=== PATIENT | male | born 1935 | race Caucasian/White ===

== ENCOUNTER 2021-07-26 12:04 | Inpatient (IN) | payer MEDICARE ==
[2021-07-26] MEDS ORDERED: DEXAMETHASONE 10 MG/ML VIAL IVP STA (12:35)
--- NOTE | 2021-07-26 12:40 | ED Physician Documentation ---
PD HPI DYSPNEA - Stated complaint Stated Complaint: C+/WEAK - History obtained from History obtained from: Patient - Additional information Additional information: 86-year-old gentleman with history of A. fib, pacemaker in place was fully im munized against Covid with Pfizer vaccine many moons ago. He became symptomatic approximately 10 days ago with a whole family testing positive as well and he states he had a home test that was positive for Covid. He presents with weakness and shortness of breath and is noted to be profoundly hypoxemic. He is not running fevers he says. Review of Systems Ten Systems: 10 systems reviewed and negative Constitutional: reports: Myalgias, Fatigue. denies: Fever, Chills Cardiac: denies: Chest pain / pressure, Palpitations Respiratory: reports: Dyspnea, Cough PD PAST MEDICAL HISTORY - Past Medical History Cardiovascular: Hypertension, High cholesterol, Atrial fibrillation Musculoskeletal: Osteoarthritis, Rheumatoid arthritis - Past Surgical History General: Colonoscopy Cardiovascular: Pacemaker - Present Medications Home Medications: Ambulatory Orders Medication Instructions Recorded Confirmed Cholecalciferol (Vitamin D3) 4,000 unit PO DAILY 07/06/13 12/28/16 [Vitamin D3] Dabigatran [Pradaxa] 75 mg PO BID 07/06/13 12/28/16 Hydrochlorothiazide 25 mg PO QAM 07/06/13 12/28/16 Lovastatin [Mevacor] 80 mg PO DAILY 07/06/13 12/28/16 Metformin HCl 1,000 mg PO BID 07/06/13 12/28/16 Nifedipine [Nifedical Xl] 90 mg PO DAILY 07/06/13 12/28/16 Vit C/Vit E AC/Lut/Copper/Zinc 1 each PO BID 07/06/13 12/28/16 [Preservision Lutein Softgel] glipiZIDE [Glipizide] 2.5 mg PO DAILY 07/06/13 12/28/16 lisinopriL [Zestril] 10 mg PO DAILY 07/06/13 12/28/16 sulfaSALAzine [Azulfidine] 1,000 mg PO BID 07/06/13 12/28/16 Amoxicillin 500 mg PO TID 12/28/16 12/28/16 Doxycycline Hyclate 100 mg PO BID 12/28/16 12/28/16 - Allergies Allergies/Adverse Reactions: Allergies Allergy/AdvReac Type Severity Reaction Status Date / Time bee sting Allergy Intermediate Edema Uncoded 07/06/13 12:11 - Social History Does the pt smoke?: No Smoking Status: Former smoker - Family History Family history: reports: Non contributory PD ED PE NORMAL - Vitals Vital signs reviewed: Yes - General General: Alert and oriented X 3, Other (Despite his level of hypoxemia he appears remarkably comfortable.) - HEENT HEENT: PERRL, EOMI - Neck Neck: Supple, no meningeal sign, No bony TTP - Cardiac Cardiac: RRR, No murmur, Other (Paced on the monitor) - Respiratory Respiratory: No respiratory distress, Other (Crackles at both bases) - Abdomen Abdomen: Normal bowel sounds, Soft, Non tender - Back Back: No CVA TTP, No spinal TTP - Derm Derm: Normal color, Warm and dry - Extremities Extremities: No edema, No calf tenderness / cord - Neuro Neuro: Alert and oriented X 3, Normal speech Results - Vitals Vitals: Vital Signs - 24 hr 07/26/21 07/26/21 07/26/21 12:14 12:20 12:55 Temperature 36.6 C Heart Rate 89 72 60 Respiratory 30 H 26 H 26 H Rate Blood Pressure 223/98 H 196/95 H O2 Saturation 67 L 92 97 07/26/21 13:25 Temperature Heart Rate 60 Respiratory 26 H Rate Blood Pressure 200/92 H O2 Saturation 96 Oxygen O2 Source Non-rebreather mask Oxygen Flow Rate 15 - EKG (time done) 1257 Rate: Rate (enter#) (60) Rhythm: Atrial flutter, Atrial fibrillation, Paced - Labs Labs: Laboratory Tests 07/26/21 07/26/21 07/26/21 12:43 12:43 12:43 WBC 9.9 RBC 4.59 L Hgb 13.6 L Hct 43.1 MCV 93.9 MCH 29.6 MCHC 31.6 L RDW 14.6 Plt Count 252 MPV 10.4 Neut # (Auto) 8.6 H Lymph # (Auto) 0.9 L [place] # (Auto) 0.4 Eos # (Auto) 0.0 Baso # (Auto) 0.0 Absolute Nucleated RBC 0.00 Nucleated RBC % 0.0 Manual Slide Review Indicated RBC Morph Micro Appear 2+ ANISOCYTOSIS D-Dimer > 1050.0 H VBG pH VBG pCO2 VBG pO2 VBG HCO3 VBG Total CO2 VBG O2 Saturation VBG Base Excess Sodium 146 H Potassium 4.2 Chloride 108 Carbon Dioxide 24 Anion Gap 14.0 H BUN 40 H Creatinine 1.4 H Estimated GFR (MDRD) 48 L Glucose 186 H Lactic Acid Calcium 10.2 Phosphorus 3.1 Magnesium 2.3 Total Bilirubin 1.0 AST 42 ALT 24 Alkaline Phosphatase 79 B-Natriuretic Peptide Total Protein 8.3 H Albumin 3.4 Globulin 4.9 H Albumin/Globulin Ratio 0.7 L 07/26/21 07/26/21 07/26/21 12:43 12:43 12:43 WBC RBC Hgb Hct MCV MCH MCHC RDW Plt Count MPV Neut # (Auto) Lymph # (Auto) [place] # (Auto) Eos # (Auto) Baso # (Auto) Absolute Nucleated RBC Nucleated RBC % Manual Slide Review RBC Morph Micro Appear D-Dimer VBG pH 7.380 VBG pCO2 38.8 L VBG pO2 25.0 VBG HCO3 22.4 L VBG Total CO2 23.6 L VBG O2 Saturation 43.6 L VBG Base Excess -2.4 L Sodium Potassium Chloride Carbon Dioxide Anion Gap BUN Creatinine Estimated GFR (MDRD) Glucose Lactic Acid 2.0 Calcium Phosphorus Magnesium Total Bilirubin AST ALT Alkaline Phosphatase B-Natriuretic Peptide 569 H Total Protein Albumin Globulin Albumin/Globulin Ratio - Rads (name of study) 1v chest XR Radiology: EMP read contemporaneously (Diffuse interstitial and alveolar opacities which may be seen in the setting of COVID pneumonia Diffuse interstitial and alveolar opacities which may be seen in the setting of COVID pneumonia Diffuse interstitial and alveolar opacities which may be seen in the setting of COVID pneumonia given histo ) PD MEDICAL DECISION MAKING - ED course ED course: 86-year-old gentleman presents with Covid positivity, a breakthrough infection with profound hypoxemia requiring approximately 15 L of oxygen supplementally. We talked about intubation if he worsens, he vacillates saying "just do what is best." I discussed with him that eventually he may need to make a decision if he worsens but he does not seem prepared to do so at this point. That said when we discussed the chances of ROSC if he were to lose pulses, he agrees to be a DNR. That said intubation is still a question. 86-year-old gentleman with positive home test for Covid presents profoundly hypoxemic. He is afebrile and saturations are good on 15 L supplemental oxygen. D-dimer was high but not anticoagulated given that he is on therapeutic Pradaxa. Spoke with Dr. Hogan for admission at 1:20 PM. Departure - Departure Disposition: 66 [facility] DC/Xfer Clinical Impression: Pneumonia due to COVID-19 virus, Hypoxemia Condition: Serious
[2021-07-26 12:56] LABS: VBG BASE EXCESS -2.4 mmol/L (-2 - +2); VBG HCO3 22.4 mmol/L (23-28); VBG OXYGEN SATURATION 43.6 % (60-80); VBG PCO2 38.8 mmHg (41-51); VBG PH 7.38 (7.31-7.41); VBG TOTAL CO2 23.6 mmol/L (24-29)
[2021-07-26 13:00] LABS: BASOPHILS % (AUTO) 0.1 %; HCT - HEMATOCRIT 43.1 % (42.0-52.0); HGB - HEMOGLOBIN 13.6 g/dL (14.0-18.0); LYMPHOCYTES # (AUTO) 0.9 10^3/uL (1.5-3.5); LYMPHOCYTES % (AUTO) 9.2 %; MEAN CORPUSCULAR HEMOGLOBIN 29.6 pg (27.0-31.0); MEAN CORPUSCULAR HGB CONC 31.6 g/dL (32.0-36.0); MEAN CORPUSCULAR VOLUME 93.9 fL (80.0-94.0); MEAN PLATELET VOLUME 10.4 fL (7.4-11.4); MONOCYTES # (AUTO) 0.4 10^3/uL (0.0-1.0); MONOCYTES % (AUTO) 3.6 %; NEUTROPHILS # (AUTO) 8.6 10^3/uL (1.5-6.6); NEUTROPHILS % (AUTO) 86.3 %; PLT - PLATELET COUNT 252 10^3/uL (130-450); RED BLOOD COUNT 4.59 10^6/uL (4.70-6.10); RED CELL DISTRIBUTION WIDTH 14.6 % (12.0-15.0); WHITE BLOOD COUNT 9.9 x10^3/uL (4.8-10.8)
[2021-07-26 13:03] LABS: SLIDE REVIEW? Indicated
[2021-07-26 13:09] LABS: ALBUMIN 3.4 g/dL (3.2-5.5); ALBUMIN/GLOBULIN RATIO 0.7 (1.0-2.2); CALCIUM 10.2 mg/dL (8.5-10.3); CREATININE 1.4 mg/dL (0.6-1.2); MAGNESIUM 2.3 mg/dL (1.7-2.8); PHOSPHORUS 3.1 mg/dL (2.5-4.6); POTASSIUM 4.2 mmol/L (3.5-5.0); TOTAL PROTEIN 8.3 g/dL (6.7-8.2)
--- NOTE | 2021-07-26 13:12 | XRAY Report ---
PROCEDURE: Chest 1 View X-Ray INDICATIONS: dyspnea, covid TECHNIQUE: One view of the chest was acquired. COMPARISON: 12/28/2016 FINDINGS: Surgical changes and devices: Stable appearance of left chest wall cardiac device with the left ventr icular lead not completely identified. Lungs and pleura: No pleural effusions or pneumothorax. There is diffuse interstitial and alveolar o pacities. Mediastinum: Mediastinal contours appear normal. Heart size is normal. Vascular calcifications not ed throughout the aorta. Bones and chest wall: No suspicious bony lesions. Degenerative changes of the shoulders and spine. Overlying soft tissues appear unremarkable. IMPRESSION: Diffuse interstitial and alveolar opacities which may be seen in the setting of COVID pneumonia given history. Fluid overload could appear similarly. Reviewed by: Pepe Castillo DO on 07/26/2021 12:10 PM RAYMUNDO Approved by: Pepe Castillo DO on 07/26/2021 12:10 PM RAYMUNDO Station ID: [id number]
[2021-07-26 13:22] LABS: RBC MORPHOLOGY (MULTIPLE) 2+ ANISOCYTOSIS (NORMAL)
[2021-07-26] MEDS ORDERED: ONDANSETRON ODT 4 MG TABLET TL PRN (13:34)
[2021-07-26] MEDS ORDERED: ONDANSETRON 4 MG/2 ML VIAL IVP PRN (13:34)
[2021-07-26] MEDS ORDERED: NON FORMULARY MED (Remdesivir 200 MG) IVP ONE (13:37)
[2021-07-26] MEDS ORDERED: LACTATED RINGERS 1,000 ML IV SCH (14:00)
[2021-07-26 14:02] LABS: B. PARAPERTUSSIS- RESP PCR PAN NOT DETECTED; B. PERTUSSIS- RESP PCR PANEL NOT DETECTED; C. PNEUMONIAE- RESP PCR PANEL NOT DETECTED; CORONAVIRUS 229E-RESP PCR NOT DETECTED; CORONAVIRUS HKU1-RESP PCR NOT DETECTED; CORONAVIRUS NL63-RESP PCR NOT DETECTED; CORONAVIRUS OC43-RESP PCR NOT DETECTED; HUMAN METAPNEUMOVIRUS NOT DETECTED; INFLUENZA A- RESP PCR PANEL NOT DETECTED; INFLUENZA B - RESP PCR PANEL NOT DETECTED; M. PNEUMONIAE- RESP PCR PANEL NOT DETECTED; PARAINFLUENZA VIRUS 1 NOT DETECTED; PARAINFLUENZA VIRUS 2 NOT DETECTED; PARAINFLUENZA VIRUS 3 NOT DETECTED; PARAINFLUENZA VIRUS 4 NOT DETECTED; RHINOVIRUS/ENTEROVIRUS NOT DETECTED; RSV- RESP PCR PANEL NOT DETECTED; SARS-CoV-2 -RESP PCR PANEL DETECTED
--- NOTE | 2021-07-26 15:08 | HISTORY & PHYSICAL EXAMINATION ---
Chief Complaint - Chief Complaint Chief Complaint: fatigue and sob w Covid History of Present Illness - Admitted From Admitted From:: home - History Obtained From Records Reviewed: [facility] History obtained from: Dr. Rae, the patient, and the patient's daughter/POA Exam Limitations: none - History of Present Illness HPI Comment/Other: This is a shi 86-year-old man who lives in his own home. 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 Rapid dementia and decline. His granddaughter lives with him, and his daughter lives next door. He and his family all state that he is an independent person. Takes care of himself just fine. He just does not drive anymore. 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 He is followed by the [facility]. He has a new primary care provider that he has not seen yet. Dr. Denis Mir at [phone]. His previous primary care provider recently retired. He also has a food expeditor, Dr. Geneva Cristina for Rheumatology. He became ill a few weeks ago, close to 3 weeks ago. Cough, fever, chest congestion. A lot of that resolved and he was maintaining a good appetite eating meals twice a day. But in the last week he has had progressive dyspnea, fatigue. He did test himself for Covid and it was positive. He is vaccinated. He has been eating a lot of chicken soup. Trying to maintain his health. He really stopped eating about 2 days ago because nothing tasted good. He has been having good fluid intake just not food. His shortness of breath was severe enough that the family was alarmed to get a pulse oximeter. Once they saw how low his oxygen was they felt he really needed to come to the emergency room. He denies diarrhea, chest pain, hemoptysis. No abdominal pain. No urgency, frequency, dysuria. In the emergency room temperature was 36.6. Heart rate 89. Blood pressure 223/98. Respirations 30 and he 67% on room air. He needs a 15 L nonrebreather to maintain his O2 sats between 92 and 97%. Throughout his visit in the emergency room his blood pressure was high. He gets easily tachypneic. He had crackles at both lung bases. A paced rhythm on the cardiac lunchroom monitor. He was alert, oriented. White cell count was 9.9. Hemoglobin 13.6. Sodium 146. BUN 40, creatinine 1.4, random glucose 186. Venous blood gas and a pH of 7.38. PCO2 38. PO2 25. D-dimer was 1050. Lactic acid 2.0. BNP 569. Chest x-ray confirms diffuse interstitial and alveolar opacities seen in the setting of Covid pneumonia given the history. Fluid overload could also be seen this way. The patient does not have a history of congestive heart failure. He did have problems with fatigue and shortness of breath and near syncope when he had his pacemaker placed in 2001. Currently he denies orthopnea, pedal edema. History - Past Medical History Cardiovascular: reports: Hypertension, High cholesterol, Atrial fibrillation Respiratory: reports: None Neuro: reports: None Endocrine/Autoimmune: reports: Type 2 diabetes GI: reports: None : reports: None HEENT: reports: Chronic vision loss Psych: reports: None Musculoskeletal: reports: Osteoarthritis, Rheumatoid arthritis - Past Surgical History General: reports: Colonoscopy Cardiovascular: reports: Pacemaker - Family & Social History Family History Comment/Other: He was estranged from his mother and father. And as such his siblings. He does not know enough about the family history to comment on it. He did have 5 children with his . All of his children are healthy. Daughter concurs. No one has high blood pressure, diabetes, cancer, heart attack or stroke. 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 Unfortunately his of many decades a year and a half ago of a rapidly progressive dementia. She at home. He did have a history of alcohol abuse decades ago and went through alcohol abuse counseling, alcoholics anonymous and has not drank in decades. He has no history of smoking. No history of recreational substance abuse. Has lived in [place] for very long time. Meds/Allgy - Home Medications Home Medications: Ambulatory Orders Medication Instructions Recorded Confirmed Dabigatran [Pradaxa] 75 mg PO BID 07/06/13 07/26/21 Atorvastatin Calcium 40 mg PO QPM 07/26/21 07/26/21 Glimepiride 1 mg PO DAILY 07/26/21 07/26/21 Lisinopril [Zestril] 20 mg PO BID 07/26/21 07/26/21 Metoprolol Succinate [Toprol Xl] 25 mg PO DAILY 07/26/21 07/26/21 NIFEdipine [Procardia Xl] 90 mg PO DAILY 07/26/21 07/26/21 metFORMIN [Glucophage] 500 mg PO BIDWM 07/26/21 07/26/21 sulfaSALAzine [Azulfidine] 500 mg PO TID 07/27/21 07/27/21 - Allergies Allergies/Adverse Reactions: Allergies Allergy/AdvReac Type Severity Reaction Status Date / Time bee sting Allergy Intermediate Edema Uncoded 07/06/13 12:11 Exam - Vital Signs Reviewed Vital Signs: Yes Vital Signs: Vital Signs x48h Temp Pulse Resp BP Pulse Ox 07/26/21 14:30 60 26 H 204/91 H 97 07/26/21 14:00 64 30 H 197/86 H 96 07/26/21 13:30 64 24 190/90 H 96 07/26/21 13:25 60 26 H 200/92 H 96 07/26/21 12:55 60 26 H 196/95 H 97 07/26/21 12:20 72 26 H 92 07/26/21 12:14 36.6 C 89 30 H 223/98 H 67 L - Physical Exam General Appearance: positive: Alert, Moderate distress, Other (Tall elderly white male who is easily tachypneic speaking to me. Moderately deaf.) Eyes Bilateral: positive: PERRL, EOMI ENT: positive: No signs of dehydration Neck: positive: No JVD Respiratory: positive: Rales. negative: Wheezes, Rhonchi Cardiovascular: positive: Regular rate & rhythm, Tachycardia. negative: Gallop/S4, Friction rub Abdomen: positive: Non-tender, No organomegaly, Nml bowel sounds, No distention Skin: positive: Warm, Dry Extremities: positive: Full ROM, No pedal edema Neurologic/Psychiatric: positive: Oriented x3, CN's nml (2-12), Motor nml Conclusion/Plan - Problem List (1) Pneumonia due to COVID-19 virus Conclusion/Plan: Started on remdesivir and Decadron. In spite of his hypoxemia he looks re markably well and he is alert, oriented. Lucid. He is power of immigration attorney and daughter was spoken to. She was helpful in providing some of his history. She has been updated. (2) Hypoxemia Conclusion/Plan: Requiring 15 L. Because he is requiring such high levels of oxygen, I am placing him in the ICU for closer attention (3) Hypertension Conclusion/Plan: Uncontrolled. He usually takes Procardia XL, metoprolol and Zestril at home. I will resume all 3 as well as as needed hydralazine Qualifiers: Hypertension type: primary hypertension Qualified Code(s): I10 - Essential (primary) hypertension (4) Controlled type 2 diabetes mellitus without complication, without long-term current use of insulin Conclusion/Plan: But I anticipate that the Decadron will bring some measure of hyperglycemia. I have stopped his oral medications especially the Metformin. He will be started on Lantus and sliding scale insulin. I will adjust his insulin depending on how high his sugars go. - Lab Results Lab results reviewed: Yes Prosper Bones: 07/27/21 04:55 07/27/21 04:55 - Diagnostic Imaging Results Diagnostic Imaging Results: positive: Final report reviewed Core Measures - Anticipated LOS I expect patient to be DC'd or transferred within 96 hours.: Yes - DVT/VTE - Prophylaxis VTE/DVT Device ordered at admit?: Yes
[2021-07-26] MEDS ORDERED: REMDESIVIR 100MG VIAL 200 MG in SODIUM CHLORIDE 0.9% 250 ML IV ONE (16:00)
[2021-07-26] MEDS: INSULIN ASPART 300 UNIT/3 ML PEN SUBQ SCH ×2 (17:24→21:27)
[2021-07-26] MEDS: SODIUM CHLORIDE FLUSH 0.9% 10 ML SYRINGE IVP SCH (17:25)
[2021-07-26] MEDS: hydrALAZINE INJ 20 MG/ML VIAL IVP PRN (17:26)
[2021-07-26] MEDS ORDERED: INSULIN GLARGINE 300 UNIT/3 ML PEN SUBQ SCH (21:00)
[2021-07-26] MEDS: DABIGATRAN 75 MG CAPSULE PO SCH (21:26)
[2021-07-27 05:06] LABS: BASOPHILS % (AUTO) 0.1 %; HCT - HEMATOCRIT 39.2 % (42.0-52.0); HGB - HEMOGLOBIN 12.5 g/dL (14.0-18.0); LYMPHOCYTES % (AUTO) 11.2 %; MEAN CORPUSCULAR HEMOGLOBIN 30.2 pg (27.0-31.0); MEAN CORPUSCULAR HGB CONC 31.9 g/dL (32.0-36.0); MEAN CORPUSCULAR VOLUME 94.7 fL (80.0-94.0); MEAN PLATELET VOLUME 10.7 fL (7.4-11.4); MONOCYTES % (AUTO) 4.7 %; NEUTROPHILS % (AUTO) 83.3 %; PLT - PLATELET COUNT 203 10^3/uL (130-450); RED BLOOD COUNT 4.14 10^6/uL (4.70-6.10); RED CELL DISTRIBUTION WIDTH 14.4 % (12.0-15.0); WHITE BLOOD COUNT 8.7 x10^3/uL (4.8-10.8)
[2021-07-27 05:11] LABS: ABNORMAL LYMPHS % (MANUAL) 0 %; BAND NEUTROPHILS % (MANUAL) 0 %
[2021-07-27 05:26] LABS: CALCIUM 9.4 mg/dL (8.5-10.3); CREATININE 1.1 mg/dL (0.6-1.2); CRP - C-REACTIVE PROTEIN 8.8 mg/dL (0-1.0); POTASSIUM 3.9 mmol/L (3.5-5.0)
[2021-07-27 05:38] LABS: LYMPHOCYTES % (MANUAL) 11 %; MONOCYTES # (MANUAL) 0.3 10^3/uL (0.0-1.0); NEUTROPHILS # (MANUAL) 7.4 10^3/uL (1.5-6.6)
[2021-07-27 05:39] LABS: DIFFERENTIAL COMMENT MANUAL DIFFERENTIAL; PLATELET ESTIMATE, MANUAL NORMAL (130-450,000) (NORMAL); PLATELET MORPHOLOGY NORMAL APPEARANCE (NORMAL); WBC MORPHOLOGY (MULTIPLE) NORMAL APPEARANCE (NORMAL)
[2021-07-27] MEDS: SODIUM CHLORIDE FLUSH 0.9% 10 ML SYRINGE IVP SCH ×3 (06:33→18:07)
[2021-07-27] MEDS ORDERED: INSULIN GLARGINE 300 UNIT/3 ML PEN SUBQ SCH ×2 (08:00→21:00)
[2021-07-27] MEDS: INSULIN ASPART 300 UNIT/3 ML PEN SUBQ SCH ×4 (08:18→21:14)
[2021-07-27] MEDS: NIFEdipine ER 30 MG TABLET PO SCH (08:22)
[2021-07-27] MEDS: METOPROLOL SUCCINATE 25 MG TABLET PO SCH (08:23)
[2021-07-27] MEDS: TAMSULOSIN 0.4 MG CAPSULE PO SCH (08:23)
[2021-07-27] MEDS: lisinopriL 5 MG TABLET PO SCH (08:23)
[2021-07-27] MEDS: DABIGATRAN 75 MG CAPSULE PO SCH ×2 (08:24→21:17)
[2021-07-27] MEDS: hydrALAZINE INJ 20 MG/ML VIAL IVP PRN (08:32)
[2021-07-27] MEDS ORDERED: NIFEdipine ER 90 MG TABLET PO SCH (09:00)
[2021-07-27] MEDS ORDERED: DEXAMETHASONE 4 MG/ML VIAL IVP SCH (09:00)
[2021-07-27] MEDS: REMDESIVIR 100MG VIAL 100 MG in SODIUM CHLORIDE 0.9% 100ML 100 ML IV SCH (09:54)
[2021-07-27] MEDS ORDERED: VANCOMYCIN INJ 2 GM in SODIUM CHLORIDE 0.9% 500 ML IV ONE (14:00)
--- NOTE | 2021-07-27 20:49 | PROVIDER PROGRESS NOTE ---
Progress Note July 27, 2021 10 AM He is in disbelief that he is still here. He keeps on thinking that he would just go to be here overnight and that we would disconnect "check him out" and sent him home. When I tell him that Covid patients tend to stay anywhere between 7 to 10 days on average he is shocked. And then I warned him that sometimes this day her 21 days he is a POLST. He really hopes he does not have to stay this long. Still very short of breath. Poor appetite. But getting up to go to the bathroom. Interactive with the nurse. Sitting up in a chair. Temperature is 36.8. Pulse is 60. Blood pressure 165/72. Respirations 24. He is on 11 L Oxymizer mask and he is 91% saturated. Lean lanky elderly gentleman a little bit more perez in face today than yesterday and with less Bon home me. Neck is shot supple Lungs have mild diffuse crackles. As long as he is not talking he does not get tachypneic Abdomen is soft, hypoactive bowel sounds, nontender Extremities without edema BMP is normal. Random glucose 164. C-reactive protein 8.8. White cell count 8.7 hemoglobin 12.5. Assessment/plan #1 pneumonia due to Covid virus. Day #2 remdesivir. Day #2 Decadron. 2. Hypoxemia continues. We will continue to supplement. He is a patient that wants to be intubated if he needs to be. But DNR with regards to cardiac events. 3. Hypertension. Uncontrolled. I resumed all of his medications and his blood pressure is better this morning. 4. Diabetes mellitus is controlled with his Lantus and sliding scale insulin. No adjustments today.
[2021-07-27] MEDS: QUEtiapine 25 MG TABLET PO SCH (21:17)
[2021-07-28] MEDS: SODIUM CHLORIDE FLUSH 0.9% 10 ML SYRINGE IVP SCH ×3 (01:32→17:20)
[2021-07-28 05:24] LABS: BASOPHILS % (AUTO) 0.1 %; EOSINOPHILS % (AUTO) 0.1 %; HCT - HEMATOCRIT 39.8 % (42.0-52.0); HGB - HEMOGLOBIN 12.9 g/dL (14.0-18.0); LYMPHOCYTES % (AUTO) 9.1 %; MEAN CORPUSCULAR HGB CONC 32.4 g/dL (32.0-36.0); MEAN CORPUSCULAR VOLUME 92.6 fL (80.0-94.0); MEAN PLATELET VOLUME 10.9 fL (7.4-11.4); NEUTROPHILS % (AUTO) 84.7 %; PLT - PLATELET COUNT 195 10^3/uL (130-450); RED CELL DISTRIBUTION WIDTH 14.6 % (12.0-15.0)
[2021-07-28 05:26] LABS: ABNORMAL LYMPHS % (MANUAL) 0 %; BAND NEUTROPHILS % (MANUAL) 0 %
[2021-07-28 05:56] LABS: DIFFERENTIAL COMMENT MANUAL DIFFERENTIAL; LYMPHOCYTES % (MANUAL) 9 %; MONOCYTES # (MANUAL) 0.2 10^3/uL (0.0-1.0); MYELOCYTES % (MANUAL) 1 %; NEUTROPHILS # (MANUAL) 9.7 10^3/uL (1.5-6.6); PLATELET ESTIMATE, MANUAL NORMAL (130-450,000) (NORMAL); PLATELET MORPHOLOGY NORMAL APPEARANCE (NORMAL); RBC MORPHOLOGY (MULTIPLE) NORMAL APPEARANCE (NORMAL); WBC MORPHOLOGY (MULTIPLE) NORMAL APPEARANCE (NORMAL)
[2021-07-28 06:04] LABS: CALCIUM 9.9 mg/dL (8.5-10.3); CREATININE 1.7 mg/dL (0.6-1.2); CRP - C-REACTIVE PROTEIN 5.2 mg/dL (0-1.0); POTASSIUM 3.6 mmol/L (3.5-5.0)
[2021-07-28 07:39] LABS: ABG HCO3 20.5 mmol/L (22.0-26.0); ABG PCO2 31 mmHg (34-45); ABG PH 7.44 (7.35-7.45); ABG PO2 83 mmHg (80-100); ABG TCO2 21.5 MMOL/L (21.0-29.0)
[2021-07-28 07:40] LABS: ABG BASE EXCESS -2.6 mmol/L (-2.0-3.0); ABG MODE OF VENTILATION SYNCHRONOUS/TIMES; ABG OXYGEN SATURATION 96 % (94-98); ABG RESPIRATORY RATE 18 b/min; ALLEN TEST POSITIVE
--- NOTE | 2021-07-28 08:57 | XRAY Report ---
PROCEDURE: Chest 1 View X-Ray INDICATIONS: Covid. Worsening hypoxia. TECHNIQUE: One view of the chest was acquired. COMPARISON: July 26, 2021 FINDINGS: SUPPORT DEVICES: Redemonstrated left cardiac device. LUNG/PLEURA: Slightly worsened increased interstitial markings/alveolar opacities. No pleural effusio n or space-occupying pneumothorax. MEDIASTINUM: The cardiomediastinal silhouette is within normal limits. Calcified atheromatous change of the aorta. BONES/SOFT TISSUES: No acute abnormality. IMPRESSION: 1.Slightly worsened airspace disease. Reviewed by: Michael Ro MD on 07/28/2021 8:56 AM PDT Approved by: Michael Ro MD on 07/28/2021 8:56 AM PDT Station ID: [id number]
[2021-07-28] MEDS: INSULIN ASPART 300 UNIT/3 ML PEN SUBQ SCH ×4 (09:35→21:08)
[2021-07-28] MEDS: DABIGATRAN 75 MG CAPSULE PO SCH ×2 (09:39→21:09)
[2021-07-28] MEDS: METOPROLOL SUCCINATE 25 MG TABLET PO SCH (09:40)
[2021-07-28] MEDS: dexAMETHasone 4 MG TABLET PO SCH (09:40)
[2021-07-28] MEDS: REMDESIVIR 100MG VIAL 100 MG in SODIUM CHLORIDE 0.9% 100ML 100 ML IV SCH (10:36)
[2021-07-28 12:34] LABS: CALCIUM 9.8 mg/dL (8.5-10.3); CREATININE 1.9 mg/dL (0.6-1.2); POTASSIUM 3.8 mmol/L (3.5-5.0)
[2021-07-28] MEDS ORDERED: VANCOMYCIN INJ 1 GM, VANCOMYCIN INJ 500 MG in SODIUM CHLORIDE 0.9% 500 ML IV SCH (14:00)
[2021-07-28] MEDS: LACTATED RINGERS 1,000 ML IV SCH (14:57)
[2021-07-28] MEDS: lisinopriL 5 MG TABLET PO SCH (14:59)
[2021-07-28] MEDS: TAMSULOSIN 0.4 MG CAPSULE PO SCH (15:00)
[2021-07-28] MEDS: NIFEdipine ER 30 MG TABLET PO SCH (15:00)
--- NOTE | 2021-07-28 17:52 | HISTORY & PHYSICAL EXAMINATION ---
History and Physical - History and Physical July 28, 2021 5:47 PM Patient has had a long 12 to 18 hours. Yesterday he started ing, getting delirious, agitated. Required a one-to-one sitter. Because he kept on taking off his face mask and would desaturate into the high 60s or low 70s. I gave him Seroquel. He has been transitioned from oxime mask to BiPAP. As the day has progressed today he is cleared mentally. Does not remember anything of yesterday. Or last night. He is back down to an oxygen mask. He is at 12 L with an FiO2 of 50% and saturating at 95%. I spoke to his daughter at length today. Updated her on dad's condition. He still has great vital signs with regards to heart, gut. Blood pressures are maintained. It is really the Covid pneumonia is making him hypoxic and my main worry. We talked about his advance care planning wishes when I first met him. He stated that he did not want CPR, did not want cardioversion. But if he needed to be intubated due to hypoxemia, it was okay for us to do that. Active Medications Acetaminophen (Acetaminophen 325 Mg Tablet) 650 mg PO Q4HR PRN PRN Reason: Pain 1 to 4 Dabigatran (Dabigatran 75 Mg Capsule) 75 mg PO BID [facility] Last Admin: 07/28/21 09:39 Dose: 75 mg Documented by: Dexamethasone (Dexamethasone 4 Mg Tablet) 6 mg PO DAILY [facility] Last Admin: 07/28/21 09:40 Dose: 6 mg Documented by: Hydralazine HCl (Hydralazine Inj 20 Mg/Ml Vial) 10 mg IVP TID PRN PRN Reason: Hypertensive Emergency Last Admin: 07/27/21 08:32 Dose: 10 mg Documented by: Remdesivir 100 mg/ Sodium (Chloride) 100 mls @ 200 mls/hr IV DAILY [facility] Stop: 07/30/21 09:29 Last Admin: 07/28/21 10:36 Dose: 200 mls/hr Documented by: Lactated Ringer's (Lr) 1,000 mls @ 83.333 mls/hr IV .Q12H [facility] Last Admin: 07/28/21 14:57 Dose: 83.333 mls/hr Documented by: Linezolid (Zyvox 600 Mg/300 Ml) 600 mg in 300 mls @ 300 mls/hr IV Q12H [facility] Insulin Aspart (Insulin Aspart 300 Unit/3 Ml Pen) 2 - 10 unit SUBQ 0800,1200,1700,2100 [facility]; Protocol Last Admin: 07/28/21 17:18 Dose: 4 unit Documented by: Insulin Glargine (Insulin Glargine 300 Unit/3 Ml Pen) 15 unit SUBQ QDBREAKFAST [facility] Insulin Glargine (Insulin Glargine 300 Unit/3 Ml Pen) 10 unit SUBQ QPM [facility] Lisinopril (Lisinopril 5 Mg Tablet) 10 mg PO DAILY [facility] Last Admin: 07/28/21 14:59 Dose: Not Given Documented by: Metoprolol Succinate (Metoprolol Succinate 25 Mg Tablet) 25 mg PO DAILY [facility] Last Admin: 07/28/21 09:40 Dose: 25 mg Documented by: Nifedipine (Nifedipine Er 30 Mg Tablet) 90 mg PO DAILY [facility] Last Admin: 07/28/21 15:00 Dose: Not Given Documented by: Ondansetron HCl (Ondansetron Odt 4 Mg Tablet) 4 mg TL Q6HR PRN PRN Reason: Nausea / Vomiting Ondansetron HCl (Ondansetron 4 Mg/2 Ml Vial) 4 mg IVP Q6HR PRN PRN Reason: Nausea / Vomiting Oxycodone HCl (Oxycodone 5 Mg Tablet) 5 mg PO Q4HR PRN PRN Reason: Pain 5 to 7 Quetiapine Fumarate (Quetiapine 25 Mg Tablet) 25 mg PO QPM [facility] Last Admin: 07/27/21 21:17 Dose: 25 mg Documented by: Sodium Chloride (Sodium Chloride Flush 0.9% 10 Ml Syringe) 10 ml IVP PRN PRN PRN Reason: NEEDED PER PROVIDER ORDERS Sodium Chloride (Sodium Chloride Flush 0.9% 10 Ml Syringe) 10 ml IVP 0100,0900,1700 [facility] Last Admin: 07/28/21 17:20 Dose: 10 ml Documented by: Tamsulosin HCl (Tamsulosin 0.4 Mg Capsule) 0.4 mg PO DAILY [facility] Last Admin: 07/28/21 15:00 Dose: Not Given Documented by: Dabigatran [Pradaxa] 75 mg PO BID 07/06/13 Atorvastatin Calcium 40 mg PO QPM 07/26/21 Glimepiride 1 mg PO DAILY 07/26/21 Lisinopril [Zestril] 20 mg PO BID 07/26/21 Metoprolol Succinate [Toprol Xl] 25 mg PO DAILY 07/26/21 NIFEdipine [Procardia Xl] 90 mg PO DAILY 07/26/21 metFORMIN [Glucophage] 500 mg PO BIDWM 07/26/21 sulfaSALAzine [Azulfidine] 500 mg PO TID 07/27/21 Temperature is 36.4. Heart rate 60. Blood pressure 122/60. Respirations 20. 95% saturated. 12 L/min with an FiO2 of 50%. Lean lanky elderly gentleman. Slightly nasal tone of voice. Neck is shotty adenopathy Coarse rhonchi, easy tachypnea. Sometimes he has fine crackles. No use of accessory muscles Regular rate and rhythm. Abdomen is benign. He has a Blevins. No edema present. Right now at this moment he is alert, oriented, able to feed himself. But he keeps on forgetting where he is and he is startled when we remind him. BUN 61, creatinine 1.9. His renal function has worsened while here. And after vancomycin started. Random glucose 119, 124, 197. CBC with white cell count 11. Hemoglobin 12.9. Hematocrit 39.8. Blood cultures with gram-positive cocci in clusters in 1 bottle. Negative in the second bottle. PCR is staph aureus. It grew under 24 hours. Assessment/plan 1. Pneumonia due to Covid virus. Day #3 remdesivir. Day #3 Decadron. 2. Staph aureus bacteremia. Unfortunately he did grow under 24 hours in 1 bottle. Concern is for pneumonia. Vancomycin is causing increased rise in BUN and creatinine so was switched to linezolid today. 3. Hypertension. Initially uncontrolled. All of his medications have been resumed and today has much better control. 4. Type 2 diabetes mellitus. Yesterday's glucose was 170, 197, 269. Today he is 95, 124, 197. I have switched him so that he is on Lantus 10 units at night, and Lantus 15 units in the morning plus sliding scale. 5. Acute kidney injury due to poor p.o. intake as well as use of vancomycin. I have stopped the vancomycin and switched him to the Nasalide, and also started lactated Ringer's at 83.3 cc an hour.
[2021-07-28] MEDS: INSULIN GLARGINE 300 UNIT/3 ML PEN SUBQ SCH (21:09)
[2021-07-28] MEDS: QUEtiapine 25 MG TABLET PO SCH (21:09)
[2021-07-28] MEDS: LINEZOLID 600 MG/300 ML 600 MG/300 ML BAG IV SCH (21:57)
[2021-07-29] MEDS: SODIUM CHLORIDE FLUSH 0.9% 10 ML SYRINGE IVP SCH ×3 (02:23→16:36)
[2021-07-29] MEDS: LACTATED RINGERS 1,000 ML IV SCH ×2 (04:05→16:35)
[2021-07-29 05:11] LABS: BASOPHILS % (AUTO) 0.1 %; EOSINOPHILS % (AUTO) 0.1 %; HCT - HEMATOCRIT 41.1 % (42.0-52.0); HGB - HEMOGLOBIN 13.1 g/dL (14.0-18.0); LYMPHOCYTES # (AUTO) 0.8 10^3/uL (1.5-3.5); LYMPHOCYTES % (AUTO) 7.1 %; MEAN CORPUSCULAR HEMOGLOBIN 29.6 pg (27.0-31.0); MEAN CORPUSCULAR HGB CONC 31.9 g/dL (32.0-36.0); MEAN PLATELET VOLUME 10.5 fL (7.4-11.4); MONOCYTES # (AUTO) 0.4 10^3/uL (0.0-1.0); NEUTROPHILS # (AUTO) 9.4 10^3/uL (1.5-6.6); NEUTROPHILS % (AUTO) 87.6 %; PLT - PLATELET COUNT 192 10^3/uL (130-450); RED BLOOD COUNT 4.42 10^6/uL (4.70-6.10); RED CELL DISTRIBUTION WIDTH 14.7 % (12.0-15.0); WHITE BLOOD COUNT 10.7 x10^3/uL (4.8-10.8)
[2021-07-29 05:36] LABS: CALCIUM 9.7 mg/dL (8.5-10.3); CRP - C-REACTIVE PROTEIN 8.9 mg/dL (0-1.0); POTASSIUM 3.9 mmol/L (3.5-5.0)
--- NOTE | 2021-07-29 07:51 | PROVIDER PROGRESS NOTE ---
Assessment/Plan - Problem List (1) Acute respiratory failure with hypoxia Assessment/Plan: Secondary to COVID-19 pneumonia. Patient is on remdesivir day 4/5 and Decadron day 11/20 Currently on 15 L of oxygen via oxygen mask with oxygen saturation around 94%. He switches to the BiPAP intermittently as needed. (2) Pneumonia due to COVID-19 virus Assessment/Plan: Patient is on remdesivir day 4/5 and Decadron day 11/20 Currently on 15 L of oxygen via oxygen mask with oxygen saturation around 94%. He switches to the BiPAP intermittently as needed. (3) Staphylococcus aureus bacteremia Assessment/Plan: This is suspected to be secondary to a contaminant. Patient was initially treated with vancomycin which was subsequently switched to Zyvox duue to worsening renal function. White blood cell count is 10.7 and the patient is afebrile We will discontinue antibiotics. 2D echo done on July 28, 2021 showed ejection fraction of 65 to 70%. No mass/vegetation or thrombus was seen. (4) Controlled type 2 diabetes mellitus without complication, without long-term current use of insulin Assessment/Plan: On sliding scale insulin. Lantus 15 units every morning and 10 units every afternoon. Accu-Cheks before every meal and at bedtime. (5) Hypertension Qualifiers: Hypertension type: primary hypertension Qualified Code(s): I10 - Essential (primary) hypertension Assessment/Plan: On lisinopril 10 mg p.o. daily, metoprolol succinate 25 mg p.o. daily and nifedipine 90 mg p.o. daily. (6) Acute kidney failure Assessment/Plan: Etiology undetermined. Vancomycin discontinued. Patient receiving IV hydration with normal saline. Creatinine today was 2.0. Anticipating improvement. Will recheck with morning labs. - Current Meds Current Meds: Current Medications Generic Name Dose Route Start Last Admin Trade Name Freq PRN Reason Stop Dose Admin Dabigatran 75 mg 07/26/21 21:00 07/28/21 21:09 Dabigatran 75 Mg Capsule PO 75 mg BID MARYLOU Administration Dexamethasone 6 mg 07/28/21 09:00 07/28/21 09:40 Dexamethasone 4 Mg Tablet PO 6 mg DAILY MARYLOU Administration Hydralazine HCl 10 mg 07/26/21 13:40 07/27/21 08:32 Hydralazine Inj 20 Mg/Ml Vial IVP 10 mg TID PRN Administration Hypertensive Emergency Remdesivir 100 mg/ Sodium 100 mls @ 200 mls/hr 07/27/21 09:00 07/28/21 20:26 Chloride IV 07/30/21 09:29 Infused DAILY MARYLOU Infusion Lactated Ringer's 1,000 mls @ 83.333 mls/hr 07/28/21 13:00 07/29/21 04:05 Lr IV 83.333 mls/hr .Q12H MARYLOU Administration Linezolid 600 mg in 300 mls @ 300 mls/hr 07/28/21 22:00 07/29/21 00:04 Zyvox 600 Mg/300 Ml IV Infused Q12H MARYLOU Infusion Insulin Aspart 2 - 10 unit 07/26/21 17:00 07/28/21 21:08 Insulin Aspart 300 Unit/3 Ml Pen SUBQ 2 unit 0800,1200,1700,2100 MARYLOU Administration Protocol Insulin Glargine 10 unit 07/28/21 21:00 07/28/21 21:09 Insulin Glargine 300 Unit/3 Ml Pen SUBQ 10 unit QPM MARYLOU Administration Lisinopril 10 mg 07/27/21 09:00 07/28/21 14:59 Lisinopril 5 Mg Tablet PO Not Given DAILY MARYLOU Metoprolol Succinate 25 mg 07/27/21 09:00 07/28/21 09:40 Metoprolol Succinate 25 Mg Tablet PO 25 mg DAILY MARYLOU Administration Nifedipine 90 mg 07/27/21 09:00 07/28/21 15:00 Nifedipine Er 30 Mg Tablet PO Not Given DAILY MARYLOU Quetiapine Fumarate 25 mg 07/27/21 21:00 07/28/21 21:09 Quetiapine 25 Mg Tablet PO 25 mg QPM MARYLOU Administration Sodium Chloride 10 ml 07/26/21 17:00 07/29/21 02:23 Sodium Chloride Flush 0.9% 10 Ml Syringe IVP 10 ml 0100,0900,1700 MARYLOU Administration Tamsulosin HCl 0.4 mg 07/27/21 09:00 07/28/21 15:00 Tamsulosin 0.4 Mg Capsule PO Not Given DAILY MARYLOU - Lab Result Fish Bone Diagrams: 07/29/21 05:00 07/29/21 05:00 Subjective - Subjective Patient Reports: Other (Patient was resting comfortably in bed. Oxygen saturation is about 93% on 15 L via oxygen mask. He denies chest pain. He has crackles on auscultation of lungs bilaterally.) Objective Vital Signs: Vital Signs - 24 hr 07/28/21 07/28/21 07/28/21 08:00 09:00 10:00 Temperature Heart Rate 60 Heart Rate [ 60 60 60 Radial] Respiratory 23 26 H 27 H Rate Blood Pressure 112/70 119/57 L [Left Brachial artery] O2 Saturation 94 96 96 07/28/21 07/28/21 07/28/21 11:00 11:57 12:00 Temperature 36.6 C Heart Rate 62 Heart Rate [ 60 60 Radial] Respiratory 22 25 H Rate Blood Pressure 119/66 118/65 [Left Brachial artery] O2 Saturation 96 96 07/28/21 07/28/21 07/28/21 13:00 14:00 15:00 Temperature Heart Rate Heart Rate [ 62 60 60 Radial] Respiratory 26 H 29 H 21 Rate Blood Pressure 132/61 H 120/58 L 134/60 H [Left Brachial artery] O2 Saturation 92 95 91 L 07/28/21 07/28/21 07/28/21 16:00 17:00 18:00 Temperature 26.4 C L Heart Rate Heart Rate [ 60 60 62 Radial] Respiratory 20 29 H 18 Rate Blood Pressure 122/60 136/64 H 142/70 H [Left Brachial artery] O2 Saturation 95 95 92 07/28/21 07/28/21 07/28/21 19:00 20:00 21:00 Temperature 36.9 C Heart Rate Heart Rate [ 60 60 60 Radial] Respiratory 26 H 28 H 29 H Rate Blood Pressure 129/74 142/70 H 143/72 H [Left Brachial artery] O2 Saturation 93 93 94 07/28/21 07/28/21 07/28/21 21:45 22:00 23:00 Temperature Heart Rate 60 Heart Rate [ 60 62 Radial] Respiratory 23 23 Rate Blood Pressure 128/67 139/75 H [Left Brachial artery] O2 Saturation 94 94 07/29/21 07/29/21 07/29/21 00:00 00:05 01:00 Temperature Heart Rate 61 Heart Rate [ 60 60 Radial] Respiratory 26 H 22 Rate Blood Pressure 147/78 H 126/72 [Left Brachial artery] O2 Saturation 93 95 07/29/21 07/29/21 07/29/21 02:00 02:25 03:00 Temperature Heart Rate 60 Heart Rate [ 60 60 Radial] Respiratory 24 22 Rate Blood Pressure 177/87 H 159/75 H [Left Brachial artery] O2 Saturation 94 93 07/29/21 07/29/21 07/29/21 03:20 04:00 05:00 Temperature Heart Rate 62 Heart Rate [ 62 60 Radial] Respiratory 22 21 Rate Blood Pressure 142/72 H 172/75 H [Left Brachial artery] O2 Saturation 91 L 94 07/29/21 07/29/21 07/29/21 05:45 06:00 07:00 Temperature Heart Rate 60 Heart Rate [ 60 60 Radial] Respiratory 21 21 Rate Blood Pressure 166/73 H 157/81 H [Left Brachial artery] O2 Saturation 93 93 Oxygen O2 Source BIPAP Oxygen Flow Rate 15 I&O (Last 24 Hrs): Intake and Output Totals x24h 07/27/21 07/28/21 07/29/21 23:59 23:59 23:59 Intake Total 2150 1150 1300 Output Total 1200 765 285 Balance [phone] General: Alert, Oriented x3, Mild distress HEENT: Atraumatic, PERRLA, EOMI Neck: Supple, No JVD Neuro: Alert, Oriented Times 3 Cardiovascular: Regular rate, Normal S1, Normal S2 Respiratory: Chest non-tender, Rhonchi, Other (tachypnea) Abdomen: Normal bowel sounds, Soft, No tenderness Extremities: No clubbing, No edema Skin: No rashes, No breakdown, No significant lesion - Results Results: Laboratory Results WBC 10.7 x10^3/uL (4.8-10.8) 07/29/21 05:00 RBC 4.42 10^6/uL (4.70-6.10) L 07/29/21 05:00 Hgb 13.1 g/dL (14.0-18.0) L 07/29/21 05:00 Hct 41.1 % (42.0-52.0) L 07/29/21 05:00 MCV 93.0 fL (80.0-94.0) 07/29/21 05:00 MCH 29.6 pg (27.0-31.0) 07/29/21 05:00 MCHC 31.9 g/dL (32.0-36.0) L 07/29/21 05:00 RDW 14.7 % (12.0-15.0) 07/29/21 05:00 Plt Count 192 10^3/uL (130-450) 07/29/21 05:00 MPV 10.5 fL (7.4-11.4) 07/29/21 05:00 Neut # (Auto) 9.4 10^3/uL (1.5-6.6) H 07/29/21 05:00 Lymph # (Auto) 0.8 10^3/uL (1.5-3.5) L 07/29/21 05:00 [place] # (Auto) 0.4 10^3/uL (0.0-1.0) 07/29/21 05:00 Eos # (Auto) 0.0 10^3/uL (0.0-0.7) 07/29/21 05:00 Baso # (Auto) 0.0 10^3/uL (0.0-0.1) 07/29/21 05:00 Absolute Nucleated RBC 0.00 x10^3/uL 07/29/21 05:00 Total Counted 100 07/28/21 05:11 Band Neuts % (Manual) 0 % (0-10) 07/28/21 05:11 Abnorm Lymph % (Manual) 0 % 07/28/21 05:11 Myelocytes % 1 % (-0) H 07/28/21 05:11 Nucleated RBC % 0.0 /100WBC 07/29/21 05:00 Neutrophils # (Manual) 9.7 10^3/uL (1.5-6.6) H 07/28/21 05:11 Lymphocytes # (Manual) 1.0 10^3/uL (1.5-3.5) L 07/28/21 05:11 Monocytes # (Manual) 0.2 10^3/uL (0.0-1.0) 07/28/21 05:11 Eosinophils # (Manual) 0.0 10^3/uL (0-0.7) 07/28/21 05:11 Basophils # (Manual) 0.0 10^3/uL (0-0.1) 07/28/21 05:11 Differential Comment MANUAL DIFFERENTIAL 07/28/21 05:11 Manual Slide Review Indicated 07/26/21 12:43 WBC Morphology NORMAL APPEARANCE (NORMAL) 07/28/21 05:11 Platelet Estimate NORMAL (130-450,000) (NORMAL) 07/28/21 05:11 Platelet Morphology NORMAL APPEARANCE (NORMAL) 07/28/21 05:11 RBC Morph Micro Appear NORMAL APPEARANCE (NORMAL) 07/28/21 05:11 D-Dimer > 1050.0 ng/mL (200.0-255.0) H 07/29/21 05:00 Bld Gas Analysis Time 0730 07/28/21 07:27 Sample Site RIGHT RADIAL 07/28/21 07:27 ABG pH 7.44 (7.35-7.45) 07/28/21 07:27 ABG pCO2 31 mmHg (34-45) L 07/28/21 07:27 ABG pO2 83 mmHg (80-100) 07/28/21 07:27 ABG HCO3 20.5 mmol/L (22.0-26.0) L 07/28/21 07:27 ABG Total CO2 21.5 MMOL/L (21.0-29.0) 07/28/21 07:27 ABG O2 Saturation 96 % (94-98) 07/28/21 07:27 ABG Base Excess -2.6 mmol/L (-2.0-3.0) L 07/28/21 07:27 [place] Test POSITIVE 07/28/21 07:27 VBG pH 7.380 (7.31-7.41) 07/26/21 12:43 VBG pCO2 38.8 mmHg (41-51) L 07/26/21 12:43 VBG pO2 25.0 mmHg (25-47) 07/26/21 12:43 VBG HCO3 22.4 mmol/L (23-28) L 07/26/21 12:43 VBG Total CO2 23.6 mmol/L (24-29) L 07/26/21 12:43 VBG O2 Saturation 43.6 % (60-80) L 07/26/21 12:43 VBG Base Excess -2.4 mmol/L (-2 - +2) L 07/26/21 12:43 Respiration Rate 18 b/min 07/28/21 07:27 O2 Delivery Device BiPAP 07/28/21 07:27 Vent Mode SYNCHRONOUS/TIMES 07/28/21 07:27 FiO2 60.00 07/28/21 07:27 EPAP 6 cmH2O 07/28/21 07:27 IPAP 12 cmH2O 07/28/21 07:27 Sodium 142 mmol/L (135-145) 07/29/21 05:00 Potassium 3.9 mmol/L (3.5-5.0) 07/29/21 05:00 Chloride 109 mmol/L (101-111) 07/29/21 05:00 Carbon Dioxide 20 mmol/L (21-32) L 07/29/21 05:00 Anion Gap 13.0 (6-13) 07/29/21 05:00 BUN 65 mg/dL (6-20) H 07/29/21 05:00 Creatinine 2.0 mg/dL (0.6-1.2) H 07/29/21 05:00 Estimated GFR (MDRD) 32 (>89) L 07/29/21 05:00 Glucose 169 mg/dL (70-100) H 07/29/21 05:00 POC Whole Bld Glucose 169 mg/dL (70 - 100) H 07/28/21 21:03 Lactic Acid 2.0 mmol/L (0.5-2.2) 07/26/21 12:43 Calcium 9.7 mg/dL (8.5-10.3) 07/29/21 05:00 Phosphorus 3.1 mg/dL (2.5-4.6) 07/26/21 12:43 Magnesium 2.3 mg/dL (1.7-2.8) 07/26/21 12:43 Total Bilirubin 1.0 mg/dL (0.2-1.0) 07/26/21 12:43 AST 42 IU/L (10-42) 07/26/21 12:43 ALT 24 IU/L (10-60) 07/26/21 12:43 Alkaline Phosphatase 79 IU/L (42-121) 07/26/21 12:43 C-Reactive Protein 8.9 mg/dL (0-1.0) H 07/29/21 05:00 B-Natriuretic Peptide 569 pg/mL (5-100) H 07/26/21 12:43 Total Protein 8.3 g/dL (6.7-8.2) H 07/26/21 12:43 Albumin 3.4 g/dL (3.2-5.5) 07/26/21 12:43 Globulin 4.9 g/dL (2.1-4.2) H 07/26/21 12:43 Albumin/Globulin Ratio 0.7 (1.0-2.2) L 07/26/21 12:43 Nasal Adenovirus (PCR) NOT DETECTED 07/26/21 12:26 Nasal B. parapertussis DNA (PCR) NOT DETECTED 07/26/21 12:26 Nasal Coronavir 229E PCR NOT DETECTED 07/26/21 12:26 Nasal Coronavir HKU1 PCR NOT DETECTED 07/26/21 12:26 Nasal Coronavir NL63 PCR NOT DETECTED 07/26/21 12:26 Nasal Coronavir OC43 PCR NOT DETECTED 07/26/21 12:26 Nasal Enterovir/Rhinovir PCR NOT DETECTED 07/26/21 12:26 Nasal Influenza B PCR NOT DETECTED 07/26/21 12:26 Nasal Influenza A PCR NOT DETECTED 07/26/21 12:26 Nasal Parainfluen 1 PCR NOT DETECTED 07/26/21 12:26 Nasal Parainfluen 2 PCR NOT DETECTED 07/26/21 12:26 Nasal Parainfluen 3 PCR NOT DETECTED 07/26/21 12:26 Nasal Parainfluen 4 PCR NOT DETECTED 07/26/21 12:26 Nasal RSV (PCR) NOT DETECTED 07/26/21 12:26 Nasal Screen MRSA (PCR) NEGATIVE (NEGATIVE) 07/28/21 21:39 Nasal B.pertussis DNA PCR NOT DETECTED 07/26/21 12:26 Nasal C.pneumoniae (PCR) NOT DETECTED 07/26/21 12:26 Trevor Human Metapneumo PCR NOT DETECTED 07/26/21 12:26 Nasal M.pneumoniae (PCR) NOT DETECTED 07/26/21 12:26 Nasal SARS-CoV-2 (PCR) DETECTED A 07/26/21 12:26 ABX Reporting Has patient been on IV antibiotics over the past 48 hours?: Yes
[2021-07-29] MEDS: INSULIN ASPART 300 UNIT/3 ML PEN SUBQ SCH ×4 (09:14→21:08)
[2021-07-29] MEDS: INSULIN GLARGINE 300 UNIT/3 ML PEN SUBQ SCH ×2 (09:15→21:07)
[2021-07-29] MEDS: DABIGATRAN 75 MG CAPSULE PO SCH ×2 (09:19→21:07)
[2021-07-29] MEDS: NIFEdipine ER 30 MG TABLET PO SCH (09:19)
[2021-07-29] MEDS: dexAMETHasone 4 MG TABLET PO SCH (09:19)
[2021-07-29] MEDS: lisinopriL 5 MG TABLET PO SCH (09:20)
[2021-07-29] MEDS: METOPROLOL SUCCINATE 25 MG TABLET PO SCH (09:20)
[2021-07-29] MEDS: TAMSULOSIN 0.4 MG CAPSULE PO SCH (09:27)
[2021-07-29] MEDS: REMDESIVIR 100MG VIAL 100 MG in SODIUM CHLORIDE 0.9% 100ML 100 ML IV SCH (10:55)
[2021-07-29] MEDS: LINEZOLID 600 MG/300 ML 600 MG/300 ML BAG IV SCH (12:02)
[2021-07-29] MEDS: QUEtiapine 25 MG TABLET PO SCH (21:07)
[2021-07-30] MEDS: SODIUM CHLORIDE FLUSH 0.9% 10 ML SYRINGE IVP SCH ×3 (00:09→16:46)
[2021-07-30] MEDS: LACTATED RINGERS 1,000 ML IV SCH ×2 (04:04→16:39)
--- NOTE | 2021-07-30 07:50 | PROVIDER PROGRESS NOTE ---
Assessment/Plan - Problem List (1) Acute respiratory failure with hypoxia Assessment/Plan: Secondary to COVID-19 pneumonia. Patient is on remdesivir day 4/5 and Decadron day 12/18 Currently on 15 L of oxygen via oxygen mask with oxygen saturation around 92%. He switches to the BiPAP intermittently as needed. Overall no significant change in patient's clinical status. There is no worsening or improvement in his oxygen requirement. Over the next subsequent days would like to see steady decrease in his oxygen requirement towards nasal cannula. (2) Pneumonia due to COVID-19 virus Assessment/Plan: Patient is on remdesivir day 4/5 and Decadron day 12/18 Currently on 15 L of oxygen via oxygen mask with oxygen saturation around 92%. He switches to the BiPAP intermittently as needed. (3) Staphylococcus aureus bacteremia Assessment/Plan: This is suspected to be secondary to a contaminant. Patient was initially treated with vancomycin which was subsequently switched to Zyvox duue to worsening renal function. Zyvox was discontinued 07/29/21 White blood cell count increased from 10.7 to 12.1. The patient remains afebri le If WBC continues to rise or patient becomes febrile, will resume Zyvox 2D echo done on July 28, 2021 showed ejection fraction of 65 to 70%. No mass/vegetation or thrombus was seen. (4) Controlled type 2 diabetes mellitus without complication, without long-term current use of insulin Assessment/Plan: On sliding scale insulin. Lantus 15 units every morning and 10 units every afternoon. Accu-Cheks before every meal and at bedtime. (5) Hypertension Qualifiers: Hypertension type: primary hypertension Qualified Code(s): I10 - Essential (primary) hypertension Assessment/Plan: On lisinopril 10 mg p.o. daily, metoprolol succinate 25 mg p.o. daily and n ifedipine 90 mg p.o. daily. (6) Acute kidney failure Assessment/Plan: Etiology undetermined. Vancomycin discontinued. Patient receiving IV hydration with normal saline. No change from yesterday. Creatinine today was 2.0. Anticipating improvement. Will recheck with morning labs. - Current Meds Current Meds: Current Medications Generic Name Dose Route Start Last Admin Trade Name Freq PRN Reason Stop Dose Admin Dabigatran 75 mg 07/26/21 21:00 07/29/21 21:07 Dabigatran 75 Mg Capsule PO 75 mg BID MARYLOU Administration Dexamethasone 6 mg 07/28/21 09:00 07/29/21 09:19 Dexamethasone 4 Mg Tablet PO 6 mg DAILY MARYLOU Administration Hydralazine HCl 10 mg 07/26/21 13:40 07/27/21 08:32 Hydralazine Inj 20 Mg/Ml Vial IVP 10 mg TID PRN Administration Hypertensive Emergency Remdesivir 100 mg/ Sodium 100 mls @ 200 mls/hr 07/27/21 09:00 07/29/21 20:40 Chloride IV 07/30/21 09:29 Infused DAILY MARYLOU Infusion Lactated Ringer's 1,000 mls @ 83.333 mls/hr 07/28/21 13:00 07/30/21 04:04 Lr IV 83.33 mls/hr .Q12H MARYLOU Administration Insulin Aspart 2 - 10 unit 07/26/21 17:00 07/29/21 21:08 Insulin Aspart 300 Unit/3 Ml Pen SUBQ 4 unit 0800,1200,1700,2100 MARYLOU Administration Protocol Insulin Glargine 15 unit 07/29/21 08:00 07/29/21 09:15 Insulin Glargine 300 Unit/3 Ml Pen SUBQ 15 unit [id number] MARYLOU Administration Insulin Glargine 10 unit 07/28/21 21:00 07/29/21 21:07 Insulin Glargine 300 Unit/3 Ml Pen SUBQ 10 unit QPM MARYLOU Administration Lisinopril 10 mg 07/27/21 09:00 07/29/21 09:20 Lisinopril 5 Mg Tablet PO 10 mg DAILY MARYLOU Administration Metoprolol Succinate 25 mg 07/27/21 09:00 07/29/21 09:20 Metoprolol Succinate 25 Mg Tablet PO 25 mg DAILY MARYLOU Administration Nifedipine 90 mg 07/27/21 09:00 07/29/21 09:19 Nifedipine Er 30 Mg Tablet PO 90 mg DAILY MARYLOU Administration Quetiapine Fumarate 25 mg 07/27/21 21:00 07/29/21 21:07 Quetiapine 25 Mg Tablet PO 25 mg QPM MARYLOU Administration Sodium Chloride 10 ml 07/26/21 17:00 07/30/21 00:09 Sodium Chloride Flush 0.9% 10 Ml Syringe IVP 10 ml 0100,0900,1700 MARYLOU Administration Tamsulosin HCl 0.4 mg 07/27/21 09:00 07/29/21 09:27 Tamsulosin 0.4 Mg Capsule PO 0.4 mg DAILY MARYLOU Administration - Lab Result Fish Bone Diagrams: 07/30/21 07:59 07/30/21 07:59 Subjective - Subjective Patient Reports: Other (Patient was resting in bed at time of exam. He appears significantly weak/tired he is currently on an oxygen mask at 15 L with oxygen saturation at 92%. He denies any significant change in his respiratory status on the previous day. He has crackles bilaterally on auscultation of lungs.) Objective Vital Signs: Vital Signs - 24 hr 07/29/21 07/29/21 07/29/21 08:00 09:00 10:00 Temperature 36 C L Heart Rate Heart Rate [ 60 60 61 Radial] Respiratory 19 22 25 H Rate Blood Pressure 166/89 H 174/73 H 172/73 H [Left Brachial artery] O2 Saturation 94 90 L 91 L 07/29/21 07/29/21 07/29/21 11:00 12:00 13:00 Temperature 36 C L Heart Rate Heart Rate [ 62 60 60 Radial] Respiratory 24 27 H 25 H Rate Blood Pressure 164/72 H 162/77 H 132/66 H [Left Brachial artery] O2 Saturation 95 93 94 07/29/21 07/29/21 07/29/21 14:00 15:00 16:00 Temperature Heart Rate Heart Rate [ 60 60 60 Radial] Respiratory 25 H 28 H 27 H Rate Blood Pressure 135/64 H 118/72 131/64 H [Left Brachial artery] O2 Saturation 95 93 95 07/29/21 07/29/21 07/29/21 17:00 18:00 18:30 Temperature Heart Rate 62 Heart Rate [ 60 62 Radial] Respiratory 28 H 22 Rate Blood Pressure 154/76 H 134/100 H [Left Brachial artery] O2 Saturation 98 90 L 07/29/21 07/29/21 07/29/21 19:00 20:00 20:05 Temperature 36.6 C 36.4 C L Heart Rate 62 Heart Rate [ 60 64 Radial] Respiratory 24 24 Rate Blood Pressure 126/63 171/72 H [Left Brachial artery] O2 Saturation 94 93 07/29/21 07/29/21 07/29/21 21:00 22:00 22:05 Temperature Heart Rate 64 Heart Rate [ 60 60 Radial] Respiratory 21 22 Rate Blood Pressure 118/67 113/62 [Left Brachial artery] O2 Saturation 94 93 07/29/21 07/30/21 07/30/21 23:00 00:00 01:00 Temperature 36.2 C L Heart Rate Heart Rate [ 60 60 60 Radial] Respiratory 19 25 H 20 Rate Blood Pressure 135/70 H 108/67 106/69 [Left Brachial artery] O2 Saturation 93 90 L 97 07/30/21 07/30/21 07/30/21 01:50 02:00 03:00 Temperature Heart Rate 60 Heart Rate [ 60 60 Radial] Respiratory 15 20 Rate Blood Pressure 141/74 H 109/69 [Left Brachial artery] O2 Saturation 94 96 07/30/21 07/30/21 07/30/21 03:25 04:00 05:00 Temperature Heart Rate 60 Heart Rate [ 60 64 Radial] Respiratory 19 23 Rate Blood Pressure 135/77 H 134/62 H [Left Brachial artery] O2 Saturation 98 94 07/30/21 07/30/21 07/30/21 06:00 06:10 07:00 Temperature Heart Rate 60 Heart Rate [ 60 60 Radial] Respiratory 21 22 Rate Blood Pressure 133/64 H 140/64 H [Left Brachial artery] O2 Saturation 91 L 92 Oxygen O2 Source BIPAP Oxygen Flow Rate 15 I&O (Last 24 Hrs): Intake and Output Totals x24h 07/28/21 07/29/21 07/30/21 23:59 23:59 23:59 Intake Total 1150 3280.000 956.906 Output Total 765 825 490 Balance 385 2455.000 466.906 General: Alert, Oriented x3, Other (Weak) HEENT: PERRLA, EOMI Neck: Supple, No JVD Neuro: Alert, Oriented Times 3 Cardiovascular: Regular rate Respiratory: Other (Crackles in lung bases bilaterally) Abdomen: Normal bowel sounds, Soft, No tenderness Extremities: No clubbing, No cyanosis, No edema Skin: No rashes, No breakdown, No significant lesion - Results Results: Laboratory Results WBC 10.7 x10^3/uL (4.8-10.8) 07/29/21 05:00 RBC 4.42 10^6/uL (4.70-6.10) L 07/29/21 05:00 Hgb 13.1 g/dL (14.0-18.0) L 07/29/21 05:00 Hct 41.1 % (42.0-52.0) L 07/29/21 05:00 MCV 93.0 fL (80.0-94.0) 07/29/21 05:00 MCH 29.6 pg (27.0-31.0) 07/29/21 05:00 MCHC 31.9 g/dL (32.0-36.0) L 07/29/21 05:00 RDW 14.7 % (12.0-15.0) 07/29/21 05:00 Plt Count 192 10^3/uL (130-450) 07/29/21 05:00 MPV 10.5 fL (7.4-11.4) 07/29/21 05:00 Neut # (Auto) 9.4 10^3/uL (1.5-6.6) H 07/29/21 05:00 Lymph # (Auto) 0.8 10^3/uL (1.5-3.5) L 07/29/21 05:00 [place] # (Auto) 0.4 10^3/uL (0.0-1.0) 07/29/21 05:00 Eos # (Auto) 0.0 10^3/uL (0.0-0.7) 07/29/21 05:00 Baso # (Auto) 0.0 10^3/uL (0.0-0.1) 07/29/21 05:00 Absolute Nucleated RBC 0.00 x10^3/uL 07/29/21 05:00 Total Counted 100 07/28/21 05:11 Band Neuts % (Manual) 0 % (0-10) 07/28/21 05:11 Abnorm Lymph % (Manual) 0 % 07/28/21 05:11 Myelocytes % 1 % (-0) H 07/28/21 05:11 Nucleated RBC % 0.0 /100WBC 07/29/21 05:00 Neutrophils # (Manual) 9.7 10^3/uL (1.5-6.6) H 07/28/21 05:11 Lymphocytes # (Manual) 1.0 10^3/uL (1.5-3.5) L 07/28/21 05:11 Monocytes # (Manual) 0.2 10^3/uL (0.0-1.0) 07/28/21 05:11 Eosinophils # (Manual) 0.0 10^3/uL (0-0.7) 07/28/21 05:11 Basophils # (Manual) 0.0 10^3/uL (0-0.1) 07/28/21 05:11 Differential Comment MANUAL DIFFERENTIAL 07/28/21 05:11 Manual Slide Review Indicated 07/26/21 12:43 WBC Morphology NORMAL APPEARANCE (NORMAL) 07/28/21 05:11 Platelet Estimate NORMAL (130-450,000) (NORMAL) 07/28/21 05:11 Platelet Morphology NORMAL APPEARANCE (NORMAL) 07/28/21 05:11 RBC Morph Micro Appear NORMAL APPEARANCE (NORMAL) 07/28/21 05:11 D-Dimer > 1050.0 ng/mL (200.0-255.0) H 07/29/21 05:00 Bld Gas Analysis Time 0730 07/28/21 07:27 Sample Site RIGHT RADIAL 07/28/21 07:27 ABG pH 7.44 (7.35-7.45) 07/28/21 07:27 ABG pCO2 31 mmHg (34-45) L 07/28/21 07:27 ABG pO2 83 mmHg (80-100) 07/28/21 07:27 ABG HCO3 20.5 mmol/L (22.0-26.0) L 07/28/21 07:27 ABG Total CO2 21.5 MMOL/L (21.0-29.0) 07/28/21 07:27 ABG O2 Saturation 96 % (94-98) 07/28/21 07:27 ABG Base Excess -2.6 mmol/L (-2.0-3.0) L 07/28/21 07:27 [place] Test POSITIVE 07/28/21 07:27 VBG pH 7.380 (7.31-7.41) 07/26/21 12:43 VBG pCO2 38.8 mmHg (41-51) L 07/26/21 12:43 VBG pO2 25.0 mmHg (25-47) 07/26/21 12:43 VBG HCO3 22.4 mmol/L (23-28) L 07/26/21 12:43 VBG Total CO2 23.6 mmol/L (24-29) L 07/26/21 12:43 VBG O2 Saturation 43.6 % (60-80) L 07/26/21 12:43 VBG Base Excess -2.4 mmol/L (-2 - +2) L 07/26/21 12:43 Respiration Rate 18 b/min 07/28/21 07:27 O2 Delivery Device BiPAP 07/28/21 07:27 Vent Mode SYNCHRONOUS/TIMES 07/28/21 07:27 FiO2 60.00 07/28/21 07:27 EPAP 6 cmH2O 07/28/21 07:27 IPAP 12 cmH2O 07/28/21 07:27 Sodium 142 mmol/L (135-145) 07/29/21 05:00 Potassium 3.9 mmol/L (3.5-5.0) 07/29/21 05:00 Chloride 109 mmol/L (101-111) 07/29/21 05:00 Carbon Dioxide 20 mmol/L (21-32) L 07/29/21 05:00 Anion Gap 13.0 (6-13) 07/29/21 05:00 BUN 65 mg/dL (6-20) H 07/29/21 05:00 Creatinine 2.0 mg/dL (0.6-1.2) H 07/29/21 05:00 Estimated GFR (MDRD) 32 (>89) L 07/29/21 05:00 Glucose 169 mg/dL (70-100) H 07/29/21 05:00 POC Whole Bld Glucose 182 mg/dL (70 - 100) H 07/29/21 21:04 Lactic Acid 2.0 mmol/L (0.5-2.2) 07/26/21 12:43 Calcium 9.7 mg/dL (8.5-10.3) 07/29/21 05:00 Phosphorus 3.1 mg/dL (2.5-4.6) 07/26/21 12:43 Magnesium 2.3 mg/dL (1.7-2.8) 07/26/21 12:43 Total Bilirubin 1.0 mg/dL (0.2-1.0) 07/26/21 12:43 AST 42 IU/L (10-42) 07/26/21 12:43 ALT 24 IU/L (10-60) 07/26/21 12:43 Alkaline Phosphatase 79 IU/L (42-121) 07/26/21 12:43 C-Reactive Protein 8.9 mg/dL (0-1.0) H 07/29/21 05:00 B-Natriuretic Peptide 569 pg/mL (5-100) H 07/26/21 12:43 Total Protein 8.3 g/dL (6.7-8.2) H 07/26/21 12:43 Albumin 3.4 g/dL (3.2-5.5) 07/26/21 12:43 Globulin 4.9 g/dL (2.1-4.2) H 07/26/21 12:43 Albumin/Globulin Ratio 0.7 (1.0-2.2) L 07/26/21 12:43 Nasal Adenovirus (PCR) NOT DETECTED 07/26/21 12:26 Nasal B. parapertussis DNA (PCR) NOT DETECTED 07/26/21 12:26 Nasal Coronavir 229E PCR NOT DETECTED 07/26/21 12:26 Nasal Coronavir HKU1 PCR NOT DETECTED 07/26/21 12:26 Nasal Coronavir NL63 PCR NOT DETECTED 07/26/21 12:26 Nasal Coronavir OC43 PCR NOT DETECTED 07/26/21 12:26 Nasal Enterovir/Rhinovir PCR NOT DETECTED 07/26/21 12:26 Nasal Influenza B PCR NOT DETECTED 07/26/21 12:26 Nasal Influenza A PCR NOT DETECTED 07/26/21 12:26 Nasal Parainfluen 1 PCR NOT DETECTED 07/26/21 12:26 Nasal Parainfluen 2 PCR NOT DETECTED 07/26/21 12:26 Nasal Parainfluen 3 PCR NOT DETECTED 07/26/21 12:26 Nasal Parainfluen 4 PCR NOT DETECTED 07/26/21 12:26 Nasal RSV (PCR) NOT DETECTED 07/26/21 12:26 Nasal Screen MRSA (PCR) NEGATIVE (NEGATIVE) 07/28/21 21:39 Nasal B.pertussis DNA PCR NOT DETECTED 07/26/21 12:26 Nasal C.pneumoniae (PCR) NOT DETECTED 07/26/21 12:26 Trevor Human Metapneumo PCR NOT DETECTED 07/26/21 12:26 Nasal M.pneumoniae (PCR) NOT DETECTED 07/26/21 12:26 Nasal SARS-CoV-2 (PCR) DETECTED A 07/26/21 12:26 ABX Reporting Has patient been on IV antibiotics over the past 48 hours?: No
[2021-07-30 08:06] LABS: BASOPHILS % (AUTO) 0.2 %; EOSINOPHILS # (AUTO) 0.2 10^3/uL (0.0-0.7); EOSINOPHILS % (AUTO) 1.3 %; HCT - HEMATOCRIT 43.8 % (42.0-52.0); HGB - HEMOGLOBIN 14.1 g/dL (14.0-18.0); LYMPHOCYTES # (AUTO) 0.9 10^3/uL (1.5-3.5); LYMPHOCYTES % (AUTO) 7.6 %; MEAN CORPUSCULAR HEMOGLOBIN 29.6 pg (27.0-31.0); MEAN CORPUSCULAR HGB CONC 32.2 g/dL (32.0-36.0); MEAN PLATELET VOLUME 10.7 fL (7.4-11.4); MONOCYTES # (AUTO) 0.3 10^3/uL (0.0-1.0); MONOCYTES % (AUTO) 2.8 %; NEUTROPHILS # (AUTO) 10.5 10^3/uL (1.5-6.6); NEUTROPHILS % (AUTO) 86.6 %; PLT - PLATELET COUNT 245 10^3/uL (130-450); RED BLOOD COUNT 4.76 10^6/uL (4.70-6.10); RED CELL DISTRIBUTION WIDTH 14.6 % (12.0-15.0); WHITE BLOOD COUNT 12.1 x10^3/uL (4.8-10.8)
[2021-07-30] MEDS: TAMSULOSIN 0.4 MG CAPSULE PO SCH (08:09)
[2021-07-30] MEDS: METOPROLOL SUCCINATE 25 MG TABLET PO SCH (08:09)
[2021-07-30] MEDS: DABIGATRAN 75 MG CAPSULE PO SCH ×2 (08:09→20:27)
[2021-07-30] MEDS: lisinopriL 5 MG TABLET PO SCH (08:10)
[2021-07-30] MEDS: dexAMETHasone 4 MG TABLET PO SCH (08:11)
[2021-07-30] MEDS: NIFEdipine ER 30 MG TABLET PO SCH (08:12)
[2021-07-30 08:26] LABS: CALCIUM 9.5 mg/dL (8.5-10.3); CRP - C-REACTIVE PROTEIN 9.2 mg/dL (0-1.0); POTASSIUM 3.8 mmol/L (3.5-5.0)
[2021-07-30] MEDS: REMDESIVIR 100MG VIAL 100 MG in SODIUM CHLORIDE 0.9% 100ML 100 ML IV SCH (09:52)
[2021-07-30] MEDS: INSULIN GLARGINE 300 UNIT/3 ML PEN SUBQ SCH ×2 (09:57→20:27)
[2021-07-30] MEDS: INSULIN ASPART 300 UNIT/3 ML PEN SUBQ SCH ×4 (10:14→20:27)
[2021-07-30] MEDS: QUEtiapine 25 MG TABLET PO SCH (20:27)
[2021-07-31] MEDS: SODIUM CHLORIDE FLUSH 0.9% 10 ML SYRINGE IVP SCH ×4 (00:58→19:36)
[2021-07-31] MEDS: LACTATED RINGERS 1,000 ML IV SCH (04:12)
[2021-07-31 05:05] LABS: BASOPHILS % (AUTO) 0.2 %; EOSINOPHILS # (AUTO) 0.2 10^3/uL (0.0-0.7); EOSINOPHILS % (AUTO) 1.7 %; HCT - HEMATOCRIT 41.5 % (42.0-52.0); HGB - HEMOGLOBIN 13.6 g/dL (14.0-18.0); LYMPHOCYTES # (AUTO) 1.9 10^3/uL (1.5-3.5); LYMPHOCYTES % (AUTO) 15.7 %; MEAN CORPUSCULAR HEMOGLOBIN 30.1 pg (27.0-31.0); MEAN CORPUSCULAR HGB CONC 32.8 g/dL (32.0-36.0); MEAN CORPUSCULAR VOLUME 91.8 fL (80.0-94.0); MEAN PLATELET VOLUME 10.8 fL (7.4-11.4); MONOCYTES # (AUTO) 0.4 10^3/uL (0.0-1.0); MONOCYTES % (AUTO) 3.2 %; NEUTROPHILS # (AUTO) 9.5 10^3/uL (1.5-6.6); PLT - PLATELET COUNT 294 10^3/uL (130-450); RED BLOOD COUNT 4.52 10^6/uL (4.70-6.10); RED CELL DISTRIBUTION WIDTH 14.7 % (12.0-15.0); WHITE BLOOD COUNT 12.2 x10^3/uL (4.8-10.8)
[2021-07-31 05:19] LABS: CALCIUM 9.5 mg/dL (8.5-10.3); CREATININE 1.7 mg/dL (0.6-1.2); CRP - C-REACTIVE PROTEIN 12.7 mg/dL (0-1.0); POTASSIUM 3.8 mmol/L (3.5-5.0)
[2021-07-31] MEDS ORDERED: DEXTROSE 50% ABBOJECT 25 GM/50 ML SYRINGE IVP ONE (05:46)
--- NOTE | 2021-07-31 07:30 | PROVIDER PROGRESS NOTE ---
Assessment/Plan - Problem List (1) Acute respiratory failure with hypoxia Assessment/Plan: Secondary to COVID-19 pneumonia. Patient is on remdesivir day 02/12 and Decadron day 01/18 Currently on 13.5 L of oxygen via oxygen mask with oxygen saturation around 92%. He switches to the BiPAP intermittently as needed. (2) Pneumonia due to COVID-19 virus Assessment/Plan: Patient is on remdesivir day / and Decadron day 01/18 Currently on 13.5 L of oxygen via oxygen mask with oxygen saturation around 92%. He switches to the BiPAP intermittently as needed. (3) Staphylococcus aureus bacteremia Assessment/Plan: This is suspected to be secondary to a contaminant. Patient was initially treated with vancomycin which was subsequently switched to Zyvox duue to worsening renal function. Zyvox was discontinued 07/29/21 White blood cell count remains 12.2. The patient remains afebrile If WBC continues to rise or patient becomes febrile, will resume Zyvox 2D echo done on July 28, 2021 showed ejection fraction of 65 to 70%. No mass/vegetation or thrombus was seen. (4) Controlled type 2 diabetes mellitus without complication, without long-term current use of insulin Assessment/Plan: On sliding scale insulin. Lantus 15 units every morning and 10 units every afternoon. Accu-Cheks before every meal and at bedtime. (5) Hypertension Qualifiers: Hypertension type: primary hypertension Qualified Code(s): I10 - Essential (primary) hypertension Assessment/Plan: On lisinopril 10 mg p.o. daily, metoprolol succinate 25 mg p.o. daily and nifedipine 90 mg p.o. daily. (6) Acute kidney failure Assessment/Plan: Slight improvement today with a creatinine of 1.7. IV hydration discontinued due to slight edema in upper extremities. We will recheck with morning labs - Current Meds Current Meds: Current Medications Generic Name Dose Route Start Last Admin Trade Name Freq PRN Reason Stop Dose Admin Dabigatran 75 mg 07/26/21 21:00 07/30/21 20:27 Dabigatran 75 Mg Capsule PO 75 mg BID MARYLOU Administration Dexamethasone 6 mg 07/28/21 09:00 07/30/21 08:11 Dexamethasone 4 Mg Tablet PO 6 mg DAILY MARYLOU Administration Hydralazine HCl 10 mg 07/26/21 13:40 07/27/21 08:32 Hydralazine Inj 20 Mg/Ml Vial IVP 10 mg TID PRN Administration Hypertensive Emergency Lactated Ringer's 1,000 mls @ 83.333 mls/hr 07/28/21 13:00 07/31/21 04:12 Lr IV 83.33 mls/hr .Q12H MARYLOU Administration Insulin Aspart 2 - 10 unit 07/26/21 17:00 07/30/21 20:27 Insulin Aspart 300 Unit/3 Ml Pen SUBQ Not Given 0800,1200,1700,2100 [facility] Protocol Insulin Glargine 15 unit 07/29/21 08:00 07/30/21 09:57 Insulin Glargine 300 Unit/3 Ml Pen SUBQ 15 unit QDBREAKFAST MARYLOU Administration Insulin Glargine 10 unit 07/28/21 21:00 07/30/21 20:27 Insulin Glargine 300 Unit/3 Ml Pen SUBQ 10 unit QPM MARYLOU Administration Lisinopril 10 mg 07/27/21 09:00 07/30/21 08:10 Lisinopril 5 Mg Tablet PO 10 mg DAILY MARYLOU Administration Metoprolol Succinate 25 mg 07/27/21 09:00 07/30/21 08:09 Metoprolol Succinate 25 Mg Tablet PO 25 mg DAILY MARYLOU Administration Nifedipine 90 mg 07/27/21 09:00 07/30/21 08:12 Nifedipine Er 30 Mg Tablet PO 90 mg DAILY MARYLOU Administration Quetiapine Fumarate 25 mg 07/27/21 21:00 07/30/21 20:27 Quetiapine 25 Mg Tablet PO 25 mg QPM MARYLOU Administration Sodium Chloride 10 ml 07/26/21 17:00 07/31/21 00:58 Sodium Chloride Flush 0.9% 10 Ml Syringe IVP 10 ml 0100,0900,1700 MARYLOU Administration Tamsulosin HCl 0.4 mg 07/27/21 09:00 07/30/21 08:09 Tamsulosin 0.4 Mg Capsule PO 0.4 mg DAILY MARYLOU Administration - Lab Result Fish Bone Diagrams: 07/31/21 04:36 07/31/21 04:36 Subjective - Subjective Patient Reports: Other (Patient was resting comfortably in bed. He appears weak. Denies any significant change in his breathing. His oxygen requirement appears stable at 15 L on an oximyzer) Objective Vital Signs: Vital Signs - 24 hr 07/30/21 07/30/21 07/30/21 08:00 09:00 10:00 Temperature 36.5 C 36.3 C L Heart Rate Heart Rate [ Monitoring electrodes] Heart Rate [ 60 60 60 Radial] Respiratory 22 25 H 30 H Rate Blood Pressure 145/71 H 151/79 H 151/76 H [Left Brachial artery] O2 Saturation 84 L 93 95 07/30/21 07/30/21 07/30/21 11:00 12:00 13:00 Temperature 36.4 C L Heart Rate Heart Rate [ Monitoring electrodes] Heart Rate [ 63 60 60 Radial] Respiratory 29 H 18 23 Rate Blood Pressure 151/71 H 146/70 H 130/67 [Left Brachial artery] O2 Saturation 95 93 94 07/30/21 07/30/21 07/30/21 14:00 15:00 16:00 Temperature Heart Rate Heart Rate [ Monitoring electrodes] Heart Rate [ 60 60 60 Radial] Respiratory 21 28 H 25 H Rate Blood Pressure 139/67 H 124/71 129/71 [Left Brachial artery] O2 Saturation 92 91 L 90 L 07/30/21 07/30/21 07/30/21 16:55 18:00 19:00 Temperature 36.5 C Heart Rate Heart Rate [ Monitoring electrodes] Heart Rate [ 60 60 60 Radial] Respiratory 26 H 21 24 Rate Blood Pressure 129/71 137/67 H 135/68 H [Left Brachial artery] O2 Saturation 89 L 94 93 07/30/21 07/30/21 07/30/21 20:00 21:00 22:00 Temperature Heart Rate Heart Rate [ 63 60 61 Monitoring electrodes] Heart Rate [ Radial] Respiratory 21 22 25 H Rate Blood Pressure 145/75 H 130/71 104/61 [Left Brachial artery] O2 Saturation 95 94 96 07/30/21 07/31/21 07/31/21 23:00 00:00 01:00 Temperature 36.6 C Heart Rate Heart Rate [ 60 63 60 Monitoring electrodes] Heart Rate [ Radial] Respiratory 21 20 19 Rate Blood Pressure 121/66 125/66 106/67 [Left Brachial artery] O2 Saturation 91 L 92 97 07/31/21 07/31/21 07/31/21 02:00 03:00 04:00 Temperature 36.7 C Heart Rate 660 H Heart Rate [ 62 63 60 Monitoring electrodes] Heart Rate [ Radial] Respiratory 19 21 22 Rate Blood Pressure 125/70 119/71 129/64 [Left Brachial artery] O2 Saturation 95 96 95 07/31/21 07/31/21 07/31/21 05:00 05:36 05:57 Temperature Heart Rate Heart Rate [ 64 60 Monitoring electrodes] Heart Rate [ Radial] Respiratory 25 H 19 Rate Blood Pressure 129/64 121/55 L [Left Brachial artery] O2 Saturation 90 L 92 98 Oxygen O2 Source Oxymizer Oxygen Flow Rate 15 I&O (Last 24 Hrs): Intake and Output Totals x24h 07/29/21 07/30/21 07/31/21 23:59 23:59 23:59 Intake Total 3280.000 2377.732 766.636 Output Total 825 1310 300 Balance 2455.000 1067.732 466.636 General: Alert, Oriented x3, Mild distress, Other (Weak) HEENT: Atraumatic, PERRLA, EOMI Neck: Supple, No JVD Neuro: Alert, Oriented Times 3 Cardiovascular: Regular rate, Normal S1, Normal S2, No murmurs Respiratory: Chest non-tender, No respiratory distress, Breath sounds nml Abdomen: Normal bowel sounds, Soft, No tenderness, No masses Extremities: No clubbing, No edema Skin: No rashes, No breakdown, No significant lesion - Results Results: Laboratory Results WBC 12.2 x10^3/uL (4.8-10.8) H 07/31/21 04:36 RBC 4.52 10^6/uL (4.70-6.10) L 07/31/21 04:36 Hgb 13.6 g/dL (14.0-18.0) L 07/31/21 04:36 Hct 41.5 % (42.0-52.0) L 07/31/21 04:36 MCV 91.8 fL (80.0-94.0) 07/31/21 04:36 MCH 30.1 pg (27.0-31.0) 07/31/21 04:36 MCHC 32.8 g/dL (32.0-36.0) 07/31/21 04:36 RDW 14.7 % (12.0-15.0) 07/31/21 04:36 Plt Count 294 10^3/uL (130-450) 07/31/21 04:36 MPV 10.8 fL (7.4-11.4) 07/31/21 04:36 Neut # (Auto) 9.5 10^3/uL (1.5-6.6) H 07/31/21 04:36 Lymph # (Auto) 1.9 10^3/uL (1.5-3.5) 07/31/21 04:36 [place] # (Auto) 0.4 10^3/uL (0.0-1.0) 07/31/21 04:36 Eos # (Auto) 0.2 10^3/uL (0.0-0.7) 07/31/21 04:36 Baso # (Auto) 0.0 10^3/uL (0.0-0.1) 07/31/21 04:36 Absolute Nucleated RBC 0.00 x10^3/uL 07/31/21 04:36 Total Counted 100 07/28/21 05:11 Band Neuts % (Manual) 0 % (0-10) 07/28/21 05:11 Abnorm Lymph % (Manual) 0 % 07/28/21 05:11 Myelocytes % 1 % (-0) H 07/28/21 05:11 Nucleated RBC % 0.0 /100WBC 07/31/21 04:36 Neutrophils # (Manual) 9.7 10^3/uL (1.5-6.6) H 07/28/21 05:11 Lymphocytes # (Manual) 1.0 10^3/uL (1.5-3.5) L 07/28/21 05:11 Monocytes # (Manual) 0.2 10^3/uL (0.0-1.0) 07/28/21 05:11 Eosinophils # (Manual) 0.0 10^3/uL (0-0.7) 07/28/21 05:11 Basophils # (Manual) 0.0 10^3/uL (0-0.1) 07/28/21 05:11 Differential Comment MANUAL DIFFERENTIAL 07/28/21 05:11 Manual Slide Review Indicated 07/26/21 12:43 WBC Morphology NORMAL APPEARANCE (NORMAL) 07/28/21 05:11 Platelet Estimate NORMAL (130-450,000) (NORMAL) 07/28/21 05:11 Platelet Morphology NORMAL APPEARANCE (NORMAL) 07/28/21 05:11 RBC Morph Micro Appear NORMAL APPEARANCE (NORMAL) 07/28/21 05:11 D-Dimer > 1050.0 ng/mL (200.0-255.0) H 07/31/21 04:36 Bld Gas Analysis Time 0730 07/28/21 07:27 Sample Site RIGHT RADIAL 07/28/21 07:27 ABG pH 7.44 (7.35-7.45) 07/28/21 07:27 ABG pCO2 31 mmHg (34-45) L 07/28/21 07:27 ABG pO2 83 mmHg (80-100) 07/28/21 07:27 ABG HCO3 20.5 mmol/L (22.0-26.0) L 07/28/21 07:27 ABG Total CO2 21.5 MMOL/L (21.0-29.0) 07/28/21 07:27 ABG O2 Saturation 96 % (94-98) 07/28/21 07:27 ABG Base Excess -2.6 mmol/L (-2.0-3.0) L 07/28/21 07:27 [place] Test POSITIVE 07/28/21 07:27 VBG pH 7.380 (7.31-7.41) 07/26/21 12:43 VBG pCO2 38.8 mmHg (41-51) L 07/26/21 12:43 VBG pO2 25.0 mmHg (25-47) 07/26/21 12:43 VBG HCO3 22.4 mmol/L (23-28) L 07/26/21 12:43 VBG Total CO2 23.6 mmol/L (24-29) L 07/26/21 12:43 VBG O2 Saturation 43.6 % (60-80) L 07/26/21 12:43 VBG Base Excess -2.4 mmol/L (-2 - +2) L 07/26/21 12:43 Respiration Rate 18 b/min 07/28/21 07:27 O2 Delivery Device BiPAP 07/28/21 07:27 Vent Mode SYNCHRONOUS/TIMES 07/28/21 07:27 FiO2 60.00 07/28/21 07:27 EPAP 6 cmH2O 07/28/21 07:27 IPAP 12 cmH2O 07/28/21 07:27 Sodium 143 mmol/L (135-145) 07/31/21 04:36 Potassium 3.8 mmol/L (3.5-5.0) 07/31/21 04:36 Chloride 108 mmol/L (101-111) 07/31/21 04:36 Carbon Dioxide 22 mmol/L (21-32) 07/31/21 04:36 Anion Gap 13.0 (6-13) 07/31/21 04:36 BUN 58 mg/dL (6-20) H 07/31/21 04:36 Creatinine 1.7 mg/dL (0.6-1.2) H 07/31/21 04:36 Estimated GFR (MDRD) 38 (>89) L 07/31/21 04:36 Glucose 52 mg/dL (70-100) L* 07/31/21 04:36 POC Whole Bld Glucose 157 mg/dL (70 - 100) H 07/31/21 06:09 Lactic Acid 2.0 mmol/L (0.5-2.2) 07/26/21 12:43 Calcium 9.5 mg/dL (8.5-10.3) 07/31/21 04:36 Phosphorus 3.1 mg/dL (2.5-4.6) 07/26/21 12:43 Magnesium 2.3 mg/dL (1.7-2.8) 07/26/21 12:43 Total Bilirubin 1.0 mg/dL (0.2-1.0) 07/26/21 12:43 AST 42 IU/L (10-42) 07/26/21 12:43 ALT 24 IU/L (10-60) 07/26/21 12:43 Alkaline Phosphatase 79 IU/L (42-121) 07/26/21 12:43 C-Reactive Protein 12.7 mg/dL (0-1.0) H 07/31/21 04:36 B-Natriuretic Peptide 569 pg/mL (5-100) H 07/26/21 12:43 Total Protein 8.3 g/dL (6.7-8.2) H 07/26/21 12:43 Albumin 3.4 g/dL (3.2-5.5) 07/26/21 12:43 Globulin 4.9 g/dL (2.1-4.2) H 07/26/21 12:43 Albumin/Globulin Ratio 0.7 (1.0-2.2) L 07/26/21 12:43 Nasal Adenovirus (PCR) NOT DETECTED 07/26/21 12:26 Nasal B. parapertussis DNA (PCR) NOT DETECTED 07/26/21 12:26 Nasal Coronavir 229E PCR NOT DETECTED 07/26/21 12:26 Nasal Coronavir HKU1 PCR NOT DETECTED 07/26/21 12:26 Nasal Coronavir NL63 PCR NOT DETECTED 07/26/21 12:26 Nasal Coronavir OC43 PCR NOT DETECTED 07/26/21 12:26 Nasal Enterovir/Rhinovir PCR NOT DETECTED 07/26/21 12:26 Nasal Influenza B PCR NOT DETECTED 07/26/21 12:26 Nasal Influenza A PCR NOT DETECTED 07/26/21 12:26 Nasal Parainfluen 1 PCR NOT DETECTED 07/26/21 12:26 Nasal Parainfluen 2 PCR NOT DETECTED 07/26/21 12:26 Nasal Parainfluen 3 PCR NOT DETECTED 07/26/21 12:26 Nasal Parainfluen 4 PCR NOT DETECTED 07/26/21 12:26 Nasal RSV (PCR) NOT DETECTED 07/26/21 12:26 Nasal Screen MRSA (PCR) NEGATIVE (NEGATIVE) 07/28/21 21:39 Nasal B.pertussis DNA PCR NOT DETECTED 07/26/21 12:26 Nasal C.pneumoniae (PCR) NOT DETECTED 07/26/21 12:26 Trevor Human Metapneumo PCR NOT DETECTED 07/26/21 12:26 Nasal M.pneumoniae (PCR) NOT DETECTED 07/26/21 12:26 Nasal SARS-CoV-2 (PCR) DETECTED A 07/26/21 12:26 ABX Reporting Has patient been on IV antibiotics over the past 48 hours?: No
[2021-07-31] MEDS: INSULIN GLARGINE 300 UNIT/3 ML PEN SUBQ SCH (08:47)
[2021-07-31] MEDS: INSULIN ASPART 300 UNIT/3 ML PEN SUBQ SCH ×4 (08:47→21:08)
[2021-07-31] MEDS: DABIGATRAN 75 MG CAPSULE PO SCH ×2 (08:48→21:08)
[2021-07-31] MEDS: lisinopriL 5 MG TABLET PO SCH (08:50)
[2021-07-31] MEDS: dexAMETHasone 4 MG TABLET PO SCH (08:50)
[2021-07-31] MEDS: METOPROLOL SUCCINATE 25 MG TABLET PO SCH (08:51)
[2021-07-31] MEDS: NIFEdipine ER 30 MG TABLET PO SCH (08:51)
[2021-07-31] MEDS: TAMSULOSIN 0.4 MG CAPSULE PO SCH (08:52)
[2021-07-31] MEDS: MULTIVITAMIN W/MINERALS TABLET PO SCH (12:30)
[2021-07-31] MEDS: CHOLECALCIFEROL 25 MCG TABLET PO SCH (12:30)
[2021-07-31] MEDS: QUEtiapine 25 MG TABLET PO SCH (21:09)
[2021-08-01 04:43] LABS: BASOPHILS % (AUTO) 0.3 %; EOSINOPHILS # (AUTO) 0.3 10^3/uL (0.0-0.7); EOSINOPHILS % (AUTO) 2.6 %; HCT - HEMATOCRIT 42.3 % (42.0-52.0); HGB - HEMOGLOBIN 13.6 g/dL (14.0-18.0); LYMPHOCYTES # (AUTO) 0.6 10^3/uL (1.5-3.5); LYMPHOCYTES % (AUTO) 5.6 %; MEAN CORPUSCULAR HEMOGLOBIN 29.8 pg (27.0-31.0); MEAN CORPUSCULAR HGB CONC 32.2 g/dL (32.0-36.0); MEAN CORPUSCULAR VOLUME 92.8 fL (80.0-94.0); MEAN PLATELET VOLUME 10.7 fL (7.4-11.4); MONOCYTES # (AUTO) 0.3 10^3/uL (0.0-1.0); MONOCYTES % (AUTO) 2.8 %; NEUTROPHILS # (AUTO) 9.2 10^3/uL (1.5-6.6); NEUTROPHILS % (AUTO) 87.6 %; PLT - PLATELET COUNT 247 10^3/uL (130-450); RED BLOOD COUNT 4.56 10^6/uL (4.70-6.10); RED CELL DISTRIBUTION WIDTH 14.7 % (12.0-15.0); WHITE BLOOD COUNT 10.5 x10^3/uL (4.8-10.8)
[2021-08-01 05:01] LABS: CALCIUM 9.4 mg/dL (8.5-10.3); CREATININE 1.8 mg/dL (0.6-1.2); CRP - C-REACTIVE PROTEIN 13.3 mg/dL (0-1.0); POTASSIUM 4.3 mmol/L (3.5-5.0)
[2021-08-01] MEDS: SODIUM CHLORIDE FLUSH 0.9% 10 ML SYRINGE IVP SCH ×3 (05:33→17:13)
[2021-08-01] MEDS: INSULIN ASPART 300 UNIT/3 ML PEN SUBQ SCH ×5 (08:54→22:14)
[2021-08-01] MEDS: MULTIVITAMIN W/MINERALS TABLET PO SCH (08:56)
[2021-08-01] MEDS: SODIUM CHLORIDE 0.9% 1,000 ML IV SCH ×2 (08:56→20:24)
[2021-08-01] MEDS: CHOLECALCIFEROL 25 MCG TABLET PO SCH (08:56)
[2021-08-01] MEDS: dexAMETHasone 4 MG TABLET PO SCH (08:57)
[2021-08-01] MEDS: DABIGATRAN 75 MG CAPSULE PO SCH ×2 (08:57→20:07)
[2021-08-01] MEDS: METOPROLOL SUCCINATE 25 MG TABLET PO SCH (08:58)
[2021-08-01] MEDS: lisinopriL 5 MG TABLET PO SCH (08:58)
[2021-08-01] MEDS: NIFEdipine ER 30 MG TABLET PO SCH (08:58)
[2021-08-01] MEDS: TAMSULOSIN 0.4 MG CAPSULE PO SCH (08:59)
--- NOTE | 2021-08-01 14:25 | PROVIDER PROGRESS NOTE ---
Assessment/Plan - Problem List (1) Acute respiratory failure with hypoxia Assessment/Plan: Patient was transfered to the ICU yesterday 1020 due to acute respiratory failure secondary to COVID-19 pneumonia. He finished day 02/12 of remdesivir yesterday 07/31 and is on Decadron day 02/17. He is currently on 15 L of oxygen via oxymask with oxygen saturation around 94%. He continues to use BiPAP intermittently as needed. Plan: Continue with Decadron for 5 more doses. Continue to rest on BiPap and take breaks as tolerated for meals and oral care. Monitor for signs of respiratory distress and obtain chest x-ray/ ABG as needed. (2) Pneumonia due to COVID-19 virus Assessment/Plan: Patient was vaccinated for COVID and unfortunately became ill with COVID pneumonia. He has completed 5 days of Remdesivir yesterday 07/31 and is on day 02/17 of decadron. He remains on oxymask at 15L/min with bedside oxygen saturation around 94%. He is using Bipap intermittently for rest. According to Dr. Hogan's note from 07/27 patient is a DNR for cardiac resuscitation but would like Intubation if needed. Plan: Continue with oxymask at 15L/min as tolerated. Rest on Bipap as needed. Consider intubation if patient deteriorates and oxygenation/ ventilation not maintained on Bipap. (3) Staphylococcus aureus bacteremia Assessment/Plan: On 07/26 one of two blood cultures grew Staphlococcus aurus, this is suspected to be secondary to a contaminant. He was initially treated with vancomycin and then switched to Zyvox due to worsening renal function. Zyvox was then discontinued 07/29/21. White blood cell count is trending down from 12.2 to 10.5 today. He continues to be afebrile. 07/28 2D echo showed EF of 65-70% without mass, vegetation, or thrombus. Plan: Continue to monitor CBC for WBC trends. If he becomes febrile, consider resuming Zyvox. (4) Controlled type 2 diabetes mellitus without complication, without long-term current use of insulin Assessment/Plan: Patient has history of type II DM and uses metformin 500mg PO with meals and Glimepiride 1mg po daily for control at home. Bedside glucose ranges 150-200s. He is being covered with Aspart on sliding scale for meal coverage. Plan: Continue to monitor bedside glucose. Treat hyperglycemia with Aspart sliding scale. Consider adding long acting coverage with Lantus as needed. (5) Hypertension Qualifiers: Hypertension type: primary hypertension Qualified Code(s): I10 - Essential (primary) hypertension Assessment/Plan: Patient has history of HTN and takes Lisinopril 20mg twice daily, Metoprolol 25mg po daily, and Nifedipine 90mg PO daily for management. Current BPs are 120- 140s/ 50-70s. Prn hydralizine last given 07/27. Plan: Continue Metoprolol 25mg po daily Continue Nifedipine 90mg po daily Continue lisinopril 10mg po daily As needed Hydralizine 10mg IVP three times daily as needed (6) Acute kidney failure Assessment/Plan: Patient presented to hospital with elevated creat 1.4 and low GFR 48. Patient has been improving steadily since 07/29, however today creat increased form 1.7 to 1.8 and GFR decreased from 38 to 36 today. IV hydration was discontinued yesterday due to +900 mls and increased edema of bilateral extremities. Plan: Resume IV fluids with 9% Sodium Chloride at 83ml/hr. Recheck morning labs. Monitor I&Os. - Current Meds Current Meds: Current Medications Generic Name Dose Route Start Last Admin Trade Name Pinoq PRN Reason Stop Dose Admin Cholecalciferol 50 mcg 07/31/21 12:00 08/01/21 08:56 Cholecalciferol 25 Mcg Tablet PO 50 mcg DAILY MARYLOU Administration Dabigatran 75 mg 07/26/21 21:00 08/01/21 08:57 Dabigatran 75 Mg Capsule PO 75 mg BID MARYLOU Administration Dexamethasone 6 mg 07/28/21 09:00 08/01/21 08:57 Dexamethasone 4 Mg Tablet PO 6 mg DAILY MARYLOU Administration Hydralazine HCl 10 mg 07/26/21 13:40 07/27/21 08:32 Hydralazine Inj 20 Mg/Ml Vial IVP 10 mg TID PRN Administration Hypertensive Emergency Sodium Chloride 1,000 mls @ 83.333 mls/hr 08/01/21 08:00 08/01/21 13:55 Normal Saline 0.9% IV 83 mls/hr .Q12H MARYLOU Infusion Insulin Aspart 2 - 10 unit 07/26/21 17:00 08/01/21 12:11 Insulin Aspart 300 Unit/3 Ml Pen SUBQ 4 unit 0800,1200,1700,2100 MARYLOU Administration Protocol Lisinopril 10 mg 07/27/21 09:00 08/01/21 08:58 Lisinopril 5 Mg Tablet PO 10 mg DAILY MARYLOU Administration Metoprolol Succinate 25 mg 07/27/21 09:00 08/01/21 08:58 Metoprolol Succinate 25 Mg Tablet PO 25 mg DAILY MARYLOU Administration Multivitamins/Minerals 1 tab 07/31/21 12:00 08/01/21 08:56 Multivitamin W/Minerals Tablet PO 1 tab DAILYWM MARYLOU Administration Nifedipine 90 mg 07/27/21 09:00 08/01/21 08:58 Nifedipine Er 30 Mg Tablet PO 90 mg DAILY MARYLOU Administration Quetiapine Fumarate 25 mg 07/27/21 21:00 07/31/21 21:09 Quetiapine 25 Mg Tablet PO 25 mg QPM MARYLOU Administration Sodium Chloride 10 ml 07/26/21 17:00 08/01/21 08:59 Sodium Chloride Flush 0.9% 10 Ml Syringe IVP 10 ml 0100,0900,1700 MARYLOU Administration Tamsulosin HCl 0.4 mg 07/27/21 09:00 08/01/21 08:59 Tamsulosin 0.4 Mg Capsule PO 0.4 mg DAILY MARYLOU Administration - Lab Result Fish Bone Diagrams: 08/01/21 04:15 08/01/21 04:15 - EKG Results EKG Interpreted Independently: Yes EKG Comparison: Old EKG unavailable Subjective - Subjective Patient Reports: Feeling Better, Resting Comfortably, Other (Patient resting comfortably in bed on oxymask at 15L/min. Reports feeling slighly better. Denies dyspnea. Reports having "dried out" in his sinus.) Objective Vital Signs: Vital Signs - 24 hr 07/31/21 07/31/21 07/31/21 15:00 16:00 17:00 Temperature 36.6 C Heart Rate Heart Rate [ 60 60 60 Monitoring electrodes] Respiratory 24 27 H 16 Rate Blood Pressure 104/55 L 113/56 L 120/59 L [Left Brachial artery] O2 Saturation 92 92 93 07/31/21 07/31/21 07/31/21 18:00 19:00 19:45 Temperature 36.4 C L Heart Rate Heart Rate [ 60 60 Monitoring electrodes] Respiratory 24 18 Rate Blood Pressure 129/59 L 118/57 L [Left Brachial artery] O2 Saturation 92 92 07/31/21 07/31/21 07/31/21 20:00 21:00 21:10 Temperature 36.7 C Heart Rate Heart Rate [ 60 63 Monitoring electrodes] Respiratory 28 H 28 H 19 Rate Blood Pressure 128/61 135/62 H [Left Brachial artery] O2 Saturation 94 91 L 92 07/31/21 07/31/21 07/31/21 21:30 22:00 23:00 Temperature Heart Rate 60 Heart Rate [ 61 60 Monitoring electrodes] Respiratory 20 25 H Rate Blood Pressure 121/58 L 104/61 [Left Brachial artery] O2 Saturation 92 92 08/01/21 08/01/21 08/01/21 00:00 01:00 02:00 Temperature Heart Rate 60 Heart Rate [ 63 62 63 Monitoring electrodes] Respiratory 22 22 22 Rate Blood Pressure 120/61 125/66 133/67 H [Left Brachial artery] O2 Saturation 93 96 96 08/01/21 08/01/21 08/01/21 03:00 04:00 05:00 Temperature 36.3 C L Heart Rate 60 Heart Rate [ 68 60 63 Monitoring electrodes] Respiratory 21 24 22 Rate Blood Pressure 141/81 H 138/64 H 116/64 [Left Brachial artery] O2 Saturation 92 94 93 08/01/21 08/01/21 08/01/21 06:00 06:21 07:00 Temperature Heart Rate 60 Heart Rate [ 60 65 Monitoring electrodes] Respiratory 22 18 Rate Blood Pressure 132/61 H 129/69 [Left Brachial artery] O2 Saturation 93 98 08/01/21 08/01/21 08/01/21 08:00 09:00 10:00 Temperature 36.8 C Heart Rate Heart Rate [ 60 60 60 Monitoring electrodes] Respiratory 25 H 27 H 18 Rate Blood Pressure 142/58 H 143/65 H 133/54 H [Left Brachial artery] O2 Saturation 92 90 L 94 08/01/21 08/01/21 08/01/21 11:00 12:00 13:00 Temperature 36.6 C Heart Rate Heart Rate [ 60 60 60 Monitoring electrodes] Respiratory 20 22 24 Rate Blood Pressure 114/74 118/61 124/60 [Left Brachial artery] O2 Saturation 95 96 95 Oxygen O2 Source Oxymizer Oxygen Flow Rate 15 I&O (Last 24 Hrs): Intake and Output Totals x24h 07/30/21 07/31/21 08/01/21 23:59 23:59 23:59 Intake Total 2377.732 2008.636 1363.972 Output Total 1310 1055 725 Balance 1067.732 953.636 638.972 General: Alert, Oriented x3, Cooperative, No acute distress HEENT: PERRLA, Other (Dry oral mucosa with dry and cracked lips.) Neuro: Alert, Oriented Times 3 Cardiovascular: Regular rate, Normal S1, Normal S2, No murmurs Respiratory: Chest non-tender, No respiratory distress, Other (Rales to left base.) Abdomen: Normal bowel sounds, Soft, No tenderness, No hepatospenomegaly Extremities: No clubbing, No cyanosis, No edema, Normal pulses, No tenderness/swelling Skin: No rashes, No breakdown, No significant lesion - Results Results: Laboratory Results WBC 10.5 x10^3/uL (4.8-10.8) 08/01/21 04:15 RBC 4.56 10^6/uL (4.70-6.10) L 08/01/21 04:15 Hgb 13.6 g/dL (14.0-18.0) L 08/01/21 04:15 Hct 42.3 % (42.0-52.0) 08/01/21 04:15 MCV 92.8 fL (80.0-94.0) 08/01/21 04:15 MCH 29.8 pg (27.0-31.0) 08/01/21 04:15 MCHC 32.2 g/dL (32.0-36.0) 08/01/21 04:15 RDW 14.7 % (12.0-15.0) 08/01/21 04:15 Plt Count 247 10^3/uL (130-450) 08/01/21 04:15 MPV 10.7 fL (7.4-11.4) 08/01/21 04:15 Neut # (Auto) 9.2 10^3/uL (1.5-6.6) H 08/01/21 04:15 Lymph # (Auto) 0.6 10^3/uL (1.5-3.5) L 08/01/21 04:15 [place] # (Auto) 0.3 10^3/uL (0.0-1.0) 08/01/21 04:15 Eos # (Auto) 0.3 10^3/uL (0.0-0.7) 08/01/21 04:15 Baso # (Auto) 0.0 10^3/uL (0.0-0.1) 08/01/21 04:15 Absolute Nucleated RBC 0.00 x10^3/uL 08/01/21 04:15 Total Counted 100 07/28/21 05:11 Band Neuts % (Manual) 0 % (0-10) 07/28/21 05:11 Abnorm Lymph % (Manual) 0 % 07/28/21 05:11 Myelocytes % 1 % (-0) H 07/28/21 05:11 Nucleated RBC % 0.0 /100WBC 08/01/21 04:15 Neutrophils # (Manual) 9.7 10^3/uL (1.5-6.6) H 07/28/21 05:11 Lymphocytes # (Manual) 1.0 10^3/uL (1.5-3.5) L 07/28/21 05:11 Monocytes # (Manual) 0.2 10^3/uL (0.0-1.0) 07/28/21 05:11 Eosinophils # (Manual) 0.0 10^3/uL (0-0.7) 07/28/21 05:11 Basophils # (Manual) 0.0 10^3/uL (0-0.1) 07/28/21 05:11 Differential Comment MANUAL DIFFERENTIAL 07/28/21 05:11 Manual Slide Review Indicated 07/26/21 12:43 WBC Morphology NORMAL APPEARANCE (NORMAL) 07/28/21 05:11 Platelet Estimate NORMAL (130-450,000) (NORMAL) 07/28/21 05:11 Platelet Morphology NORMAL APPEARANCE (NORMAL) 07/28/21 05:11 RBC Morph Micro Appear NORMAL APPEARANCE (NORMAL) 07/28/21 05:11 D-Dimer > 1050.0 ng/mL (200.0-255.0) H 08/01/21 04:15 Bld Gas Analysis Time 0730 07/28/21 07:27 Sample Site RIGHT RADIAL 07/28/21 07:27 ABG pH 7.44 (7.35-7.45) 07/28/21 07:27 ABG pCO2 31 mmHg (34-45) L 07/28/21 07:27 ABG pO2 83 mmHg (80-100) 07/28/21 07:27 ABG HCO3 20.5 mmol/L (22.0-26.0) L 07/28/21 07:27 ABG Total CO2 21.5 MMOL/L (21.0-29.0) 07/28/21 07:27 ABG O2 Saturation 96 % (94-98) 07/28/21 07:27 ABG Base Excess -2.6 mmol/L (-2.0-3.0) L 07/28/21 07:27 [place] Test POSITIVE 07/28/21 07:27 VBG pH 7.380 (7.31-7.41) 07/26/21 12:43 VBG pCO2 38.8 mmHg (41-51) L 07/26/21 12:43 VBG pO2 25.0 mmHg (25-47) 07/26/21 12:43 VBG HCO3 22.4 mmol/L (23-28) L 07/26/21 12:43 VBG Total CO2 23.6 mmol/L (24-29) L 07/26/21 12:43 VBG O2 Saturation 43.6 % (60-80) L 07/26/21 12:43 VBG Base Excess -2.4 mmol/L (-2 - +2) L 07/26/21 12:43 Respiration Rate 18 b/min 07/28/21 07:27 O2 Delivery Device BiPAP 07/28/21 07:27 Vent Mode SYNCHRONOUS/TIMES 07/28/21 07:27 FiO2 60.00 07/28/21 07:27 EPAP 6 cmH2O 07/28/21 07:27 IPAP 12 cmH2O 07/28/21 07:27 Sodium 142 mmol/L (135-145) 08/01/21 04:15 Potassium 4.3 mmol/L (3.5-5.0) 08/01/21 04:15 Chloride 109 mmol/L (101-111) 08/01/21 04:15 Carbon Dioxide 21 mmol/L (21-32) 08/01/21 04:15 Anion Gap 12.0 (6-13) 08/01/21 04:15 BUN 61 mg/dL (6-20) H 08/01/21 04:15 Creatinine 1.8 mg/dL (0.6-1.2) H 08/01/21 04:15 Estimated GFR (MDRD) 36 (>89) L 08/01/21 04:15 Glucose 153 mg/dL (70-100) H 08/01/21 04:15 POC Whole Bld Glucose 212 mg/dL (70 - 100) H 08/01/21 12:08 Lactic Acid 2.0 mmol/L (0.5-2.2) 07/26/21 12:43 Calcium 9.4 mg/dL (8.5-10.3) 08/01/21 04:15 Phosphorus 3.1 mg/dL (2.5-4.6) 07/26/21 12:43 Magnesium 2.3 mg/dL (1.7-2.8) 07/26/21 12:43 Total Bilirubin 1.0 mg/dL (0.2-1.0) 07/26/21 12:43 AST 42 IU/L (10-42) 07/26/21 12:43 ALT 24 IU/L (10-60) 07/26/21 12:43 Alkaline Phosphatase 79 IU/L (42-121) 07/26/21 12:43 C-Reactive Protein 13.3 mg/dL (0-1.0) H 08/01/21 04:15 B-Natriuretic Peptide 569 pg/mL (5-100) H 07/26/21 12:43 Total Protein 8.3 g/dL (6.7-8.2) H 07/26/21 12:43 Albumin 3.4 g/dL (3.2-5.5) 07/26/21 12:43 Globulin 4.9 g/dL (2.1-4.2) H 07/26/21 12:43 Albumin/Globulin Ratio 0.7 (1.0-2.2) L 07/26/21 12:43 Nasal Adenovirus (PCR) NOT DETECTED 07/26/21 12:26 Nasal B. parapertussis DNA (PCR) NOT DETECTED 07/26/21 12:26 Nasal Coronavir 229E PCR NOT DETECTED 07/26/21 12:26 Nasal Coronavir HKU1 PCR NOT DETECTED 07/26/21 12:26 Nasal Coronavir NL63 PCR NOT DETECTED 07/26/21 12:26 Nasal Coronavir OC43 PCR NOT DETECTED 07/26/21 12:26 Nasal Enterovir/Rhinovir PCR NOT DETECTED 07/26/21 12:26 Nasal Influenza B PCR NOT DETECTED 07/26/21 12:26 Nasal Influenza A PCR NOT DETECTED 07/26/21 12:26 Nasal Parainfluen 1 PCR NOT DETECTED 07/26/21 12:26 Nasal Parainfluen 2 PCR NOT DETECTED 07/26/21 12:26 Nasal Parainfluen 3 PCR NOT DETECTED 07/26/21 12:26 Nasal Parainfluen 4 PCR NOT DETECTED 07/26/21 12:26 Nasal RSV (PCR) NOT DETECTED 07/26/21 12:26 Nasal Screen MRSA (PCR) NEGATIVE (NEGATIVE) 07/28/21 21:39 Nasal B.pertussis DNA PCR NOT DETECTED 07/26/21 12:26 Nasal C.pneumoniae (PCR) NOT DETECTED 07/26/21 12:26 Trevor Human Metapneumo PCR NOT DETECTED 07/26/21 12:26 Nasal M.pneumoniae (PCR) NOT DETECTED 07/26/21 12:26 Nasal SARS-CoV-2 (PCR) DETECTED A 07/26/21 12:26 ABX Reporting Has patient been on IV antibiotics over the past 48 hours?: No
[2021-08-01] MEDS: QUEtiapine 25 MG TABLET PO SCH (20:08)
[2021-08-02] MEDS: SODIUM CHLORIDE FLUSH 0.9% 10 ML SYRINGE IVP SCH ×4 (00:13→20:06)
[2021-08-02 08:10] LABS: BASOPHILS % (AUTO) 0.2 %; EOSINOPHILS # (AUTO) 0.2 10^3/uL (0.0-0.7); EOSINOPHILS % (AUTO) 1.6 %; HCT - HEMATOCRIT 39.4 % (42.0-52.0); HGB - HEMOGLOBIN 12.3 g/dL (14.0-18.0); LYMPHOCYTES # (AUTO) 0.6 10^3/uL (1.5-3.5); LYMPHOCYTES % (AUTO) 4.2 %; MEAN CORPUSCULAR HGB CONC 31.2 g/dL (32.0-36.0); MEAN CORPUSCULAR VOLUME 92.9 fL (80.0-94.0); MEAN PLATELET VOLUME 10.5 fL (7.4-11.4); MONOCYTES # (AUTO) 0.5 10^3/uL (0.0-1.0); MONOCYTES % (AUTO) 3.7 %; NEUTROPHILS % (AUTO) 89.2 %; PLT - PLATELET COUNT 232 10^3/uL (130-450); RED BLOOD COUNT 4.24 10^6/uL (4.70-6.10); RED CELL DISTRIBUTION WIDTH 14.7 % (12.0-15.0); WHITE BLOOD COUNT 13.5 x10^3/uL (4.8-10.8)
[2021-08-02 08:18] LABS: CALCIUM 9.6 mg/dL (8.5-10.3); CREATININE 1.6 mg/dL (0.6-1.2); POTASSIUM 4.1 mmol/L (3.5-5.0)
[2021-08-02] MEDS: SODIUM CHLORIDE 0.9% 1,000 ML IV SCH ×2 (08:30→20:09)
[2021-08-02] MEDS: lisinopriL 5 MG TABLET PO SCH (08:30)
[2021-08-02] MEDS: MULTIVITAMIN W/MINERALS TABLET PO SCH (08:30)
[2021-08-02] MEDS: INSULIN ASPART 300 UNIT/3 ML PEN SUBQ SCH ×4 (08:30→20:11)
[2021-08-02] MEDS: CHOLECALCIFEROL 25 MCG TABLET PO SCH (08:31)
[2021-08-02] MEDS: dexAMETHasone 4 MG TABLET PO SCH (08:31)
[2021-08-02] MEDS: DABIGATRAN 75 MG CAPSULE PO SCH ×2 (08:31→20:10)
[2021-08-02] MEDS: METOPROLOL SUCCINATE 25 MG TABLET PO SCH (08:32)
[2021-08-02] MEDS: DOCUSATE SODIUM 250 MG CAPSULE PO SCH (08:33)
[2021-08-02] MEDS: polyethylene glycoL 3350 17 GM PACKET PO SCH (08:33)
[2021-08-02] MEDS: NIFEdipine ER 30 MG TABLET PO SCH (08:33)
[2021-08-02] MEDS: TAMSULOSIN 0.4 MG CAPSULE PO SCH (08:34)
[2021-08-02] MEDS: SENNA 8.6 MG TABLET PO SCH (08:34)
--- NOTE | 2021-08-02 14:27 | PROVIDER PROGRESS NOTE ---
Assessment/Plan - Problem List (1) Acute respiratory failure with hypoxia Assessment/Plan: Patient was transfered to the ICU on 07/31 due to acute respiratory failure secondary to COVID-19 pneumonia. He finished day 5/5 of remdesivir on 07/31 and is on Decadron day 03/20. He is currently on 15 L of oxygen via oxymizer with oxygen saturation around 93%. He continues to use BiPAP at night. Plan: Continue with Decadron for 5 more doses. Continue to rest on BiPap and take breaks as tolerated for meals and oral care. Monitor for signs of respiratory distress and obtain chest x-ray/ ABG as needed. (2) Pneumonia due to COVID-19 virus Assessment/Plan: Patient was vaccinated for COVID and unfortunately became ill with COVID pneumonia. He has completed 5 days of Remdesivir on 07/31 and is on day 03/20 of decadron. He remains on oxymizer at 15L/min with bedside oxygen saturation around 93%. He is using Bipap intermittently for rest. According to Dr. Hogan's note from 07/27 patient is a DNR for cardiac resuscitation but would like Intubation if needed. Plan: Continue with oxymizer at 15L/min as tolerated. Rest on Bipap as needed. Consider intubation if patient deteriorates and oxygenation/ ventilation not maintained on Bipap. (3) Staphylococcus aureus bacteremia Assessment/Plan: On 07/26 one of two blood cultures grew Staphlococcus aurus, this is suspected to be secondary to a contaminant. He was initially treated with vancomycin and then switched to Zyvox due to worsening renal function. Zyvox was then discontinued 07/29/21. White blood cell count is trending up from 10.5 to 13.5 today. He continues to be afebrile. 07/28 2D echo showed EF of 65-70% without mass, vegetation, or thrombus. Plan: Continue to monitor CBC for WBC trends. If he becomes febrile or WBCs continue to be elevated or increase, consider resuming antibiotics. (4) Controlled type 2 diabetes mellitus without complication, without long-term current use of insulin Assessment/Plan: Patient has history of type II DM and uses metformin 500mg PO with meals and Gli mepiride 1mg po daily for control at home. Bedside glucose ranges 100-200s. He is being covered with Aspart on sliding scale for meal coverage. Lantus 5 units add for day hyperglycemia. Plan: Continue to monitor bedside glucose. Treat hyperglycemia with Aspart sliding scale. Lantus 5 units SubQ added in am to cover hyperglycemia during day. (5) Hypertension Qualifiers: Hypertension type: primary hypertension Qualified Code(s): I10 - Essential (primary) hypertension Assessment/Plan: Patient has history of HTN and takes Lisinopril 20mg twice daily, Metoprolol 25mg po daily, and Nifedipine 90mg PO daily for management. Current BPs are 110- 150s/ 60-70s. Prn hydralizine last given 07/27. Plan: Continue Metoprolol 25mg po daily Continue Nifedipine 90mg po daily Continue lisinopril 10mg po daily Hydralizine 10mg IVP three times daily as needed (6) Acute kidney failure Assessment/Plan: Patient presented to hospital with elevated creat 1.4 and low GFR 48. Patient has been improving steadily since 07/29, until 08/01 when creat increased to 1.8 and GFR decreased to 36. IV fluids were started at 83ml/h and today Creat 1.6 and GFR is 41. I&O is +1039 today. Trace edema of bilateral lower extremities continue. Plan: Continue IV fluids with 9% Sodium Chloride at 83ml/hr. Recheck morning labs. Monitor I&Os. - Current Meds Current Meds: Current Medications Generic Name Dose Route Start Last Admin Trade Name Freq PRN Reason Stop Dose Admin Cholecalciferol 50 mcg 07/31/21 12:00 08/02/21 08:31 Cholecalciferol 25 Mcg Tablet PO 50 mcg DAILY MARYLOU Administration Dabigatran 75 mg 07/26/21 21:00 08/02/21 08:31 Dabigatran 75 Mg Capsule PO 75 mg BID MARYLOU Administration Dexamethasone 6 mg 07/28/21 09:00 08/02/21 08:31 Dexamethasone 4 Mg Tablet PO 6 mg DAILY MARYLOU Administration Docusate Sodium 250 - 500 mg 08/02/21 09:00 08/02/21 08:33 Docusate Sodium 250 Mg Capsule PO 250 mg DAILY MARYLOU Administration Hydralazine HCl 10 mg 07/26/21 13:40 07/27/21 08:32 Hydralazine Inj 20 Mg/Ml Vial IVP 10 mg TID PRN Administration Hypertensive Emergency Sodium Chloride 1,000 mls @ 83.333 mls/hr 08/01/21 08:00 08/02/21 08:30 Normal Saline 0.9% IV 83 mls/hr .Q12H MARYLOU Administration Insulin Aspart 3 - 11 unit 08/01/21 21:00 08/02/21 12:29 Insulin Aspart 300 Unit/3 Ml Pen SUBQ 7 unit 0800,1200,1700,2100 MARYLOU Administration Protocol Lisinopril 10 mg 07/27/21 09:00 08/02/21 08:30 Lisinopril 5 Mg Tablet PO 10 mg DAILY MARYLOU Administration Metoprolol Succinate 25 mg 07/27/21 09:00 08/02/21 08:32 Metoprolol Succinate 25 Mg Tablet PO 25 mg DAILY MRAYLOU Administration Multivitamins/Minerals 1 tab 07/31/21 12:00 08/02/21 08:30 Multivitamin W/Minerals Tablet PO 1 tab DAILYWM MARYLOU Administration Nifedipine 90 mg 07/27/21 09:00 08/02/21 08:33 Nifedipine Er 30 Mg Tablet PO 90 mg DAILY MARYLOU Administration Polyethylene Glycol 17 gm 08/02/21 09:00 08/02/21 08:33 Polyethylene Glycol 3350 17 Gm Packet PO 17 gm DAILY MARYLOU Administration Quetiapine Fumarate 25 mg 07/27/21 21:00 08/01/21 20:08 Quetiapine 25 Mg Tablet PO 25 mg QPM MARYLOU Administration Senna 8.6 - 17.2 mg 08/02/21 09:00 08/02/21 08:34 Senna 8.6 Mg Tablet PO 8.6 mg DAILY MARYLOU Administration Sodium Chloride 10 ml 07/26/21 17:00 08/02/21 08:34 Sodium Chloride Flush 0.9% 10 Ml Syringe IVP 10 ml 0100,0900,1700 MARYLOU Administration Tamsulosin HCl 0.4 mg 07/27/21 09:00 08/02/21 08:34 Tamsulosin 0.4 Mg Capsule PO 0.4 mg DAILY MARYLOU Administration - Lab Result Fish Bone Diagrams: 08/02/21 07:50 08/02/21 07:50 Subjective - Subjective Patient Reports: Feeling Better, Resting Comfortably, No Complaints (Patient working with nurse to get out of bed to chair. He denies feeling short of breath or having chest pain. Reports resting well last night.) Objective Vital Signs: Vital Signs - 24 hr 08/01/21 08/01/21 08/01/21 15:00 16:00 17:00 Temperature 36.5 C Heart Rate Heart Rate [ 60 60 68 Monitoring electrodes] Respiratory 23 20 22 Rate Blood Pressure 106/55 L 148/66 H 101/49 L [Left Brachial artery] O2 Saturation 97 98 95 08/01/21 08/01/21 08/01/21 18:00 19:00 20:00 Temperature 36.4 C L Heart Rate Heart Rate [ 64 62 60 Monitoring electrodes] Respiratory 20 20 26 H Rate Blood Pressure 109/52 L 116/51 L 119/55 L [Left Brachial artery] O2 Saturation 94 95 91 L 08/01/21 08/01/21 08/01/21 20:20 21:00 22:00 Temperature 36.4 C L Heart Rate 60 Heart Rate [ 60 60 Monitoring electrodes] Respiratory 23 22 Rate Blood Pressure 107/52 L 122/57 L [Left Brachial artery] O2 Saturation 96 96 08/01/21 08/02/21 08/02/21 23:00 00:00 00:45 Temperature 36 C L Heart Rate 60 Heart Rate [ 60 60 Monitoring electrodes] Respiratory 24 23 Rate Blood Pressure 109/62 128/58 L [Left Brachial artery] O2 Saturation 94 97 08/02/21 08/02/21 08/02/21 01:00 02:00 03:00 Temperature 36 C L Heart Rate Heart Rate [ 60 60 60 Monitoring electrodes] Respiratory 20 20 22 Rate Blood Pressure 95/47 L 114/57 L 126/63 [Left Brachial artery] O2 Saturation 96 96 95 08/02/21 08/02/21 08/02/21 04:00 05:00 05:30 Temperature Heart Rate 60 Heart Rate [ 60 61 Monitoring electrodes] Respiratory 21 25 H Rate Blood Pressure 122/57 L 129/73 [Left Brachial artery] O2 Saturation 99 95 08/02/21 08/02/21 08/02/21 06:00 07:00 08:00 Temperature 36.2 C L Heart Rate Heart Rate [ 60 60 61 Monitoring electrodes] Respiratory 22 20 22 Rate Blood Pressure 124/57 L 129/57 L 134/60 H [Left Brachial artery] O2 Saturation 96 98 95 08/02/21 08/02/21 08/02/21 09:00 10:00 11:00 Temperature Heart Rate Heart Rate [ 60 60 62 Monitoring electrodes] Respiratory 26 H 24 22 Rate Blood Pressure 141/56 H 115/54 L 125/59 L [Left Brachial artery] O2 Saturation 91 L 94 95 08/02/21 08/02/21 12:00 13:00 Temperature 36.4 C L Heart Rate Heart Rate [ 60 60 Monitoring electrodes] Respiratory 17 23 Rate Blood Pressure 132/55 H 126/59 L [Left Brachial artery] O2 Saturation 90 L 93 Oxygen O2 Source Oxymask Oxygen Flow Rate 15 I&O (Last 24 Hrs): Intake and Output Totals x24h 07/31/21 08/01/21 08/02/21 23:59 23:59 23:59 Intake Total 2008.636 2357.889 1564.2 Output Total 1055 1050 525 Balance 114.221 2277.889 1039.2 General: Alert, Cooperative, No acute distress, Other (Oriented to self and location. Short term forgetfulness.) HEENT: Atraumatic, PERRLA, EOMI, Mucous membr. moist/pink Neck: Supple, No JVD Neuro: Alert Cardiovascular: Regular rate, Normal S1, Normal S2, No murmurs Respiratory: Chest non-tender, No respiratory distress, Breath sounds nml, Other (faint left lower lobe rales) Abdomen: Normal bowel sounds, Other (distended) Extremities: No clubbing, No cyanosis, Normal pulses, Other (Trace bilateral pedial edema) - Results Results: Laboratory Results WBC 13.5 x10^3/uL (4.8-10.8) H 08/02/21 07:50 RBC 4.24 10^6/uL (4.70-6.10) L 08/02/21 07:50 Hgb 12.3 g/dL (14.0-18.0) L 08/02/21 07:50 Hct 39.4 % (42.0-52.0) L 08/02/21 07:50 MCV 92.9 fL (80.0-94.0) 08/02/21 07:50 MCH 29.0 pg (27.0-31.0) 08/02/21 07:50 MCHC 31.2 g/dL (32.0-36.0) L 08/02/21 07:50 RDW 14.7 % (12.0-15.0) 08/02/21 07:50 Plt Count 232 10^3/uL (130-450) 08/02/21 07:50 MPV 10.5 fL (7.4-11.4) 08/02/21 07:50 Neut # (Auto) 12.0 10^3/uL (1.5-6.6) H 08/02/21 07:50 Lymph # (Auto) 0.6 10^3/uL (1.5-3.5) L 08/02/21 07:50 Rowan # (Auto) 0.5 10^3/uL (0.0-1.0) 08/02/21 07:50 Eos # (Auto) 0.2 10^3/uL (0.0-0.7) 08/02/21 07:50 Baso # (Auto) 0.0 10^3/uL (0.0-0.1) 08/02/21 07:50 Absolute Nucleated RBC 0.00 x10^3/uL 08/02/21 07:50 Total Counted 100 07/28/21 05:11 Band Neuts % (Manual) 0 % (0-10) 07/28/21 05:11 Abnorm Lymph % (Manual) 0 % 07/28/21 05:11 Myelocytes % 1 % (-0) H 07/28/21 05:11 Nucleated RBC % 0.0 /100WBC 08/02/21 07:50 Neutrophils # (Manual) 9.7 10^3/uL (1.5-6.6) H 07/28/21 05:11 Lymphocytes # (Manual) 1.0 10^3/uL (1.5-3.5) L 07/28/21 05:11 Monocytes # (Manual) 0.2 10^3/uL (0.0-1.0) 07/28/21 05:11 Eosinophils # (Manual) 0.0 10^3/uL (0-0.7) 07/28/21 05:11 Basophils # (Manual) 0.0 10^3/uL (0-0.1) 07/28/21 05:11 Differential Comment MANUAL DIFFERENTIAL 07/28/21 05:11 Manual Slide Review Indicated 07/26/21 12:43 WBC Morphology NORMAL APPEARANCE (NORMAL) 07/28/21 05:11 Platelet Estimate NORMAL (130-450,000) (NORMAL) 07/28/21 05:11 Platelet Morphology NORMAL APPEARANCE (NORMAL) 07/28/21 05:11 RBC Morph Micro Appear NORMAL APPEARANCE (NORMAL) 07/28/21 05:11 D-Dimer > 1050.0 ng/mL (200.0-255.0) H 08/01/21 04:15 Bld Gas Analysis Time 0730 07/28/21 07:27 Sample Site RIGHT RADIAL 07/28/21 07:27 ABG pH 7.44 (7.35-7.45) 07/28/21 07:27 ABG pCO2 31 mmHg (34-45) L 07/28/21 07:27 ABG pO2 83 mmHg (80-100) 07/28/21 07:27 ABG HCO3 20.5 mmol/L (22.0-26.0) L 07/28/21 07:27 ABG Total CO2 21.5 MMOL/L (21.0-29.0) 07/28/21 07:27 ABG O2 Saturation 96 % (94-98) 07/28/21 07:27 ABG Base Excess -2.6 mmol/L (-2.0-3.0) L 07/28/21 07:27 Salvador Test POSITIVE 07/28/21 07:27 VBG pH 7.380 (7.31-7.41) 07/26/21 12:43 VBG pCO2 38.8 mmHg (41-51) L 07/26/21 12:43 VBG pO2 25.0 mmHg (25-47) 07/26/21 12:43 VBG HCO3 22.4 mmol/L (23-28) L 07/26/21 12:43 VBG Total CO2 23.6 mmol/L (24-29) L 07/26/21 12:43 VBG O2 Saturation 43.6 % (60-80) L 07/26/21 12:43 VBG Base Excess -2.4 mmol/L (-2 - +2) L 07/26/21 12:43 Respiration Rate 18 b/min 07/28/21 07:27 O2 Delivery Device BiPAP 07/28/21 07:27 Vent Mode SYNCHRONOUS/TIMES 07/28/21 07:27 FiO2 60.00 07/28/21 07:27 EPAP 6 cmH2O 07/28/21 07:27 IPAP 12 cmH2O 07/28/21 07:27 Sodium 146 mmol/L (135-145) H 08/02/21 07:50 Potassium 4.1 mmol/L (3.5-5.0) 08/02/21 07:50 Chloride 113 mmol/L (101-111) H 08/02/21 07:50 Carbon Dioxide 23 mmol/L (21-32) 08/02/21 07:50 Anion Gap 10.0 (6-13) 08/02/21 07:50 BUN 64 mg/dL (6-20) H 08/02/21 07:50 Creatinine 1.6 mg/dL (0.6-1.2) H 08/02/21 07:50 Estimated GFR (MDRD) 41 (>89) L 08/02/21 07:50 Glucose 114 mg/dL (70-100) H 08/02/21 07:50 POC Whole Bld Glucose 240 mg/dL (70 - 100) H 08/02/21 12:15 Lactic Acid 2.0 mmol/L (0.5-2.2) 07/26/21 12:43 Calcium 9.6 mg/dL (8.5-10.3) 08/02/21 07:50 Phosphorus 3.1 mg/dL (2.5-4.6) 07/26/21 12:43 Magnesium 2.3 mg/dL (1.7-2.8) 07/26/21 12:43 Total Bilirubin 1.0 mg/dL (0.2-1.0) 07/26/21 12:43 AST 42 IU/L (10-42) 07/26/21 12:43 ALT 24 IU/L (10-60) 07/26/21 12:43 Alkaline Phosphatase 79 IU/L (42-121) 07/26/21 12:43 C-Reactive Protein 13.3 mg/dL (0-1.0) H 08/01/21 04:15 B-Natriuretic Peptide 569 pg/mL (5-100) H 07/26/21 12:43 Total Protein 8.3 g/dL (6.7-8.2) H 07/26/21 12:43 Albumin 3.4 g/dL (3.2-5.5) 07/26/21 12:43 Globulin 4.9 g/dL (2.1-4.2) H 07/26/21 12:43 Albumin/Globulin Ratio 0.7 (1.0-2.2) L 07/26/21 12:43 Nasal Adenovirus (PCR) NOT DETECTED 07/26/21 12:26 Nasal B. parapertussis DNA (PCR) NOT DETECTED 07/26/21 12:26 Nasal Coronavir 229E PCR NOT DETECTED 07/26/21 12:26 Nasal Coronavir HKU1 PCR NOT DETECTED 07/26/21 12:26 Nasal Coronavir NL63 PCR NOT DETECTED 07/26/21 12:26 Nasal Coronavir OC43 PCR NOT DETECTED 07/26/21 12:26 Nasal Enterovir/Rhinovir PCR NOT DETECTED 07/26/21 12:26 Nasal Influenza B PCR NOT DETECTED 07/26/21 12:26 Nasal Influenza A PCR NOT DETECTED 07/26/21 12:26 Nasal Parainfluen 1 PCR NOT DETECTED 07/26/21 12:26 Nasal Parainfluen 2 PCR NOT DETECTED 07/26/21 12:26 Nasal Parainfluen 3 PCR NOT DETECTED 07/26/21 12:26 Nasal Parainfluen 4 PCR NOT DETECTED 07/26/21 12:26 Nasal RSV (PCR) NOT DETECTED 07/26/21 12:26 Nasal Screen MRSA (PCR) NEGATIVE (NEGATIVE) 07/28/21 21:39 Nasal B.pertussis DNA PCR NOT DETECTED 07/26/21 12:26 Nasal C.pneumoniae (PCR) NOT DETECTED 07/26/21 12:26 Trevor Human Metapneumo PCR NOT DETECTED 07/26/21 12:26 Nasal M.pneumoniae (PCR) NOT DETECTED 07/26/21 12:26 Nasal SARS-CoV-2 (PCR) DETECTED A 07/26/21 12:26 ABX Reporting Has patient been on IV antibiotics over the past 48 hours?: No
[2021-08-02] MEDS: QUEtiapine 25 MG TABLET PO SCH (20:10)
[2021-08-03 05:21] LABS: BASOPHILS % (AUTO) 0.2 %; EOSINOPHILS # (AUTO) 0.1 10^3/uL (0.0-0.7); EOSINOPHILS % (AUTO) 0.6 %; HCT - HEMATOCRIT 36.4 % (42.0-52.0); HGB - HEMOGLOBIN 11.4 g/dL (14.0-18.0); LYMPHOCYTES # (AUTO) 0.5 10^3/uL (1.5-3.5); LYMPHOCYTES % (AUTO) 5.3 %; MEAN CORPUSCULAR HEMOGLOBIN 29.6 pg (27.0-31.0); MEAN CORPUSCULAR HGB CONC 31.3 g/dL (32.0-36.0); MEAN CORPUSCULAR VOLUME 94.5 fL (80.0-94.0); MEAN PLATELET VOLUME 10.7 fL (7.4-11.4); MONOCYTES # (AUTO) 0.3 10^3/uL (0.0-1.0); MONOCYTES % (AUTO) 3.3 %; NEUTROPHILS % (AUTO) 89.8 %; PLT - PLATELET COUNT 209 10^3/uL (130-450); RED BLOOD COUNT 3.85 10^6/uL (4.70-6.10); RED CELL DISTRIBUTION WIDTH 14.9 % (12.0-15.0)
[2021-08-03 05:31] LABS: ALBUMIN 2.3 g/dL (3.2-5.5); ALBUMIN/GLOBULIN RATIO 0.7 (1.0-2.2); BILIRUBIN,TOTAL 0.8 mg/dL (0.2-1.0); CALCIUM 9.5 mg/dL (8.5-10.3); CREATININE 1.5 mg/dL (0.6-1.2); POTASSIUM 4.6 mmol/L (3.5-5.0); TOTAL PROTEIN 5.8 g/dL (6.7-8.2)
[2021-08-03] MEDS: INSULIN ASPART 300 UNIT/3 ML PEN SUBQ SCH ×4 (08:11→20:12)
[2021-08-03] MEDS: INSULIN GLARGINE 300 UNIT/3 ML PEN SUBQ SCH (08:12)
[2021-08-03] MEDS: SODIUM CHLORIDE 0.9% 1,000 ML IV SCH (08:15)
[2021-08-03] MEDS: MULTIVITAMIN W/MINERALS TABLET PO SCH (08:15)
[2021-08-03] MEDS: DOCUSATE SODIUM 250 MG CAPSULE PO SCH (08:15)
[2021-08-03] MEDS: dexAMETHasone 4 MG TABLET PO SCH (08:16)
[2021-08-03] MEDS: CHOLECALCIFEROL 25 MCG TABLET PO SCH (08:16)
[2021-08-03] MEDS: DABIGATRAN 75 MG CAPSULE PO SCH ×2 (08:16→20:07)
[2021-08-03] MEDS: METOPROLOL SUCCINATE 25 MG TABLET PO SCH (08:17)
[2021-08-03] MEDS: lisinopriL 5 MG TABLET PO SCH (08:17)
[2021-08-03] MEDS: NIFEdipine ER 30 MG TABLET PO SCH (08:17)
[2021-08-03] MEDS: polyethylene glycoL 3350 17 GM PACKET PO SCH (08:17)
[2021-08-03] MEDS: TAMSULOSIN 0.4 MG CAPSULE PO SCH (08:18)
[2021-08-03] MEDS: SENNA 8.6 MG TABLET PO SCH (08:18)
[2021-08-03] MEDS: SODIUM CHLORIDE FLUSH 0.9% 10 ML SYRINGE IVP SCH ×3 (08:18→20:05)
[2021-08-03] MEDS ORDERED: FUROSEMIDE 20 MG/2 ML VIAL IVP STA (08:31)
--- NOTE | 2021-08-03 17:25 | PROVIDER PROGRESS NOTE ---
Assessment/Plan - Problem List (1) Acute respiratory failure with hypoxia Assessment/Plan: Patient was transferred to the ICU on 07/31 due to acute respiratory failure secondary to COVID-19 pneumonia. He finished day 5/5 of remdesivir on 07/31 and is on Decadron day 04/19. He is currently on 10 L of oxygen via oxymizer with oxygen saturation around 97% and continues to use BiPAP at night. Today he has rales bilaterally throughout. IV fluids discontinued. Lasix 20mg IV x1 given with good response, 1200mls of urine diuresed and improved breath sounds. Plan: Continue with Decadron for 4 more doses. Continue to rest on BiPap and take breaks as tolerated for meals and oral care. Monitor for signs of respiratory distress and obtain chest x-ray/ ABG as needed. (2) Pneumonia due to COVID-19 virus Assessment/Plan: Patient was vaccinated for COVID and unfortunately became ill with COVID pneumonia. He has completed 5 days of Remdesivir on 07/31 and is on day 04/19 of decadron. He on oxymizer at 10L/min with bedside oxygen saturation around 97%. IS at bedside and patient is able to obtain volumes of approximately 1000mls. Patient is tolerating intermitted self proning. He is using Bipap intermittently for rest. According to Dr. Hogan's note from 07/27 patient is a DNR for cardiac resuscitation but would like Intubation if needed. Plan: Continue with oxymizer at 10L/min as tolerated. Continue to encourage proning as tolerated. Rest on Bipap as needed. Consider intubation if patient deteriorates and oxygenation/ ventilation not maintained on Bipap. (3) Staphylococcus aureus bacteremia Assessment/Plan: On 07/26 one of two blood cultures grew Staphlococcus aurus, this is suspected to be secondary to a contaminant. He was initially treated with vancomycin and then switched to Zyvox due to worsening renal function. Zyvox was then discontinued 07/29/21. White blood cell count is trending down and is 10.0 today. He continues to be afebrile. 07/28 2D echo showed EF of 65-70% without mass, vegetation, or thrombus. Plan: Continue to monitor CBC for WBC trends. If he becomes febrile or WBCs continue to be elevated or increase, consider resuming antibiotics. (4) Controlled type 2 diabetes mellitus without complication, without long-term current use of insulin Assessment/Plan: Patient has history of type II DM and uses metformin 500mg PO with meals and Glimepiride 1mg po daily for control at home. Bedside glucose ranged 164, 200, a nd 260. He is being covered with Aspart on sliding scale for meal coverage and Lantus 5 units for long acting coverage. Plan: Continue to monitor bedside glucose. Treat hyperglycemia with Aspart sliding scale. Continue with Lantus 5 units SubQ. Consider adding set meal coverage short acting insulin if glucose remains elevated. (5) Hypertension Qualifiers: Hypertension type: primary hypertension Qualified Code(s): I10 - Essential (primary) hypertension Assessment/Plan: Patient has history of HTN and takes Lisinopril 20mg twice daily, Metoprolol 25mg po daily, and Nifedipine 90mg PO daily for management. Current SBPs are 120-140s. Prn hydralizine last given 07/27. Plan: Continue Metoprolol 25mg po daily Continue Nifedipine 90mg po daily Continue lisinopril 10mg po daily Hydralizine 10mg IVP three times daily as needed (6) Acute kidney failure Assessment/Plan: Patient presented to hospital with elevated creat 1.4 and low GFR 48. Patient has been improving steadily since 07/29, until 08/01 when creat increased to 1.8 and GFR decreased to 36. IV fluids were started at 83ml/h 08/02 and there was mild improvement in Creat to 1.5 form 1.6 and GFR to 44 form 41. I&O is +1600 today. Increased 2+ pitting edema of bilateral lower extremities. Plan: Discontinue IV fluids due to increased edema and respiratory rales. Recheck morning labs. Monitor I&Os. - Current Meds Current Meds: Current Medications Generic Name Dose Route Start Last Admin Trade Name Freq PRN Reason Stop Dose Admin Cholecalciferol 50 mcg 07/31/21 12:00 08/03/21 08:16 Cholecalciferol 25 Mcg Tablet PO 50 mcg DAILY MARYLOU Administration Dabigatran 75 mg 07/26/21 21:00 08/03/21 08:16 Dabigatran 75 Mg Capsule PO 75 mg BID MARYLOU Administration Dexamethasone 6 mg 07/28/21 09:00 08/03/21 08:16 Dexamethasone 4 Mg Tablet PO 6 mg DAILY MARYLOU Administration Docusate Sodium 250 - 500 mg 08/02/21 09:00 08/03/21 08:15 Docusate Sodium 250 Mg Capsule PO 250 mg DAILY MARYLOU Administration Hydralazine HCl 10 mg 07/26/21 13:40 07/27/21 08:32 Hydralazine Inj 20 Mg/Ml Vial IVP 10 mg TID PRN Administration Hypertensive Emergency Insulin Aspart 3 - 11 unit 08/01/21 21:00 08/03/21 12:13 Insulin Aspart 300 Unit/3 Ml Pen SUBQ 5 unit 0800,1200,1700,2100 MARYLOU Administration Protocol Insulin Glargine 5 unit 08/03/21 09:00 08/03/21 08:12 Insulin Glargine 300 Unit/3 Ml Pen SUBQ 5 unit DAILY MARLYOU Administration Lisinopril 10 mg 07/27/21 09:00 08/03/21 08:17 Lisinopril 5 Mg Tablet PO 10 mg DAILY MARYLOU Administration Metoprolol Succinate 25 mg 07/27/21 09:00 08/03/21 08:17 Metoprolol Succinate 25 Mg Tablet PO 25 mg DAILY MARYLOU Administration Multivitamins/Minerals 1 tab 07/31/21 12:00 08/03/21 08:15 Multivitamin W/Minerals Tablet PO 1 tab DAILYWM MARYLOU Administration Nifedipine 90 mg 07/27/21 09:00 08/03/21 08:17 Nifedipine Er 30 Mg Tablet PO 90 mg DAILY MARYLOU Administration Polyethylene Glycol 17 gm 08/02/21 09:00 08/03/21 08:17 Polyethylene Glycol 3350 17 Gm Packet PO 17 gm DAILY MARYLOU Administration Quetiapine Fumarate 25 mg 07/27/21 21:00 08/02/21 20:10 Quetiapine 25 Mg Tablet PO 25 mg QPM MARYLOU Administration Senna 8.6 - 17.2 mg 08/02/21 09:00 08/03/21 08:18 Senna 8.6 Mg Tablet PO 8.6 mg DAILY MARYLOU Administration Sodium Chloride 10 ml 07/26/21 17:00 08/03/21 08:18 Sodium Chloride Flush 0.9% 10 Ml Syringe IVP 10 ml 0100,0900,1700 MARYLOU Administration Tamsulosin HCl 0.4 mg 07/27/21 09:00 08/03/21 08:18 Tamsulosin 0.4 Mg Capsule PO 0.4 mg DAILY MARYLOU Administration - Lab Result Fish Bone Diagrams: 10/24/21 04:52 08/03/21 04:52 - Additional Planning Condition/Complexity: Guarded Subjective - Subjective Patient Reports: Feeling Better, Resting Comfortably, No Complaints, Other (Patient is sitting comfortably in chair having breakfast. Reports sleeping well. Denies dyspnea, cough, fever, or sputum production.) Nursing Reports: Other (Rales bilaterally.) Objective Vital Signs: Vital Signs - 24 hr 08/02/21 08/02/21 08/02/21 18:00 19:00 20:00 Temperature 36.3 C L Heart Rate Heart Rate [ 62 60 60 Monitoring electrodes] Respiratory 22 22 20 Rate Blood Pressure 119/51 L 130/55 L 120/57 L [Left Brachial artery] O2 Saturation 96 96 95 08/02/21 08/02/21 08/02/21 20:50 21:00 22:00 Temperature Heart Rate 59 L Heart Rate [ 63 60 Monitoring electrodes] Respiratory 21 21 Rate Blood Pressure 115/60 122/64 [Left Brachial artery] O2 Saturation 96 99 08/02/21 08/03/21 08/03/21 23:00 00:00 01:00 Temperature Heart Rate Heart Rate [ 60 61 60 Monitoring electrodes] Respiratory 23 20 21 Rate Blood Pressure 94/45 L 102/54 L 106/55 L [Left Brachial artery] O2 Saturation 95 99 93 08/03/21 08/03/21 08/03/21 01:35 02:00 03:00 Temperature 35.9 C L Heart Rate 61 Heart Rate [ 60 60 Monitoring electrodes] Respiratory 22 24 Rate Blood Pressure 98/52 L 126/65 [Left Brachial artery] O2 Saturation 95 93 08/03/21 08/03/21 08/03/21 04:00 05:00 05:40 Temperature Heart Rate 60 Heart Rate [ 60 60 Monitoring electrodes] Respiratory 23 20 Rate Blood Pressure 101/57 L 127/65 [Left Brachial artery] O2 Saturation 94 96 08/03/21 08/03/21 08/03/21 06:00 07:00 08:00 Temperature 36 C L Heart Rate Heart Rate [ 60 63 60 Monitoring electrodes] Respiratory 19 27 H 22 Rate Blood Pressure 118/63 152/61 H 134/60 H [Left Brachial artery] O2 Saturation 92 90 L 94 08/03/21 08/03/21 08/03/21 09:00 10:00 11:00 Temperature Heart Rate Heart Rate [ 60 60 60 Monitoring electrodes] Respiratory 25 H 25 H 24 Rate Blood Pressure 141/60 H 135/60 H 143/62 H [Left Brachial artery] O2 Saturation 95 91 L 94 08/03/21 08/03/21 08/03/21 12:00 12:53 14:00 Temperature 36.2 C L Heart Rate Heart Rate [ 60 62 60 Monitoring electrodes] Respiratory 22 26 H 22 Rate Blood Pressure 146/68 H 126/54 L 122/49 L [Left Brachial artery] O2 Saturation 91 L 94 96 08/03/21 08/03/21 15:00 16:00 Temperature Heart Rate Heart Rate [ 62 60 Monitoring electrodes] Respiratory 20 23 Rate Blood Pressure 111/49 L 99/44 L [Left Brachial artery] O2 Saturation 98 97 Oxygen O2 Source Oxymizer Oxygen Flow Rate 15 I&O (Last 24 Hrs): Intake and Output Totals x24h 08/01/21 08/02/21 08/03/21 23:59 23:59 23:59 Intake Total 2357.889 2947.70 1289.10 Output Total 1050 1250 1625 Balance 1251.387 1730.70 -335.90 General: Alert, Cooperative, No acute distress HEENT: Atraumatic, PERRLA, EOMI Neck: Supple, No JVD Neuro: Alert, Other (Alert to self and location. Forgetful to date and situtation.) Cardiovascular: Regular rate, Normal S1, Normal S2, No murmurs Respiratory: Chest non-tender, No respiratory distress, Rales, Other (Faint rales bilaterally.) Abdomen: Normal bowel sounds, Soft, No tenderness Extremities: No clubbing, No cyanosis, Other (2+ pitting pedial edema that extends to mid calf bilaterally.) Skin: No rashes, No breakdown, No significant lesion - Results Results: Laboratory Results WBC 10.0 x10^3/uL (4.8-10.8) 08/03/21 04:52 RBC 3.85 10^6/uL (4.70-6.10) L 08/03/21 04:52 Hgb 11.4 g/dL (14.0-18.0) L 08/03/21 04:52 Hct 36.4 % (42.0-52.0) L 08/03/21 04:52 MCV 94.5 fL (80.0-94.0) H 08/03/21 04:52 MCH 29.6 pg (27.0-31.0) 08/03/21 04:52 MCHC 31.3 g/dL (32.0-36.0) L 08/03/21 04:52 RDW 14.9 % (12.0-15.0) 08/03/21 04:52 Plt Count 209 10^3/uL (130-450) 08/03/21 04:52 MPV 10.7 fL (7.4-11.4) 08/03/21 04:52 Neut # (Auto) 9.0 10^3/uL (1.5-6.6) H 08/03/21 04:52 Lymph # (Auto) 0.5 10^3/uL (1.5-3.5) L 08/03/21 04:52 [place] # (Auto) 0.3 10^3/uL (0.0-1.0) 08/03/21 04:52 Eos # (Auto) 0.1 10^3/uL (0.0-0.7) 08/03/21 04:52 Baso # (Auto) 0.0 10^3/uL (0.0-0.1) 08/03/21 04:52 Absolute Nucleated RBC 0.00 x10^3/uL 08/03/21 04:52 Total Counted 100 07/28/21 05:11 Band Neuts % (Manual) 0 % (0-10) 07/28/21 05:11 Abnorm Lymph % (Manual) 0 % 07/28/21 05:11 Myelocytes % 1 % (-0) H 07/28/21 05:11 Nucleated RBC % 0.0 /100WBC 08/03/21 04:52 Neutrophils # (Manual) 9.7 10^3/uL (1.5-6.6) H 07/28/21 05:11 Lymphocytes # (Manual) 1.0 10^3/uL (1.5-3.5) L 07/28/21 05:11 Monocytes # (Manual) 0.2 10^3/uL (0.0-1.0) 07/28/21 05:11 Eosinophils # (Manual) 0.0 10^3/uL (0-0.7) 07/28/21 05:11 Basophils # (Manual) 0.0 10^3/uL (0-0.1) 07/28/21 05:11 Differential Comment MANUAL DIFFERENTIAL 07/28/21 05:11 Manual Slide Review Indicated 07/26/21 12:43 WBC Morphology NORMAL APPEARANCE (NORMAL) 07/28/21 05:11 Platelet Estimate NORMAL (130-450,000) (NORMAL) 07/28/21 05:11 Platelet Morphology NORMAL APPEARANCE (NORMAL) 07/28/21 05:11 RBC Morph Micro Appear NORMAL APPEARANCE (NORMAL) 07/28/21 05:11 D-Dimer > 1050.0 ng/mL (200.0-255.0) H 08/01/21 04:15 Bld Gas Analysis Time 0730 07/28/21 07:27 Sample Site RIGHT RADIAL 07/28/21 07:27 ABG pH 7.44 (7.35-7.45) 07/28/21 07:27 ABG pCO2 31 mmHg (34-45) L 07/28/21 07:27 ABG pO2 83 mmHg (80-100) 07/28/21 07:27 ABG HCO3 20.5 mmol/L (22.0-26.0) L 07/28/21 07:27 ABG Total CO2 21.5 MMOL/L (21.0-29.0) 07/28/21 07:27 ABG O2 Saturation 96 % (94-98) 07/28/21 07:27 ABG Base Excess -2.6 mmol/L (-2.0-3.0) L 07/28/21 07:27 [place] Test POSITIVE 07/28/21 07:27 VBG pH 7.380 (7.31-7.41) 07/26/21 12:43 VBG pCO2 38.8 mmHg (41-51) L 07/26/21 12:43 VBG pO2 25.0 mmHg (25-47) 07/26/21 12:43 VBG HCO3 22.4 mmol/L (23-28) L 07/26/21 12:43 VBG Total CO2 23.6 mmol/L (24-29) L 07/26/21 12:43 VBG O2 Saturation 43.6 % (60-80) L 07/26/21 12:43 VBG Base Excess -2.4 mmol/L (-2 - +2) L 07/26/21 12:43 Respiration Rate 18 b/min 07/28/21 07:27 O2 Delivery Device BiPAP 07/28/21 07:27 Vent Mode SYNCHRONOUS/TIMES 07/28/21 07:27 FiO2 60.00 07/28/21 07:27 EPAP 6 cmH2O 07/28/21 07:27 IPAP 12 cmH2O 07/28/21 07:27 Sodium 144 mmol/L (135-145) 08/03/21 04:52 Potassium 4.6 mmol/L (3.5-5.0) 08/03/21 04:52 Chloride 113 mmol/L (101-111) H 08/03/21 04:52 Carbon Dioxide 22 mmol/L (21-32) 08/03/21 04:52 Anion Gap 9.0 (6-13) 08/03/21 04:52 BUN 62 mg/dL (6-20) H 08/03/21 04:52 Creatinine 1.5 mg/dL (0.6-1.2) H 08/03/21 04:52 Estimated GFR (MDRD) 44 (>89) L 08/03/21 04:52 Glucose 218 mg/dL (70-100) H 08/03/21 04:52 POC Whole Bld Glucose 261 mg/dL (70 - 100) H 08/03/21 17:12 Lactic Acid 2.0 mmol/L (0.5-2.2) 07/26/21 12:43 Calcium 9.5 mg/dL (8.5-10.3) 08/03/21 04:52 Phosphorus 3.1 mg/dL (2.5-4.6) 07/26/21 12:43 Magnesium 2.3 mg/dL (1.7-2.8) 07/26/21 12:43 Total Bilirubin 0.8 mg/dL (0.2-1.0) 08/03/21 04:52 AST 18 IU/L (10-42) 08/03/21 04:52 ALT 20 IU/L (10-60) 08/03/21 04:52 Alkaline Phosphatase 72 IU/L (42-121) 08/03/21 04:52 C-Reactive Protein 13.3 mg/dL (0-1.0) H 08/01/21 04:15 B-Natriuretic Peptide 569 pg/mL (5-100) H 07/26/21 12:43 Total Protein 5.8 g/dL (6.7-8.2) L 08/03/21 04:52 Albumin 2.3 g/dL (3.2-5.5) L 08/03/21 04:52 Globulin 3.5 g/dL (2.1-4.2) 08/03/21 04:52 Albumin/Globulin Ratio 0.7 (1.0-2.2) L 08/03/21 04:52 Nasal Adenovirus (PCR) NOT DETECTED 07/26/21 12:26 Nasal B. parapertussis DNA (PCR) NOT DETECTED 07/26/21 12:26 Nasal Coronavir 229E PCR NOT DETECTED 07/26/21 12:26 Nasal Coronavir HKU1 PCR NOT DETECTED 07/26/21 12:26 Nasal Coronavir NL63 PCR NOT DETECTED 07/26/21 12:26 Nasal Coronavir OC43 PCR NOT DETECTED 07/26/21 12:26 Nasal Enterovir/Rhinovir PCR NOT DETECTED 07/26/21 12:26 Nasal Influenza B PCR NOT DETECTED 07/26/21 12:26 Nasal Influenza A PCR NOT DETECTED 07/26/21 12:26 Nasal Parainfluen 1 PCR NOT DETECTED 07/26/21 12:26 Nasal Parainfluen 2 PCR NOT DETECTED 07/26/21 12:26 Nasal Parainfluen 3 PCR NOT DETECTED 07/26/21 12:26 Nasal Parainfluen 4 PCR NOT DETECTED 07/26/21 12:26 Nasal RSV (PCR) NOT DETECTED 07/26/21 12:26 Nasal Screen MRSA (PCR) NEGATIVE (NEGATIVE) 07/28/21 21:39 Nasal B.pertussis DNA PCR NOT DETECTED 07/26/21 12:26 Nasal C.pneumoniae (PCR) NOT DETECTED 07/26/21 12:26 Trevor Human Metapneumo PCR NOT DETECTED 07/26/21 12:26 Nasal M.pneumoniae (PCR) NOT DETECTED 07/26/21 12:26 Nasal SARS-CoV-2 (PCR) DETECTED A 07/26/21 12:26 ABX Reporting Has patient been on IV antibiotics over the past 48 hours?: Yes
[2021-08-03] MEDS: QUEtiapine 25 MG TABLET PO SCH (20:07)
[2021-08-03] MEDS: SODIUM CHLORIDE FLUSH 0.9% 10 ML SYRINGE IVP PRN (23:59)
[2021-08-04] MEDS: SODIUM CHLORIDE FLUSH 0.9% 10 ML SYRINGE IVP PRN (05:32)
[2021-08-04 06:17] LABS: BASOPHILS % (AUTO) 0.1 %; EOSINOPHILS # (AUTO) 0.2 10^3/uL (0.0-0.7); EOSINOPHILS % (AUTO) 1.5 %; HCT - HEMATOCRIT 37.6 % (42.0-52.0); LYMPHOCYTES # (AUTO) 0.7 10^3/uL (1.5-3.5); LYMPHOCYTES % (AUTO) 6.2 %; MEAN CORPUSCULAR HEMOGLOBIN 30.1 pg (27.0-31.0); MEAN CORPUSCULAR HGB CONC 31.9 g/dL (32.0-36.0); MEAN CORPUSCULAR VOLUME 94.2 fL (80.0-94.0); MEAN PLATELET VOLUME 10.5 fL (7.4-11.4); MONOCYTES # (AUTO) 0.5 10^3/uL (0.0-1.0); MONOCYTES % (AUTO) 3.9 %; NEUTROPHILS # (AUTO) 10.4 10^3/uL (1.5-6.6); NEUTROPHILS % (AUTO) 87.5 %; PLT - PLATELET COUNT 207 10^3/uL (130-450); RED BLOOD COUNT 3.99 10^6/uL (4.70-6.10); RED CELL DISTRIBUTION WIDTH 14.8 % (12.0-15.0); WHITE BLOOD COUNT 11.9 x10^3/uL (4.8-10.8)
[2021-08-04 06:33] LABS: ALBUMIN 2.4 g/dL (3.2-5.5); ALBUMIN/GLOBULIN RATIO 0.6 (1.0-2.2); BILIRUBIN,TOTAL 1.1 mg/dL (0.2-1.0); CREATININE 1.4 mg/dL (0.6-1.2); POTASSIUM 4.6 mmol/L (3.5-5.0); TOTAL PROTEIN 6.1 g/dL (6.7-8.2)
--- NOTE | 2021-08-04 08:39 | PROVIDER PROGRESS NOTE ---
Assessment/Plan - Problem List (1) Acute respiratory failure with hypoxia Assessment/Plan: Secondary to COVID-19 pneumonia. Remdesivir completed. Decadron day 04/19 Currently on 12 L of oxygen via oxymizer with oxygen saturation around 100%. Patient was given another dose of Lasix 20 mg IV x1 today due to bilateral crackles on auscultation of lungs. He switches to the BiPAP intermittently as needed. Overall the patient's clinical condition is improving. (2) Pneumonia due to COVID-19 virus Assessment/Plan: Remdesivir completed. Decadron day 04/19 Currently on 12 L of oxygen via oxymizer with oxygen saturation around 100%. He switches to the BiPAP intermittently as needed. (3) Staphylococcus aureus bacteremia Assessment/Plan: This is suspected to be secondary to a contaminant. Patient was initially treated with vancomycin which was subsequently switched to Zyvox due to worsening renal function. Zyvox was discontinued 07/29/21 White blood cell count 11.9. The patient remains afebrile If WBC continues to rise or patient becomes febrile, will resume Zyvox 2D echo done on July 28, 2021 showed ejection fraction of 65 to 70%. No mass/vegetation or thrombus was seen. (4) Controlled type 2 diabetes mellitus without complication, without long-term current use of insulin Assessment/Plan: On lantus 5 units subcu daily. On sliding scale insulin. Accu-Cheks before every meal and at bedtime. (5) Hypertension Qualifiers: Hypertension type: primary hypertension Qualified Code(s): I10 - Essential (primary) hypertension Assessment/Plan: On lisinopril 10 mg p.o. daily, metoprolol succinate 25 mg p.o. daily and nifedipine 90 mg p.o. daily. (6) Acute kidney failure Assessment/Plan: Creatinine 1.4 with estimated GFR of 48. We will continue to monitor. - Current Meds Current Meds: Current Medications Generic Name Dose Route Start Last Admin Trade Name Freq PRN Reason Stop Dose Admin Cholecalciferol 50 mcg 07/31/21 12:00 08/03/21 08:16 Cholecalciferol 25 Mcg Tablet PO 50 mcg DAILY MARYLOU Administration Dabigatran 75 mg 07/26/21 21:00 08/03/21 20:07 Dabigatran 75 Mg Capsule PO 75 mg BID MARYLOU Administration Dexamethasone 6 mg 07/28/21 09:00 08/03/21 08:16 Dexamethasone 4 Mg Tablet PO 6 mg DAILY MARYLOU Administration Docusate Sodium 250 - 500 mg 08/02/21 09:00 08/03/21 08:15 Docusate Sodium 250 Mg Capsule PO 250 mg DAILY MARYLOU Administration Hydralazine HCl 10 mg 07/26/21 13:40 07/27/21 08:32 Hydralazine Inj 20 Mg/Ml Vial IVP 10 mg TID PRN Administration Hypertensive Emergency Insulin Aspart 3 - 11 unit 08/01/21 21:00 08/03/21 20:12 Insulin Aspart 300 Unit/3 Ml Pen SUBQ 9 unit 0800,1200,1700,2100 MARYLOU Administration Protocol Insulin Glargine 5 unit 08/03/21 09:00 08/03/21 08:12 Insulin Glargine 300 Unit/3 Ml Pen SUBQ 5 unit DAILY MARYLOU Administration Lisinopril 10 mg 07/27/21 09:00 08/03/21 08:17 Lisinopril 5 Mg Tablet PO 10 mg DAILY MARYLOU Administration Metoprolol Succinate 25 mg 07/27/21 09:00 08/03/21 08:17 Metoprolol Succinate 25 Mg Tablet PO 25 mg DAILY MARYLOU Administration Multivitamins/Minerals 1 tab 07/31/21 12:00 08/03/21 08:15 Multivitamin W/Minerals Tablet PO 1 tab DAILYWM MARYLOU Administration Nifedipine 90 mg 07/27/21 09:00 08/03/21 08:17 Nifedipine Er 30 Mg Tablet PO 90 mg DAILY MARYLOU Administration Polyethylene Glycol 17 gm 08/02/21 09:00 08/03/21 08:17 Polyethylene Glycol 3350 17 Gm Packet PO 17 gm DAILY MARYLOU Administration Quetiapine Fumarate 25 mg 07/27/21 21:00 08/03/21 20:07 Quetiapine 25 Mg Tablet PO 25 mg QPM MARYLOU Administration Senna 8.6 - 17.2 mg 08/02/21 09:00 08/03/21 08:18 Senna 8.6 Mg Tablet PO 8.6 mg DAILY MARYLOU Administration Sodium Chloride 10 ml 07/26/21 13:34 08/04/21 05:32 Sodium Chloride Flush 0.9% 10 Ml Syringe IVP 10 ml PRN PRN Administration NEEDED PER PROVIDER ORDERS Sodium Chloride 10 ml 07/26/21 17:00 08/03/21 20:05 Sodium Chloride Flush 0.9% 10 Ml Syringe IVP 10 ml 0100,0900,1700 MARYLOU Administration Tamsulosin HCl 0.4 mg 07/27/21 09:00 08/03/21 08:18 Tamsulosin 0.4 Mg Capsule PO 0.4 mg DAILY MARYLOU Administration - Lab Result Fish Bone Diagrams: 08/04/21 06:10 08/04/21 06:10 - Additional Planning My Orders: My Active Orders 08/03/21 09:00 Insulin Glargine [Lantus Solostar] 5 unit SUBQ DAILY 08/05/21 05:00 CBC - COMP BLD CT W/AUTO DIFF [HEME] DAILYLAB COMPREHENSIVE METABOLIC PANEL [CHEM] DAILYLAB 08/06/21 05:00 CBC - COMP BLD CT W/AUTO DIFF [HEME] DAILYLAB COMPREHENSIVE METABOLIC PANEL [CHEM] DAILYLAB 08/07/21 05:00 CBC - COMP BLD CT W/AUTO DIFF [HEME] DAILYLAB COMPREHENSIVE METABOLIC PANEL [CHEM] DAILYLAB Subjective - Subjective Patient Reports: Other (Patient was resting comfortably in the bedside recliner. He reports feeling better and breathing better. He denied any other complaints.) Objective Vital Signs: Vital Signs - 24 hr 08/03/21 08/03/21 08/03/21 09:00 10:00 11:00 Temperature Heart Rate Heart Rate [ 60 60 60 Monitoring electrodes] Respiratory 25 H 25 H 24 Rate Blood Pressure 141/60 H 135/60 H 143/62 H [Left Brachial artery] O2 Saturation 95 91 L 94 08/03/21 08/03/21 08/03/21 12:00 12:53 14:00 Temperature 36.2 C L Heart Rate Heart Rate [ 60 62 60 Monitoring electrodes] Respiratory 22 26 H 22 Rate Blood Pressure 146/68 H 126/54 L 122/49 L [Left Brachial artery] O2 Saturation 91 L 94 96 08/03/21 08/03/21 08/03/21 15:00 16:00 17:00 Temperature 36.6 C Heart Rate Heart Rate [ 62 60 62 Monitoring electrodes] Respiratory 20 23 25 H Rate Blood Pressure 111/49 L 99/44 L 117/56 L [Left Brachial artery] O2 Saturation 98 97 92 08/03/21 08/03/21 08/03/21 18:00 19:00 20:08 Temperature 36.3 C L Heart Rate Heart Rate [ 60 66 60 Monitoring electrodes] Respiratory 27 H 25 H 24 Rate Blood Pressure 131/56 H 141/66 H 143/63 H [Left Brachial artery] O2 Saturation 98 95 95 08/03/21 08/03/21 08/03/21 21:00 21:15 22:00 Temperature Heart Rate 60 Heart Rate [ 60 60 Monitoring electrodes] Respiratory 22 22 Rate Blood Pressure 117/63 114/63 [Left Brachial artery] O2 Saturation 98 95 08/03/21 08/04/21 08/04/21 23:00 00:00 01:00 Temperature 36.4 C L Heart Rate Heart Rate [ 60 60 62 Monitoring electrodes] Respiratory 21 24 21 Rate Blood Pressure 133/63 H 129/70 126/68 [Left Brachial artery] O2 Saturation 98 90 L 97 08/04/21 08/04/21 08/04/21 01:40 02:00 03:00 Temperature Heart Rate 60 Heart Rate [ 60 60 Monitoring electrodes] Respiratory 19 21 Rate Blood Pressure 110/62 122/62 [Left Brachial artery] O2 Saturation 97 97 08/04/21 08/04/21 08/04/21 04:00 05:00 05:35 Temperature 36.4 C L Heart Rate 60 Heart Rate [ 60 61 Monitoring electrodes] Respiratory 25 H 23 Rate Blood Pressure 110/58 L 129/61 [Left Brachial artery] O2 Saturation 98 95 08/04/21 08/04/21 06:00 07:00 Temperature Heart Rate Heart Rate [ 60 60 Monitoring electrodes] Respiratory 23 20 Rate Blood Pressure 141/62 H 128/63 [Left Brachial artery] O2 Saturation 92 96 Oxygen O2 Source Oxymask Oxygen Flow Rate 15 I&O (Last 24 Hrs): Intake and Output Totals x24h 08/02/21 08/03/21 08/04/21 23:59 23:59 23:59 Intake Total 2947.70 1589.10 200 Output Total 1250 2500 350 Balance 1697.70 -910.90 -150 General: Alert, Oriented x3, Mild distress HEENT: PERRLA, EOMI Neck: Supple, No JVD Neuro: Alert, Oriented Times 3 Cardiovascular: Regular rate, Normal S1, Normal S2 Respiratory: Chest non-tender, Other (Mild crackles bilaterally) Abdomen: Normal bowel sounds, Soft Extremities: No clubbing, Other (+1 lower extremity edema) Skin: No rashes, No breakdown, No significant lesion - Results Results: Laboratory Results WBC 11.9 x10^3/uL (4.8-10.8) H 08/04/21 06:10 RBC 3.99 10^6/uL (4.70-6.10) L 08/04/21 06:10 Hgb 12.0 g/dL (14.0-18.0) L 08/04/21 06:10 Hct 37.6 % (42.0-52.0) L 08/04/21 06:10 MCV 94.2 fL (80.0-94.0) H 08/04/21 06:10 MCH 30.1 pg (27.0-31.0) 08/04/21 06:10 MCHC 31.9 g/dL (32.0-36.0) L 08/04/21 06:10 RDW 14.8 % (12.0-15.0) 08/04/21 06:10 Plt Count 207 10^3/uL (130-450) 08/04/21 06:10 MPV 10.5 fL (7.4-11.4) 08/04/21 06:10 Neut # (Auto) 10.4 10^3/uL (1.5-6.6) H 08/04/21 06:10 Lymph # (Auto) 0.7 10^3/uL (1.5-3.5) L 08/04/21 06:10 [place] # (Auto) 0.5 10^3/uL (0.0-1.0) 08/04/21 06:10 Eos # (Auto) 0.2 10^3/uL (0.0-0.7) 08/04/21 06:10 Baso # (Auto) 0.0 10^3/uL (0.0-0.1) 08/04/21 06:10 Absolute Nucleated RBC 0.00 x10^3/uL 08/04/21 06:10 Total Counted 100 07/28/21 05:11 Band Neuts % (Manual) 0 % (0-10) 07/28/21 05:11 Abnorm Lymph % (Manual) 0 % 07/28/21 05:11 Myelocytes % 1 % (-0) H 07/28/21 05:11 Nucleated RBC % 0.0 /100WBC 08/04/21 06:10 Neutrophils # (Manual) 9.7 10^3/uL (1.5-6.6) H 07/28/21 05:11 Lymphocytes # (Manual) 1.0 10^3/uL (1.5-3.5) L 07/28/21 05:11 Monocytes # (Manual) 0.2 10^3/uL (0.0-1.0) 07/28/21 05:11 Eosinophils # (Manual) 0.0 10^3/uL (0-0.7) 07/28/21 05:11 Basophils # (Manual) 0.0 10^3/uL (0-0.1) 07/28/21 05:11 Differential Comment MANUAL DIFFERENTIAL 07/28/21 05:11 Manual Slide Review Indicated 07/26/21 12:43 WBC Morphology NORMAL APPEARANCE (NORMAL) 07/28/21 05:11 Platelet Estimate NORMAL (130-450,000) (NORMAL) 07/28/21 05:11 Platelet Morphology NORMAL APPEARANCE (NORMAL) 07/28/21 05:11 RBC Morph Micro Appear NORMAL APPEARANCE (NORMAL) 07/28/21 05:11 D-Dimer > 1050.0 ng/mL (200.0-255.0) H 08/01/21 04:15 Bld Gas Analysis Time 0730 07/28/21 07:27 Sample Site RIGHT RADIAL 07/28/21 07:27 ABG pH 7.44 (7.35-7.45) 07/28/21 07:27 ABG pCO2 31 mmHg (34-45) L 07/28/21 07:27 ABG pO2 83 mmHg (80-100) 07/28/21 07:27 ABG HCO3 20.5 mmol/L (22.0-26.0) L 07/28/21 07:27 ABG Total CO2 21.5 MMOL/L (21.0-29.0) 07/28/21 07:27 ABG O2 Saturation 96 % (94-98) 07/28/21 07:27 ABG Base Excess -2.6 mmol/L (-2.0-3.0) L 07/28/21 07:27 [place] Test POSITIVE 07/28/21 07:27 VBG pH 7.380 (7.31-7.41) 07/26/21 12:43 VBG pCO2 38.8 mmHg (41-51) L 07/26/21 12:43 VBG pO2 25.0 mmHg (25-47) 07/26/21 12:43 VBG HCO3 22.4 mmol/L (23-28) L 07/26/21 12:43 VBG Total CO2 23.6 mmol/L (24-29) L 07/26/21 12:43 VBG O2 Saturation 43.6 % (60-80) L 07/26/21 12:43 VBG Base Excess -2.4 mmol/L (-2 - +2) L 07/26/21 12:43 Respiration Rate 18 b/min 07/28/21 07:27 O2 Delivery Device BiPAP 07/28/21 07:27 Vent Mode SYNCHRONOUS/TIMES 07/28/21 07:27 FiO2 60.00 07/28/21 07:27 EPAP 6 cmH2O 07/28/21 07:27 IPAP 12 cmH2O 07/28/21 07:27 Sodium 142 mmol/L (135-145) 08/04/21 06:10 Potassium 4.6 mmol/L (3.5-5.0) 08/04/21 06:10 Chloride 109 mmol/L (101-111) 08/04/21 06:10 Carbon Dioxide 24 mmol/L (21-32) 08/04/21 06:10 Anion Gap 9.0 (6-13) 08/04/21 06:10 BUN 60 mg/dL (6-20) H 08/04/21 06:10 Creatinine 1.4 mg/dL (0.6-1.2) H 08/04/21 06:10 Estimated GFR (MDRD) 48 (>89) L 08/04/21 06:10 Glucose 148 mg/dL (70-100) H 08/04/21 06:10 POC Whole Bld Glucose 300 mg/dL (70 - 100) H 08/03/21 20:11 Lactic Acid 2.0 mmol/L (0.5-2.2) 07/26/21 12:43 Calcium 10.0 mg/dL (8.5-10.3) 08/04/21 06:10 Phosphorus 3.1 mg/dL (2.5-4.6) 07/26/21 12:43 Magnesium 2.3 mg/dL (1.7-2.8) 07/26/21 12:43 Total Bilirubin 1.1 mg/dL (0.2-1.0) H 08/04/21 06:10 AST 29 IU/L (10-42) 08/04/21 06:10 ALT 31 IU/L (10-60) 08/04/21 06:10 Alkaline Phosphatase 75 IU/L (42-121) 08/04/21 06:10 C-Reactive Protein 13.3 mg/dL (0-1.0) H 08/01/21 04:15 B-Natriuretic Peptide 569 pg/mL (5-100) H 07/26/21 12:43 Total Protein 6.1 g/dL (6.7-8.2) L 08/04/21 06:10 Albumin 2.4 g/dL (3.2-5.5) L 08/04/21 06:10 Globulin 3.7 g/dL (2.1-4.2) 08/04/21 06:10 Albumin/Globulin Ratio 0.6 (1.0-2.2) L 08/04/21 06:10 Nasal Adenovirus (PCR) NOT DETECTED 07/26/21 12:26 Nasal B. parapertussis DNA (PCR) NOT DETECTED 07/26/21 12:26 Nasal Coronavir 229E PCR NOT DETECTED 07/26/21 12:26 Nasal Coronavir HKU1 PCR NOT DETECTED 07/26/21 12:26 Nasal Coronavir NL63 PCR NOT DETECTED 07/26/21 12:26 Nasal Coronavir OC43 PCR NOT DETECTED 07/26/21 12:26 Nasal Enterovir/Rhinovir PCR NOT DETECTED 07/26/21 12:26 Nasal Influenza B PCR NOT DETECTED 07/26/21 12:26 Nasal Influenza A PCR NOT DETECTED 07/26/21 12:26 Nasal Parainfluen 1 PCR NOT DETECTED 07/26/21 12:26 Nasal Parainfluen 2 PCR NOT DETECTED 07/26/21 12:26 Nasal Parainfluen 3 PCR NOT DETECTED 07/26/21 12:26 Nasal Parainfluen 4 PCR NOT DETECTED 07/26/21 12:26 Nasal RSV (PCR) NOT DETECTED 07/26/21 12:26 Nasal Screen MRSA (PCR) NEGATIVE (NEGATIVE) 07/28/21 21:39 Nasal B.pertussis DNA PCR NOT DETECTED 07/26/21 12:26 Nasal C.pneumoniae (PCR) NOT DETECTED 07/26/21 12:26 Trevor Human Metapneumo PCR NOT DETECTED 07/26/21 12:26 Nasal M.pneumoniae (PCR) NOT DETECTED 07/26/21 12:26 Nasal SARS-CoV-2 (PCR) DETECTED A 07/26/21 12:26 ABX Reporting Has patient been on IV antibiotics over the past 48 hours?: No
[2021-08-04] MEDS: polyethylene glycoL 3350 17 GM PACKET PO SCH (09:15)
[2021-08-04] MEDS: CHOLECALCIFEROL 25 MCG TABLET PO SCH (09:17)
[2021-08-04] MEDS: lisinopriL 5 MG TABLET PO SCH (09:17)
[2021-08-04] MEDS: SENNA 8.6 MG TABLET PO SCH (09:18)
[2021-08-04] MEDS: dexAMETHasone 4 MG TABLET PO SCH (09:18)
[2021-08-04] MEDS: DABIGATRAN 75 MG CAPSULE PO SCH ×2 (09:18→20:49)
[2021-08-04] MEDS: NIFEdipine ER 30 MG TABLET PO SCH (09:18)
[2021-08-04] MEDS: DOCUSATE SODIUM 250 MG CAPSULE PO SCH (09:19)
[2021-08-04] MEDS: MULTIVITAMIN W/MINERALS TABLET PO SCH (09:19)
[2021-08-04] MEDS: INSULIN ASPART 300 UNIT/3 ML PEN SUBQ SCH ×4 (09:19→21:03)
[2021-08-04] MEDS: METOPROLOL SUCCINATE 25 MG TABLET PO SCH (09:19)
[2021-08-04] MEDS: TAMSULOSIN 0.4 MG CAPSULE PO SCH (09:19)
[2021-08-04] MEDS: INSULIN GLARGINE 300 UNIT/3 ML PEN SUBQ SCH (09:20)
[2021-08-04] MEDS: SODIUM CHLORIDE FLUSH 0.9% 10 ML SYRINGE IVP SCH ×3 (09:21→20:49)
[2021-08-04] MEDS ORDERED: FUROSEMIDE 20 MG/2 ML VIAL IVP STA (10:27)
[2021-08-04] MEDS: QUEtiapine 25 MG TABLET PO SCH (20:49)
[2021-08-05 05:43] LABS: BASOPHILS % (AUTO) 0.2 %; EOSINOPHILS # (AUTO) 0.2 10^3/uL (0.0-0.7); EOSINOPHILS % (AUTO) 1.8 %; HCT - HEMATOCRIT 35.9 % (42.0-52.0); HGB - HEMOGLOBIN 11.2 g/dL (14.0-18.0); LYMPHOCYTES % (AUTO) 8.6 %; MEAN CORPUSCULAR HEMOGLOBIN 29.6 pg (27.0-31.0); MEAN CORPUSCULAR HGB CONC 31.2 g/dL (32.0-36.0); MEAN CORPUSCULAR VOLUME 94.7 fL (80.0-94.0); MEAN PLATELET VOLUME 11.4 fL (7.4-11.4); MONOCYTES # (AUTO) 0.7 10^3/uL (0.0-1.0); MONOCYTES % (AUTO) 6.2 %; NEUTROPHILS # (AUTO) 9.1 10^3/uL (1.5-6.6); NEUTROPHILS % (AUTO) 82.2 %; PLT - PLATELET COUNT 170 10^3/uL (130-450); RED BLOOD COUNT 3.79 10^6/uL (4.70-6.10); RED CELL DISTRIBUTION WIDTH 14.6 % (12.0-15.0)
[2021-08-05 05:50] LABS: DIFFERENTIAL COMMENT MANUAL=AUTO DIFF
[2021-08-05 06:05] LABS: ALBUMIN 2.3 g/dL (3.2-5.5); ALBUMIN/GLOBULIN RATIO 0.7 (1.0-2.2); BILIRUBIN,TOTAL 0.8 mg/dL (0.2-1.0); CALCIUM 9.7 mg/dL (8.5-10.3); CREATININE 1.4 mg/dL (0.6-1.2); POTASSIUM 4.8 mmol/L (3.5-5.0); TOTAL PROTEIN 5.7 g/dL (6.7-8.2)
--- NOTE | 2021-08-05 07:42 | PROVIDER PROGRESS NOTE ---
Assessment/Plan - Problem List (1) Acute respiratory failure with hypoxia Assessment/Plan: Secondary to COVID-19 pneumonia. Remdesivir completed. Decadron day 05/20 Currently on 6 L of oxygen via nasal canula with oxygen saturation between 93- 96%. Patient was given another dose of Lasix 20 mg IV x1 today due to bilateral crackles on auscultation of lungs. Off bipap at night Switched from ICU to Med/Surg Status Overall the patient's clinical condition is improving. (2) Pneumonia due to COVID-19 virus Assessment/Plan: Remdesivir completed. Decadron day 05/20 Currently on 6 L of oxygen via nasal canula with oxygen saturation between 93- 96%. Patient was given another dose of Lasix 20 mg IV x1 today due to bilateral crackles on auscultation of lungs. Off bipap at night Switched from ICU to Med/Surg Status (3) Staphylococcus aureus bacteremia Assessment/Plan: This is suspected to be secondary to a contaminant. Patient was initially treated with vancomycin which was subsequently switched to Zyvox due to worsening renal function. Zyvox was discontinued 07/29/21 White blood cell count 11.9. The patient remains afebrile If WBC continues to rise or patient becomes febrile, will resume Zyvox 2D echo done on July 28, 2021 showed ejection fraction of 65 to 70%. No mass/vegetation or thrombus was seen. (4) Controlled type 2 diabetes mellitus without complication, without long-term current use of insulin Assessment/Plan: On lantus 5 units subcu daily. On sliding scale insulin. Accu-Cheks before every meal and at bedtime. (5) Hypertension Qualifiers: Hypertension type: primary hypertension Qualified Code(s): I10 - Essential (primary) hypertension Assessment/Plan: On lisinopril 10 mg p.o. daily, metoprolol succinate 25 mg p.o. daily and nifedipine 90 mg p.o. daily. (6) Acute kidney failure Assessment/Plan: Creatinine 1.4 with estimated GFR of 48. We will continue to monitor. (5) Hypertension Qualifiers: Hypertension type: primary hypertension Qualified Code(s): I10 - Essential (primary) hypertension - Current Meds Current Meds: Current Medications Generic Name Dose Route Start Last Admin Trade Name Freq PRN Reason Stop Dose Admin Cholecalciferol 50 mcg 07/31/21 12:00 08/04/21 09:17 Cholecalciferol 25 Mcg Tablet PO 50 mcg DAILY MARYLOU Administration Dabigatran 75 mg 07/26/21 21:00 08/04/21 20:49 Dabigatran 75 Mg Capsule PO 75 mg BID MARYLOU Administration Dexamethasone 6 mg 07/28/21 09:00 08/04/21 09:18 Dexamethasone 4 Mg Tablet PO 6 mg DAILY MARYLOU Administration Docusate Sodium 250 - 500 mg 08/02/21 09:00 08/04/21 09:19 Docusate Sodium 250 Mg Capsule PO 250 mg DAILY MARYLOU Administration Hydralazine HCl 10 mg 07/26/21 13:40 07/27/21 08:32 Hydralazine Inj 20 Mg/Ml Vial IVP 10 mg TID PRN Administration Hypertensive Emergency Insulin Aspart 3 - 11 unit 08/01/21 21:00 08/04/21 21:03 Insulin Aspart 300 Unit/3 Ml Pen SUBQ 7 unit 0800,1200,1700,2100 MARYLOU Administration Protocol Insulin Glargine 5 unit 08/03/21 09:00 08/04/21 09:20 Insulin Glargine 300 Unit/3 Ml Pen SUBQ 5 unit DAILY MARYLOU Administration Lisinopril 10 mg 07/27/21 09:00 08/04/21 09:17 Lisinopril 5 Mg Tablet PO 10 mg DAILY MARYLOU Administration Metoprolol Succinate 25 mg 07/27/21 09:00 08/04/21 09:19 Metoprolol Succinate 25 Mg Tablet PO 25 mg DAILY MARYLOU Administration Multivitamins/Minerals 1 tab 07/31/21 12:00 08/04/21 09:19 Multivitamin W/Minerals Tablet PO 1 tab DAILYWM MARYLOU Administration Nifedipine 90 mg 07/27/21 09:00 08/04/21 09:18 Nifedipine Er 30 Mg Tablet PO 90 mg DAILY MARYLOU Administration Polyethylene Glycol 17 gm 08/02/21 09:00 08/04/21 09:15 Polyethylene Glycol 3350 17 Gm Packet PO 17 gm DAILY MARYLOU Administration Quetiapine Fumarate 25 mg 07/27/21 21:00 08/04/21 20:49 Quetiapine 25 Mg Tablet PO 25 mg QPM MARYLOU Administration Senna 8.6 - 17.2 mg 08/02/21 09:00 08/04/21 09:18 Senna 8.6 Mg Tablet PO 8.6 mg DAILY MARYLOU Administration Sodium Chloride 10 ml 07/26/21 13:34 08/04/21 05:32 Sodium Chloride Flush 0.9% 10 Ml Syringe IVP 10 ml PRN PRN Administration NEEDED PER PROVIDER ORDERS Sodium Chloride 10 ml 07/26/21 17:00 08/04/21 20:49 Sodium Chloride Flush 0.9% 10 Ml Syringe IVP 10 ml 0100,0900,1700 MARYLOU Administration Tamsulosin HCl 0.4 mg 07/27/21 09:00 08/04/21 09:19 Tamsulosin 0.4 Mg Capsule PO 0.4 mg DAILY MARYLOU Administration - Lab Result Fish Bone Diagrams: 08/05/21 05:00 08/05/21 05:00 - Additional Planning My Orders: My Active Orders 08/04/21 Lunch Dysphagia Puree Diet [DIET] 08/06/21 05:00 CBC - COMP BLD CT W/AUTO DIFF [HEME] DAILYLAB COMPREHENSIVE METABOLIC PANEL [CHEM] DAILYLAB 08/07/21 05:00 CBC - COMP BLD CT W/AUTO DIFF [HEME] DAILYLAB COMPREHENSIVE METABOLIC PANEL [CHEM] DAILYLAB Subjective - Subjective Patient Reports: Other (Resting comfortably in bed. Patient continues to improve significantly daily. He was on 6 L Oxygen via nasal cannula at the time of exam and tolerating it well. He denied any complaints. He reported feeling better.) Objective Vital Signs: Vital Signs - 24 hr 08/04/21 08/04/21 08/04/21 08:00 09:00 11:00 Temperature Heart Rate [ 60 63 60 Monitoring electrodes] Respiratory 21 21 23 Rate Blood Pressure 144/73 H 137/70 H 146/66 H [Left Brachial artery] O2 Saturation 98 93 91 L 08/04/21 08/04/21 08/04/21 12:00 13:00 14:00 Temperature 36.4 C L Heart Rate [ 60 60 Monitoring electrodes] Respiratory 22 22 Rate Blood Pressure 152/78 H 135/69 H [Left Brachial artery] O2 Saturation 88 L 96 08/04/21 08/04/21 08/04/21 14:51 16:00 17:00 Temperature Heart Rate [ 62 60 63 Monitoring electrodes] Respiratory 22 21 25 H Rate Blood Pressure 135/69 H 116/68 139/68 H [Left Brachial artery] O2 Saturation 96 100 98 08/04/21 08/04/21 08/04/21 18:00 19:00 20:00 Temperature 36.5 C Heart Rate [ 63 60 60 Monitoring electrodes] Respiratory 21 25 H 26 H Rate Blood Pressure 139/68 H 137/66 H 140/65 H [Left Brachial artery] O2 Saturation 99 98 98 08/04/21 08/04/21 08/04/21 21:00 22:00 23:00 Temperature Heart Rate [ 64 60 60 Monitoring electrodes] Respiratory 23 22 22 Rate Blood Pressure 151/71 H 130/67 117/66 [Left Brachial artery] O2 Saturation 91 L 98 99 08/05/21 08/05/21 08/05/21 00:00 00:59 02:00 Temperature 36.8 C 36.8 C Heart Rate [ 53 L 60 60 Monitoring electrodes] Respiratory 24 20 22 Rate Blood Pressure 141/73 H 104/67 123/66 [Left Brachial artery] O2 Saturation 97 100 94 08/05/21 08/05/21 08/05/21 03:00 04:00 05:00 Temperature 36.7 C 36.7 C Heart Rate [ 60 60 60 Monitoring electrodes] Respiratory 21 24 22 Rate Blood Pressure 117/65 125/67 127/65 [Left Brachial artery] O2 Saturation 99 98 93 08/05/21 08/05/21 06:00 07:00 Temperature Heart Rate [ 60 60 Monitoring electrodes] Respiratory 19 21 Rate Blood Pressure 121/68 126/72 [Left Brachial artery] O2 Saturation 99 98 Oxygen O2 Source Oxymizer Oxygen Flow Rate 15 I&O (Last 24 Hrs): Intake and Output Totals x24h 08/03/21 08/04/21 08/05/21 23:59 23:59 23:59 Intake Total 1589.10 500 300 Output Total 2500 2160 690 Balance -910.90 -1660 -390 General: Alert, Oriented x3, Mild distress HEENT: PERRLA, EOMI Neck: Supple, No JVD Neuro: Alert, Oriented Times 3 Cardiovascular: Regular rate, Normal S1, Normal S2 Respiratory: Chest non-tender, Other (Mild crackles on right side) Abdomen: Normal bowel sounds, Soft Extremities: No clubbing, Other (Trace edema) Skin: No rashes, No breakdown, No significant lesion - Results Results: Laboratory Results WBC 11.0 x10^3/uL (4.8-10.8) H 08/05/21 05:00 RBC 3.79 10^6/uL (4.70-6.10) L 08/05/21 05:00 Hgb 11.2 g/dL (14.0-18.0) L 08/05/21 05:00 Hct 35.9 % (42.0-52.0) L 08/05/21 05:00 MCV 94.7 fL (80.0-94.0) H 08/05/21 05:00 MCH 29.6 pg (27.0-31.0) 08/05/21 05:00 MCHC 31.2 g/dL (32.0-36.0) L 08/05/21 05:00 RDW 14.6 % (12.0-15.0) 08/05/21 05:00 Plt Count 170 10^3/uL (130-450) 08/05/21 05:00 MPV 11.4 fL (7.4-11.4) 08/05/21 05:00 Neut # (Auto) 9.1 10^3/uL (1.5-6.6) H 08/05/21 05:00 Lymph # (Auto) 1.0 10^3/uL (1.5-3.5) L 08/05/21 05:00 Kimble # (Auto) 0.7 10^3/uL (0.0-1.0) 08/05/21 05:00 Eos # (Auto) 0.2 10^3/uL (0.0-0.7) 08/05/21 05:00 Baso # (Auto) 0.0 10^3/uL (0.0-0.1) 08/05/21 05:00 Absolute Nucleated RBC 0.00 x10^3/uL 08/05/21 05:00 Total Counted 100 07/28/21 05:11 Band Neuts % (Manual) Not Reportable 08/05/21 05:00 Abnorm Lymph % (Manual) Not Reportable 08/05/21 05:00 Myelocytes % 1 % (-0) H 07/28/21 05:11 Nucleated RBC % 0.0 /100WBC 08/05/21 05:00 Neutrophils # (Manual) Not Reportable 08/05/21 05:00 Lymphocytes # (Manual) Not Reportable 08/05/21 05:00 Monocytes # (Manual) Not Reportable 08/05/21 05:00 Eosinophils # (Manual) Not Reportable 08/05/21 05:00 Basophils # (Manual) Not Reportable 08/05/21 05:00 Differential Comment MANUAL=AUTO DIFF 08/05/21 05:00 Manual Slide Review Indicated 07/26/21 12:43 WBC Morphology NORMAL APPEARANCE (NORMAL) 07/28/21 05:11 Platelet Estimate NORMAL (130-450,000) (NORMAL) 07/28/21 05:11 Platelet Morphology NORMAL APPEARANCE (NORMAL) 07/28/21 05:11 RBC Morph Micro Appear NORMAL APPEARANCE (NORMAL) 07/28/21 05:11 D-Dimer > 1050.0 ng/mL (200.0-255.0) H 08/01/21 04:15 Bld Gas Analysis Time 0730 07/28/21 07:27 Sample Site RIGHT RADIAL 07/28/21 07:27 ABG pH 7.44 (7.35-7.45) 07/28/21 07:27 ABG pCO2 31 mmHg (34-45) L 07/28/21 07:27 ABG pO2 83 mmHg (80-100) 07/28/21 07:27 ABG HCO3 20.5 mmol/L (22.0-26.0) L 07/28/21 07:27 ABG Total CO2 21.5 MMOL/L (21.0-29.0) 07/28/21 07:27 ABG O2 Saturation 96 % (94-98) 07/28/21 07:27 ABG Base Excess -2.6 mmol/L (-2.0-3.0) L 07/28/21 07:27 Salvador Test POSITIVE 07/28/21 07:27 VBG pH 7.380 (7.31-7.41) 07/26/21 12:43 VBG pCO2 38.8 mmHg (41-51) L 07/26/21 12:43 VBG pO2 25.0 mmHg (25-47) 07/26/21 12:43 VBG HCO3 22.4 mmol/L (23-28) L 07/26/21 12:43 VBG Total CO2 23.6 mmol/L (24-29) L 07/26/21 12:43 VBG O2 Saturation 43.6 % (60-80) L 07/26/21 12:43 VBG Base Excess -2.4 mmol/L (-2 - +2) L 07/26/21 12:43 Respiration Rate 18 b/min 07/28/21 07:27 O2 Delivery Device BiPAP 07/28/21 07:27 Vent Mode SYNCHRONOUS/TIMES 07/28/21 07:27 FiO2 60.00 07/28/21 07:27 EPAP 6 cmH2O 07/28/21 07:27 IPAP 12 cmH2O 07/28/21 07:27 Sodium 141 mmol/L (135-145) 08/05/21 05:00 Potassium 4.8 mmol/L (3.5-5.0) 08/05/21 05:00 Chloride 107 mmol/L (101-111) 08/05/21 05:00 Carbon Dioxide 24 mmol/L (21-32) 08/05/21 05:00 Anion Gap 10.0 (6-13) 08/05/21 05:00 BUN 53 mg/dL (6-20) H 08/05/21 05:00 Creatinine 1.4 mg/dL (0.6-1.2) H 08/05/21 05:00 Estimated GFR (MDRD) 48 (>89) L 08/05/21 05:00 Glucose 81 mg/dL (70-100) 08/05/21 05:00 POC Whole Bld Glucose 232 mg/dL (70 - 100) H 08/04/21 20:50 Lactic Acid 2.0 mmol/L (0.5-2.2) 07/26/21 12:43 Calcium 9.7 mg/dL (8.5-10.3) 08/05/21 05:00 Phosphorus 3.1 mg/dL (2.5-4.6) 07/26/21 12:43 Magnesium 2.3 mg/dL (1.7-2.8) 07/26/21 12:43 Total Bilirubin 0.8 mg/dL (0.2-1.0) 08/05/21 05:00 AST 27 IU/L (10-42) 08/05/21 05:00 ALT 32 IU/L (10-60) 08/05/21 05:00 Alkaline Phosphatase 66 IU/L (42-121) 08/05/21 05:00 C-Reactive Protein 13.3 mg/dL (0-1.0) H 08/01/21 04:15 B-Natriuretic Peptide 569 pg/mL (5-100) H 07/26/21 12:43 Total Protein 5.7 g/dL (6.7-8.2) L 08/05/21 05:00 Albumin 2.3 g/dL (3.2-5.5) L 08/05/21 05:00 Globulin 3.4 g/dL (2.1-4.2) 08/05/21 05:00 Albumin/Globulin Ratio 0.7 (1.0-2.2) L 08/05/21 05:00 Nasal Adenovirus (PCR) NOT DETECTED 07/26/21 12:26 Nasal B. parapertussis DNA (PCR) NOT DETECTED 07/26/21 12:26 Nasal Coronavir 229E PCR NOT DETECTED 07/26/21 12:26 Nasal Coronavir HKU1 PCR NOT DETECTED 07/26/21 12:26 Nasal Coronavir NL63 PCR NOT DETECTED 07/26/21 12:26 Nasal Coronavir OC43 PCR NOT DETECTED 07/26/21 12:26 Nasal Enterovir/Rhinovir PCR NOT DETECTED 07/26/21 12:26 Nasal Influenza B PCR NOT DETECTED 07/26/21 12:26 Nasal Influenza A PCR NOT DETECTED 07/26/21 12:26 Nasal Parainfluen 1 PCR NOT DETECTED 07/26/21 12:26 Nasal Parainfluen 2 PCR NOT DETECTED 07/26/21 12:26 Nasal Parainfluen 3 PCR NOT DETECTED 07/26/21 12:26 Nasal Parainfluen 4 PCR NOT DETECTED 07/26/21 12:26 Nasal RSV (PCR) NOT DETECTED 07/26/21 12:26 Nasal Screen MRSA (PCR) NEGATIVE (NEGATIVE) 07/28/21 21:39 Nasal B.pertussis DNA PCR NOT DETECTED 07/26/21 12:26 Nasal C.pneumoniae (PCR) NOT DETECTED 07/26/21 12:26 Trevor Human Metapneumo PCR NOT DETECTED 07/26/21 12:26 Nasal M.pneumoniae (PCR) NOT DETECTED 07/26/21 12:26 Nasal SARS-CoV-2 (PCR) DETECTED A 07/26/21 12:26 ABX Reporting Has patient been on IV antibiotics over the past 48 hours?: No
[2021-08-05] MEDS: INSULIN ASPART 300 UNIT/3 ML PEN SUBQ SCH ×4 (08:51→21:49)
[2021-08-05] MEDS: METOPROLOL SUCCINATE 25 MG TABLET PO SCH (08:52)
[2021-08-05] MEDS: MULTIVITAMIN W/MINERALS TABLET PO SCH (08:52)
[2021-08-05] MEDS: DABIGATRAN 75 MG CAPSULE PO SCH ×2 (08:52→21:48)
[2021-08-05] MEDS: TAMSULOSIN 0.4 MG CAPSULE PO SCH (08:52)
[2021-08-05] MEDS: DOCUSATE SODIUM 250 MG CAPSULE PO SCH (08:52)
[2021-08-05] MEDS: NIFEdipine ER 30 MG TABLET PO SCH (08:53)
[2021-08-05] MEDS: polyethylene glycoL 3350 17 GM PACKET PO SCH (08:53)
[2021-08-05] MEDS: SENNA 8.6 MG TABLET PO SCH (08:53)
[2021-08-05] MEDS: lisinopriL 5 MG TABLET PO SCH (08:53)
[2021-08-05] MEDS: dexAMETHasone 4 MG TABLET PO SCH (08:53)
[2021-08-05] MEDS: CHOLECALCIFEROL 25 MCG TABLET PO SCH (08:53)
[2021-08-05] MEDS: SODIUM CHLORIDE FLUSH 0.9% 10 ML SYRINGE IVP SCH ×2 (09:01→17:21)
[2021-08-05] MEDS: INSULIN GLARGINE 300 UNIT/3 ML PEN SUBQ SCH (09:02)
[2021-08-05] MEDS ORDERED: FUROSEMIDE 20 MG/2 ML VIAL IVP STA (10:49)
[2021-08-05] MEDS ORDERED: INSULIN ASPART 300 UNIT/3 ML PEN SUBQ ONE (17:18)
[2021-08-05] MEDS: QUEtiapine 25 MG TABLET PO SCH (21:48)
[2021-08-06] MEDS: SODIUM CHLORIDE FLUSH 0.9% 10 ML SYRINGE IVP SCH ×4 (00:10→23:47)
[2021-08-06 06:13] LABS: BASOPHILS % (AUTO) 0.1 %; EOSINOPHILS # (AUTO) 0.2 10^3/uL (0.0-0.7); HCT - HEMATOCRIT 39.9 % (42.0-52.0); HGB - HEMOGLOBIN 12.7 g/dL (14.0-18.0); LYMPHOCYTES # (AUTO) 1.1 10^3/uL (1.5-3.5); LYMPHOCYTES % (AUTO) 7.2 %; MEAN CORPUSCULAR HEMOGLOBIN 29.6 pg (27.0-31.0); MEAN CORPUSCULAR HGB CONC 31.8 g/dL (32.0-36.0); MEAN PLATELET VOLUME 10.6 fL (7.4-11.4); MONOCYTES # (AUTO) 0.9 10^3/uL (0.0-1.0); MONOCYTES % (AUTO) 5.9 %; NEUTROPHILS # (AUTO) 12.8 10^3/uL (1.5-6.6); NEUTROPHILS % (AUTO) 84.9 %; PLT - PLATELET COUNT 237 10^3/uL (130-450); RED BLOOD COUNT 4.29 10^6/uL (4.70-6.10); RED CELL DISTRIBUTION WIDTH 14.2 % (12.0-15.0)
[2021-08-06 06:23] LABS: ALBUMIN 2.5 g/dL (3.2-5.5); ALBUMIN/GLOBULIN RATIO 0.6 (1.0-2.2); BILIRUBIN,TOTAL 0.9 mg/dL (0.2-1.0); CALCIUM 10.2 mg/dL (8.5-10.3); CREATININE 1.5 mg/dL (0.6-1.2); POTASSIUM 4.4 mmol/L (3.5-5.0); TOTAL PROTEIN 6.5 g/dL (6.7-8.2)
--- NOTE | 2021-08-06 08:15 | PROVIDER PROGRESS NOTE ---
Assessment/Plan - Problem List (1) Acute respiratory failure with hypoxia Assessment/Plan: Secondary to COVID-19 pneumonia and HCAP Remdesivir and Decadron completed. Currently on 3 L of oxygen via nasal canula with oxygen saturation between 93%. No longer on bipap at night Switched from ICU to Med/Surg Status on 08/05/21 WBC on 08/06/21 was 15 Chest x-ray on 08/06/21 showed increased bilateral pulmonary opacities most consistent with pneumonia. As a result patient was started on Cefepime and azithromycin. (2) Pneumonia due to COVID-19 virus Assessment/Plan: Remdesivir and Decadron completed. Currently on 3 L of oxygen via nasal canula with oxygen saturation between 93%. No longer on bipap at night Switched from ICU to Med/Surg Status on 08/05/21 WBC on 08/06/21 was 15 Chest x-ray on 08/06/21 showed increased bilateral pulmonary opacities most consistent with pneumonia. As a result patient was started on Cefepime and azithromycin. (3) HCAP (healthcare-associated pneumonia) Assessment/Plan: Currently on 3 L of oxygen via nasal canula with oxygen saturation between 93%. No longer on bipap at night Switched from ICU to Med/Surg Status on 08/05/21 WBC on 08/06/21 was 15 Chest x-ray on 08/06/21 showed increased bilateral pulmonary opacities most consistent with pneumonia. As a result patient was started on Cefepime and azithromycin. (4) Staphylococcus aureus bacteremia Assessment/Plan: This is suspected to be secondary to a contaminant. Patient was initially treated with vancomycin which was subsequently switched to Zyvox due to worsening renal function. Zyvox was discontinued 07/29/21 (5) Controlled type 2 diabetes mellitus without complication, without long-term current use of insulin Assessment/Plan: Lantus increased to 8 units subcu daily. On sliding scale insulin. Accu-Cheks before every meal and at bedtime. (6) Hypertension Qualifiers: Hypertension type: primary hypertension Qualified Code(s): I10 - Essential (primary) hypertension Assessment/Plan: On lisinopril 10 mg p.o. daily, metoprolol succinate 25 mg p.o. daily and nifedipine 90 mg p.o. daily. (7) Acute kidney failure Assessment/Plan: Creatinine 1.5 with estimated GFR of 44. We will continue to monitor. - Current Meds Current Meds: Current Medications Generic Name Dose Route Start Last Admin Trade Name Freq PRN Reason Stop Dose Admin Cholecalciferol 50 mcg 07/31/21 12:00 08/05/21 08:53 Cholecalciferol 25 Mcg Tablet PO 50 mcg DAILY MARYLOU Administration Dabigatran 75 mg 07/26/21 21:00 08/05/21 21:48 Dabigatran 75 Mg Capsule PO 75 mg BID MARYLOU Administration Dexamethasone 6 mg 07/28/21 09:00 08/05/21 08:53 Dexamethasone 4 Mg Tablet PO 6 mg DAILY MARYLOU Administration Docusate Sodium 250 - 500 mg 08/02/21 09:00 08/05/21 08:52 Docusate Sodium 250 Mg Capsule PO 250 mg DAILY MARYLOU Administration Hydralazine HCl 10 mg 07/26/21 13:40 07/27/21 08:32 Hydralazine Inj 20 Mg/Ml Vial IVP 10 mg TID PRN Administration Hypertensive Emergency Insulin Aspart 3 - 11 unit 08/01/21 21:00 08/05/21 21:49 Insulin Aspart 300 Unit/3 Ml Pen SUBQ 9 unit 0800,1200,1700,2100 MARYLOU Administration Protocol Lisinopril 10 mg 07/27/21 09:00 08/05/21 08:53 Lisinopril 5 Mg Tablet PO 10 mg DAILY MARYLOU Administration Metoprolol Succinate 25 mg 07/27/21 09:00 08/05/21 08:52 Metoprolol Succinate 25 Mg Tablet PO 25 mg DAILY MARYLOU Administration Multivitamins/Minerals 1 tab 07/31/21 12:00 08/05/21 08:52 Multivitamin W/Minerals Tablet PO 1 tab DAILYWM MARYLOU Administration Nifedipine 90 mg 07/27/21 09:00 08/05/21 08:53 Nifedipine Er 30 Mg Tablet PO 90 mg DAILY MARYLOU Administration Polyethylene Glycol 17 gm 08/02/21 09:00 08/05/21 08:53 Polyethylene Glycol 3350 17 Gm Packet PO 17 gm DAILY MARYLOU Administration Quetiapine Fumarate 25 mg 07/27/21 21:00 08/05/21 21:48 Quetiapine 25 Mg Tablet PO 25 mg QPM MARYLOU Administration Senna 8.6 - 17.2 mg 08/02/21 09:00 08/05/21 08:53 Senna 8.6 Mg Tablet PO 8.6 mg DAILY MARYLOU Administration Sodium Chloride 10 ml 07/26/21 13:34 08/04/21 05:32 Sodium Chloride Flush 0.9% 10 Ml Syringe IVP 10 ml PRN PRN Administration NEEDED PER PROVIDER ORDERS Sodium Chloride 10 ml 07/26/21 17:00 08/06/21 00:10 Sodium Chloride Flush 0.9% 10 Ml Syringe IVP 10 ml 0100,0900,1700 MARYLOU Administration Tamsulosin HCl 0.4 mg 07/27/21 09:00 08/05/21 08:52 Tamsulosin 0.4 Mg Capsule PO 0.4 mg DAILY MARYLOU Administration - Lab Result Fish Bone Diagrams: 08/06/21 06:01 08/06/21 06:01 - Additional Planning My Orders: My Active Orders 08/05/21 19:26 Zinc Oxide 20% Oint [Zinc Oxide] 1 applic TOP PRN PRN 08/06/21 08:11 Chest 1 View X-Ray [XR] Stat 08/06/21 09:00 Insulin Glargine [Lantus Solostar] 8 unit SUBQ DAILY 08/07/21 05:00 CBC - COMP BLD CT W/AUTO DIFF [HEME] DAILYLAB COMPREHENSIVE METABOLIC PANEL [CHEM] DAILYLAB Subjective - Subjective Patient Reports: Other (Resting comfortably in bed. His oxygen requirement continues to decrease. Breathing without any significant effort. He is currently out of Covid isolation. Chest x-ray showed increased bilateral opacities.) Objective Vital Signs: Vital Signs - 24 hr 08/05/21 08/05/21 08/05/21 09:00 10:00 11:00 Temperature 36.3 C L Heart Rate Heart Rate [ Brachial] Heart Rate [ 60 60 62 Monitoring electrodes] Respiratory 24 25 H 25 H Rate Blood Pressure 142/68 H 126/59 L 116/55 L [Left Brachial artery] Blood Pressure [Right Brachial artery] O2 Saturation 92 93 94 08/05/21 08/05/21 08/05/21 12:00 13:00 13:30 Temperature Heart Rate Heart Rate [ Brachial] Heart Rate [ 60 60 60 Monitoring electrodes] Respiratory 26 H 25 H 25 H Rate Blood Pressure 117/58 L 115/54 L 115/54 L [Left Brachial artery] Blood Pressure [Right Brachial artery] O2 Saturation 94 95 96 08/05/21 08/05/21 08/06/21 17:00 21:00 00:31 Temperature 36.8 C 36.4 C L 36.4 C L Heart Rate Heart Rate [ Brachial] Heart Rate [ 60 63 60 Monitoring electrodes] Respiratory 25 H 20 21 Rate Blood Pressure 124/59 L 108/50 L [Left Brachial artery] Blood Pressure 118/58 L [Right Brachial artery] O2 Saturation 96 93 93 08/06/21 08/06/21 08/06/21 05:26 06:00 07:38 Temperature 36.4 C L 36.4 C L 36.4 C L Heart Rate 60 Heart Rate [ 60 60 Brachial] Heart Rate [ Monitoring electrodes] Respiratory 21 20 20 Rate Blood Pressure [Left Brachial artery] Blood Pressure 150/64 H 131/66 H [Right Brachial artery] O2 Saturation 6 L 87 L 95 Oxygen O2 Source Nasal cannula Oxygen Flow Rate 15 I&O (Last 24 Hrs): Intake and Output Totals x24h 08/04/21 08/05/21 08/06/21 23:59 23:59 23:59 Intake Total 500 1650 50 Output Total 2160 2140 675 Balance -1660 -490 -625 General: Alert, Oriented x3, Other (Weak) HEENT: PERRLA, EOMI Neck: Supple, No JVD Neuro: Alert, Oriented Times 3 Cardiovascular: Regular rate, Normal S1, Normal S2 Respiratory: Chest non-tender, No respiratory distress, Other (Coarse, mild crackles) Abdomen: Normal bowel sounds, Soft, No tenderness, No masses Extremities: No clubbing, No cyanosis, No edema, No tenderness/swelling Skin: No rashes, No breakdown, No significant lesion - Results Results: Laboratory Results WBC 15.0 x10^3/uL (4.8-10.8) H 08/06/21 06:01 RBC 4.29 10^6/uL (4.70-6.10) L 08/06/21 06:01 Hgb 12.7 g/dL (14.0-18.0) L 08/06/21 06:01 Hct 39.9 % (42.0-52.0) L 08/06/21 06:01 MCV 93.0 fL (80.0-94.0) 08/06/21 06:01 MCH 29.6 pg (27.0-31.0) 08/06/21 06:01 MCHC 31.8 g/dL (32.0-36.0) L 08/06/21 06:01 RDW 14.2 % (12.0-15.0) 08/06/21 06:01 Plt Count 237 10^3/uL (130-450) 08/06/21 06:01 MPV 10.6 fL (7.4-11.4) 08/06/21 06:01 Neut # (Auto) 12.8 10^3/uL (1.5-6.6) H 08/06/21 06:01 Lymph # (Auto) 1.1 10^3/uL (1.5-3.5) L 08/06/21 06:01 Woods # (Auto) 0.9 10^3/uL (0.0-1.0) 08/06/21 06:01 Eos # (Auto) 0.2 10^3/uL (0.0-0.7) 08/06/21 06:01 Baso # (Auto) 0.0 10^3/uL (0.0-0.1) 08/06/21 06:01 Absolute Nucleated RBC 0.00 x10^3/uL 08/06/21 06:01 Total Counted 100 07/28/21 05:11 Band Neuts % (Manual) Not Reportable 08/05/21 05:00 Abnorm Lymph % (Manual) Not Reportable 08/05/21 05:00 Myelocytes % 1 % (-0) H 07/28/21 05:11 Nucleated RBC % 0.0 /100WBC 08/06/21 06:01 Neutrophils # (Manual) Not Reportable 08/05/21 05:00 Lymphocytes # (Manual) Not Reportable 08/05/21 05:00 Monocytes # (Manual) Not Reportable 08/05/21 05:00 Eosinophils # (Manual) Not Reportable 08/05/21 05:00 Basophils # (Manual) Not Reportable 08/05/21 05:00 Differential Comment MANUAL=AUTO DIFF 08/05/21 05:00 Manual Slide Review Indicated 07/26/21 12:43 WBC Morphology NORMAL APPEARANCE (NORMAL) 07/28/21 05:11 Platelet Estimate NORMAL (130-450,000) (NORMAL) 07/28/21 05:11 Platelet Morphology NORMAL APPEARANCE (NORMAL) 07/28/21 05:11 RBC Morph Micro Appear NORMAL APPEARANCE (NORMAL) 07/28/21 05:11 D-Dimer > 1050.0 ng/mL (200.0-255.0) H 08/01/21 04:15 Bld Gas Analysis Time 0730 07/28/21 07:27 Sample Site RIGHT RADIAL 07/28/21 07:27 ABG pH 7.44 (7.35-7.45) 07/28/21 07:27 ABG pCO2 31 mmHg (34-45) L 07/28/21 07:27 ABG pO2 83 mmHg (80-100) 07/28/21 07:27 ABG HCO3 20.5 mmol/L (22.0-26.0) L 07/28/21 07:27 ABG Total CO2 21.5 MMOL/L (21.0-29.0) 07/28/21 07:27 ABG O2 Saturation 96 % (94-98) 07/28/21 07:27 ABG Base Excess -2.6 mmol/L (-2.0-3.0) L 07/28/21 07:27 Salvador Test POSITIVE 07/28/21 07:27 VBG pH 7.380 (7.31-7.41) 07/26/21 12:43 VBG pCO2 38.8 mmHg (41-51) L 07/26/21 12:43 VBG pO2 25.0 mmHg (25-47) 07/26/21 12:43 VBG HCO3 22.4 mmol/L (23-28) L 07/26/21 12:43 VBG Total CO2 23.6 mmol/L (24-29) L 07/26/21 12:43 VBG O2 Saturation 43.6 % (60-80) L 07/26/21 12:43 VBG Base Excess -2.4 mmol/L (-2 - +2) L 07/26/21 12:43 Respiration Rate 18 b/min 07/28/21 07:27 O2 Delivery Device BiPAP 07/28/21 07:27 Vent Mode SYNCHRONOUS/TIMES 07/28/21 07:27 FiO2 60.00 07/28/21 07:27 EPAP 6 cmH2O 07/28/21 07:27 IPAP 12 cmH2O 07/28/21 07:27 Sodium 139 mmol/L (135-145) 08/06/21 06:01 Potassium 4.4 mmol/L (3.5-5.0) 08/06/21 06:01 Chloride 102 mmol/L (101-111) 08/06/21 06:01 Carbon Dioxide 27 mmol/L (21-32) 08/06/21 06:01 Anion Gap 10.0 (6-13) 08/06/21 06:01 BUN 59 mg/dL (6-20) H 08/06/21 06:01 Creatinine 1.5 mg/dL (0.6-1.2) H 08/06/21 06:01 Estimated GFR (MDRD) 44 (>89) L 08/06/21 06:01 Glucose 106 mg/dL (70-100) H 08/06/21 06:01 POC Whole Bld Glucose 90 mg/dL (70 - 100) 08/06/21 07:36 Lactic Acid 2.0 mmol/L (0.5-2.2) 07/26/21 12:43 Calcium 10.2 mg/dL (8.5-10.3) 08/06/21 06:01 Phosphorus 3.1 mg/dL (2.5-4.6) 07/26/21 12:43 Magnesium 2.3 mg/dL (1.7-2.8) 07/26/21 12:43 Total Bilirubin 0.9 mg/dL (0.2-1.0) 08/06/21 06:01 AST 22 IU/L (10-42) 08/06/21 06:01 ALT 35 IU/L (10-60) 08/06/21 06:01 Alkaline Phosphatase 71 IU/L (42-121) 08/06/21 06:01 C-Reactive Protein 13.3 mg/dL (0-1.0) H 08/01/21 04:15 B-Natriuretic Peptide 569 pg/mL (5-100) H 07/26/21 12:43 Total Protein 6.5 g/dL (6.7-8.2) L 08/06/21 06:01 Albumin 2.5 g/dL (3.2-5.5) L 08/06/21 06:01 Globulin 4.0 g/dL (2.1-4.2) 08/06/21 06:01 Albumin/Globulin Ratio 0.6 (1.0-2.2) L 08/06/21 06:01 Nasal Adenovirus (PCR) NOT DETECTED 07/26/21 12:26 Nasal B. parapertussis DNA (PCR) NOT DETECTED 07/26/21 12:26 Nasal Coronavir 229E PCR NOT DETECTED 07/26/21 12:26 Nasal Coronavir HKU1 PCR NOT DETECTED 07/26/21 12:26 Nasal Coronavir NL63 PCR NOT DETECTED 07/26/21 12:26 Nasal Coronavir OC43 PCR NOT DETECTED 07/26/21 12:26 Nasal Enterovir/Rhinovir PCR NOT DETECTED 07/26/21 12:26 Nasal Influenza B PCR NOT DETECTED 07/26/21 12:26 Nasal Influenza A PCR NOT DETECTED 07/26/21 12:26 Nasal Parainfluen 1 PCR NOT DETECTED 07/26/21 12:26 Nasal Parainfluen 2 PCR NOT DETECTED 07/26/21 12:26 Nasal Parainfluen 3 PCR NOT DETECTED 07/26/21 12:26 Nasal Parainfluen 4 PCR NOT DETECTED 07/26/21 12:26 Nasal RSV (PCR) NOT DETECTED 07/26/21 12:26 Nasal Screen MRSA (PCR) NEGATIVE (NEGATIVE) 07/28/21 21:39 Nasal B.pertussis DNA PCR NOT DETECTED 07/26/21 12:26 Nasal C.pneumoniae (PCR) NOT DETECTED 07/26/21 12:26 Trevor Human Metapneumo PCR NOT DETECTED 07/26/21 12:26 Nasal M.pneumoniae (PCR) NOT DETECTED 07/26/21 12:26 Nasal SARS-CoV-2 (PCR) DETECTED A 07/26/21 12:26 ABX Reporting Has patient been on IV antibiotics over the past 48 hours?: No
[2021-08-06] MEDS: SENNA 8.6 MG TABLET PO SCH (08:46)
[2021-08-06] MEDS: DABIGATRAN 75 MG CAPSULE PO SCH ×2 (08:46→21:25)
[2021-08-06] MEDS: polyethylene glycoL 3350 17 GM PACKET PO SCH (08:47)
[2021-08-06] MEDS: dexAMETHasone 4 MG TABLET PO SCH (08:49)
[2021-08-06] MEDS: DOCUSATE SODIUM 250 MG CAPSULE PO SCH (08:53)
[2021-08-06] MEDS: TAMSULOSIN 0.4 MG CAPSULE PO SCH (08:53)
[2021-08-06] MEDS: CHOLECALCIFEROL 25 MCG TABLET PO SCH (08:53)
[2021-08-06] MEDS: INSULIN GLARGINE 300 UNIT/3 ML PEN SUBQ SCH (08:54)
[2021-08-06] MEDS: MULTIVITAMIN W/MINERALS TABLET PO SCH (08:54)
[2021-08-06] MEDS: lisinopriL 5 MG TABLET PO SCH (08:55)
[2021-08-06] MEDS: METOPROLOL SUCCINATE 25 MG TABLET PO SCH (08:55)
--- NOTE | 2021-08-06 09:03 | XRAY Report ---
PROCEDURE: Chest 1 View X-Ray INDICATIONS: elevated WBC, hypoxia TECHNIQUE: One view of the chest was acquired. COMPARISON: CXR 07/28/21 FINDINGS: Surgical changes and devices: Pacemaker. Lungs and pleura: Bilateral patchy opacities, increased compared to prior exam. Mediastinum: Mediastinal contours appear normal. Heart size is enlarged. Bones and chest wall: No suspicious bony lesions. Overlying soft tissues appear unremarkable. IMPRESSION: Increased bilateral pulmonary opacities, most consistent with pneumonia, progressive compared to prio r exam. Underlying atelectasis and/or edema cannot be excluded. Reviewed by: Perla Burgos MD on 08/06/2021 9:02 AM PDT Approved by: Perla Burgos MD on 08/06/2021 9:02 AM PDT Station ID: [id number]
[2021-08-06] MEDS: INSULIN ASPART 300 UNIT/3 ML PEN SUBQ SCH ×4 (09:26→21:25)
[2021-08-06] MEDS: NIFEdipine ER 30 MG TABLET PO SCH (09:27)
[2021-08-06] MEDS ORDERED: cefTRIAXone 1 GM in SODIUM CHLORIDE 0.9% MINIBAG 100 ML IV SCH (11:00)
[2021-08-06] MEDS: AZITHROMYCIN INJ 500 MG in SODIUM CHLORIDE 0.9% 250 ML IV SCH (12:04)
[2021-08-06] MEDS: CEFEPIME 2 GM in SODIUM CHLORIDE 0.9% MINIBAG 100 ML IV SCH ×2 (13:38→21:24)
[2021-08-06] MEDS: ACETAMINOPHEN 325 MG TABLET PO PRN (17:58)
[2021-08-06] MEDS: oxyCODONE 5 MG TABLET PO PRN (17:58)
[2021-08-06] MEDS: QUEtiapine 25 MG TABLET PO SCH (21:25)
[2021-08-07 06:03] LABS: BASOPHILS % (AUTO) 0.2 %; EOSINOPHILS # (AUTO) 0.3 10^3/uL (0.0-0.7); EOSINOPHILS % (AUTO) 2.3 %; HCT - HEMATOCRIT 36.1 % (42.0-52.0); HGB - HEMOGLOBIN 11.8 g/dL (14.0-18.0); LYMPHOCYTES # (AUTO) 1.2 10^3/uL (1.5-3.5); LYMPHOCYTES % (AUTO) 10.2 %; MEAN CORPUSCULAR HEMOGLOBIN 30.3 pg (27.0-31.0); MEAN CORPUSCULAR HGB CONC 32.7 g/dL (32.0-36.0); MEAN CORPUSCULAR VOLUME 92.6 fL (80.0-94.0); MEAN PLATELET VOLUME 11.1 fL (7.4-11.4); MONOCYTES # (AUTO) 0.8 10^3/uL (0.0-1.0); MONOCYTES % (AUTO) 7.1 %; NEUTROPHILS # (AUTO) 8.9 10^3/uL (1.5-6.6); PLT - PLATELET COUNT 214 10^3/uL (130-450); RED CELL DISTRIBUTION WIDTH 14.2 % (12.0-15.0); WHITE BLOOD COUNT 11.3 x10^3/uL (4.8-10.8)
[2021-08-07 06:12] LABS: ALBUMIN 2.4 g/dL (3.2-5.5); ALBUMIN/GLOBULIN RATIO 0.6 (1.0-2.2); BILIRUBIN,TOTAL 0.6 mg/dL (0.2-1.0); CALCIUM 9.5 mg/dL (8.5-10.3); CREATININE 1.4 mg/dL (0.6-1.2); POTASSIUM 4.5 mmol/L (3.5-5.0); TOTAL PROTEIN 6.1 g/dL (6.7-8.2)
--- NOTE | 2021-08-07 07:57 | PROVIDER PROGRESS NOTE ---
Assessment/Plan - Problem List (1) Acute respiratory failure with hypoxia Assessment/Plan: Secondary to COVID-19 pneumonia and HCAP Remdesivir and Decadron completed. Currently on 3 L of oxygen via nasal canula with oxygen saturation between 93%. No longer on bipap at night Switched from ICU to Med/Surg Status on 08/05/21 WBC on 08/06/21 was 15 WBC on 08/07/21 was 11 Chest x-ray on 08/06/21 showed increased bilateral pulmonary opacities most consistent with pneumonia. As a result patient was started on Cefepime and azithromycin. (2) Pneumonia due to COVID-19 virus Assessment/Plan: Remdesivir and Decadron completed. Currently on 3 L of oxygen via nasal canula with oxygen saturation between 93%. No longer on bipap at night Switched from ICU to Med/Surg Status on 08/05/21 WBC on 08/06/21 was 15 WBC on 08/07/21 was 11 Chest x-ray on 08/06/21 showed increased bilateral pulmonary opacities most consistent with pneumonia. As a result patient was started on Cefepime and azithromycin. (3) HCAP (healthcare-associated pneumonia) Assessment/Plan: Currently on 3 L of oxygen via nasal canula with oxygen saturation between 93%. No longer on bipap at night Switched from ICU to Med/Surg Status on 08/05/21 WBC on 08/06/21 was 15 WBC on 08/07/21 was 11 Chest x-ray on 08/06/21 showed increased bilateral pulmonary opacities most consistent with pneumonia. As a result patient was started on Cefepime and azithromycin. (4) Staphylococcus aureus bacteremia Assessment/Plan: This is suspected to be secondary to a contaminant. Patient was initially treated with vancomycin which was subsequently switched to Zyvox due to worsening renal function. Zyvox was discontinued 07/29/21 (5) Controlled type 2 diabetes mellitus without complication, without long-term current use of insulin Assessment/Plan: Lantus increased to 8 units subcu daily. On sliding scale insulin. Accu-Cheks before every meal and at bedtime. (6) Hypertension Qualifiers: Hypertension type: primary hypertension Qualified Code(s): I10 - Essential (primary) hypertension Assessment/Plan: On lisinopril 10 mg p.o. daily, metoprolol succinate 25 mg p.o. daily and nifedi pine 90 mg p.o. daily. (7) Acute kidney failure Assessment/Plan: Creatinine 1.4 with estimated GFR of 54. We will continue to monitor. (6) Hypertension Qualifiers: Hypertension type: primary hypertension Qualified Code(s): I10 - Essential (primary) hypertension - Current Meds Current Meds: Current Medications Generic Name Dose Route Start Last Admin Trade Name Freq PRN Reason Stop Dose Admin Acetaminophen 650 mg 07/26/21 13:34 08/06/21 17:58 Acetaminophen 325 Mg Tablet PO 650 mg Q4HR PRN Administration Pain 1 to 4 Cholecalciferol 50 mcg 07/31/21 12:00 08/06/21 08:53 Cholecalciferol 25 Mcg Tablet PO 50 mcg DAILY MARYLOU Administration Dabigatran 75 mg 07/26/21 21:00 08/06/21 21:25 Dabigatran 75 Mg Capsule PO 75 mg BID MARYLOU Administration Docusate Sodium 250 - 500 mg 08/02/21 09:00 08/06/21 08:53 Docusate Sodium 250 Mg Capsule PO 250 mg DAILY MARYLOU Administration Hydralazine HCl 10 mg 07/26/21 13:40 07/27/21 08:32 Hydralazine Inj 20 Mg/Ml Vial IVP 10 mg TID PRN Administration Hypertensive Emergency Azithromycin 500 mg/ Sodium 250 mls @ 250 mls/hr 08/06/21 11:00 08/06/21 13:42 Chloride IV 08/08/21 09:59 Infused DAILY MARYLOU Infusion Cefepime HCl 2 gm/ Sodium 100 mls @ 200 mls/hr 08/06/21 12:00 08/06/21 22:29 Chloride IV Infused BID MARYLOU Infusion Insulin Aspart 3 - 11 unit 08/01/21 21:00 08/06/21 21:25 Insulin Aspart 300 Unit/3 Ml Pen SUBQ 5 unit 0800,1200,1700,2100 MARYLOU Administration Protocol Insulin Glargine 8 unit 08/06/21 09:00 08/06/21 08:54 Insulin Glargine 300 Unit/3 Ml Pen SUBQ 8 unit DAILY MARYLOU Administration Lisinopril 10 mg 07/27/21 09:00 08/06/21 08:55 Lisinopril 5 Mg Tablet PO 10 mg DAILY MARYLOU Administration Metoprolol Succinate 25 mg 07/27/21 09:00 08/06/21 08:55 Metoprolol Succinate 25 Mg Tablet PO 25 mg DAILY MARYLOU Administration Multivitamins/Minerals 1 tab 07/31/21 12:00 08/06/21 08:54 Multivitamin W/Minerals Tablet PO 1 tab DAILYWM MARYLOU Administration Nifedipine 90 mg 07/27/21 09:00 08/06/21 09:27 Nifedipine Er 30 Mg Tablet PO 90 mg DAILY MARYLOU Administration Oxycodone HCl 5 mg 07/26/21 13:34 08/06/21 17:58 Oxycodone 5 Mg Tablet PO 5 mg Q4HR PRN Administration Pain 5 to 7 Polyethylene Glycol 17 gm 08/02/21 09:00 08/06/21 08:47 Polyethylene Glycol 3350 17 Gm Packet PO 17 gm DAILY MARYLOU Administration Quetiapine Fumarate 25 mg 07/27/21 21:00 08/06/21 21:25 Quetiapine 25 Mg Tablet PO 25 mg QPM MARYLOU Administration Senna 8.6 - 17.2 mg 08/02/21 09:00 08/06/21 08:46 Senna 8.6 Mg Tablet PO 8.6 mg DAILY MARYLOU Administration Sodium Chloride 10 ml 07/26/21 13:34 08/04/21 05:32 Sodium Chloride Flush 0.9% 10 Ml Syringe IVP 10 ml PRN PRN Administration NEEDED PER PROVIDER ORDERS Sodium Chloride 10 ml 07/26/21 17:00 08/06/21 23:47 Sodium Chloride Flush 0.9% 10 Ml Syringe IVP 10 ml 0100,0900,1700 MARYLOU Administration Tamsulosin HCl 0.4 mg 07/27/21 09:00 08/06/21 08:53 Tamsulosin 0.4 Mg Capsule PO 0.4 mg DAILY MARYLOU Administration - Lab Result Fish Bone Diagrams: 08/07/21 05:23 08/07/21 05:23 - Additional Planning My Orders: My Active Orders 08/06/21 09:00 Insulin Glargine [Lantus Solostar] 8 unit SUBQ DAILY 08/06/21 11:00 Azithromycin Inj [Zithromax Inj] 500 mg Sodium Chloride 0.9% [Normal Saline 0.9%] 250 ml IV DAILY 08/06/21 Lunch Soft Mechanical Diet [DIET] 08/06/21 12:00 Cefepime 2 gm Sodium Chloride 0.9% Minibag [Normal Saline 0.9% Minibag] 100 ml IV BID Subjective - Subjective Patient Reports: Other (Resting comfortably in the bedside chair. Reports feeling better. However patient's oxygen requirement briefly increased from 3L to 5L. Required significant assistance to transfer and was significantly weak.) Objective Vital Signs: Vital Signs - 24 hr 08/06/21 08/06/21 08/06/21 11:09 15:35 15:45 Temperature 36.4 C L 36.4 C L 36.4 C L Heart Rate [ 65 59 L 60 Brachial] Respiratory 22 15 24 Rate Blood Pressure 144/70 H [Left Brachial artery] Blood Pressure 133/54 H 127/63 [Right Brachial artery] O2 Saturation 93 94 94 08/06/21 08/06/21 08/07/21 21:49 23:47 07:34 Temperature 36.3 C L 36.4 C L 36.4 C L Heart Rate [ 61 59 L 60 Brachial] Respiratory 24 20 22 Rate Blood Pressure 128/68 [Left Brachial artery] Blood Pressure 130/73 133/61 H [Right Brachial artery] O2 Saturation 96 94 93 Oxygen O2 Source Nasal cannula Oxygen Flow Rate 15 I&O (Last 24 Hrs): Intake and Output Totals x24h 08/05/21 08/06/21 08/07/21 23:59 23:59 23:59 Intake Total 1650 2091 50 Output Total 2140 1725 850 Balance -490 366 -800 General: Alert, Oriented x3, Other (weak) HEENT: PERRLA, EOMI Neck: Supple, No JVD Neuro: Alert, Non Focal, Oriented Times 3 Cardiovascular: Regular rate, No murmurs Respiratory: Chest non-tender, No respiratory distress, Other (Mild crackles) Abdomen: Normal bowel sounds, Soft, No tenderness, No masses Extremities: No clubbing, No edema, No tenderness/swelling - Results Results: Laboratory Results WBC 11.3 x10^3/uL (4.8-10.8) H 08/07/21 05:23 RBC 3.90 10^6/uL (4.70-6.10) L 08/07/21 05:23 Hgb 11.8 g/dL (14.0-18.0) L 08/07/21 05:23 Hct 36.1 % (42.0-52.0) L 08/07/21 05:23 MCV 92.6 fL (80.0-94.0) 08/07/21 05:23 MCH 30.3 pg (27.0-31.0) 08/07/21 05:23 MCHC 32.7 g/dL (32.0-36.0) 08/07/21 05:23 RDW 14.2 % (12.0-15.0) 08/07/21 05:23 Plt Count 214 10^3/uL (130-450) 08/07/21 05:23 MPV 11.1 fL (7.4-11.4) 08/07/21 05:23 Neut # (Auto) 8.9 10^3/uL (1.5-6.6) H 08/07/21 05:23 Lymph # (Auto) 1.2 10^3/uL (1.5-3.5) L 08/07/21 05:23 Craig # (Auto) 0.8 10^3/uL (0.0-1.0) 08/07/21 05:23 Eos # (Auto) 0.3 10^3/uL (0.0-0.7) 08/07/21 05:23 Baso # (Auto) 0.0 10^3/uL (0.0-0.1) 08/07/21 05:23 Absolute Nucleated RBC 0.00 x10^3/uL 08/07/21 05:23 Total Counted 100 07/28/21 05:11 Band Neuts % (Manual) Not Reportable 08/05/21 05:00 Abnorm Lymph % (Manual) Not Reportable 08/05/21 05:00 Myelocytes % 1 % (-0) H 07/28/21 05:11 Nucleated RBC % 0.0 /100WBC 08/07/21 05:23 Neutrophils # (Manual) Not Reportable 08/05/21 05:00 Lymphocytes # (Manual) Not Reportable 08/05/21 05:00 Monocytes # (Manual) Not Reportable 08/05/21 05:00 Eosinophils # (Manual) Not Reportable 08/05/21 05:00 Basophils # (Manual) Not Reportable 08/05/21 05:00 Differential Comment MANUAL=AUTO DIFF 08/05/21 05:00 Manual Slide Review Indicated 07/26/21 12:43 WBC Morphology NORMAL APPEARANCE (NORMAL) 07/28/21 05:11 Platelet Estimate NORMAL (130-450,000) (NORMAL) 07/28/21 05:11 Platelet Morphology NORMAL APPEARANCE (NORMAL) 07/28/21 05:11 RBC Morph Micro Appear NORMAL APPEARANCE (NORMAL) 07/28/21 05:11 D-Dimer > 1050.0 ng/mL (200.0-255.0) H 08/01/21 04:15 Bld Gas Analysis Time 0730 07/28/21 07:27 Sample Site RIGHT RADIAL 07/28/21 07:27 ABG pH 7.44 (7.35-7.45) 07/28/21 07:27 ABG pCO2 31 mmHg (34-45) L 07/28/21 07:27 ABG pO2 83 mmHg (80-100) 07/28/21 07:27 ABG HCO3 20.5 mmol/L (22.0-26.0) L 07/28/21 07:27 ABG Total CO2 21.5 MMOL/L (21.0-29.0) 07/28/21 07:27 ABG O2 Saturation 96 % (94-98) 07/28/21 07:27 ABG Base Excess -2.6 mmol/L (-2.0-3.0) L 07/28/21 07:27 Salvador Test POSITIVE 07/28/21 07:27 VBG pH 7.380 (7.31-7.41) 07/26/21 12:43 VBG pCO2 38.8 mmHg (41-51) L 07/26/21 12:43 VBG pO2 25.0 mmHg (25-47) 07/26/21 12:43 VBG HCO3 22.4 mmol/L (23-28) L 07/26/21 12:43 VBG Total CO2 23.6 mmol/L (24-29) L 07/26/21 12:43 VBG O2 Saturation 43.6 % (60-80) L 07/26/21 12:43 VBG Base Excess -2.4 mmol/L (-2 - +2) L 07/26/21 12:43 Respiration Rate 18 b/min 07/28/21 07:27 O2 Delivery Device BiPAP 07/28/21 07:27 Vent Mode SYNCHRONOUS/TIMES 07/28/21 07:27 FiO2 60.00 07/28/21 07:27 EPAP 6 cmH2O 07/28/21 07:27 IPAP 12 cmH2O 07/28/21 07:27 Sodium 137 mmol/L (135-145) 08/07/21 05:23 Potassium 4.5 mmol/L (3.5-5.0) 08/07/21 05:23 Chloride 102 mmol/L (101-111) 08/07/21 05:23 Carbon Dioxide 28 mmol/L (21-32) 08/07/21 05:23 Anion Gap 7.0 (6-13) 08/07/21 05:23 BUN 54 mg/dL (6-20) H 08/07/21 05:23 Creatinine 1.4 mg/dL (0.6-1.2) H 08/07/21 05:23 Estimated GFR (MDRD) 48 (>89) L 08/07/21 05:23 Glucose 99 mg/dL (70-100) 08/07/21 05:23 POC Whole Bld Glucose 89 mg/dL (70 - 100) 08/07/21 07:30 Lactic Acid 2.0 mmol/L (0.5-2.2) 07/26/21 12:43 Calcium 9.5 mg/dL (8.5-10.3) 08/07/21 05:23 Phosphorus 3.1 mg/dL (2.5-4.6) 07/26/21 12:43 Magnesium 2.3 mg/dL (1.7-2.8) 07/26/21 12:43 Total Bilirubin 0.6 mg/dL (0.2-1.0) 08/07/21 05:23 AST 21 IU/L (10-42) 08/07/21 05:23 ALT 32 IU/L (10-60) 08/07/21 05:23 Alkaline Phosphatase 58 IU/L (42-121) 08/07/21 05:23 C-Reactive Protein 13.3 mg/dL (0-1.0) H 08/01/21 04:15 B-Natriuretic Peptide 569 pg/mL (5-100) H 07/26/21 12:43 Total Protein 6.1 g/dL (6.7-8.2) L 08/07/21 05:23 Albumin 2.4 g/dL (3.2-5.5) L 08/07/21 05:23 Globulin 3.7 g/dL (2.1-4.2) 08/07/21 05:23 Albumin/Globulin Ratio 0.6 (1.0-2.2) L 08/07/21 05:23 Nasal Adenovirus (PCR) NOT DETECTED 07/26/21 12:26 Nasal B. parapertussis DNA (PCR) NOT DETECTED 07/26/21 12:26 Nasal Coronavir 229E PCR NOT DETECTED 07/26/21 12:26 Nasal Coronavir HKU1 PCR NOT DETECTED 07/26/21 12:26 Nasal Coronavir NL63 PCR NOT DETECTED 07/26/21 12:26 Nasal Coronavir OC43 PCR NOT DETECTED 07/26/21 12:26 Nasal Enterovir/Rhinovir PCR NOT DETECTED 07/26/21 12:26 Nasal Influenza B PCR NOT DETECTED 07/26/21 12:26 Nasal Influenza A PCR NOT DETECTED 07/26/21 12:26 Nasal Parainfluen 1 PCR NOT DETECTED 07/26/21 12:26 Nasal Parainfluen 2 PCR NOT DETECTED 07/26/21 12:26 Nasal Parainfluen 3 PCR NOT DETECTED 07/26/21 12:26 Nasal Parainfluen 4 PCR NOT DETECTED 07/26/21 12:26 Nasal RSV (PCR) NOT DETECTED 07/26/21 12:26 Nasal Screen MRSA (PCR) NEGATIVE (NEGATIVE) 07/28/21 21:39 Nasal B.pertussis DNA PCR NOT DETECTED 07/26/21 12:26 Nasal C.pneumoniae (PCR) NOT DETECTED 07/26/21 12:26 Trevor Human Metapneumo PCR NOT DETECTED 07/26/21 12:26 Nasal M.pneumoniae (PCR) NOT DETECTED 07/26/21 12:26 Nasal SARS-CoV-2 (PCR) DETECTED A 07/26/21 12:26 ABX Reporting Has patient been on IV antibiotics over the past 48 hours?: Yes
[2021-08-07] MEDS: INSULIN ASPART 300 UNIT/3 ML PEN SUBQ SCH ×4 (08:00→21:36)
[2021-08-07] MEDS: CHOLECALCIFEROL 25 MCG TABLET PO SCH (09:00)
[2021-08-07] MEDS: DOCUSATE SODIUM 250 MG CAPSULE PO SCH (09:01)
[2021-08-07] MEDS: DABIGATRAN 75 MG CAPSULE PO SCH ×2 (09:01→21:35)
[2021-08-07] MEDS: SENNA 8.6 MG TABLET PO SCH (09:01)
[2021-08-07] MEDS: TAMSULOSIN 0.4 MG CAPSULE PO SCH (09:02)
[2021-08-07] MEDS: MULTIVITAMIN W/MINERALS TABLET PO SCH (09:02)
[2021-08-07] MEDS: METOPROLOL SUCCINATE 25 MG TABLET PO SCH (09:02)
[2021-08-07] MEDS: lisinopriL 5 MG TABLET PO SCH (09:02)
[2021-08-07] MEDS: SODIUM CHLORIDE FLUSH 0.9% 10 ML SYRINGE IVP SCH ×2 (09:03→18:35)
[2021-08-07] MEDS: polyethylene glycoL 3350 17 GM PACKET PO SCH (09:03)
[2021-08-07] MEDS: CEFEPIME 2 GM in SODIUM CHLORIDE 0.9% MINIBAG 100 ML IV SCH ×2 (09:13→21:34)
[2021-08-07] MEDS: NIFEdipine ER 30 MG TABLET PO SCH (09:18)
[2021-08-07] MEDS: AZITHROMYCIN INJ 500 MG in SODIUM CHLORIDE 0.9% 250 ML IV SCH (10:03)
[2021-08-07] MEDS: INSULIN GLARGINE 300 UNIT/3 ML PEN SUBQ SCH (11:39)
[2021-08-07] MEDS: QUEtiapine 25 MG TABLET PO SCH (21:35)
[2021-08-08] MEDS: SODIUM CHLORIDE FLUSH 0.9% 10 ML SYRINGE IVP SCH ×3 (05:46→17:24)
[2021-08-08] MEDS: INSULIN ASPART 300 UNIT/3 ML PEN SUBQ SCH ×4 (08:16→21:00)
[2021-08-08] MEDS: INSULIN GLARGINE 300 UNIT/3 ML PEN SUBQ SCH (08:18)
[2021-08-08] MEDS: MULTIVITAMIN W/MINERALS TABLET PO SCH (08:27)
[2021-08-08] MEDS: DABIGATRAN 75 MG CAPSULE PO SCH ×2 (08:27→20:51)
[2021-08-08] MEDS: DOCUSATE SODIUM 250 MG CAPSULE PO SCH (08:27)
[2021-08-08] MEDS: lisinopriL 5 MG TABLET PO SCH (08:31)
[2021-08-08] MEDS: SENNA 8.6 MG TABLET PO SCH (08:31)
[2021-08-08] MEDS: METOPROLOL SUCCINATE 25 MG TABLET PO SCH (08:31)
[2021-08-08] MEDS: AZITHROMYCIN INJ 500 MG in SODIUM CHLORIDE 0.9% 250 ML IV SCH (08:32)
[2021-08-08] MEDS: polyethylene glycoL 3350 17 GM PACKET PO SCH (08:35)
[2021-08-08] MEDS: CHOLECALCIFEROL 25 MCG TABLET PO SCH (08:40)
[2021-08-08] MEDS: TAMSULOSIN 0.4 MG CAPSULE PO SCH (08:40)
[2021-08-08] MEDS: NIFEdipine ER 30 MG TABLET PO SCH (08:45)
[2021-08-08] MEDS: CEFEPIME 2 GM in SODIUM CHLORIDE 0.9% MINIBAG 100 ML IV SCH ×2 (10:49→20:51)
[2021-08-08] MEDS ORDERED: SALINE ENEMA 133 ML BOTTLE RC ONE (11:00)
--- NOTE | 2021-08-08 12:02 | PROVIDER PROGRESS NOTE ---
Assessment/Plan - Current Meds Current Meds: Current Medications Generic Name Dose Route Start Last Admin Trade Name Thomas PRN Reason Stop Dose Admin Acetaminophen 650 mg 07/26/21 13:34 08/06/21 17:58 Acetaminophen 325 Mg Tablet PO 650 mg Q4HR PRN Administration Pain 1 to 4 Cholecalciferol 50 mcg 07/31/21 12:00 08/08/21 08:40 Cholecalciferol 25 Mcg Tablet PO 50 mcg DAILY MARYLOU Administration Dabigatran 75 mg 07/26/21 21:00 08/08/21 08:27 Dabigatran 75 Mg Capsule PO 75 mg BID MARYLOU Administration Docusate Sodium 250 - 500 mg 08/02/21 09:00 08/08/21 08:27 Docusate Sodium 250 Mg Capsule PO 250 mg DAILY MARYLOU Administration Hydralazine HCl 10 mg 07/26/21 13:40 07/27/21 08:32 Hydralazine Inj 20 Mg/Ml Vial IVP 10 mg TID PRN Administration Hypertensive Emergency Cefepime HCl 2 gm/ Sodium 100 mls @ 200 mls/hr 08/06/21 12:00 08/08/21 11:30 Chloride IV Infused BID MARYLOU Infusion Insulin Aspart 3 - 11 unit 08/01/21 21:00 08/08/21 17:24 Insulin Aspart 300 Unit/3 Ml Pen SUBQ 7 unit 0800,1200,1700,2100 MARYLOU Administration Protocol Insulin Glargine 8 unit 08/06/21 09:00 08/08/21 08:18 Insulin Glargine 300 Unit/3 Ml Pen SUBQ 8 unit DAILY MARYLOU Administration Lisinopril 10 mg 07/27/21 09:00 08/08/21 08:31 Lisinopril 5 Mg Tablet PO 10 mg DAILY MARYLOU Administration Metoprolol Succinate 25 mg 07/27/21 09:00 08/08/21 08:31 Metoprolol Succinate 25 Mg Tablet PO 25 mg DAILY MARYLOU Administration Multivitamins/Minerals 1 tab 07/31/21 12:00 08/08/21 08:27 Multivitamin W/Minerals Tablet PO 1 tab DAILYWM MARYLOU Administration Nifedipine 90 mg 07/27/21 09:00 08/08/21 08:45 Nifedipine Er 30 Mg Tablet PO 90 mg DAILY MARYLOU Administration Oxycodone HCl 5 mg 07/26/21 13:34 08/06/21 17:58 Oxycodone 5 Mg Tablet PO 5 mg Q4HR PRN Administration Pain 5 to 7 Polyethylene Glycol 17 gm 08/02/21 09:00 08/08/21 08:35 Polyethylene Glycol 3350 17 Gm Packet PO 17 gm DAILY MARYLOU Administration Quetiapine Fumarate 25 mg 07/27/21 21:00 08/07/21 21:35 Quetiapine 25 Mg Tablet PO 25 mg QPM MARYLOU Administration Senna 8.6 - 17.2 mg 08/02/21 09:00 08/08/21 08:31 Senna 8.6 Mg Tablet PO 8.6 mg DAILY MARYLOU Administration Sodium Chloride 10 ml 07/26/21 13:34 08/04/21 05:32 Sodium Chloride Flush 0.9% 10 Ml Syringe IVP 10 ml PRN PRN Administration NEEDED PER PROVIDER ORDERS Sodium Chloride 10 ml 07/26/21 17:00 08/08/21 17:24 Sodium Chloride Flush 0.9% 10 Ml Syringe IVP 10 ml 0100,0900,1700 MARYLOU Administration Tamsulosin HCl 0.4 mg 07/27/21 09:00 08/08/21 08:40 Tamsulosin 0.4 Mg Capsule PO 0.4 mg DAILY MARYLOU Administration - Lab Result Fish Bone Diagrams: 08/07/21 05:23 08/07/21 05:23 <Merlyn Sewell - Last Filed: 08/08/21 18:41> - Problem List (1) Acute respiratory failure with hypoxia Assessment/Plan: Patient was admitted to hospital with COVID-19 pnuemnia. He was transferred out of the ICU to the Med/Surg unit on 08/05 due to improved respiratory status and no longer requiring BiPap during sleep. He finished day 5/5 of remdesivir 07/31 and 07/20 Decadron on 08/05. On 08/06 his WBCs increased to 15 from 11. Chest x- ray showed increased bilateral pulmonary opacities and most likely due to hospital acquired pneumonia. He was started on IV Azithromyacin x 3 doses and Cefepime daily. Repeat WBC trended down to 11.3 on 08/07.Today he reports feeling well and denies dyspnea, chest pain, or cough. He is on 2 L of oxygen via nasal cannula with oxygen saturation around 94%. Today he has faint bibasilar rales. RN and Physical therapist report that he becomes hypoxic with activity. While ambulating in the room he oxygen saturation decreased to 85% and did not rebound until he returned to bed and Oxygen was temporarily increased to 5L/min. After approximately 5 minutes he recoved and was sating 95% on 2L/min nasal cannula. Plan: Monitor for signs of respiratory distress and obtain chest x-ray/ ABG as needed. Encourage cough and deep breathing. Increased oxygen during activity to prevent hypoxia. (2) Pneumonia due to COVID-19 virus Assessment/Plan: Patient was vaccinated for COVID and unfortunately became ill with COVID pneumonia. He has completed 5 days of Remdesivir on 07/31 and 10 days of Decadron on 08/05. He on nasal cannula at 2L/min with bedside oxygen saturation around 94%. According to Dr. Hogan's note from 07/27 patient is a DNR for cardiac resuscitation but would like Intubation if needed. Per Irvin Vazquez (Advertising Specialist), patient was removed from COVID isolation according to hospital protocol on 08/06 when he transferred to the Med/Surg unit due to 10 days since initial symptoms and improving status. Plan: Continue with nasal cannula at 2L/min as tolerated. Consider intubation if patient deteriorates and oxygenation/ ventilation not maintained on Bipap. (3) HCAP (healthcare-associated pneumonia) Assessment/Plan: Patient was admitted to hospital with COVID-19 pneumonia. He was steadily improving and transfered out of the ICU to Med/Surg on 08/05. The following day on 08/06 his WBC was elevated to 15. Chest x-ray from 08/06 showed "Increased bilateral pulmonary opacities. Most consistent with pneumonia". He was started on Azithromyacin 500mg IVPB daily x 3 doses and Cefepime 2gm IVPB twice daily. Patient remains afebrile, breath sounds are clear throughout with faint bibasilar rales. He denies dyspnea, chest pain, cough, or increased sputum production. Plan: Continue with Cefepime 2gm IVPB twice daily. Continue to monitor fever, increased secretions, or declining oxygenation status. Continue to monitor WBC for trends. (4) Constipation Qualifiers: Constipation type: unspecified constipation type Qualified Code(s): K59.00 - Constipation, unspecified Assessment/Plan: The patient's last had a bowel movement is difficult to determine. The last documented record of a bowel movement was on 07/27. There is then subsequent documentation that the last bowel movement was on 07/31 and then another on without documentation of the bowel movement occurring. Patient is a poor historian and does not know when his last bowel movement was. He denies abdominal pain and has a good appetite without nausea or vomiting. His abdomen is distended and taut with active bowel sounds. Plan: RN to advance bowel protocol. RN to administer a Fleet enema and check for impaction. Consider adding Magnesium Citrate if constipation persists or Milk & Molasses Enema. Consider an abdominal CT if constipation persists. (5) Urinary retention Assessment/Plan: Blevins catheter removed 08/07. Patient was unable to void so a bladder scan was done and reveled 1700 mls of urine. Blevins catheter was placed and 450 mls of urine were drained so a repeat bladder scan was done and showed 999mls of urine. Patient is also believed to be experiencing constipation (see constipation not e). Plan: Continue with Blevins to facilitate urine drainage. Evaluate urinary retention with bladder scan after fleets enema. Consider CT of abdomen/ pelvis if urinary retention persists to rule out ob struction. (6) Controlled type 2 diabetes mellitus without complication, without long-term current use of insulin Assessment/Plan: Patient has history of type II DM and uses metformin 500mg PO with meals and Glimepiride 1mg po daily for control at home. Bedside glucose today was 107 and 195 premeals. He is being covered with Aspart on sliding scale for meal coverage and Lantus 8 units for long acting coverage. Plan: Continue to monitor bedside glucose. Treat hyperglycemia with Aspart sliding scale. Continue with Lantus 8 units SubQ. Consider adding set meal coverage short acting insulin if glucose remains elevated. Will add A1C to morning labs to see glucose trends. Plan to transition back to PO diabetic medications upon discharge. (7) Acute kidney failure Assessment/Plan: Patient presented to hospital with elevated creat 1.4 and low GFR 48. Patient has been improving steadily since 07/29, until 08/01 when creat increased to 1.8 and GFR decreased to 36. IV fluids were started at 83ml/h 08/02 and there was mild improvement in Creat to 1.5 form 1.6 and GFR to 44 form 41. I&O is +1600 today. Increased 2+ pitting edema of bilateral lower extremities. Plan: Discontinue IV fluids due to increased edema and respiratory rales. Recheck morning labs. Monitor I&Os. (8) Dementia Qualifiers: Alzheimer's disease onset: unspecified onset Dementia behavioral disturbance: with behavioral disturbance Assessment/Plan: According to admission note by Dr. oHgan on 07/26/2021, patient has a history of Dementia. He lives with his granddaughter and is able to do basic self care tasks. His daughter also lives next door. During his hospital stay on the evening of 07/28 patient began with agitation and delirium. He was placed on 1:1 observation with a sitter and started on Seroquel 25mg PO nightly. Today he is alert to self, state, and month. He is disoriented to city, year, and situation. He is cooperative and pleasant. Plan: Continue to reorient patient to surroundings. Limit interruptions to sleep wake cycles. Continue seroquel 25mg PO nightly. (9) Hypertension Qualifiers: Hypertension type: primary hypertension Qualified Code(s): I10 - Essential (primary) hypertension Assessment/Plan: Patient has history of HTN and takes Lisinopril 10mg daily, Metoprolol 25mg po daily, and Nifedipine 90mg PO daily for management. Current SBPs are 120-130s. Prn hydralizine last given 07/27. Plan: Continue Metoprolol 25mg po daily Continue Nifedipine 90mg po daily Continue Lisinopril 10mg po daily Hydralizine 10mg IVP three times daily as needed (10) Chronic atrial fibrillation Assessment/Plan: According to pervious hospitalization note from 2016, patient has a history of a-fib and is on Pradaxa 75mg PO daily. Admission EKG on 07/26/2021 showed v- paced rhythm with underlying A-fib/ flutter. He is also on Metoprolol 25mg PO daily as a home medication that was resumed during this hospitalization. Plan: Continue to monitor for a-fib/flutter that leads to hemodynamic instability. Continue Pradaxa 75mg PO daily. Continue Metoprolol 25mg PO daily. (11) Staphylococcus aureus bacteremia Assessment/Plan: On 07/26 one of two blood cultures grew Staphlococcus aurus, this is suspected to be secondary to a contaminant. He was initially treated with Vancomycin and then switched to Zyvox due to worsening renal function. Zyvox was then discontinued 07/29/21. White blood cell count is trended down. He continues to be afebrile. 07/28 2D echo showed EF of 65-70% without mass, vegetation, or thrombus. Plan: Continue to monitor CBC for WBC trends. If he becomes febrile or WBCs continue to be elevated or increase, consider resuming antibiotics. - Current Meds Current Meds: Current Medications Generic Name Dose Route Start Last Admin Trade Name Freq PRN Reason Stop Dose Admin Acetaminophen 650 mg 07/26/21 13:34 08/06/21 17:58 Acetaminophen 325 Mg Tablet PO 650 mg Q4HR PRN Administration Pain 1 to 4 Cholecalciferol 50 mcg 07/31/21 12:00 08/08/21 08:40 Cholecalciferol 25 Mcg Tablet PO 50 mcg DAILY MARYLOU Administration Dabigatran 75 mg 07/26/21 21:00 08/08/21 08:27 Dabigatran 75 Mg Capsule PO 75 mg BID MARYLOU Administration Docusate Sodium 250 - 500 mg 08/02/21 09:00 08/08/21 08:27 Docusate Sodium 250 Mg Capsule PO 250 mg DAILY MARYLOU Administration Hydralazine HCl 10 mg 07/26/21 13:40 07/27/21 08:32 Hydralazine Inj 20 Mg/Ml Vial IVP 10 mg TID PRN Administration Hypertensive Emergency Cefepime HCl 2 gm/ Sodium 100 mls @ 200 mls/hr 08/06/21 12:00 08/08/21 10:49 Chloride IV 200 mls/hr BID MARYLOU Administration Insulin Aspart 3 - 11 unit 08/01/21 21:00 08/08/21 11:46 Insulin Aspart 300 Unit/3 Ml Pen SUBQ 5 unit 0800,1200,1700,2100 MARYLOU Administration Protocol Insulin Glargine 8 unit 08/06/21 09:00 08/08/21 08:18 Insulin Glargine 300 Unit/3 Ml Pen SUBQ 8 unit DAILY MARYLOU Administration Lisinopril 10 mg 07/27/21 09:00 08/08/21 08:31 Lisinopril 5 Mg Tablet PO 10 mg DAILY MARYLOU Administration Metoprolol Succinate 25 mg 07/27/21 09:00 08/08/21 08:31 Metoprolol Succinate 25 Mg Tablet PO 25 mg DAILY MARYLOU Administration Multivitamins/Minerals 1 tab 07/31/21 12:00 08/08/21 08:27 Multivitamin W/Minerals Tablet PO 1 tab DAILYWM MARYLOU Administration Nifedipine 90 mg 07/27/21 09:00 08/08/21 08:45 Nifedipine Er 30 Mg Tablet PO 90 mg DAILY MARYLOU Administration Oxycodone HCl 5 mg 07/26/21 13:34 08/06/21 17:58 Oxycodone 5 Mg Tablet PO 5 mg Q4HR PRN Administration Pain 5 to 7 Polyethylene Glycol 17 gm 08/02/21 09:00 08/08/21 08:35 Polyethylene Glycol 3350 17 Gm Packet PO 17 gm DAILY MARYLOU Administration Quetiapine Fumarate 25 mg 07/27/21 21:00 08/07/21 21:35 Quetiapine 25 Mg Tablet PO 25 mg QPM MARYLOU Administration Senna 8.6 - 17.2 mg 08/02/21 09:00 08/08/21 08:31 Senna 8.6 Mg Tablet PO 8.6 mg DAILY MARYLOU Administration Sodium Chloride 10 ml 07/26/21 13:34 08/04/21 05:32 Sodium Chloride Flush 0.9% 10 Ml Syringe IVP 10 ml PRN PRN Administration NEEDED PER PROVIDER ORDERS Sodium Chloride 10 ml 07/26/21 17:00 08/08/21 11:45 Sodium Chloride Flush 0.9% 10 Ml Syringe IVP 10 ml 0100,0900,1700 MARYLOU Administration Tamsulosin HCl 0.4 mg 07/27/21 09:00 08/08/21 08:40 Tamsulosin 0.4 Mg Capsule PO 0.4 mg DAILY MARYLOU Administration - Lab Result Lab results reviewed: Yes Fish Bone Diagrams: 08/07/21 05:23 08/07/21 05:23 <Mariela Blanco - Last Filed: 08/09/21 08:01> Subjective - Subjective Patient Reports: Feeling Better, Resting Comfortably, No Complaints, Other (Patient is sitting up in bed finishing breakfast. He denies fever, chills, dyspnea, cough, or increases sputum production. He reports feeling well and happy to work with medical staff to get better.) Nursing Reports: Other (RN reports that bladder scan showed 1700 mls of urine. Blevins was placed with 450 out and repeat bladder scan showed 999 mls.) <Mariela Blanco - Last Filed: 08/09/21 08:01> Objective Vital Signs: Vital Signs - 24 hr 08/08/21 08/08/21 08/08/21 06:57 07:40 15:57 Temperature 36.4 C L 36.6 C 36.4 C L Heart Rate [ 58 L 60 60 Brachial] Respiratory 20 20 18 Rate Blood Pressure 135/65 H 133/62 H 137/63 H [Right Brachial artery] O2 Saturation 93 94 96 Oxygen O2 Source Nasal cannula Oxygen Flow Rate 15 I&O (Last 24 Hrs): Intake and Output Totals x24h 08/06/21 08/07/21 08/08/21 23:59 23:59 23:59 Intake Total 2091 1900 1395 Output Total 1725 2590 1900 Balance 584 -353 -066 - Results Results: Laboratory Results WBC 11.3 x10^3/uL (4.8-10.8) H 08/07/21 05:23 RBC 3.90 10^6/uL (4.70-6.10) L 08/07/21 05:23 Hgb 11.8 g/dL (14.0-18.0) L 08/07/21 05:23 Hct 36.1 % (42.0-52.0) L 08/07/21 05:23 MCV 92.6 fL (80.0-94.0) 08/07/21 05:23 MCH 30.3 pg (27.0-31.0) 08/07/21 05:23 MCHC 32.7 g/dL (32.0-36.0) 08/07/21 05:23 RDW 14.2 % (12.0-15.0) 08/07/21 05:23 Plt Count 214 10^3/uL (130-450) 08/07/21 05:23 MPV 11.1 fL (7.4-11.4) 08/07/21 05:23 Neut # (Auto) 8.9 10^3/uL (1.5-6.6) H 08/07/21 05:23 Lymph # (Auto) 1.2 10^3/uL (1.5-3.5) L 08/07/21 05:23 Boyd # (Auto) 0.8 10^3/uL (0.0-1.0) 08/07/21 05:23 Eos # (Auto) 0.3 10^3/uL (0.0-0.7) 08/07/21 05:23 Baso # (Auto) 0.0 10^3/uL (0.0-0.1) 08/07/21 05:23 Absolute Nucleated RBC 0.00 x10^3/uL 08/07/21 05:23 Total Counted 100 07/28/21 05:11 Band Neuts % (Manual) Not Reportable 08/05/21 05:00 Abnorm Lymph % (Manual) Not Reportable 08/05/21 05:00 Myelocytes % 1 % (-0) H 07/28/21 05:11 Nucleated RBC % 0.0 /100WBC 08/07/21 05:23 Neutrophils # (Manual) Not Reportable 08/05/21 05:00 Lymphocytes # (Manual) Not Reportable 08/05/21 05:00 Monocytes # (Manual) Not Reportable 08/05/21 05:00 Eosinophils # (Manual) Not Reportable 08/05/21 05:00 Basophils # (Manual) Not Reportable 08/05/21 05:00 Differential Comment MANUAL=AUTO DIFF 08/05/21 05:00 Manual Slide Review Indicated 07/26/21 12:43 WBC Morphology NORMAL APPEARANCE (NORMAL) 07/28/21 05:11 Platelet Estimate NORMAL (130-450,000) (NORMAL) 07/28/21 05:11 Platelet Morphology NORMAL APPEARANCE (NORMAL) 07/28/21 05:11 RBC Morph Micro Appear NORMAL APPEARANCE (NORMAL) 07/28/21 05:11 D-Dimer > 1050.0 ng/mL (200.0-255.0) H 08/01/21 04:15 Bld Gas Analysis Time 0730 07/28/21 07:27 Sample Site RIGHT RADIAL 07/28/21 07:27 ABG pH 7.44 (7.35-7.45) 07/28/21 07:27 ABG pCO2 31 mmHg (34-45) L 07/28/21 07:27 ABG pO2 83 mmHg (80-100) 07/28/21 07:27 ABG HCO3 20.5 mmol/L (22.0-26.0) L 07/28/21 07:27 ABG Total CO2 21.5 MMOL/L (21.0-29.0) 07/28/21 07:27 ABG O2 Saturation 96 % (94-98) 07/28/21 07:27 ABG Base Excess -2.6 mmol/L (-2.0-3.0) L 07/28/21 07:27 Salvador Test POSITIVE 07/28/21 07:27 VBG pH 7.380 (7.31-7.41) 07/26/21 12:43 VBG pCO2 38.8 mmHg (41-51) L 07/26/21 12:43 VBG pO2 25.0 mmHg (25-47) 07/26/21 12:43 VBG HCO3 22.4 mmol/L (23-28) L 07/26/21 12:43 VBG Total CO2 23.6 mmol/L (24-29) L 07/26/21 12:43 VBG O2 Saturation 43.6 % (60-80) L 07/26/21 12:43 VBG Base Excess -2.4 mmol/L (-2 - +2) L 07/26/21 12:43 Respiration Rate 18 b/min 07/28/21 07:27 O2 Delivery Device BiPAP 07/28/21 07:27 Vent Mode SYNCHRONOUS/TIMES 07/28/21 07:27 FiO2 60.00 07/28/21 07:27 EPAP 6 cmH2O 07/28/21 07:27 IPAP 12 cmH2O 07/28/21 07:27 Sodium 137 mmol/L (135-145) 08/07/21 05:23 Potassium 4.5 mmol/L (3.5-5.0) 08/07/21 05:23 Chloride 102 mmol/L (101-111) 08/07/21 05:23 Carbon Dioxide 28 mmol/L (21-32) 08/07/21 05:23 Anion Gap 7.0 (6-13) 08/07/21 05:23 BUN 54 mg/dL (6-20) H 08/07/21 05:23 Creatinine 1.4 mg/dL (0.6-1.2) H 08/07/21 05:23 Estimated GFR (MDRD) 48 (>89) L 08/07/21 05:23 Glucose 99 mg/dL (70-100) 08/07/21 05:23 POC Whole Bld Glucose 268 mg/dL (70 - 100) H 08/08/21 16:39 Lactic Acid 2.0 mmol/L (0.5-2.2) 07/26/21 12:43 Calcium 9.5 mg/dL (8.5-10.3) 08/07/21 05:23 Phosphorus 3.1 mg/dL (2.5-4.6) 07/26/21 12:43 Magnesium 2.3 mg/dL (1.7-2.8) 07/26/21 12:43 Total Bilirubin 0.6 mg/dL (0.2-1.0) 08/07/21 05:23 AST 21 IU/L (10-42) 08/07/21 05:23 ALT 32 IU/L (10-60) 08/07/21 05:23 Alkaline Phosphatase 58 IU/L (42-121) 08/07/21 05:23 C-Reactive Protein 13.3 mg/dL (0-1.0) H 08/01/21 04:15 B-Natriuretic Peptide 569 pg/mL (5-100) H 07/26/21 12:43 Total Protein 6.1 g/dL (6.7-8.2) L 08/07/21 05:23 Albumin 2.4 g/dL (3.2-5.5) L 08/07/21 05:23 Globulin 3.7 g/dL (2.1-4.2) 08/07/21 05:23 Albumin/Globulin Ratio 0.6 (1.0-2.2) L 08/07/21 05:23 Nasal Adenovirus (PCR) NOT DETECTED 07/26/21 12:26 Nasal B. parapertussis DNA (PCR) NOT DETECTED 07/26/21 12:26 Nasal Coronavir 229E PCR NOT DETECTED 07/26/21 12:26 Nasal Coronavir HKU1 PCR NOT DETECTED 07/26/21 12:26 Nasal Coronavir NL63 PCR NOT DETECTED 07/26/21 12:26 Nasal Coronavir OC43 PCR NOT DETECTED 07/26/21 12:26 Nasal Enterovir/Rhinovir PCR NOT DETECTED 07/26/21 12:26 Nasal Influenza B PCR NOT DETECTED 07/26/21 12:26 Nasal Influenza A PCR NOT DETECTED 07/26/21 12:26 Nasal Parainfluen 1 PCR NOT DETECTED 07/26/21 12:26 Nasal Parainfluen 2 PCR NOT DETECTED 07/26/21 12:26 Nasal Parainfluen 3 PCR NOT DETECTED 07/26/21 12:26 Nasal Parainfluen 4 PCR NOT DETECTED 07/26/21 12:26 Nasal RSV (PCR) NOT DETECTED 07/26/21 12:26 Nasal Screen MRSA (PCR) NEGATIVE (NEGATIVE) 07/28/21 21:39 Nasal B.pertussis DNA PCR NOT DETECTED 07/26/21 12:26 Nasal C.pneumoniae (PCR) NOT DETECTED 07/26/21 12:26 Trevor Human Metapneumo PCR NOT DETECTED 07/26/21 12:26 Nasal M.pneumoniae (PCR) NOT DETECTED 07/26/21 12:26 Nasal SARS-CoV-2 (PCR) DETECTED A 07/26/21 12:26 <Merlyn Sewell - Last Filed: 08/08/21 18:41> Vital Signs: Vital Signs - 24 hr 08/07/21 08/07/21 08/08/21 15:10 16:02 06:57 Temperature 36.4 C L 36.4 C L Heart Rate [ 77 Activity] Heart Rate [ 60 58 L Brachial] Heart Rate [ 60 Sitting] Heart Rate [ 60 Supine] Respiratory 22 20 Rate Blood Pressure 120/59 L 135/65 H [Right Brachial artery] Blood Pressure 138/60 H [Sitting] Blood Pressure 127/64 [Supine] O2 Saturation 5 L 93 08/08/21 07:40 Temperature 36.6 C Heart Rate [ Activity] Heart Rate [ 60 Brachial] Heart Rate [ Sitting] Heart Rate [ Supine] Respiratory 20 Rate Blood Pressure 133/62 H [Right Brachial artery] Blood Pressure [Sitting] Blood Pressure [Supine] O2 Saturation 94 Oxygen O2 Source Nasal cannula Oxygen Flow Rate 15 I&O (Last 24 Hrs): Intake and Output Totals x24h 08/06/21 08/07/21 08/08/21 23:59 23:59 23:59 Intake Total 2091 1900 1095 Output Total 1725 2590 1350 Balance 001 -108 -255 General: Alert, Cooperative, No acute distress HEENT: Atraumatic, PERRLA, EOMI, Mucous membr. moist/pink Neck: Supple Neuro: Alert, Other (Alert to self, state, facility, and month. He is disoriented to city, year, and situation.) Cardiovascular: Regular rate, Other (Grade 1/6 systolic murmmur to left 2nd intercostal space.) Respiratory: Chest non-tender, No respiratory distress, Rales (Faint bibasilar rales) Abdomen: Normal bowel sounds, No tenderness, Other (Abdomen is distended and taut. Umbilical hernia, unable to be reduced with gentle pressure.) Genitourinary: Other (Blevins insitu with yellow urine) Extremities: No clubbing, No cyanosis, Other (1+ pedal edema) Skin: No rashes, No breakdown, No significant lesion - Results Results: Laboratory Results WBC 11.3 x10^3/uL (4.8-10.8) H 08/07/21 05:23 RBC 3.90 10^6/uL (4.70-6.10) L 08/07/21 05:23 Hgb 11.8 g/dL (14.0-18.0) L 08/07/21 05:23 Hct 36.1 % (42.0-52.0) L 08/07/21 05:23 MCV 92.6 fL (80.0-94.0) 08/07/21 05:23 MCH 30.3 pg (27.0-31.0) 08/07/21 05:23 MCHC 32.7 g/dL (32.0-36.0) 08/07/21 05:23 RDW 14.2 % (12.0-15.0) 08/07/21 05:23 Plt Count 214 10^3/uL (130-450) 08/07/21 05:23 MPV 11.1 fL (7.4-11.4) 08/07/21 05:23 Neut # (Auto) 8.9 10^3/uL (1.5-6.6) H 08/07/21 05:23 Lymph # (Auto) 1.2 10^3/uL (1.5-3.5) L 08/07/21 05:23 Boyd # (Auto) 0.8 10^3/uL (0.0-1.0) 08/07/21 05:23 Eos # (Auto) 0.3 10^3/uL (0.0-0.7) 08/07/21 05:23 Baso # (Auto) 0.0 10^3/uL (0.0-0.1) 08/07/21 05:23 Absolute Nucleated RBC 0.00 x10^3/uL 08/07/21 05:23 Total Counted 100 07/28/21 05:11 Band Neuts % (Manual) Not Reportable 08/05/21 05:00 Abnorm Lymph % (Manual) Not Reportable 08/05/21 05:00 Myelocytes % 1 % (-0) H 07/28/21 05:11 Nucleated RBC % 0.0 /100WBC 08/07/21 05:23 Neutrophils # (Manual) Not Reportable 08/05/21 05:00 Lymphocytes # (Manual) Not Reportable 08/05/21 05:00 Monocytes # (Manual) Not Reportable 08/05/21 05:00 Eosinophils # (Manual) Not Reportable 08/05/21 05:00 Basophils # (Manual) Not Reportable 08/05/21 05:00 Differential Comment MANUAL=AUTO DIFF 08/05/21 05:00 Manual Slide Review Indicated 07/26/21 12:43 WBC Morphology NORMAL APPEARANCE (NORMAL) 07/28/21 05:11 Platelet Estimate NORMAL (130-450,000) (NORMAL) 07/28/21 05:11 Platelet Morphology NORMAL APPEARANCE (NORMAL) 07/28/21 05:11 RBC Morph Micro Appear NORMAL APPEARANCE (NORMAL) 07/28/21 05:11 D-Dimer > 1050.0 ng/mL (200.0-255.0) H 08/01/21 04:15 Bld Gas Analysis Time 0730 07/28/21 07:27 Sample Site RIGHT RADIAL 07/28/21 07:27 ABG pH 7.44 (7.35-7.45) 07/28/21 07:27 ABG pCO2 31 mmHg (34-45) L 07/28/21 07:27 ABG pO2 83 mmHg (80-100) 07/28/21 07:27 ABG HCO3 20.5 mmol/L (22.0-26.0) L 07/28/21 07:27 ABG Total CO2 21.5 MMOL/L (21.0-29.0) 07/28/21 07:27 ABG O2 Saturation 96 % (94-98) 07/28/21 07:27 ABG Base Excess -2.6 mmol/L (-2.0-3.0) L 07/28/21 07:27 Salvador Test POSITIVE 07/28/21 07:27 VBG pH 7.380 (7.31-7.41) 07/26/21 12:43 VBG pCO2 38.8 mmHg (41-51) L 07/26/21 12:43 VBG pO2 25.0 mmHg (25-47) 07/26/21 12:43 VBG HCO3 22.4 mmol/L (23-28) L 07/26/21 12:43 VBG Total CO2 23.6 mmol/L (24-29) L 07/26/21 12:43 VBG O2 Saturation 43.6 % (60-80) L 07/26/21 12:43 VBG Base Excess -2.4 mmol/L (-2 - +2) L 07/26/21 12:43 Respiration Rate 18 b/min 07/28/21 07:27 O2 Delivery Device BiPAP 07/28/21 07:27 Vent Mode SYNCHRONOUS/TIMES 07/28/21 07:27 FiO2 60.00 07/28/21 07:27 EPAP 6 cmH2O 07/28/21 07:27 IPAP 12 cmH2O 07/28/21 07:27 Sodium 137 mmol/L (135-145) 08/07/21 05:23 Potassium 4.5 mmol/L (3.5-5.0) 08/07/21 05:23 Chloride 102 mmol/L (101-111) 08/07/21 05:23 Carbon Dioxide 28 mmol/L (21-32) 08/07/21 05:23 Anion Gap 7.0 (6-13) 08/07/21 05:23 BUN 54 mg/dL (6-20) H 08/07/21 05:23 Creatinine 1.4 mg/dL (0.6-1.2) H 08/07/21 05:23 Estimated GFR (MDRD) 48 (>89) L 08/07/21 05:23 Glucose 99 mg/dL (70-100) 08/07/21 05:23 POC Whole Bld Glucose 195 mg/dL (70 - 100) H 08/08/21 11:07 Lactic Acid 2.0 mmol/L (0.5-2.2) 07/26/21 12:43 Calcium 9.5 mg/dL (8.5-10.3) 08/07/21 05:23 Phosphorus 3.1 mg/dL (2.5-4.6) 07/26/21 12:43 Magnesium 2.3 mg/dL (1.7-2.8) 07/26/21 12:43 Total Bilirubin 0.6 mg/dL (0.2-1.0) 08/07/21 05:23 AST 21 IU/L (10-42) 08/07/21 05:23 ALT 32 IU/L (10-60) 08/07/21 05:23 Alkaline Phosphatase 58 IU/L (42-121) 08/07/21 05:23 C-Reactive Protein 13.3 mg/dL (0-1.0) H 08/01/21 04:15 B-Natriuretic Peptide 569 pg/mL (5-100) H 07/26/21 12:43 Total Protein 6.1 g/dL (6.7-8.2) L 08/07/21 05:23 Albumin 2.4 g/dL (3.2-5.5) L 08/07/21 05:23 Globulin 3.7 g/dL (2.1-4.2) 08/07/21 05:23 Albumin/Globulin Ratio 0.6 (1.0-2.2) L 08/07/21 05:23 Nasal Adenovirus (PCR) NOT DETECTED 07/26/21 12:26 Nasal B. parapertussis DNA (PCR) NOT DETECTED 07/26/21 12:26 Nasal Coronavir 229E PCR NOT DETECTED 07/26/21 12:26 Nasal Coronavir HKU1 PCR NOT DETECTED 07/26/21 12:26 Nasal Coronavir NL63 PCR NOT DETECTED 07/26/21 12:26 Nasal Coronavir OC43 PCR NOT DETECTED 07/26/21 12:26 Nasal Enterovir/Rhinovir PCR NOT DETECTED 07/26/21 12:26 Nasal Influenza B PCR NOT DETECTED 07/26/21 12:26 Nasal Influenza A PCR NOT DETECTED 07/26/21 12:26 Nasal Parainfluen 1 PCR NOT DETECTED 07/26/21 12:26 Nasal Parainfluen 2 PCR NOT DETECTED 07/26/21 12:26 Nasal Parainfluen 3 PCR NOT DETECTED 07/26/21 12:26 Nasal Parainfluen 4 PCR NOT DETECTED 07/26/21 12:26 Nasal RSV (PCR) NOT DETECTED 07/26/21 12:26 Nasal Screen MRSA (PCR) NEGATIVE (NEGATIVE) 07/28/21 21:39 Nasal B.pertussis DNA PCR NOT DETECTED 07/26/21 12:26 Nasal C.pneumoniae (PCR) NOT DETECTED 07/26/21 12:26 Trevor Human Metapneumo PCR NOT DETECTED 07/26/21 12:26 Nasal M.pneumoniae (PCR) NOT DETECTED 07/26/21 12:26 Nasal SARS-CoV-2 (PCR) DETECTED A 07/26/21 12:26 <Mariela Blanco - Last Filed: 08/09/21 08:01> ABX Reporting Has patient been on IV antibiotics over the past 48 hours?: Yes <Marieal Blanco - Last Filed: 08/09/21 08:01>
[2021-08-08] MEDS: QUEtiapine 25 MG TABLET PO SCH (20:51)
[2021-08-09] MEDS: SODIUM CHLORIDE FLUSH 0.9% 10 ML SYRINGE IVP SCH ×3 (02:49→16:18)
[2021-08-09] MEDS: CHOLECALCIFEROL 25 MCG TABLET PO SCH (09:32)
[2021-08-09] MEDS: TAMSULOSIN 0.4 MG CAPSULE PO SCH (09:32)
[2021-08-09] MEDS: SENNA 8.6 MG TABLET PO SCH (09:32)
[2021-08-09] MEDS: MULTIVITAMIN W/MINERALS TABLET PO SCH (09:34)
[2021-08-09] MEDS: DABIGATRAN 75 MG CAPSULE PO SCH ×2 (09:34→21:07)
[2021-08-09] MEDS: lisinopriL 5 MG TABLET PO SCH (09:35)
[2021-08-09] MEDS: CEFEPIME 2 GM in SODIUM CHLORIDE 0.9% MINIBAG 100 ML IV SCH ×2 (09:35→21:04)
[2021-08-09] MEDS: INSULIN ASPART 300 UNIT/3 ML PEN SUBQ SCH ×4 (09:36→21:09)
[2021-08-09] MEDS: INSULIN GLARGINE 300 UNIT/3 ML PEN SUBQ SCH (09:36)
[2021-08-09] MEDS: NIFEdipine ER 30 MG TABLET PO SCH (10:05)
[2021-08-09] MEDS: METOPROLOL SUCCINATE 25 MG TABLET PO SCH (10:05)
[2021-08-09] MEDS: polyethylene glycoL 3350 17 GM PACKET PO SCH (10:06)
[2021-08-09] MEDS: DOCUSATE SODIUM 250 MG CAPSULE PO SCH (10:15)
[2021-08-09 12:28] LABS: BASOPHILS % (AUTO) 0.3 %; EOSINOPHILS # (AUTO) 0.3 10^3/uL (0.0-0.7); EOSINOPHILS % (AUTO) 2.2 %; HCT - HEMATOCRIT 35.9 % (42.0-52.0); HGB - HEMOGLOBIN 11.6 g/dL (14.0-18.0); LYMPHOCYTES # (AUTO) 0.7 10^3/uL (1.5-3.5); LYMPHOCYTES % (AUTO) 6.2 %; MEAN CORPUSCULAR HEMOGLOBIN 30.6 pg (27.0-31.0); MEAN CORPUSCULAR HGB CONC 32.3 g/dL (32.0-36.0); MEAN CORPUSCULAR VOLUME 94.7 fL (80.0-94.0); MEAN PLATELET VOLUME 10.9 fL (7.4-11.4); MONOCYTES # (AUTO) 0.9 10^3/uL (0.0-1.0); MONOCYTES % (AUTO) 7.5 %; NEUTROPHILS # (AUTO) 9.9 10^3/uL (1.5-6.6); NEUTROPHILS % (AUTO) 82.7 %; PLT - PLATELET COUNT 249 10^3/uL (130-450); RED BLOOD COUNT 3.79 10^6/uL (4.70-6.10); RED CELL DISTRIBUTION WIDTH 14.3 % (12.0-15.0)
[2021-08-09 12:37] LABS: CALCIUM 9.7 mg/dL (8.5-10.3); CREATININE 1.4 mg/dL (0.6-1.2); POTASSIUM 4.5 mmol/L (3.5-5.0)
--- NOTE | 2021-08-09 13:35 | PROVIDER PROGRESS NOTE ---
Assessment/Plan - Problem List (1) Acute respiratory failure with hypoxia Assessment/Plan: Patient was admitted to hospital with COVID-19 pnuemnia. He was transferred out of the ICU to the Med/Surg unit on 08/05 due to improved respiratory status and no longer requiring BiPap during sleep. He finished day /5 of remdesivir on 07/31 and 07/20 Decadron on 08/05. On 08/06 his WBCs increased to 15 from 11. C hest x-ray showed increased bilateral pulmonary opacities and most likely due to hospital acquired pneumonia. He was started on IV Azithromyacin x 3 doses and Cefepime daily. WBCs increased from 11.3 to 12.0 today. He reports feeling well today and denies dyspnea, chest pain, or cough. He is up to 4 L of oxygen via nasal cannula with oxygen saturation around 95% and he continues to have faint bibasilar rales. Plan: Lasix 40mg IVP x1. Chest x-ray tomorrow morning. Monitor for signs of respiratory distress and obtain chest x-ray/ ABG as needed. Encourage cough and deep breathing. Continue to increased oxygen during activity to prevent hypoxia. (2) Pneumonia due to COVID-19 virus Assessment/Plan: Patient was vaccinated for COVID and unfortunately became ill with COVID pneumonia. He has completed 5 days of Remdesivir on 07/31 and 10 days of Decadro n on 08/05. He on nasal cannula at 4L/min with bedside oxygen saturation around 95%. According to Dr. Hogan's note from 07/27 patient is a DNR for cardiac resuscitation but would like Intubation if needed. Per Irvin Vazquez (School Guidance Counselor), patient was removed from COVID isolation according to hospital protocol on 08/06 when he transferred to the Med/Surg unit due to 10 days since initial symptoms and improving status. Plan: Continue with nasal cannula at 2L/min as tolerated. Consider intubation if patient deteriorates and oxygenation/ ventilation not maintained on Bipap. (3) HCAP (healthcare-associated pneumonia) Assessment/Plan: Patient was admitted to hospital with COVID-19 pneumonia. He was steadily improving and transferred out of the ICU to Med/Surg on 08/05. The following day on 08/06 his WBC was elevated to 15. WBCs today are 12.0. Chest x-ray from 08/06 showed "Increased bilateral pulmonary opacities. Most consistent with pneumonia". He was started on Azithromyacin 500mg IVPB daily x 3 doses and Cefepime 2gm IVPB twice daily. Patient remains afebrile, with bibasilar rales. He denies dyspnea, chest pain, cough, or increased sputum production. Plan: Lasix 40mg IVP x1. Chest x-ray tomorrow morning. Continue with Cefepime 2gm IVPB twice daily. Continue to monitor fever, increased secretions, or declining oxygenation status. Continue to monitor WBC for trends. (4) Constipation Qualifiers: Constipation type: unspecified constipation type Qualified Code(s): K59.00 - Constipation, unspecified Assessment/Plan: Patient had 2 bowel movements in the last 24 hours. He denies abdominal pain and has a good appetite without nausea or vomiting. His abdominal distention has improved and no longer taut with active bowel sounds. Plan: Continue to monitor RN to advance bowel protocol. RN to administer a Fleet enema and check for impaction. Consider adding Magnesium Citrate if constipation persists or Milk & Molasses Enema. Consider an abdominal CT if constipation persists. (5) Urinary retention Assessment/Plan: Initial Blevins catheter was removed 08/07. Patient was unable to void so a bladder scan was done and reveled 1700 mls of urine. 08/08 a Blevins catheter was placed again and 450 mls of urine were drained so a repeat bladder scan was done and showed 999mls of urine. Patient was also experiencing constipation at that time. Today he continued to have adequate urine output from the Blevins and bladder scan showed 0 mls of residual urine so the Blevins was removed. Plan: Monitor pt for urinary retention. Bladder scan as need for low or inadequate urine output. Consider straight cath or Blevins if urinary retention resumes. Consider CT of abdomen/ pelvis if urinary retention persists to rule out obstruction. (6) Controlled type 2 diabetes mellitus without complication, without long-term current use of insulin Assessment/Plan: Patient has history of type II DM and uses metformin 500mg PO with meals and Gl imepiride 1mg po daily for control at home. Bedside glucose today was 126 and 151 premeals. He is being covered with Aspart on sliding scale for meal coverage and Lantus 8 units for long acting coverage. Plan: Continue to monitor bedside glucose. Treat hyperglycemia with Aspart sliding scale. Continue with Lantus 8 units SubQ. Consider adding set meal coverage short acting insulin if glucose remains elevated. Will add A1C to morning labs to see glucose trends. Plan to transition back to PO diabetic medications upon discharge. (7) Acute kidney failure Assessment/Plan: Patient presented to hospital with elevated creat 1.4 and low GFR 48. Patient has been improving steadily since 07/29, until 08/01 when creat increased to 1.8 and GFR decreased to 36. IV fluids were discontinued on 08/08 for increased rales. Continued improvement with Creat to 1.4 form 1.5 and GFR to 48 form 44. I&O is -700 today. Edema of bilateral lower extremities has improved. Plan: Recheck morning labs. Continue to monitor I&Os. (8) Dementia Qualifiers: Alzheimer's disease onset: unspecified onset Dementia behavioral disturbance: with behavioral disturbance Assessment/Plan: According to admission note by Dr. Hogan on 07/26/2021, patient has a history of Dementia. He lives with his granddaughter and is able to do basic self care tasks. His daughter also lives next door. During his hospital stay on the evening of 07/28 patient began with agitation and delirium. He was placed on 1:1 observation with a sitter and started on Seroquel 25mg PO nightly. Today he is alert to self, state, and month. He is disoriented to city, year, and situation. He is cooperative and pleasant. Plan: Continue to reorient patient to surroundings. Limit interruptions to sleep wake cycles. Continue seroquel 25mg PO nightly. (9) Hypertension Qualifiers: Hypertension type: primary hypertension Qualified Code(s): I10 - Essential (primary) hypertension Assessment/Plan: Patient has history of HTN and takes Lisinopril 10mg daily, Metoprolol 25mg po daily, and Nifedipine 90mg PO daily for management. Current SBPs are 120-140s. Prn hydralizine last given 07/27. Plan: Continue Metoprolol 25mg po daily Continue Nifedipine 90mg po daily Continue Lisinopril 10mg po daily Hydralizine 10mg IVP three times daily as needed (10) Chronic atrial fibrillation Assessment/Plan: According to pervious hospitalization note from 2016, patient has a history of a-fib and is on Pradaxa 75mg PO daily. Admission EKG on 07/26/2021 showed v- paced rhythm with underlying A-fib/ flutter. He is also on Metoprolol 25mg PO daily as a home medication that was resumed during this hospitalization. Plan: Continue to monitor for a-fib/flutter that leads to hemodynamic instability. Continue Pradaxa 75mg PO daily. Continue Metoprolol 25mg PO daily. (11) Staphylococcus aureus bacteremia Assessment/Plan: On 07/26 one of two blood cultures grew Staphlococcus aurus, this is suspected to be secondary to a contaminant. He was initially treated with Vancomycin and then switched to Zyvox due to worsening renal function. Zyvox was then discontinued 07/29/21. White blood cell count is trended down. He continues to be afebrile. 07/28 2D echo showed EF of 65-70% without mass, vegetation, or thrombus. Plan: Continue to monitor CBC for WBC trends. If he becomes febrile or WBCs continue to be elevated or increase, consider resuming antibiotics. - Current Meds Current Meds: Current Medications Generic Name Dose Route Start Last Admin Trade Name Freq PRN Reason Stop Dose Admin Acetaminophen 650 mg 07/26/21 13:34 08/06/21 17:58 Acetaminophen 325 Mg Tablet PO 650 mg Q4HR PRN Administration Pain 1 to 4 Cholecalciferol 50 mcg 07/31/21 12:00 08/09/21 09:32 Cholecalciferol 25 Mcg Tablet PO 50 mcg DAILY MARYLOU Administration Dabigatran 75 mg 07/26/21 21:00 08/09/21 09:34 Dabigatran 75 Mg Capsule PO 75 mg BID MARYLOU Administration Docusate Sodium 250 - 500 mg 08/02/21 09:00 08/09/21 10:15 Docusate Sodium 250 Mg Capsule PO 250 mg DAILY MARYLOU Administration Hydralazine HCl 10 mg 07/26/21 13:40 07/27/21 08:32 Hydralazine Inj 20 Mg/Ml Vial IVP 10 mg TID PRN Administration Hypertensive Emergency Cefepime HCl 2 gm/ Sodium 100 mls @ 200 mls/hr 08/06/21 12:00 08/09/21 11:47 Chloride IV Infused BID MARYLOU Infusion Insulin Aspart 3 - 11 unit 08/01/21 21:00 08/09/21 11:54 Insulin Aspart 300 Unit/3 Ml Pen SUBQ 3 unit 0800,1200,1700,2100 MARYLOU Administration Protocol Insulin Glargine 8 unit 08/06/21 09:00 08/09/21 09:36 Insulin Glargine 300 Unit/3 Ml Pen SUBQ 8 unit DAILY MARYLOU Administration Lisinopril 10 mg 07/27/21 09:00 08/09/21 09:35 Lisinopril 5 Mg Tablet PO 10 mg DAILY MARYLOU Administration Metoprolol Succinate 25 mg 07/27/21 09:00 08/09/21 10:05 Metoprolol Succinate 25 Mg Tablet PO 25 mg DAILY MARYLOU Administration Multivitamins/Minerals 1 tab 07/31/21 12:00 08/09/21 09:34 Multivitamin W/Minerals Tablet PO 1 tab DAILYWM MARYLOU Administration Nifedipine 90 mg 07/27/21 09:00 08/09/21 10:05 Nifedipine Er 30 Mg Tablet PO 90 mg DAILY MARYLOU Administration Oxycodone HCl 5 mg 07/26/21 13:34 08/06/21 17:58 Oxycodone 5 Mg Tablet PO 5 mg Q4HR PRN Administration Pain 5 to 7 Polyethylene Glycol 17 gm 08/02/21 09:00 08/09/21 10:06 Polyethylene Glycol 3350 17 Gm Packet PO 17 gm DAILY MARYLOU Administration Quetiapine Fumarate 25 mg 07/27/21 21:00 08/08/21 20:51 Quetiapine 25 Mg Tablet PO 25 mg QPM MARYLOU Administration Senna 8.6 - 17.2 mg 08/02/21 09:00 08/09/21 09:32 Senna 8.6 Mg Tablet PO 8.6 mg DAILY MARYLOU Administration Sodium Chloride 10 ml 07/26/21 13:34 08/04/21 05:32 Sodium Chloride Flush 0.9% 10 Ml Syringe IVP 10 ml PRN PRN Administration NEEDED PER PROVIDER ORDERS Sodium Chloride 10 ml 07/26/21 17:00 08/09/21 10:06 Sodium Chloride Flush 0.9% 10 Ml Syringe IVP 10 ml 0100,0900,1700 MARYLOU Administration Tamsulosin HCl 0.4 mg 07/27/21 09:00 08/09/21 09:32 Tamsulosin 0.4 Mg Capsule PO 0.4 mg DAILY MARYLOU Administration - Lab Result Fish Bone Diagrams: 08/09/21 12:21 08/09/21 12:21 Subjective - Subjective Patient Reports: Feeling Better, Resting Comfortably, No Complaints (Patient is sitting comfortably in chair watching TV. He reports feeling well and deneis abdominal pain, dyspnea, or chest pain.) Nursing Reports: No Complaints Objective Vital Signs: Vital Signs - 24 hr 08/08/21 08/09/21 08/09/21 15:57 00:26 10:16 Temperature 36.4 C L 36.4 C L Heart Rate [ 60 60 62 Brachial] Respiratory 18 18 Rate Blood Pressure 124/56 L [Left Brachial artery] Blood Pressure 137/63 H 145/68 H [Right Brachial artery] O2 Saturation 96 95 Oxygen O2 Source Nasal cannula Oxygen Flow Rate 15 I&O (Last 24 Hrs): Intake and Output Totals x24h 08/07/21 08/08/21 08/09/21 23:59 23:59 23:59 Intake Total 1900 2045 220 Output Total 2590 2550 1250 Balance -690 -505 -1030 General: Alert, Cooperative, No acute distress, Other (Alert to self, state, and month.) HEENT: Atraumatic, PERRLA, EOMI, Mucous membr. moist/pink Neck: Supple, No JVD Neuro: Alert, Disoriented (Disoriented to location, situation, and year.) Cardiovascular: Regular rate, Other (Grade 1/6 systolic murmur loudest at the intercostal space at left sternal boarder.) Respiratory: Chest non-tender, No respiratory distress, Rales (Rales to bilaterally to bases and middle lobe.) Abdomen: Normal bowel sounds, No tenderness, Other (Slightly distended.) Extremities: No clubbing, No cyanosis, No tenderness/swelling Skin: No rashes - Results Results: Laboratory Results WBC 12.0 x10^3/uL (4.8-10.8) H 08/09/21 12:21 RBC 3.79 10^6/uL (4.70-6.10) L 08/09/21 12:21 Hgb 11.6 g/dL (14.0-18.0) L 08/09/21 12:21 Hct 35.9 % (42.0-52.0) L 08/09/21 12:21 MCV 94.7 fL (80.0-94.0) H 08/09/21 12:21 MCH 30.6 pg (27.0-31.0) 08/09/21 12: MCHC 32.3 g/dL (32.0-36.0) 08/09/21 12: RDW 14.3 % (12.0-15.0) 08/09/21 12:21 Plt Count 249 10^3/uL (130-450) 08/09/21 12:21 MPV 10.9 fL (7.4-11.4) 08/09/21 12:21 Neut # (Auto) 9.9 10^3/uL (1.5-6.6) H 08/09/21 12:21 Lymph # (Auto) 0.7 10^3/uL (1.5-3.5) L 08/09/21 12:21 [place]ord # (Auto) 0.9 10^3/uL (0.0-1.0) 08/09/21 12:21 Eos # (Auto) 0.3 10^3/uL (0.0-0.7) 08/09/21 12:21 Baso # (Auto) 0.0 10^3/uL (0.0-0.1) 08/09/21 12:21 Absolute Nucleated RBC 0.00 x10^3/uL 08/09/21 12:21 Total Counted 100 07/28/21 05:11 Band Neuts % (Manual) Not Reportable 08/05/21 05:00 Abnorm Lymph % (Manual) Not Reportable 08/05/21 05:00 Myelocytes % 1 % (-0) H 07/28/21 05:11 Nucleated RBC % 0.0 /100WBC 08/09/21 12:21 Neutrophils # (Manual) Not Reportable 08/05/21 05:00 Lymphocytes # (Manual) Not Reportable 08/05/21 05:00 Monocytes # (Manual) Not Reportable 08/05/21 05:00 Eosinophils # (Manual) Not Reportable 08/05/21 05:00 Basophils # (Manual) Not Reportable 08/05/21 05:00 Differential Comment MANUAL=AUTO DIFF 08/05/21 05:00 Manual Slide Review Indicated 07/26/21 12:43 WBC Morphology NORMAL APPEARANCE (NORMAL) 07/28/21 05:11 Platelet Estimate NORMAL (130-450,000) (NORMAL) 07/28/21 05:11 Platelet Morphology NORMAL APPEARANCE (NORMAL) 07/28/21 05:11 RBC Morph Micro Appear NORMAL APPEARANCE (NORMAL) 07/28/21 05:11 D-Dimer > 1050.0 ng/mL (200.0-255.0) H 08/01/21 04:15 Bld Gas Analysis Time 0730 07/28/21 07:27 Sample Site RIGHT RADIAL 07/28/21 07:27 ABG pH 7.44 (7.35-7.45) 07/28/21 07:27 ABG pCO2 31 mmHg (34-45) L 07/28/21 07:27 ABG pO2 83 mmHg (80-100) 07/28/21 07:27 ABG HCO3 20.5 mmol/L (22.0-26.0) L 07/28/21 07:27 ABG Total CO2 21.5 MMOL/L (21.0-29.0) 07/28/21 07:27 ABG O2 Saturation 96 % (94-98) 07/28/21 07:27 ABG Base Excess -2.6 mmol/L (-2.0-3.0) L 07/28/21 07:27 Salvador Test POSITIVE 07/28/21 07:27 VBG pH 7.380 (7.31-7.41) 07/26/21 12:43 VBG pCO2 38.8 mmHg (41-51) L 07/26/21 12:43 VBG pO2 25.0 mmHg (25-47) 07/26/21 12:43 VBG HCO3 22.4 mmol/L (23-28) L 07/26/21 12:43 VBG Total CO2 23.6 mmol/L (24-29) L 07/26/21 12:43 VBG O2 Saturation 43.6 % (60-80) L 07/26/21 12:43 VBG Base Excess -2.4 mmol/L (-2 - +2) L 07/26/21 12:43 Respiration Rate 18 b/min 07/28/21 07:27 O2 Delivery Device BiPAP 07/28/21 07:27 Vent Mode SYNCHRONOUS/TIMES 07/28/21 07:27 FiO2 60.00 07/28/21 07:27 EPAP 6 cmH2O 07/28/21 07:27 IPAP 12 cmH2O 07/28/21 07:27 Sodium 136 mmol/L (135-145) 08/09/21 12:21 Potassium 4.5 mmol/L (3.5-5.0) 08/09/21 12:21 Chloride 100 mmol/L (101-111) L 08/09/21 12:21 Carbon Dioxide 28 mmol/L (21-32) 08/09/21 12:21 Anion Gap 8.0 (6-13) 08/09/21 12:21 BUN 40 mg/dL (6-20) H 08/09/21 12:21 Creatinine 1.4 mg/dL (0.6-1.2) H 08/09/21 12:21 Estimated GFR (MDRD) 48 (>89) L 08/09/21 12:21 Glucose 156 mg/dL (70-100) H 08/09/21 12:21 POC Whole Bld Glucose 151 mg/dL (70 - 100) H 08/09/21 11:47 Lactic Acid 2.0 mmol/L (0.5-2.2) 07/26/21 12:43 Calcium 9.7 mg/dL (8.5-10.3) 08/09/21 12:21 Phosphorus 3.1 mg/dL (2.5-4.6) 07/26/21 12:43 Magnesium 2.3 mg/dL (1.7-2.8) 07/26/21 12:43 Total Bilirubin 0.6 mg/dL (0.2-1.0) 08/07/21 05:23 AST 21 IU/L (10-42) 08/07/21 05:23 ALT 32 IU/L (10-60) 08/07/21 05:23 Alkaline Phosphatase 58 IU/L (42-121) 08/07/21 05:23 C-Reactive Protein 13.3 mg/dL (0-1.0) H 08/01/21 04:15 B-Natriuretic Peptide 569 pg/mL (5-100) H 07/26/21 12:43 Total Protein 6.1 g/dL (6.7-8.2) L 08/07/21 05:23 Albumin 2.4 g/dL (3.2-5.5) L 08/07/21 05:23 Globulin 3.7 g/dL (2.1-4.2) 08/07/21 05:23 Albumin/Globulin Ratio 0.6 (1.0-2.2) L 08/07/21 05:23 Nasal Adenovirus (PCR) NOT DETECTED 07/26/21 12:26 Nasal B. parapertussis DNA (PCR) NOT DETECTED 07/26/21 12:26 Nasal Coronavir 229E PCR NOT DETECTED 07/26/21 12:26 Nasal Coronavir HKU1 PCR NOT DETECTED 07/26/21 12:26 Nasal Coronavir NL63 PCR NOT DETECTED 07/26/21 12:26 Nasal Coronavir OC43 PCR NOT DETECTED 07/26/21 12:26 Nasal Enterovir/Rhinovir PCR NOT DETECTED 07/26/21 12:26 Nasal Influenza B PCR NOT DETECTED 07/26/21 12:26 Nasal Influenza A PCR NOT DETECTED 07/26/21 12:26 Nasal Parainfluen 1 PCR NOT DETECTED 07/26/21 12:26 Nasal Parainfluen 2 PCR NOT DETECTED 07/26/21 12:26 Nasal Parainfluen 3 PCR NOT DETECTED 07/26/21 12:26 Nasal Parainfluen 4 PCR NOT DETECTED 07/26/21 12:26 Nasal RSV (PCR) NOT DETECTED 07/26/21 12:26 Nasal Screen MRSA (PCR) NEGATIVE (NEGATIVE) 07/28/21 21:39 Nasal B.pertussis DNA PCR NOT DETECTED 07/26/21 12:26 Nasal C.pneumoniae (PCR) NOT DETECTED 07/26/21 12:26 Trevor Human Metapneumo PCR NOT DETECTED 07/26/21 12:26 Nasal M.pneumoniae (PCR) NOT DETECTED 07/26/21 12:26 Nasal SARS-CoV-2 (PCR) DETECTED A 07/26/21 12:26 ABX Reporting Has patient been on IV antibiotics over the past 48 hours?: Yes
[2021-08-09] MEDS ORDERED: FUROSEMIDE 40 MG/4 ML VIAL IVP STA (15:45)
[2021-08-09] MEDS ORDERED: LIDOCAINE 2% URO-JET 5 ML SYRINGE UR ONE (17:52)
[2021-08-09] MEDS: QUEtiapine 25 MG TABLET PO SCH (21:07)
[2021-08-10] MEDS: ZINC OXIDE 20% OINT 30 GM TUBE TOP PRN ×2 (00:19→19:33)
[2021-08-10] MEDS: SODIUM CHLORIDE FLUSH 0.9% 10 ML SYRINGE IVP SCH ×3 (00:20→17:22)
[2021-08-10] MEDS: ACETAMINOPHEN 325 MG TABLET PO PRN ×2 (04:29→12:08)
[2021-08-10] MEDS: oxyCODONE 5 MG TABLET PO PRN (04:29)
[2021-08-10 07:58] LABS: ESTIMATED AVERAGE GLUCOSE 166 mg/dL (70-100); HEMOGLOBIN A1c% 7.4 % (4.27-6.07)
[2021-08-10] MEDS: polyethylene glycoL 3350 17 GM PACKET PO SCH (09:14)
[2021-08-10] MEDS: TAMSULOSIN 0.4 MG CAPSULE PO SCH (09:15)
[2021-08-10] MEDS: METOPROLOL SUCCINATE 25 MG TABLET PO SCH (09:15)
[2021-08-10] MEDS: DABIGATRAN 75 MG CAPSULE PO SCH ×2 (09:15→22:09)
[2021-08-10] MEDS: CHOLECALCIFEROL 25 MCG TABLET PO SCH (09:15)
[2021-08-10] MEDS: MULTIVITAMIN W/MINERALS TABLET PO SCH (09:15)
[2021-08-10] MEDS: lisinopriL 5 MG TABLET PO SCH (09:15)
[2021-08-10] MEDS: INSULIN ASPART 300 UNIT/3 ML PEN SUBQ SCH ×4 (09:16→22:08)
[2021-08-10] MEDS: CEFEPIME 2 GM in SODIUM CHLORIDE 0.9% MINIBAG 100 ML IV SCH (09:16)
[2021-08-10] MEDS: DOCUSATE SODIUM 250 MG CAPSULE PO SCH (09:17)
[2021-08-10] MEDS: INSULIN GLARGINE 300 UNIT/3 ML PEN SUBQ SCH (09:17)
[2021-08-10] MEDS: NIFEdipine ER 30 MG TABLET PO SCH (09:20)
[2021-08-10] MEDS: SENNA 8.6 MG TABLET PO SCH (09:20)
--- NOTE | 2021-08-10 11:55 | Discharge Plan ---
Discharge Plan Problem Reviewed?: Yes Disposition: Home Health Service Condition: Stable Prescriptions: Tamsulosin [Flomax] 0.4 mg PO DAILY #30 cap Cefpodoxime Proxetil [Vantin] 200 mg PO BID #6 tablet Diet: Diabetic Activity Restrictions: Activity as Tolerated Shower Restrictions: No Driving Restrictions: Yes Assistance Devices: Walker Weight Bearing: Full Weight Instruction Topics: Oxygen Home Use, Catheter Bag Urinary Empty Clean, ED Catheter Care B[facility] Health Concerns: Admitted with COVID pneumonia, got standard treatment and now needs new oxygen going home. Also has urinary retention and is dependant on draining urine thru a Blevins catheter. Home Health nursing and support in the house has been ordered for the patient. He needs several more days of oral antibiotic, and a new daily medicine for his prostate and these new prescription was electronically sent to the [facility] in [place]. Plan of Treatment: As above. Care Goals: Improvement in symptoms and stabilization are the goals. Assessment: These instructions are provided to the family as a reminder. Additional Instructions or Follow Up instructions: The Home Health agency will also provide an in-house physical therapist for Ahmet to do home exercises to regain his strength, after getting deconditioned from being bedridden while hospitalized. New oxygen is being ordered to be delivered to the house. Please have it set at 1 L when he is resting and sleeping and 3 L with activity, even arm activity. If you have new or urgent questions, please call his primary care provider (Denis Mir). An appointment with the PCP is also advised in 1 to 2 weeks, as a hospital follow-up visit. Follow-Up Care: Home Health - RN, Home Health - PT, Home Health - OT No Smoking: If you smoke, Please STOP! Call for help.
[2021-08-10] MEDS: CEFPODOXIME PROXETIL 100 MG TABLET PO SCH ×2 (12:07→22:09)
--- NOTE | 2021-08-10 12:13 | DISCHARGE SUMMARY ---
Discharge Summary Discharge Date: 08/10/21 Discharging Provider: Dr Merlyn Sewell Primary Care Provider: Dr Denis Mir Code Status: Do Not Attempt Resuscitation Condition at Discharge: Stable Discharge Disposition: [address] [place] [address] - [facility] History of Present Illness: From the admission H&P of - ALLERGIES Allergies/Adverse Reactions: Allergies Allergy/AdvReac Type Severity Reaction Status Date / Time bee venom protein (honey bee) Allergy Intermediate Edema Verified 07/28/21 12:50 - MEDICATIONS Home Medications: Ambulatory Orders Medication Instructions Recorded Confirmed Dabigatran [Pradaxa] 75 mg PO BID 07/06/13 07/26/21 Atorvastatin Calcium 40 mg PO QPM 07/26/21 07/26/21 Glimepiride 1 mg PO DAILY 07/26/21 07/26/21 Lisinopril [Zestril] 20 mg PO BID 07/26/21 07/26/21 Metoprolol Succinate [Toprol Xl] 25 mg PO DAILY 07/26/21 07/26/21 NIFEdipine [Procardia Xl] 90 mg PO DAILY 07/26/21 07/26/21 metFORMIN [Glucophage] 500 mg PO BIDWM 07/26/21 07/26/21 sulfaSALAzine [Azulfidine] 500 mg PO TID 07/27/21 07/27/21 Cefpodoxime Proxetil [Vantin] 200 mg PO BID #6 tablet 08/10/21 Tamsulosin [Flomax] 0.4 mg PO DAILY #30 cap 08/10/21 Zinc Oxide 20% Oint [Zinc Oxide] 1 applic TOP PRN PRN 08/10/21 - LABS Result Diagrams: 08/09/21 12:21 08/09/21 12:21
--- NOTE | 2021-08-10 15:48 | PROVIDER PROGRESS NOTE ---
Assessment/Plan - Problem List (1) Acute respiratory failure with hypoxia Assessment/Plan: Patient was admitted to hospital with COVID-19 pnuemnia. He was transferred out of the ICU to the Med/Surg unit on 08/05 due to improved respiratory status and no longer requiring BiPap during sleep. He finished day 5/5 of remdesivir on 07/31 and 07/20 Decadron on 08/05. On 08/06 his WBCs increased to 15 from 11. C hest x-ray showed increased bilateral pulmonary opacities and most likely due to hospital acquired pneumonia. He was started on IV Azithromyacin x 3 doses and Cefepime daily. He is needing 1- 4 L of oxygen via nasal cannula with oxygen saturation. Planning an oximetry walk test to [facility] him on new home O2. (2) Pneumonia due to COVID-19 virus Assessment/Plan: Patient was vaccinated for COVID and unfortunately became ill with COVID pneumonia. He has completed 5 days of Remdesivir on 07/31 and 10 days of Decadron on 08/05. He on nasal cannula at 4L/min with bedside oxygen saturation around 95%. According to Dr. Hogan's note from 07/27 patient is a DNR for cardiac resuscitation but said he would do Intubation if needed. Per Irvin Vazquez (Talent Acquisition Coordinator), patient was removed from COVID isolation according to hospital protocol on 08/06/21 when he transferred to the Med/Surg unit due to 10 days since initial symptoms and improving status. He continues to need supplemental O2 to maintain sats > 90% at rest and desaturates w/ activity and will need a Home O2 order. he continues to need PT, is very deconditioned after COVID and hospitalization. (3) HCAP (healthcare-associated pneumonia) Assessment/Plan: Chest x-ray from 08/06 showed "Increased bilateral pulmonary opacities. Most consistent with pneumonia". He was started on Azithromyacin 500mg IVPB daily x 3 doses and Cefepime 2gm IVPB twice daily. He will be transitioned to oral Vantin starting today. (4) Urinary retention Assessment/Plan: Initial Blevins catheter was removed twice and both times he developed urinary retention. Flomax was started. A Blevins was placed again yesterday and he will now keep it chronically, go home with this, and need Urology management. We were also concerned that his constipation was adding to urinary retention, but he has now restarted having BMs since the enema. Will consider CT of abdomen/ pelvis since it was not done yet to rule out obstruction. (5) Controlled type 2 diabetes mellitus without complication, without long-term current use of insulin Assessment/Plan: Patient has history of type II DM and uses metformin 500mg PO with meals and Glimepiride 1mg po daily for control at home. He is being covered with Aspart on sliding scale for meal coverage and Lantus 8 units for long acting coverage. Continue to monitor bedside fingerstick glucose levels. Treat hyperglycemia with Aspart sliding scale. Continue with Lantus 8 units daiy Plan to transition back to PO diabetic medications upon discharge. Will resume the Glimiperide now. (6) CKD Assessment/Plan: Patient presented to hospital with elevated creat 1.4 and low GFR 48. Patient has been improving steadily since 07/29, until 08/01 when creat increased to 1.8 and GFR decreased to 36. IV fluids were discontinued on 08/08 for increased rales. Edema of bilateral lower extremities has resolved Creat has plateaued at 1.4 Monitor BMP occasionally . (7) Dementia Qualifiers: Alzheimer's disease onset: unspecified onset Dementia behavioral disturbance: with behavioral disturbance Assessment/Plan: According to admission note by Dr. Hogan on 07/26/2021, patient has a history of Dementia. He lives with his granddaughter and is able to do basic self care tasks. His daughter also lives next door. During his hospital stay on the evening of 07/28 patient began with agitation and delirium. Seroquel was started. Continue seroquel 25mg PO nightly to use while here. (8) Hypertension Qualifiers: Hypertension type: primary hypertension Qualified Code(s): I10 - Essential (primary) hypertension Assessment/Plan: Patient has history of HTN and takes Lisinopril 10mg daily, Metoprolol 25mg po daily, and Nifedipine 90mg PO daily for management. Current SBPs are controlled on meds. Continue these meds (9) Chronic atrial fibrillation Assessment/Plan: According to previous hospitalization note from 2016, patient has a history of a-fib and is on Pradaxa 75mg PO daily. Admission EKG on 07/26/2021 showed v- paced rhythm with underlying A-fib/ flutter. He is on Metoprolol 25mg PO daily as a home medication that was resumed during this hospitalization. Continuing Pradaxa 75mg PO daily. Continuing Metoprolol (10) Deconditioning Physical therapy started working with him about 3 days ago. He is extremely deconditioned, has only been able to stand with moderate assist including using a gait belt, is able to take several steps to transition to a chair but cannot walk in his room yet without being extremely fatigued and also desaturates. Continue to work with physical therapy. SNF was recommended, the patient initially said he was interested in this. His daughter Milagros later told social work that both he and she wanted him to have home PT. Home health (for PT, OT, RN and bath aide) has been ordered. The daughter visited today for potential discharge and said she was overwhelmed with how deconditioned he was, could not manage a Blevins catheter on her own, indicated that the granddaughter who lives with him really does no caregiving. The daughter Milagros lives next door, not with him, and therefore she was not able to take him home today. On his behalf, the daughter refused his discharge. Rufino will be informed by our UM. (11) Constipation Resolved. Patient had 2 bowel movements in the last 24 hours. He denies abdominal pain and has a good appetite without nausea or vomiting. His abdominal distention has improved and no longer taut with active bowel sounds. - Current Meds Current Meds: Current Medications Generic Name Dose Route Start Last Admin Trade Name Pinoq PRN Reason Stop Dose Admin Acetaminophen 650 mg 07/26/21 13:34 08/10/21 12:08 Acetaminophen 325 Mg Tablet PO 650 mg Q4HR PRN Administration Pain 1 to 4 Cefuroxime Axetil 200 mg 08/10/21 11:00 08/10/21 12:07 Cefpodoxime Proxetil 100 Mg Tablet PO 200 mg BID MARYLOU Administration Cholecalciferol 50 mcg 07/31/21 12:00 08/10/21 09:15 Cholecalciferol 25 Mcg Tablet PO 50 mcg DAILY MARYLOU Administration Dabigatran 75 mg 07/26/21 21:00 08/10/21 09:15 Dabigatran 75 Mg Capsule PO 75 mg BID MARYLOU Administration Docusate Sodium 250 - 500 mg 08/02/21 09:00 08/10/21 09:17 Docusate Sodium 250 Mg Capsule PO Not Given DAILY MARYLOU Hydralazine HCl 10 mg 07/26/21 13:40 07/27/21 08:32 Hydralazine Inj 20 Mg/Ml Vial IVP 10 mg TID PRN Administration Hypertensive Emergency Insulin Aspart 3 - 11 unit 08/01/21 21:00 08/10/21 12:12 Insulin Aspart 300 Unit/3 Ml Pen SUBQ 5 unit 0800,1200,1700,2100 MARYLOU Administration Protocol Insulin Glargine 8 unit 08/06/21 09:00 08/10/21 09:17 Insulin Glargine 300 Unit/3 Ml Pen SUBQ 8 unit DAILY MARYLOU Administration Lisinopril 10 mg 07/27/21 09:00 08/10/21 09:15 Lisinopril 5 Mg Tablet PO 10 mg DAILY MARYLOU Administration Metoprolol Succinate 25 mg 07/27/21 09:00 08/10/21 09:15 Metoprolol Succinate 25 Mg Tablet PO 25 mg DAILY MARYLOU Administration Multi-Ingredient Ointment 1 applic 08/05/21 19:26 08/10/21 00:19 Zinc Oxide 20% Oint 30 Gm Tube TOP 1 applic PRN PRN Administration Skin Care Multivitamins/Minerals 1 tab 07/31/21 12:00 08/10/21 09:15 Multivitamin W/Minerals Tablet PO 1 tab DAILYWM MARYLOU Administration Nifedipine 90 mg 07/27/21 09:00 08/10/21 09:20 Nifedipine Er 30 Mg Tablet PO 90 mg DAILY MARYLOU Administration Oxycodone HCl 5 mg 07/26/21 13:34 08/10/21 04:29 Oxycodone 5 Mg Tablet PO 5 mg Q4HR PRN Administration Pain 5 to 7 Polyethylene Glycol 17 gm 08/02/21 09:00 08/10/21 09:14 Polyethylene Glycol 3350 17 Gm Packet PO 17 gm DAILY MARYLOU Administration Quetiapine Fumarate 25 mg 07/27/21 21:00 08/09/21 21:07 Quetiapine 25 Mg Tablet PO 25 mg QPM MARYLOU Administration Senna 8.6 - 17.2 mg 08/02/21 09:00 08/10/21 09:20 Senna 8.6 Mg Tablet PO Not Given DAILY MARYLOU Sodium Chloride 10 ml 07/26/21 13:34 08/04/21 05:32 Sodium Chloride Flush 0.9% 10 Ml Syringe IVP 10 ml PRN PRN Administration NEEDED PER PROVIDER ORDERS Sodium Chloride 10 ml 07/26/21 17:00 08/10/21 09:18 Sodium Chloride Flush 0.9% 10 Ml Syringe IVP 10 ml 0100,0900,1700 MARYLOU Administration Tamsulosin HCl 0.4 mg 07/27/21 09:00 08/10/21 09:15 Tamsulosin 0.4 Mg Capsule PO 0.4 mg DAILY MARYLOU Administration - Lab Result Fish Bone Diagrams: 08/09/21 12:21 08/09/21 12:21 - Additional Planning My Orders: My Active Orders 08/09/21 17:52 Blevins Insertion [RC] QSHIFT 08/10/21 10:43 Oxygen Desat. Study w/Exercise [RC] .ONCE 08/10/21 11:00 Cefpodoxime Proxetil [Vantin] 200 mg PO BID Subjective - Subjective Patient Reports: Fatigue, Shortness of Breath Nursing Reports: Other (PT stated pt needed moderate assistance standing and did walk 5 steps to get into chair) Objective Vital Signs: Vital Signs - 24 hr 08/09/21 08/10/21 08/10/21 17:05 00:15 09:00 Temperature 36.7 C 36.4 C L 36.6 C Heart Rate Heart Rate [ 60 60 61 Brachial] Respiratory 16 17 16 Rate Blood Pressure 108/50 L [Left Brachial artery] Blood Pressure 120/59 L 114/57 L [Right Brachial artery] O2 Saturation 95 97 98 08/10/21 08/10/21 08/10/21 09:34 09:46 10:30 Temperature Heart Rate Heart Rate [ Brachial] Respiratory 18 18 24 Rate Blood Pressure [Left Brachial artery] Blood Pressure [Right Brachial artery] O2 Saturation 96 98 95 08/10/21 11:16 Temperature Heart Rate 72 Heart Rate [ Brachial] Respiratory Rate Blood Pressure [Left Brachial artery] Blood Pressure [Right Brachial artery] O2 Saturation Oxygen O2 Source Nasal cannula Oxygen Flow Rate 15 I&O (Last 24 Hrs): Intake and Output Totals x24h 08/08/21 08/09/21 08/10/21 23:59 23:59 23:59 Intake Total 2045 785 1000 Output Total 2550 2650 500 Balance -505 -1865 500 General: Alert HEENT: Mucous membr. moist/pink, Other (wearing O2 n.c.) Neck: Supple Neuro: Alert, Disoriented (Poor memory) Cardiovascular: Regular rate Respiratory: No respiratory distress Abdomen: Soft Extremities: No edema - Results Results: Laboratory Results WBC 12.0 x10^3/uL (4.8-10.8) H 08/09/21 12:21 RBC 3.79 10^6/uL (4.70-6.10) L 08/09/21 12:21 Hgb 11.6 g/dL (14.0-18.0) L 08/09/21 12:21 Hct 35.9 % (42.0-52.0) L 08/09/21 12: MCV 94.7 fL (80.0-94.0) H 08/09/21 12: MCH 30.6 pg (27.0-31.0) 08/09/21 12: MCHC 32.3 g/dL (32.0-36.0) 08/09/21 12: RDW 14.3 % (12.0-15.0) 08/09/21 12:21 Plt Count 249 10^3/uL (130-450) 08/09/21 12:21 MPV 10.9 fL (7.4-11.4) 08/09/21 12: Neut # (Auto) 9.9 10^3/uL (1.5-6.6) H 08/09/21 12:21 Lymph # (Auto) 0.7 10^3/uL (1.5-3.5) L 08/09/21 12: [place] # (Auto) 0.9 10^3/uL (0.0-1.0) 08/09/21 12:21 Eos # (Auto) 0.3 10^3/uL (0.0-0.7) 08/09/21 12:21 Baso # (Auto) 0.0 10^3/uL (0.0-0.1) 08/09/21 12:21 Absolute Nucleated RBC 0.00 x10^3/uL 08/09/21 12:21 Total Counted 100 07/28/21 05:11 Band Neuts % (Manual) Not Reportable 08/05/21 05:00 Abnorm Lymph % (Manual) Not Reportable 08/05/21 05:00 Myelocytes % 1 % (-0) H 07/28/21 05:11 Nucleated RBC % 0.0 /100WBC 08/09/21 12:21 Neutrophils # (Manual) Not Reportable 08/05/21 05:00 Lymphocytes # (Manual) Not Reportable 08/05/21 05:00 Monocytes # (Manual) Not Reportable 08/05/21 05:00 Eosinophils # (Manual) Not Reportable 08/05/21 05:00 Basophils # (Manual) Not Reportable 08/05/21 05:00 Differential Comment MANUAL=AUTO DIFF 08/05/21 05:00 Manual Slide Review Indicated 07/26/21 12:43 WBC Morphology NORMAL APPEARANCE (NORMAL) 07/28/21 05:11 Platelet Estimate NORMAL (130-450,000) (NORMAL) 07/28/21 05:11 Platelet Morphology NORMAL APPEARANCE (NORMAL) 07/28/21 05:11 RBC Morph Micro Appear NORMAL APPEARANCE (NORMAL) 07/28/21 05:11 D-Dimer > 1050.0 ng/mL (200.0-255.0) H 08/01/21 04:15 Bld Gas Analysis Time 0730 07/28/21 07:27 Sample Site RIGHT RADIAL 07/28/21 07:27 ABG pH 7.44 (7.35-7.45) 07/28/21 07:27 ABG pCO2 31 mmHg (34-45) L 07/28/21 07:27 ABG pO2 83 mmHg (80-100) 07/28/21 07:27 ABG HCO3 20.5 mmol/L (22.0-26.0) L 07/28/21 07:27 ABG Total CO2 21.5 MMOL/L (21.0-29.0) 07/28/21 07:27 ABG O2 Saturation 96 % (94-98) 07/28/21 07:27 ABG Base Excess -2.6 mmol/L (-2.0-3.0) L 07/28/21 07:27 [place] Test POSITIVE 07/28/21 07:27 VBG pH 7.380 (7.31-7.41) 07/26/21 12:43 VBG pCO2 38.8 mmHg (41-51) L 07/26/21 12:43 VBG pO2 25.0 mmHg (25-47) 07/26/21 12:43 VBG HCO3 22.4 mmol/L (23-28) L 07/26/21 12:43 VBG Total CO2 23.6 mmol/L (24-29) L 07/26/21 12:43 VBG O2 Saturation 43.6 % (60-80) L 07/26/21 12:43 VBG Base Excess -2.4 mmol/L (-2 - +2) L 07/26/21 12:43 Respiration Rate 18 b/min 07/28/21 07:27 O2 Delivery Device BiPAP 07/28/21 07:27 Vent Mode SYNCHRONOUS/TIMES 07/28/21 07:27 FiO2 60.00 07/28/21 07:27 EPAP 6 cmH2O 07/28/21 07:27 IPAP 12 cmH2O 07/28/21 07:27 Sodium 136 mmol/L (135-145) 08/09/21 12:21 Potassium 4.5 mmol/L (3.5-5.0) 08/09/21 12:21 Chloride 100 mmol/L (101-111) L 08/09/21 12:21 Carbon Dioxide 28 mmol/L (21-32) 08/09/21 12:21 Anion Gap 8.0 (6-13) 08/09/21 12:21 BUN 40 mg/dL (6-20) H 08/09/21 12:21 Creatinine 1.4 mg/dL (0.6-1.2) H 08/09/21 12:21 Estimated GFR (MDRD) 48 (>89) L 08/09/21 12:21 Glucose 156 mg/dL (70-100) H 08/09/21 12:21 POC Whole Bld Glucose 195 mg/dL (70 - 100) H 08/10/21 11:39 Estimat Average Glucose 166 mg/dL (70-100) H 08/10/21 05:46 Hemoglobin A1c % 7.4 % (4.27-6.07) H 08/10/21 05:46 Lactic Acid 2.0 mmol/L (0.5-2.2) 07/26/21 12:43 Calcium 9.7 mg/dL (8.5-10.3) 08/09/21 12:21 Phosphorus 3.1 mg/dL (2.5-4.6) 07/26/21 12:43 Magnesium 2.3 mg/dL (1.7-2.8) 07/26/21 12:43 Total Bilirubin 0.6 mg/dL (0.2-1.0) 08/07/21 05:23 AST 21 IU/L (10-42) 08/07/21 05:23 ALT 32 IU/L (10-60) 08/07/21 05:23 Alkaline Phosphatase 58 IU/L (42-121) 08/07/21 05:23 C-Reactive Protein 13.3 mg/dL (0-1.0) H 08/01/21 04:15 B-Natriuretic Peptide 569 pg/mL (5-100) H 07/26/21 12:43 Total Protein 6.1 g/dL (6.7-8.2) L 08/07/21 05:23 Albumin 2.4 g/dL (3.2-5.5) L 08/07/21 05:23 Globulin 3.7 g/dL (2.1-4.2) 08/07/21 05:23 Albumin/Globulin Ratio 0.6 (1.0-2.2) L 08/07/21 05:23 Nasal Adenovirus (PCR) NOT DETECTED 07/26/21 12:26 Nasal B. parapertussis DNA (PCR) NOT DETECTED 07/26/21 12:26 Nasal Coronavir 229E PCR NOT DETECTED 07/26/21 12:26 Nasal Coronavir HKU1 PCR NOT DETECTED 07/26/21 12:26 Nasal Coronavir NL63 PCR NOT DETECTED 07/26/21 12:26 Nasal Coronavir OC43 PCR NOT DETECTED 07/26/21 12:26 Nasal Enterovir/Rhinovir PCR NOT DETECTED 07/26/21 12:26 Nasal Influenza B PCR NOT DETECTED 07/26/21 12:26 Nasal Influenza A PCR NOT DETECTED 07/26/21 12:26 Nasal Parainfluen 1 PCR NOT DETECTED 07/26/21 12:26 Nasal Parainfluen 2 PCR NOT DETECTED 07/26/21 12:26 Nasal Parainfluen 3 PCR NOT DETECTED 07/26/21 12:26 Nasal Parainfluen 4 PCR NOT DETECTED 07/26/21 12:26 Nasal RSV (PCR) NOT DETECTED 07/26/21 12:26 Nasal Screen MRSA (PCR) NEGATIVE (NEGATIVE) 07/28/21 21:39 Nasal B.pertussis DNA PCR NOT DETECTED 07/26/21 12:26 Nasal C.pneumoniae (PCR) NOT DETECTED 07/26/21 12:26 Trevor Human Metapneumo PCR NOT DETECTED 07/26/21 12:26 Nasal M.pneumoniae (PCR) NOT DETECTED 07/26/21 12:26 Nasal SARS-CoV-2 (PCR) DETECTED A 07/26/21 12:26
[2021-08-10] MEDS: QUEtiapine 25 MG TABLET PO SCH (22:09)
[2021-08-11] MEDS: SODIUM CHLORIDE FLUSH 0.9% 10 ML SYRINGE IVP SCH ×3 (00:04→16:15)
[2021-08-11] MEDS: ZINC OXIDE 20% OINT 30 GM TUBE TOP PRN ×2 (01:00→17:41)
[2021-08-11] MEDS: INSULIN ASPART 300 UNIT/3 ML PEN SUBQ SCH ×4 (07:44→20:46)
[2021-08-11] MEDS: CEFPODOXIME PROXETIL 100 MG TABLET PO SCH ×2 (08:30→20:46)
[2021-08-11] MEDS: lisinopriL 5 MG TABLET PO SCH (08:30)
[2021-08-11] MEDS: MULTIVITAMIN W/MINERALS TABLET PO SCH (08:31)
[2021-08-11] MEDS: CHOLECALCIFEROL 25 MCG TABLET PO SCH (08:31)
[2021-08-11] MEDS: TAMSULOSIN 0.4 MG CAPSULE PO SCH (08:31)
[2021-08-11] MEDS: NIFEdipine ER 30 MG TABLET PO SCH (08:31)
[2021-08-11] MEDS: DABIGATRAN 75 MG CAPSULE PO SCH ×2 (08:31→20:46)
[2021-08-11] MEDS: ACETAMINOPHEN 325 MG TABLET PO PRN (08:32)
[2021-08-11] MEDS: METOPROLOL SUCCINATE 25 MG TABLET PO SCH (08:32)
[2021-08-11] MEDS: DOCUSATE SODIUM 250 MG CAPSULE PO SCH (08:34)
[2021-08-11] MEDS: polyethylene glycoL 3350 17 GM PACKET PO SCH (08:35)
[2021-08-11] MEDS: SENNA 8.6 MG TABLET PO SCH (08:35)
[2021-08-11] MEDS: INSULIN GLARGINE 300 UNIT/3 ML PEN SUBQ SCH (08:36)
--- NOTE | 2021-08-11 13:17 | XRAY Report ---
PROCEDURE: Chest 1 View X-Ray INDICATIONS: Worsening desaturation and SOB/weak TECHNIQUE: One view of the chest was acquired. COMPARISON: Chest x-ray 08/06/2021 FINDINGS: Surgical changes and devices: None. Lungs and pleura: Bilateral pulmonary opacities are unchanged. Mediastinum: Mediastinal contours appear normal. Heart size is enlarged. Bones and chest wall: No suspicious bony lesions. Overlying soft tissues appear unremarkable. IMPRESSION: Bilateral pulmonary opacities, unchanged. Overall appearance is most consistent with pneumonia. Reviewed by: Perla Burgos MD on 08/11/2021 1:15 PM PDT Approved by: Perla Burgos MD on 08/11/2021 1:15 PM PDT Station ID: [id number]
[2021-08-11] MEDS ORDERED: FUROSEMIDE 20 MG/2 ML VIAL IVP STA (13:20)
--- NOTE | 2021-08-11 18:12 | PROVIDER PROGRESS NOTE ---
Assessment/Plan - Problem List (1) Acute respiratory failure with hypoxia Assessment/Plan: Patient was admitted to hospital with COVID-19 pnuemnia. He was transferred out of the ICU to the Med/Surg unit on 08/05 due to improved respiratory status and no longer requiring BiPap during sleep. He finished day 5/5 of remdesivir on 07/31 and 07/20 Decadron on 08/05. On 08/06 his WBCs increased to 15 from 11. C hest x-ray showed increased bilateral pulmonary opacities and most likely due to hospital acquired pneumonia. He was started on IV Azithromyacin x 3 doses and Cefepime daily and recently converted to oral Vantin fdor several more days. He is needing 1- 4 L of oxygen via nasal cannula with oxygen saturation. Up to 5-6L with walking 3 steps. A CXR was obtained today and showed persistent infiltrates. Will give 1 dose of iv Lasix empirically. Pt not ready for DCh today. (2) Pneumonia due to COVID-19 virus Assessment/Plan: Patient was vaccinated for COVID and unfortunately became ill with COVID pneumonia. He has completed 5 days of Remdesivir on 07/31 and 10 days of Decadron on 08/05. He on nasal cannula at 4L/min with bedside oxygen saturation around 95%. According to Dr. Hogan's note from 07/27 patient is a DNR for cardiac resuscitation but said he would do Intubation if needed. Per Irvin Vazquez (Fundraising Consultant), patient was removed from COVID isolation according to hospital protocol on 08/06/21 when he transferred to the Med/Surg unit due to 10 days since initial symptoms and improving status. He continues to need supplemental O2 to maintain sats > 90% at rest and desaturates w/ activity and will need a Home O2 order. He continues to need PT, is very deconditioned after COVID and hospitalization. (3) HCAP (healthcare-associated pneumonia) Assessment/Plan: Chest x-ray from 08/06 showed "Increased bilateral pulmonary opacities. Most consistent with pneumonia". He was started on Azithromyacin 500mg IVPB daily x 3 doses and Cefepime 2gm IVPB twice daily. He will be transitioned to oral Vantin for several more days. A CXR was obtained today and showed persistent infiltrates. Continue Vantin and IS. (4) Urinary retention Assessment/Plan: Initial Blevins catheter was removed twice and both times he developed urinary retention. Flomax was started. A Blevins was placed again and he will now keep it chronically, go home with this, and need Urology management. We were also concerned that his constipation was adding to urinary retention, but he has now restarted having BMs since the enema. (5) Physical deconditioning Physical therapy started working with him about 3 days ago. He is extremely deconditioned, has only been able to stand with moderate assist including using a gait belt, is able to take several steps to transition to a chair but cannot walk in his room yet without being extremely fatigued and also desaturates. Continue to work with physical therapy. SNF was recommended, the patient initially said he was interested in this. His daughter Milagros later told social work that both he and she wanted him to have home PT. Home health (for PT, OT, RN and bath aide) has been ordered. The daughter visited and had said she was overwhelmed with how deconditioned he was, could not manage a Blevins catheter on her own, indicated that the granddaughter who lives with him really does no caregiving. The daughter Milagros lives next door, not with him, and therefore she was not able to take him home that day of planned discharge. On his behalf, the daughter refused his discharge. Rufino was be informed by our of their appeal and we are awaiting their decision. (6) Type 2 diabetes mellitus without complication, without long-term current use of insulin Assessment/Plan: Patient has history of type II DM and uses metformin 500mg PO with meals and Glimepiride 1mg po daily for control at home. He is being covered with Aspart on sliding scale for meal coverage and Lantus 8 units for long acting coverage. Continue to monitor bedside fingerstick glucose levels. Treat hyperglycemia with Aspart sliding scale. Continue with Lantus 8 units pb Plan to transition back to PO diabetic medications upon discharge. We did resume the Glimiperide 2 days ago. (7) CKD Assessment/Plan: Patient presented to hospital with elevated creat 1.4 and low GFR 48. Patient has been improving steadily since 07/29, until 08/01 when creat increased to 1.8 and GFR decreased to 36. IV fluids were discontinued on 08/08 for increased rales. Edema of bilateral lower extremities has resolved Creat has plateaued at 1.4 Monitor BMP occasionally . (8) Dementia Qualifiers: Alzheimer's disease onset: unspecified onset Dementia behavioral disturbance: with behavioral disturbance Assessment/Plan: According to admission note by Dr. Hogan on 07/26/2021, patient has a history of Dementia. He lives with his granddaughter and is able to do basic self care tasks. His daughter also lives next door. During his hospital stay on the evening of 07/28 patient began with agitation and delirium. Seroquel was started. Continue seroquel 25mg PO nightly to use while here. (9) Hypertension Qualifiers: Hypertension type: primary hypertension Qualified Code(s): I10 - Essential (primary) hypertension Assessment/Plan: Patient has history of HTN and takes Lisinopril 10mg daily, Metoprolol 25mg po daily, and Nifedipine 90mg PO daily for management. Current SBPs are controlled on meds. Continue these meds (10) Chronic atrial fibrillation Assessment/Plan: According to previous hospitalization note from 2016, patient has a history of a-fib and is on Pradaxa 75mg PO daily. Admission EKG on 07/26/2021 showed v- paced rhythm with underlying A-fib/ flutter. He is on Metoprolol 25mg PO daily as a home medication that was resumed during this hospitalization. Continuing Pradaxa 75mg PO daily. Continuing Metoprolol - Current Meds Current Meds: Current Medications Generic Name Dose Route Start Last Admin Trade Name Freq PRN Reason Stop Dose Admin Acetaminophen 650 mg 07/26/21 13:34 08/11/21 08:32 Acetaminophen 325 Mg Tablet PO 650 mg Q4HR PRN Administration Pain 1 to 4 Cefuroxime Axetil 200 mg 08/10/21 11:00 08/11/21 08:30 Cefpodoxime Proxetil 100 Mg Tablet PO 08/13/21 10:59 200 mg BID MARYLOU Administration Cholecalciferol 50 mcg 07/31/21 12:00 08/11/21 08:31 Cholecalciferol 25 Mcg Tablet PO 50 mcg DAILY MARYLOU Administration Dabigatran 75 mg 07/26/21 21:00 08/11/21 08:31 Dabigatran 75 Mg Capsule PO 75 mg BID MARYLOU Administration Docusate Sodium 250 - 500 mg 08/02/21 09:00 08/11/21 08:34 Docusate Sodium 250 Mg Capsule PO Not Given DAILY MARYLOU Hydralazine HCl 10 mg 07/26/21 13:40 07/27/21 08:32 Hydralazine Inj 20 Mg/Ml Vial IVP 10 mg TID PRN Administration Hypertensive Emergency Insulin Aspart 3 - 11 unit 08/01/21 21:00 08/11/21 17:06 Insulin Aspart 300 Unit/3 Ml Pen SUBQ Not Given 0800,1200,1700,2100 [facility] Protocol Insulin Glargine 8 unit 08/06/21 09:00 08/11/21 08:36 Insulin Glargine 300 Unit/3 Ml Pen SUBQ 8 unit DAILY MARYLOU Administration Lisinopril 10 mg 07/27/21 09:00 08/11/21 08:30 Lisinopril 5 Mg Tablet PO 10 mg DAILY MARYLOU Administration Metoprolol Succinate 25 mg 07/27/21 09:00 08/11/21 08:32 Metoprolol Succinate 25 Mg Tablet PO 25 mg DAILY MARYLOU Administration Multi-Ingredient Ointment 1 applic 08/05/21 19:26 08/11/21 17:41 Zinc Oxide 20% Oint 30 Gm Tube TOP 1 applic PRN PRN Administration Skin Care Multivitamins/Minerals 1 tab 07/31/21 12:00 08/11/21 08:31 Multivitamin W/Minerals Tablet PO 1 tab DAILYWM MARYLOU Administration Nifedipine 90 mg 07/27/21 09:00 08/11/21 08:31 Nifedipine Er 30 Mg Tablet PO 90 mg DAILY MARYLOU Administration Oxycodone HCl 5 mg 07/26/21 13:34 08/10/21 04:29 Oxycodone 5 Mg Tablet PO 5 mg Q4HR PRN Administration Pain 5 to 7 Polyethylene Glycol 17 gm 08/02/21 09:00 08/11/21 08:35 Polyethylene Glycol 3350 17 Gm Packet PO 17 gm DAILY MARYLOU Administration Quetiapine Fumarate 25 mg 07/27/21 21:00 08/10/21 22:09 Quetiapine 25 Mg Tablet PO 25 mg QPM MRAYLOU Administration Senna 8.6 - 17.2 mg 08/02/21 09:00 08/11/21 08:35 Senna 8.6 Mg Tablet PO Not Given DAILY [facility] Sodium Chloride 10 ml 07/26/21 13:34 08/04/21 05:32 Sodium Chloride Flush 0.9% 10 Ml Syringe IVP 10 ml PRN PRN Administration NEEDED PER PROVIDER ORDERS Sodium Chloride 10 ml 07/26/21 17:00 08/11/21 16:15 Sodium Chloride Flush 0.9% 10 Ml Syringe IVP 10 ml 0100,0900,1700 MARYLOU Administration Tamsulosin HCl 0.4 mg 07/27/21 09:00 08/11/21 08:31 Tamsulosin 0.4 Mg Capsule PO 0.4 mg DAILY MARYLOU Administration - Lab Result Fish Bone Diagrams: 08/09/21 12:21 08/09/21 12:21 - Additional Planning My Orders: My Active Orders 08/11/21 Evaluate and Treat OT [OT] Routine 08/11/21 Dinner Soft Mechanical Diet [DIET] Subjective - Subjective Patient Reports: Fatigue, Other (No appetite) Nursing Reports: Other (He is more withdrawn, has less energy when working with physical therapy, desaturated even further and his O2 setting with walking 3 steps) Objective Vital Signs: Vital Signs - 24 hr 08/11/21 08/11/21 08/11/21 00:45 08:30 11:50 Temperature 36.4 C L Heart Rate [ 60 60 Brachial] Heart Rate [ 18 L Radial] Heart Rate [ 60 Supine] Respiratory 18 Rate Blood Pressure 124/51 L [Left Brachial artery] Blood Pressure 134/54 H [Right Brachial artery] Blood Pressure 120/59 L [Supine] O2 Saturation 96 08/11/21 16:06 Temperature 36.3 C L Heart Rate [ 60 Brachial] Heart Rate [ Radial] Heart Rate [ Supine] Respiratory 18 Rate Blood Pressure [Left Brachial artery] Blood Pressure 111/54 L [Right Brachial artery] Blood Pressure [Supine] O2 Saturation 95 Oxygen O2 Source Nasal cannula Oxygen Flow Rate 15 I&O (Last 24 Hrs): Intake and Output Totals x24h 08/09/21 08/10/21 08/11/21 23:59 23:59 23:59 Intake Total 785 1500 420 Output Total 2650 675 1050 Balance -1865 825 -630 General: Alert HEENT: Mucous membr. moist/pink Neck: Supple Neuro: Alert, Disoriented, Non Focal Cardiovascular: Regular rate Respiratory: No respiratory distress (on O2 via n.c.) Abdomen: Soft Extremities: No edema - Results Results: Laboratory Results WBC 12.0 x10^3/uL (4.8-10.8) H 08/09/21 12: RBC 3.79 10^6/uL (4.70-6.10) L 08/09/21 12: Hgb 11.6 g/dL (14.0-18.0) L 08/09/21 12:21 Hct 35.9 % (42.0-52.0) L 08/09/21 12:21 MCV 94.7 fL (80.0-94.0) H 08/09/21 12:21 MCH 30.6 pg (27.0-31.0) 08/09/21 12: MCHC 32.3 g/dL (32.0-36.0) 08/09/21 12: RDW 14.3 % (12.0-15.0) 08/09/21 12: Plt Count 249 10^3/uL (130-450) 08/09/21 12: MPV 10.9 fL (7.4-11.4) 08/09/21 12:21 Neut # (Auto) 9.9 10^3/uL (1.5-6.6) H 08/09/21 12: Lymph # (Auto) 0.7 10^3/uL (1.5-3.5) L 08/09/21 12:21 Rice # (Auto) 0.9 10^3/uL (0.0-1.0) 08/09/21 12:21 Eos # (Auto) 0.3 10^3/uL (0.0-0.7) 08/09/21 12:21 Baso # (Auto) 0.0 10^3/uL (0.0-0.1) 08/09/21 12:21 Absolute Nucleated RBC 0.00 x10^3/uL 08/09/21 12:21 Total Counted 100 07/28/21 05:11 Band Neuts % (Manual) Not Reportable 08/05/21 05:00 Abnorm Lymph % (Manual) Not Reportable 08/05/21 05:00 Myelocytes % 1 % (-0) H 07/28/21 05:11 Nucleated RBC % 0.0 /100WBC 08/09/21 12:21 Neutrophils # (Manual) Not Reportable 08/05/21 05:00 Lymphocytes # (Manual) Not Reportable 08/05/21 05:00 Monocytes # (Manual) Not Reportable 08/05/21 05:00 Eosinophils # (Manual) Not Reportable 08/05/21 05:00 Basophils # (Manual) Not Reportable 08/05/21 05:00 Differential Comment MANUAL=AUTO DIFF 08/05/21 05:00 Manual Slide Review Indicated 07/26/21 12:43 WBC Morphology NORMAL APPEARANCE (NORMAL) 07/28/21 05:11 Platelet Estimate NORMAL (130-450,000) (NORMAL) 07/28/21 05:11 Platelet Morphology NORMAL APPEARANCE (NORMAL) 07/28/21 05:11 RBC Morph Micro Appear NORMAL APPEARANCE (NORMAL) 07/28/21 05:11 D-Dimer > 1050.0 ng/mL (200.0-255.0) H 08/01/21 04:15 Bld Gas Analysis Time 0730 07/28/21 07:27 Sample Site RIGHT RADIAL 07/28/21 07:27 ABG pH 7.44 (7.35-7.45) 07/28/21 07:27 ABG pCO2 31 mmHg (34-45) L 07/28/21 07:27 ABG pO2 83 mmHg (80-100) 07/28/21 07:27 ABG HCO3 20.5 mmol/L (22.0-26.0) L 07/28/21 07:27 ABG Total CO2 21.5 MMOL/L (21.0-29.0) 07/28/21 07:27 ABG O2 Saturation 96 % (94-98) 07/28/21 07:27 ABG Base Excess -2.6 mmol/L (-2.0-3.0) L 07/28/21 07:27 Salvador Test POSITIVE 07/28/21 07:27 VBG pH 7.380 (7.31-7.41) 07/26/21 12:43 VBG pCO2 38.8 mmHg (41-51) L 07/26/21 12:43 VBG pO2 25.0 mmHg (25-47) 07/26/21 12:43 VBG HCO3 22.4 mmol/L (23-28) L 07/26/21 12:43 VBG Total CO2 23.6 mmol/L (24-29) L 07/26/21 12:43 VBG O2 Saturation 43.6 % (60-80) L 07/26/21 12:43 VBG Base Excess -2.4 mmol/L (-2 - +2) L 07/26/21 12:43 Respiration Rate 18 b/min 07/28/21 07:27 O2 Delivery Device BiPAP 07/28/21 07:27 Vent Mode SYNCHRONOUS/TIMES 07/28/21 07:27 FiO2 60.00 07/28/21 07:27 EPAP 6 cmH2O 07/28/21 07:27 IPAP 12 cmH2O 07/28/21 07:27 Sodium 136 mmol/L (135-145) 08/09/21 12:21 Potassium 4.5 mmol/L (3.5-5.0) 08/09/21 12:21 Chloride 100 mmol/L (101-111) L 08/09/21 12:21 Carbon Dioxide 28 mmol/L (21-32) 08/09/21 12:21 Anion Gap 8.0 (6-13) 08/09/21 12:21 BUN 40 mg/dL (6-20) H 08/09/21 12:21 Creatinine 1.4 mg/dL (0.6-1.2) H 08/09/21 12:21 Estimated GFR (MDRD) 48 (>89) L 08/09/21 12:21 Glucose 156 mg/dL (70-100) H 08/09/21 12:21 POC Whole Bld Glucose 81 mg/dL (70 - 100) 08/11/21 16:49 Estimat Average Glucose 166 mg/dL (70-100) H 08/10/21 05:46 Hemoglobin A1c % 7.4 % (4.27-6.07) H 08/10/21 05:46 Lactic Acid 2.0 mmol/L (0.5-2.2) 07/26/21 12:43 Calcium 9.7 mg/dL (8.5-10.3) 08/09/21 12:21 Phosphorus 3.1 mg/dL (2.5-4.6) 07/26/21 12:43 Magnesium 2.3 mg/dL (1.7-2.8) 07/26/21 12:43 Total Bilirubin 0.6 mg/dL (0.2-1.0) 08/07/21 05:23 AST 21 IU/L (10-42) 08/07/21 05:23 ALT 32 IU/L (10-60) 08/07/21 05:23 Alkaline Phosphatase 58 IU/L (42-121) 08/07/21 05:23 C-Reactive Protein 13.3 mg/dL (0-1.0) H 08/01/21 04:15 B-Natriuretic Peptide 569 pg/mL (5-100) H 07/26/21 12:43 Total Protein 6.1 g/dL (6.7-8.2) L 08/07/21 05:23 Albumin 2.4 g/dL (3.2-5.5) L 08/07/21 05:23 Globulin 3.7 g/dL (2.1-4.2) 08/07/21 05:23 Albumin/Globulin Ratio 0.6 (1.0-2.2) L 08/07/21 05:23 Nasal Adenovirus (PCR) NOT DETECTED 07/26/21 12:26 Nasal B. parapertussis DNA (PCR) NOT DETECTED 07/26/21 12:26 Nasal Coronavir 229E PCR NOT DETECTED 07/26/21 12:26 Nasal Coronavir HKU1 PCR NOT DETECTED 07/26/21 12:26 Nasal Coronavir NL63 PCR NOT DETECTED 07/26/21 12:26 Nasal Coronavir OC43 PCR NOT DETECTED 07/26/21 12:26 Nasal Enterovir/Rhinovir PCR NOT DETECTED 07/26/21 12:26 Nasal Influenza B PCR NOT DETECTED 07/26/21 12:26 Nasal Influenza A PCR NOT DETECTED 07/26/21 12:26 Nasal Parainfluen 1 PCR NOT DETECTED 07/26/21 12:26 Nasal Parainfluen 2 PCR NOT DETECTED 07/26/21 12:26 Nasal Parainfluen 3 PCR NOT DETECTED 07/26/21 12:26 Nasal Parainfluen 4 PCR NOT DETECTED 07/26/21 12:26 Nasal RSV (PCR) NOT DETECTED 07/26/21 12:26 Nasal Screen MRSA (PCR) NEGATIVE (NEGATIVE) 07/28/21 21:39 Nasal B.pertussis DNA PCR NOT DETECTED 07/26/21 12:26 Nasal C.pneumoniae (PCR) NOT DETECTED 07/26/21 12:26 Trevor Human Metapneumo PCR NOT DETECTED 07/26/21 12:26 Nasal M.pneumoniae (PCR) NOT DETECTED 07/26/21 12:26 Nasal SARS-CoV-2 (PCR) DETECTED A 07/26/21 12:26
[2021-08-11] MEDS: QUEtiapine 25 MG TABLET PO SCH (20:46)
[2021-08-11] MEDS: POTASSIUM CHLORIDE 20 MEQ/15 ML UDC PO SCH (21:11)
[2021-08-12] MEDS: SODIUM CHLORIDE FLUSH 0.9% 10 ML SYRINGE IVP SCH ×3 (07:34→17:07)
[2021-08-12] MEDS: INSULIN ASPART 300 UNIT/3 ML PEN SUBQ SCH ×4 (10:18→21:06)
[2021-08-12] MEDS: CHOLECALCIFEROL 25 MCG TABLET PO SCH (10:19)
[2021-08-12] MEDS: NIFEdipine ER 30 MG TABLET PO SCH (10:19)
[2021-08-12] MEDS: DABIGATRAN 75 MG CAPSULE PO SCH ×2 (10:22→21:12)
[2021-08-12] MEDS: lisinopriL 5 MG TABLET PO SCH (10:24)
[2021-08-12] MEDS: MULTIVITAMIN W/MINERALS TABLET PO SCH (10:25)
[2021-08-12] MEDS: DOCUSATE SODIUM 250 MG CAPSULE PO SCH (10:26)
[2021-08-12] MEDS: TAMSULOSIN 0.4 MG CAPSULE PO SCH (10:27)
[2021-08-12] MEDS: INSULIN GLARGINE 300 UNIT/3 ML PEN SUBQ SCH (10:28)
[2021-08-12] MEDS: POTASSIUM CHLORIDE 20 MEQ/15 ML UDC PO SCH (10:46)
[2021-08-12] MEDS: METOPROLOL SUCCINATE 25 MG TABLET PO SCH (10:47)
[2021-08-12] MEDS: CEFPODOXIME PROXETIL 100 MG TABLET PO SCH ×2 (10:47→21:12)
[2021-08-12] MEDS: polyethylene glycoL 3350 17 GM PACKET PO SCH (10:48)
[2021-08-12] MEDS: SENNA 8.6 MG TABLET PO SCH (10:48)
[2021-08-12] MEDS: oxyCODONE 5 MG TABLET PO PRN (16:08)
--- NOTE | 2021-08-12 18:22 | PROVIDER PROGRESS NOTE ---
Assessment/Plan - Problem List (1) Acute respiratory failure with hypoxia Assessment/Plan: Patient was admitted to hospital with COVID-19 pnuemnia. He was transferred out of the ICU to the Med/Surg unit on 08/05 due to improved respiratory status and no longer requiring BiPap during sleep. He finished day 5/5 of remdesivir on 07/31 and 07/20 Decadron on 08/05. On 08/06 his WBCs increased to 15 from 11. C hest x-ray showed increased bilateral pulmonary opacities and most likely due to hospital acquired pneumonia. He was started on IV Azithromyacin x 3 doses and Cefepime daily and recently converted to oral Vantin fdor several more days. He is needing 1- 4 L of oxygen via nasal cannula with oxygen saturation. Up to 5-6L with walking 3 steps. A CXR was obtained yesterday and showed persistent infiltrates. He got 1 dose of iv Lasix empirically yesterday Pt not ready for DCh today. (2) Pneumonia due to COVID-19 virus Assessment/Plan: Patient was vaccinated for COVID and unfortunately became ill with COVID pneumonia. He has completed 5 days of Remdesivir on 07/31 and 10 days of Decadron on 08/05. He on nasal cannula at 4L/min with bedside oxygen saturation around 95%. According to Dr. Hogan's note from 07/27 patient is a DNR for cardiac resuscitation but said he would do Intubation if needed. Per Irvin Vazquez ([employer]), patient was removed from COVID isolation according to hospital protocol on 08/06/21 when he transferred to the Med/Surg unit due to 10 days since initial symptoms and improving status. He continues to need supplemental O2 to maintain sats > 90% at rest and desaturates w/ activity and will need a Home O2 order. He continues to need PT, is very deconditioned after COVID and hospitalization. (3) HCAP (healthcare-associated pneumonia) Assessment/Plan: Chest x-ray from 08/06 showed "Increased bilateral pulmonary opacities. Most consistent with pneumonia". He was started on Azithromyacin 500mg IVPB daily x 3 doses and Cefepime 2gm IVPB twice daily. He will be transitioned to oral Vantin for several more days. A CXR was obtained today and showed persistent infiltrates. Continue Vantin and IS. (4) Urinary retention Assessment/Plan: Initial Blevins catheter was removed twice and both times he developed urinary retention. Flomax was started. A Blevins was placed again and he will now keep it chronically, go home with this, and need Urology management. We were also concerned that his constipation was adding to urinary retention, but he has now restarted having BMs since the enema. (5) Physical deconditioning Physical therapy started working with him about 3 days ago. He is extremely deconditioned, has only been able to stand with moderate assist including using a gait belt, is able to take several steps to transition to a chair but cannot walk in his room yet without being extremely fatigued and also desaturates. Continue to work with physical therapy. SNF was recommended, the patient initially said he was interested in this. His daughter Milagros later told social work that both he and she wanted him to have home PT. Home health (for PT, OT, RN and bath aide) has been ordered. The daughter visited and had said she was overwhelmed with how deconditioned he was, could not manage a Blevins catheter on her own, indicated that the granddaughter who lives with him really does no caregiving. The daughter Milagros lives next door, not with him, and therefore she was not able to take him home that day of planned discharge. On his behalf, the daughter refused his discharge. Rufino was be informed by our of their appeal and we are awaiting their decision. (6) Type 2 diabetes mellitus without complication, without long-term current use of insulin Assessment/Plan: Patient has history of type II DM and uses metformin 500mg PO with meals and Glimepiride 1mg po daily for control at home. He is being covered with Aspart on sliding scale for meal coverage and Lantus 8 units for long acting coverage. Continue to monitor bedside fingerstick glucose levels. Treat hyperglycemia with Aspart sliding scale. Continue with Lantus 8 units pb Plan to transition back to PO diabetic medications upon discharge. We did resume the Glimiperide several days ago. (7) CKD Assessment/Plan: Patient presented to hospital with elevated creat 1.4 and low GFR 48. Patient has been improving steadily since 07/29, until 08/01 when creat increased to 1.8 and GFR decreased to 36. IV fluids were discontinued on 08/08 for increased rales. Edema of bilateral lower extremities has resolved Creat has plateaued at 1.4 Monitor BMP occasionally (8) Dementia Qualifiers: Alzheimer's disease onset: unspecified onset Dementia behavioral disturbance: with behavioral disturbance Assessment/Plan: According to admission note by Dr. Hogan on 07/26/2021, patient has a history of Dementia. He lives with his granddaughter and is able to do basic self care tasks. His daughter also lives next door. During his hospital stay on the [facility] of 07/28 patient began ing with agitation and delirium. Seroquel was started. Continue seroquel 25mg PO nightly to use while here. The daughter visited and had said she was overwhelmed with how deconditioned he was, could not manage a Blevins catheter on her own, indicated that the granddaughter who lives with him really does no caregiving (9) Hypertension Qualifiers: Hypertension type: primary hypertension Qualified Code(s): I10 - Essential (primary) hypertension Assessment/Plan: Patient has history of HTN and takes Lisinopril 10mg daily, Metoprolol 25mg po daily, and Nifedipine 90mg PO daily for management. Current SBPs are controlled on meds. Continue these meds (10) Chronic atrial fibrillation Assessment/Plan: According to previous hospitalization note from 2016, patient has a history of a-fib and is on Pradaxa 75mg PO daily. Admission EKG on 07/26/2021 showed v- paced rhythm with underlying A-fib/ flutter. He is on Metoprolol 25mg PO daily as a home medication that was resumed during this hospitalization. Continuing Pradaxa 75mg PO daily. Continuing Metoprolol - Current Meds Current Meds: Current Medications Generic Name Dose Route Start Last Admin Trade Name Freq PRN Reason Stop Dose Admin Acetaminophen 650 mg 07/26/21 13:34 08/11/21 08:32 Acetaminophen 325 Mg Tablet PO 650 mg Q4HR PRN Administration Pain 1 to 4 Cefuroxime Axetil 200 mg 08/10/21 11:00 08/12/21 10:47 Cefpodoxime Proxetil 100 Mg Tablet PO 08/13/21 10:59 200 mg BID MARYLOU Administration Cholecalciferol 50 mcg 07/31/21 12:00 08/12/21 10:19 Cholecalciferol 25 Mcg Tablet PO 50 mcg DAILY MARYLOU Administration Dabigatran 75 mg 07/26/21 21:00 08/12/21 10:22 Dabigatran 75 Mg Capsule PO 75 mg BID MARYLOU Administration Docusate Sodium 250 - 500 mg 08/02/21 09:00 08/12/21 10:26 Docusate Sodium 250 Mg Capsule PO 250 mg DAILY MARYLOU Administration Hydralazine HCl 10 mg 07/26/21 13:40 07/27/21 08:32 Hydralazine Inj 20 Mg/Ml Vial IVP 10 mg TID PRN Administration Hypertensive Emergency Insulin Aspart 3 - 11 unit 08/01/21 21:00 08/12/21 17:06 Insulin Aspart 300 Unit/3 Ml Pen SUBQ 5 unit 0800,1200,1700,2100 MARYLOU Administration Protocol Insulin Glargine 8 unit 08/06/21 09:00 08/12/21 10:28 Insulin Glargine 300 Unit/3 Ml Pen SUBQ 8 unit DAILY MARYLOU Administration Lisinopril 10 mg 07/27/21 09:00 08/12/21 10:24 Lisinopril 5 Mg Tablet PO 10 mg DAILY MARYLOU Administration Metoprolol Succinate 25 mg 07/27/21 09:00 08/12/21 10:47 Metoprolol Succinate 25 Mg Tablet PO 25 mg DAILY MARYLOU Administration Multi-Ingredient Ointment 1 applic 08/05/21 19:26 08/11/21 17:41 Zinc Oxide 20% Oint 30 Gm Tube TOP 1 applic PRN PRN Administration Skin Care Multivitamins/Minerals 1 tab 07/31/21 12:00 08/12/21 10:25 Multivitamin W/Minerals Tablet PO 1 tab DAILYWM MARYLOU Administration Nifedipine 90 mg 07/27/21 09:00 08/12/21 10:19 Nifedipine Er 30 Mg Tablet PO 90 mg DAILY MARYLOU Administration Oxycodone HCl 5 mg 07/26/21 13:34 08/12/21 16:08 Oxycodone 5 Mg Tablet PO 5 mg Q4HR PRN Administration Pain 5 to 7 Polyethylene Glycol 17 gm 08/02/21 09:00 08/12/21 10:48 Polyethylene Glycol 3350 17 Gm Packet PO 17 gm DAILY MARYLOU Administration Potassium Chloride 40 meq 08/11/21 20:56 08/12/21 10:46 Potassium Chloride 20 Meq/15 Ml Udc PO 40 meq DAILYWM MARYLOU Administration Quetiapine Fumarate 25 mg 07/27/21 21:00 08/11/21 20:46 Quetiapine 25 Mg Tablet PO 25 mg QPM MARYLOU Administration Senna 8.6 - 17.2 mg 08/02/21 09:00 08/12/21 10:48 Senna 8.6 Mg Tablet PO 8.6 mg DAILY MARYLOU Administration Sodium Chloride 10 ml 07/26/21 13:34 08/04/21 05:32 Sodium Chloride Flush 0.9% 10 Ml Syringe IVP 10 ml PRN PRN Administration NEEDED PER PROVIDER ORDERS Sodium Chloride 10 ml 07/26/21 17:00 08/12/21 17:07 Sodium Chloride Flush 0.9% 10 Ml Syringe IVP 10 ml 0100,0900,1700 MARYLOU Administration Tamsulosin HCl 0.4 mg 07/27/21 09:00 08/12/21 10:27 Tamsulosin 0.4 Mg Capsule PO 0.4 mg DAILY MARYLOU Administration - Lab Result Fish Bone Diagrams: 08/09/21 12:21 08/09/21 12:21 Subjective - Subjective Patient Reports: Fatigue Nursing Reports: Other (He has slightly more energy than yesterday, appetite is improved minimally since not eating much yesterday.) Objective Vital Signs: Vital Signs - 24 hr 08/12/21 08/12/21 08/12/21 00:37 07:25 16:02 Temperature 37.9 C 36.6 C 36.6 C Heart Rate [ 60 61 63 Brachial] Respiratory 18 18 19 Rate Blood Pressure 121/50 L 106/45 L 120/42 L [Right Brachial artery] O2 Saturation 92 92 90 L Oxygen O2 Source Nasal cannula Oxygen Flow Rate 15 I&O (Last 24 Hrs): Intake and Output Totals x24h 08/10/21 08/11/21 08/12/21 23:59 23:59 23:59 Intake Total 1500 760 720 Output Total 675 1650 875 Balance 825 -890 -155 General: Alert, No acute distress, Other (Disoriented to place and time) HEENT: Mucous membr. moist/pink Neck: Supple Neuro: Alert, Disoriented, Non Focal Cardiovascular: No murmurs Respiratory: No respiratory distress (on O2 via n.c.) Abdomen: Soft Extremities: No edema - Results Results: Laboratory Results WBC 12.0 x10^3/uL (4.8-10.8) H 08/09/21 12:21 RBC 3.79 10^6/uL (4.70-6.10) L 08/09/21 12:21 Hgb 11.6 g/dL (14.0-18.0) L 08/09/21 12:21 Hct 35.9 % (42.0-52.0) L 08/09/21 12: MCV 94.7 fL (80.0-94.0) H 08/09/21 12:21 MCH 30.6 pg (27.0-31.0) 08/09/21 12: MCHC 32.3 g/dL (32.0-36.0) 08/09/21 12: RDW 14.3 % (12.0-15.0) 08/09/21 12:21 Plt Count 249 10^3/uL (130-450) 08/09/21 12:21 MPV 10.9 fL (7.4-11.4) 08/09/21 12: Neut # (Auto) 9.9 10^3/uL (1.5-6.6) H 08/09/21 12:21 Lymph # (Auto) 0.7 10^3/uL (1.5-3.5) L 08/09/21 12: [place] # (Auto) 0.9 10^3/uL (0.0-1.0) 08/09/21 12:21 Eos # (Auto) 0.3 10^3/uL (0.0-0.7) 08/09/21 12:21 Baso # (Auto) 0.0 10^3/uL (0.0-0.1) 08/09/21 12:21 Absolute Nucleated RBC 0.00 x10^3/uL 08/09/21 12:21 Total Counted 100 07/28/21 05:11 Band Neuts % (Manual) Not Reportable 08/05/21 05:00 Abnorm Lymph % (Manual) Not Reportable 08/05/21 05:00 Myelocytes % 1 % (-0) H 07/28/21 05:11 Nucleated RBC % 0.0 /100WBC 08/09/21 12:21 Neutrophils # (Manual) Not Reportable 08/05/21 05:00 Lymphocytes # (Manual) Not Reportable 08/05/21 05:00 Monocytes # (Manual) Not Reportable 08/05/21 05:00 Eosinophils # (Manual) Not Reportable 08/05/21 05:00 Basophils # (Manual) Not Reportable 08/05/21 05:00 Differential Comment MANUAL=AUTO DIFF 08/05/21 05:00 Manual Slide Review Indicated 07/26/21 12:43 WBC Morphology NORMAL APPEARANCE (NORMAL) 07/28/21 05:11 Platelet Estimate NORMAL (130-450,000) (NORMAL) 07/28/21 05:11 Platelet Morphology NORMAL APPEARANCE (NORMAL) 07/28/21 05:11 RBC Morph Micro Appear NORMAL APPEARANCE (NORMAL) 07/28/21 05:11 D-Dimer > 1050.0 ng/mL (200.0-255.0) H 08/01/21 04:15 Bld Gas Analysis Time 0730 07/28/21 07:27 Sample Site RIGHT RADIAL 07/28/21 07:27 ABG pH 7.44 (7.35-7.45) 07/28/21 07:27 ABG pCO2 31 mmHg (34-45) L 07/28/21 07:27 ABG pO2 83 mmHg (80-100) 07/28/21 07:27 ABG HCO3 20.5 mmol/L (22.0-26.0) L 07/28/21 07:27 ABG Total CO2 21.5 MMOL/L (21.0-29.0) 07/28/21 07:27 ABG O2 Saturation 96 % (94-98) 07/28/21 07:27 ABG Base Excess -2.6 mmol/L (-2.0-3.0) L 07/28/21 07:27 Salvador Test POSITIVE 07/28/21 07:27 VBG pH 7.380 (7.31-7.41) 07/26/21 12:43 VBG pCO2 38.8 mmHg (41-51) L 07/26/21 12:43 VBG pO2 25.0 mmHg (25-47) 07/26/21 12:43 VBG HCO3 22.4 mmol/L (23-28) L 07/26/21 12:43 VBG Total CO2 23.6 mmol/L (24-29) L 07/26/21 12:43 VBG O2 Saturation 43.6 % (60-80) L 07/26/21 12:43 VBG Base Excess -2.4 mmol/L (-2 - +2) L 07/26/21 12:43 Respiration Rate 18 b/min 07/28/21 07:27 O2 Delivery Device BiPAP 07/28/21 07:27 Vent Mode SYNCHRONOUS/TIMES 07/28/21 07:27 FiO2 60.00 07/28/21 07:27 EPAP 6 cmH2O 07/28/21 07:27 IPAP 12 cmH2O 07/28/21 07:27 Sodium 136 mmol/L (135-145) 08/09/21 12:21 Potassium 4.5 mmol/L (3.5-5.0) 08/09/21 12:21 Chloride 100 mmol/L (101-111) L 08/09/21 12:21 Carbon Dioxide 28 mmol/L (21-32) 08/09/21 12:21 Anion Gap 8.0 (6-13) 08/09/21 12:21 BUN 40 mg/dL (6-20) H 08/09/21 12:21 Creatinine 1.4 mg/dL (0.6-1.2) H 08/09/21 12:21 Estimated GFR (MDRD) 48 (>89) L 08/09/21 12:21 Glucose 156 mg/dL (70-100) H 08/09/21 12:21 POC Whole Bld Glucose 183 mg/dL (70 - 100) H 08/12/21 16:36 Estimat Average Glucose 166 mg/dL (70-100) H 08/10/21 05:46 Hemoglobin A1c % 7.4 % (4.27-6.07) H 08/10/21 05:46 Lactic Acid 2.0 mmol/L (0.5-2.2) 07/26/21 12:43 Calcium 9.7 mg/dL (8.5-10.3) 08/09/21 12:21 Phosphorus 3.1 mg/dL (2.5-4.6) 07/26/21 12:43 Magnesium 2.3 mg/dL (1.7-2.8) 07/26/21 12:43 Total Bilirubin 0.6 mg/dL (0.2-1.0) 08/07/21 05:23 AST 21 IU/L (10-42) 08/07/21 05:23 ALT 32 IU/L (10-60) 08/07/21 05:23 Alkaline Phosphatase 58 IU/L (42-121) 08/07/21 05:23 C-Reactive Protein 13.3 mg/dL (0-1.0) H 08/01/21 04:15 B-Natriuretic Peptide 569 pg/mL (5-100) H 07/26/21 12:43 Total Protein 6.1 g/dL (6.7-8.2) L 08/07/21 05:23 Albumin 2.4 g/dL (3.2-5.5) L 08/07/21 05:23 Globulin 3.7 g/dL (2.1-4.2) 08/07/21 05:23 Albumin/Globulin Ratio 0.6 (1.0-2.2) L 08/07/21 05:23 Nasal Adenovirus (PCR) NOT DETECTED 07/26/21 12:26 Nasal B. parapertussis DNA (PCR) NOT DETECTED 07/26/21 12:26 Nasal Coronavir 229E PCR NOT DETECTED 07/26/21 12:26 Nasal Coronavir HKU1 PCR NOT DETECTED 07/26/21 12:26 Nasal Coronavir NL63 PCR NOT DETECTED 07/26/21 12:26 Nasal Coronavir OC43 PCR NOT DETECTED 07/26/21 12:26 Nasal Enterovir/Rhinovir PCR NOT DETECTED 07/26/21 12:26 Nasal Influenza B PCR NOT DETECTED 07/26/21 12:26 Nasal Influenza A PCR NOT DETECTED 07/26/21 12:26 Nasal Parainfluen 1 PCR NOT DETECTED 07/26/21 12:26 Nasal Parainfluen 2 PCR NOT DETECTED 07/26/21 12:26 Nasal Parainfluen 3 PCR NOT DETECTED 07/26/21 12:26 Nasal Parainfluen 4 PCR NOT DETECTED 07/26/21 12:26 Nasal RSV (PCR) NOT DETECTED 07/26/21 12:26 Nasal Screen MRSA (PCR) NEGATIVE (NEGATIVE) 07/28/21 21:39 Nasal B.pertussis DNA PCR NOT DETECTED 07/26/21 12:26 Nasal C.pneumoniae (PCR) NOT DETECTED 07/26/21 12:26 Trevor Human Metapneumo PCR NOT DETECTED 10/16/21 12:26 Nasal M.pneumoniae (PCR) NOT DETECTED 07/26/21 12:26 Nasal SARS-CoV-2 (PCR) DETECTED A 07/26/21 12:26
[2021-08-12] MEDS: QUEtiapine 25 MG TABLET PO SCH (21:12)
[2021-08-12] MEDS: ZINC OXIDE 20% OINT 30 GM TUBE TOP PRN (22:19)
[2021-08-13] MEDS: SODIUM CHLORIDE FLUSH 0.9% 10 ML SYRINGE IVP SCH ×4 (00:04→23:22)
[2021-08-13] MEDS: ZINC OXIDE 20% OINT 30 GM TUBE TOP PRN ×2 (00:07→23:41)
[2021-08-13] MEDS: INSULIN ASPART 300 UNIT/3 ML PEN SUBQ SCH ×4 (07:49→20:46)
[2021-08-13] MEDS: CHOLECALCIFEROL 25 MCG TABLET PO SCH (09:36)
[2021-08-13] MEDS: METOPROLOL SUCCINATE 25 MG TABLET PO SCH (09:36)
[2021-08-13] MEDS: lisinopriL 5 MG TABLET PO SCH (09:36)
[2021-08-13] MEDS: SENNA 8.6 MG TABLET PO SCH (09:37)
[2021-08-13] MEDS: MULTIVITAMIN W/MINERALS TABLET PO SCH (09:37)
[2021-08-13] MEDS: DOCUSATE SODIUM 250 MG CAPSULE PO SCH (09:37)
[2021-08-13] MEDS: TAMSULOSIN 0.4 MG CAPSULE PO SCH (09:37)
[2021-08-13] MEDS: NIFEdipine ER 30 MG TABLET PO SCH (09:38)
[2021-08-13] MEDS: CEFPODOXIME PROXETIL 100 MG TABLET PO SCH (09:38)
[2021-08-13] MEDS: DABIGATRAN 75 MG CAPSULE PO SCH ×2 (09:38→20:46)
[2021-08-13] MEDS: POTASSIUM CHLORIDE 20 MEQ/15 ML UDC PO SCH (09:39)
[2021-08-13] MEDS: INSULIN GLARGINE 300 UNIT/3 ML PEN SUBQ SCH (09:39)
[2021-08-13] MEDS: polyethylene glycoL 3350 17 GM PACKET PO SCH (09:40)
[2021-08-13 09:58] LABS: BASOPHILS % (AUTO) 0.3 %; EOSINOPHILS # (AUTO) 0.3 10^3/uL (0.0-0.7); EOSINOPHILS % (AUTO) 2.4 %; HCT - HEMATOCRIT 30.7 % (42.0-52.0); HGB - HEMOGLOBIN 9.5 g/dL (14.0-18.0); LYMPHOCYTES # (AUTO) 0.8 10^3/uL (1.5-3.5); LYMPHOCYTES % (AUTO) 6.9 %; MEAN CORPUSCULAR HEMOGLOBIN 30.4 pg (27.0-31.0); MEAN CORPUSCULAR HGB CONC 30.9 g/dL (32.0-36.0); MEAN CORPUSCULAR VOLUME 98.1 fL (80.0-94.0); MEAN PLATELET VOLUME 10.7 fL (7.4-11.4); MONOCYTES # (AUTO) 0.9 10^3/uL (0.0-1.0); MONOCYTES % (AUTO) 7.9 %; NEUTROPHILS # (AUTO) 9.5 10^3/uL (1.5-6.6); NEUTROPHILS % (AUTO) 81.7 %; PLT - PLATELET COUNT 279 10^3/uL (130-450); RED BLOOD COUNT 3.13 10^6/uL (4.70-6.10); RED CELL DISTRIBUTION WIDTH 15.3 % (12.0-15.0); WHITE BLOOD COUNT 11.6 x10^3/uL (4.8-10.8)
[2021-08-13 10:10] LABS: POTASSIUM 5.2 mmol/L (3.5-5.0)
--- NOTE | 2021-08-13 11:28 | XRAY Report ---
PROCEDURE: Chest 1 View X-Ray INDICATIONS: worsening oxygen desaturations TECHNIQUE: One view of the chest was acquired. COMPARISON: 08/11/2021 FINDINGS: Surgical changes and devices: Pacemaker. Lungs and pleura: No pleural effusions or pneumothorax. Lungs are clear. Extensive bilateral pulmon oliva opacities are not significantly changed. Mediastinum: Mediastinal contours appear normal. Unchanged cardiomegaly. Bones and chest wall: No s uspicious bony lesions. Overlying soft tissues appear unremarkable. IMPRESSION: Extensive bilateral pulmonary infiltrates are unchanged. Unchanged cardiomegaly. Reviewed by: Anthony Xavier MD on 08/13/2021 11:27 AM PDT Approved by: Anthony Xavier MD on 08/13/2021 11:27 AM PDT Station ID: [id number]
[2021-08-13] MEDS ORDERED: FUROSEMIDE 40 MG/4 ML VIAL IVP STA (14:10)
--- NOTE | 2021-08-13 16:51 | PROVIDER PROGRESS NOTE ---
Assessment/Plan - Problem List (1) Acute respiratory failure with hypoxia Assessment/Plan: Patient was admitted to hospital with COVID-19 pnuemnia. He was transferred out of the ICU to the Med/Surg unit on 08/05 due to improved respiratory status and no longer requiring BiPap during sleep. He finished day 5/5 of remdesivir on 07/31 and 07/20 Decadron on 08/05. On 08/06 his WBCs increased to 15 from 11. C hest x-ray showed increased bilateral pulmonary opacities and most likely due to hospital acquired pneumonia. He was started on IV Azithromyacin x 3 doses and Cefepime daily then converted to oral Vantin which was completed yesterday. Several days ago he was on 1L O2 at rest and 3L with walking (3 steps), but since then he has become weaker, can only stand, and is needing higher amounts of supplemental oxygen. Today he is needing 1- 4 L of oxygen at rest, and up to 6-9L with standing to pivot. A CXR was obtained today and showed persistent infiltrates. He got 1 dose of iv Lasix empirically in the past and will continue this daily. Will follow BNP. Will order OOB to chair for meals to help diaphragmatic movement and lung expansion. He may not understand IS (due to dementia), but will order IS as well. Pt not ready for DCh today. He will need a (new) oximetry walk test on the day of DCh and a (new) Home O2 order. (2) Pneumonia due to COVID-19 virus Assessment/Plan: Patient was vaccinated for COVID and unfortunately became ill with COVID pneumon ia. He has completed 5 days of Remdesivir on 07/31 and 10 days of Decadron on 08/05. According to Dr. Hogan's note from 07/27 patient is a DNR for cardiac resuscitation but said he would do Intubation if needed. Per Irvin Vazquez ([facility] Worker), patient was removed from COVID isolation according to hospital protocol on 08/06/21 when he transferred to the Med/Surg unit, due to 10 days since initial symptoms and improving status. He continues to need supplemental O2 to maintain sats > 90% at rest and desaturates w/ activity. He will need a (new) oximetry walk test on the day of DCh and a (new) Home O2 order. He continues to need PT, is very deconditioned after COVID and hospitalization. (3) HCAP (healthcare-associated pneumonia) Assessment/Plan: Chest x-ray from 08/06 showed "Increased bilateral pulmonary opacities. Most consistent with pneumonia". He got Azithromyacin IVPB daily x 3 doses and Cefepime IVPB then was transitioned to oral Vantin (in anticipation of DCH). He has completed all these. A CXR was obtained today and showed persistent infiltrates. He does not cough, but desaturates. Will try OOB orders and IS. (4) Urinary retention Assessment/Plan: Blevins catheter was removed twice and both times he developed urinary retention. Flomax was started. A Blevins was placed again and he will now keep it chronically, go home with this, and needs Urology management. We were also concerned that his constipation was adding to urinary retention, but he has now restarted having BMs since the enema. Home Health has been ordered for helping the daughter Milagros with the new Blevins. (5) Physical deconditioning Physical therapy started working with him about a week ago. He is extremely deconditioned, has only been able to stand with moderate assist including using a gait belt, he was able to take several steps to transition to a chair but cannot walk in his room yet without being extremely fatigued and also desaturates. Continue to work with physical therapy. SNF was recommended, the patient initially said he was interested in this. His daughter Milagros later told social work that both he and she wanted him to have home PT. Home health (for PT, OT, RN and bath aide) has been ordered. The daughter visited several days ago and said she was overwhelmed with how deconditioned he was, she could not manage a Blevins catheter and new O2 for him, on her own. The granddaughter who lives with him really does no caregiving. The daughter Milagros lives next door, not with him, and therefore she was not able to take him home that day of attempted discharge. Since that day, he has declined, with worse oxygenation and more overall weakness. Pt not ready for DCh today, trying to get him OOB more and IS He will need a (new) oximetry walk test on the day of DCh and a (new) Home O2 order. (6) Type 2 diabetes mellitus without complication, without long-term current use of insulin Assessment/Plan: Patient has history of type II DM and uses metformin 500mg PO with meals and Glimepiride 1mg po daily for control at home. Here he is on sliding scale for meal coverage and Lantus 8 units for long acting coverage. Continue to monitor bedside fingerstick glucose levels. Plan to transition back to PO diabetic medications upon discharge, is possible without Insulin, which would be also on the daughter to administer. We did resume the Glimiperide several days ago. (7) CKD Assessment/Plan: Patient presented to hospital with elevated creat 1.4 and low GFR 48. Patient has been improving steadily since 07/29, until 08/01 when creat increased to 1.8 and GFR decreased to 36. IV fluids were discontinued on 08/08 for increased rales. Edema of bilateral lower extremities has resolved Creat has plateaued at 1.4 Monitor BMP occasionally (8) Dementia Qualifiers: Alzheimer's disease onset: unspecified onset Dementia behavioral dist urbance: with behavioral disturbance Assessment/Plan: According to admission note by Dr. Hogan on 07/26/2021, patient has a history of Dementia. He lives with his granddaughter and is able to do basic self care tasks. His daughter also lives next door. During his hospital stay on the evening of 07/28 patient began with agitation and delirium. Seroquel was started. Continue seroquel 25mg PO nightly to use while here. The daughter visited and had said she was overwhelmed with how deconditioned he was, could not manage a Blevins catheter and O2 tubing on her own, and corrected the history, that the granddaughter who lives with him, really does no caregiving, just lives there. (9) Hypertension Qualifiers: Hypertension type: primary hypertension Qualified Code(s): I10 - Essential (primary) hypertension Assessment/Plan: Patient has history of HTN and takes Lisinopril 10mg daily, Metoprolol 25mg po daily, and Nifedipine 90mg PO daily for management. Current SBPs are controlled on meds. Continue these meds (10) Chronic atrial fibrillation Assessment/Plan: According to previous hospitalization note from 2016, patient has a history of a-fib and is on Pradaxa 75mg PO daily. Admission EKG on 07/26/2021 showed v- paced rhythm with underlying A-fib/ flutter. He is on Metoprolol 25mg PO daily as a home medication that was resumed during this hospitalization. Continuing Pradaxa and Metoprolol - Current Meds Current Meds: Current Medications Generic Name Dose Route Start Last Admin Trade Name Freq PRN Reason Stop Dose Admin Acetaminophen 650 mg 07/26/21 13:34 08/11/21 08:32 Acetaminophen 325 Mg Tablet PO 650 mg Q4HR PRN Administration Pain 1 to 4 Cholecalciferol 50 mcg 07/31/21 12:00 08/13/21 09:36 Cholecalciferol 25 Mcg Tablet PO 50 mcg DAILY MARYLOU Administration Dabigatran 75 mg 07/26/21 21:00 08/13/21 09:38 Dabigatran 75 Mg Capsule PO 75 mg BID MARYLOU Administration Docusate Sodium 250 - 500 mg 08/02/21 09:00 08/13/21 09:37 Docusate Sodium 250 Mg Capsule PO 250 mg DAILY MARYLOU Administration Hydralazine HCl 10 mg 07/26/21 13:40 07/27/21 08:32 Hydralazine Inj 20 Mg/Ml Vial IVP 10 mg TID PRN Administration Hypertensive Emergency Insulin Aspart 3 - 11 unit 08/01/21 21:00 08/13/21 11:25 Insulin Aspart 300 Unit/3 Ml Pen SUBQ 5 unit 0800,1200,1700,2100 MARYLOU Administration Protocol Insulin Glargine 8 unit 08/06/21 09:00 08/13/21 09:39 Insulin Glargine 300 Unit/3 Ml Pen SUBQ 8 unit DAILY MARYLOU Administration Lisinopril 10 mg 07/27/21 09:00 08/13/21 09:36 Lisinopril 5 Mg Tablet PO 10 mg DAILY MARYLOU Administration Metoprolol Succinate 25 mg 07/27/21 09:00 08/13/21 09:36 Metoprolol Succinate 25 Mg Tablet PO 25 mg DAILY MARYLOU Administration Multi-Ingredient Ointment 1 applic 08/05/21 19:26 08/13/21 00:07 Zinc Oxide 20% Oint 30 Gm Tube TOP 1 applic PRN PRN Administration Skin Care Multivitamins/Minerals 1 tab 07/31/21 12:00 08/13/21 09:37 Multivitamin W/Minerals Tablet PO 1 tab DAILYWM MARYLOU Administration Nifedipine 90 mg 08/13/21 09:30 08/13/21 09:38 Nifedipine Er 30 Mg Tablet PO 90 mg DAILY MARYLOU Administration Oxycodone HCl 5 mg 07/26/21 13:34 08/12/21 16:08 Oxycodone 5 Mg Tablet PO 5 mg Q4HR PRN Administration Pain 5 to 7 Polyethylene Glycol 17 gm 08/02/21 09:00 08/13/21 09:40 Polyethylene Glycol 3350 17 Gm Packet PO Not Given DAILY MARYLOU Potassium Chloride 40 meq 08/11/21 20:56 08/13/21 09:39 Potassium Chloride 20 Meq/15 Ml Udc PO 40 meq DAILYWM MARYLOU Administration Quetiapine Fumarate 25 mg 07/27/21 21:00 08/12/21 21:12 Quetiapine 25 Mg Tablet PO 25 mg QPM MARYLOU Administration Senna 8.6 - 17.2 mg 08/02/21 09:00 08/13/21 09:37 Senna 8.6 Mg Tablet PO 8.6 mg DAILY MARYLOU Administration Sodium Chloride 10 ml 07/26/21 13:34 08/04/21 05:32 Sodium Chloride Flush 0.9% 10 Ml Syringe IVP 10 ml PRN PRN Administration NEEDED PER PROVIDER ORDERS Sodium Chloride 10 ml 07/26/21 17:00 08/13/21 14:44 Sodium Chloride Flush 0.9% 10 Ml Syringe IVP 10 ml 0100,0900,1700 MARYLOU Administration Tamsulosin HCl 0.4 mg 07/27/21 09:00 08/13/21 09:37 Tamsulosin 0.4 Mg Capsule PO 0.4 mg DAILY MARYLOU Administration - Lab Result Fish Bone Diagrams: 08/13/21 09:53 08/13/21 09:53 - Additional Planning My Orders: My Active Orders 08/13/21 09:30 NIFEdipine [Procardia Xl] 90 mg PO DAILY 08/13/21 Dinner Dysphagia Puree Diet [DIET] Subjective - Subjective Patient Reports: Fatigue, Shortness of Breath Nursing Reports: Other (Very forgetful, ablke to feed himself) Objective Vital Signs: Vital Signs - 24 hr 08/12/21 08/12/21 08/13/21 19:42 21:16 00:15 Temperature 37.5 C Heart Rate [ 60 Brachial] Respiratory 19 19 24 Rate Blood Pressure 111/86 H [Right Brachial artery] O2 Saturation 94 90 L 89 L 08/13/21 08/13/21 00:26 07:30 Temperature 36.8 C Heart Rate [ 65 Brachial] Respiratory 20 20 Rate Blood Pressure 114/53 L [Right Brachial artery] O2 Saturation 92 92 Oxygen O2 Source Oxymizer Oxygen Flow Rate 15 I&O (Last 24 Hrs): Intake and Output Totals x24h 08/11/21 08/12/21 08/13/21 23:59 23:59 23:59 Intake Total 760 870 840 Output Total 1650 1075 350 Balance -890 -205 490 General: Alert, No acute distress HEENT: Mucous membr. moist/pink, Other (On O2 via oximizer) Neck: Supple Neuro: Alert, Disoriented Cardiovascular: Regular rate, No murmurs Respiratory: Breath sounds nml (on O2 via oximizer) Abdomen: Soft, Other (Obese) Extremities: No edema - Results Results: Laboratory Results WBC 11.6 x10^3/uL (4.8-10.8) H 08/13/21 09:53 RBC 3.13 10^6/uL (4.70-6.10) L 08/13/21 09:53 Hgb 9.5 g/dL (14.0-18.0) L 08/13/21 09:53 Hct 30.7 % (42.0-52.0) L 08/13/21 09:53 MCV 98.1 fL (80.0-94.0) H 08/13/21 09:53 MCH 30.4 pg (27.0-31.0) 08/13/21 09:53 MCHC 30.9 g/dL (32.0-36.0) L 08/13/21 09:53 RDW 15.3 % (12.0-15.0) H 08/13/21 09:53 Plt Count 279 10^3/uL (130-450) 08/13/21 09:53 MPV 10.7 fL (7.4-11.4) 08/13/21 09:53 Neut # (Auto) 9.5 10^3/uL (1.5-6.6) H 08/13/21 09:53 Lymph # (Auto) 0.8 10^3/uL (1.5-3.5) L 08/13/21 09:53 Ray # (Auto) 0.9 10^3/uL (0.0-1.0) 08/13/21 09:53 Eos # (Auto) 0.3 10^3/uL (0.0-0.7) 08/13/21 09:53 Baso # (Auto) 0.0 10^3/uL (0.0-0.1) 08/13/21 09:53 Absolute Nucleated RBC 0.00 x10^3/uL 08/13/21 09:53 Total Counted 100 07/28/21 05:11 Band Neuts % (Manual) Not Reportable 08/05/21 05:00 Abnorm Lymph % (Manual) Not Reportable 08/05/21 05:00 Myelocytes % 1 % (-0) H 07/28/21 05:11 Nucleated RBC % 0.0 /100WBC 08/13/21 09:53 Neutrophils # (Manual) Not Reportable 08/05/21 05:00 Lymphocytes # (Manual) Not Reportable 08/05/21 05:00 Monocytes # (Manual) Not Reportable 08/05/21 05:00 Eosinophils # (Manual) Not Reportable 08/05/21 05:00 Basophils # (Manual) Not Reportable 08/05/21 05:00 Differential Comment MANUAL=AUTO DIFF 08/05/21 05:00 Manual Slide Review Indicated 07/26/21 12:43 WBC Morphology NORMAL APPEARANCE (NORMAL) 07/28/21 05:11 Platelet Estimate NORMAL (130-450,000) (NORMAL) 07/28/21 05:11 Platelet Morphology NORMAL APPEARANCE (NORMAL) 07/28/21 05:11 RBC Morph Micro Appear NORMAL APPEARANCE (NORMAL) 07/28/21 05:11 D-Dimer > 1050.0 ng/mL (200.0-255.0) H 08/01/21 04:15 Bld Gas Analysis Time 0730 07/28/21 07:27 Sample Site RIGHT RADIAL 07/28/21 07:27 ABG pH 7.44 (7.35-7.45) 07/28/21 07:27 ABG pCO2 31 mmHg (34-45) L 07/28/21 07:27 ABG pO2 83 mmHg (80-100) 07/28/21 07:27 ABG HCO3 20.5 mmol/L (22.0-26.0) L 07/28/21 07:27 ABG Total CO2 21.5 MMOL/L (21.0-29.0) 07/28/21 07:27 ABG O2 Saturation 96 % (94-98) 07/28/21 07:27 ABG Base Excess -2.6 mmol/L (-2.0-3.0) L 07/28/21 07:27 Salvador Test POSITIVE 07/28/21 07:27 VBG pH 7.380 (7.31-7.41) 07/26/21 12:43 VBG pCO2 38.8 mmHg (41-51) L 07/26/21 12:43 VBG pO2 25.0 mmHg (25-47) 07/26/21 12:43 VBG HCO3 22.4 mmol/L (23-28) L 07/26/21 12:43 VBG Total CO2 23.6 mmol/L (24-29) L 07/26/21 12:43 VBG O2 Saturation 43.6 % (60-80) L 07/26/21 12:43 VBG Base Excess -2.4 mmol/L (-2 - +2) L 07/26/21 12:43 Respiration Rate 18 b/min 07/28/21 07:27 O2 Delivery Device BiPAP 07/28/21 07:27 Vent Mode SYNCHRONOUS/TIMES 07/28/21 07:27 FiO2 60.00 07/28/21 07:27 EPAP 6 cmH2O 07/28/21 07:27 IPAP 12 cmH2O 07/28/21 07:27 Sodium 135 mmol/L (135-145) 08/13/21 09:53 Potassium 5.2 mmol/L (3.5-5.0) H 08/13/21 09:53 Chloride 104 mmol/L (101-111) 08/13/21 09:53 Carbon Dioxide 22 mmol/L (21-32) 08/13/21 09:53 Anion Gap 9.0 (6-13) 08/13/21 09:53 BUN 45 mg/dL (6-20) H 08/13/21 09:53 Creatinine 2.0 mg/dL (0.6-1.2) H 08/13/21 09:53 Estimated GFR (MDRD) 32 (>89) L 08/13/21 09:53 Glucose 212 mg/dL (70-100) H 08/13/21 09:53 POC Whole Bld Glucose 238 mg/dL (70 - 100) H 08/13/21 16:40 Estimat Average Glucose 166 mg/dL (70-100) H 08/10/21 05:46 Hemoglobin A1c % 7.4 % (4.27-6.07) H 08/10/21 05:46 Lactic Acid 2.0 mmol/L (0.5-2.2) 07/26/21 12:43 Calcium 9.0 mg/dL (8.5-10.3) 08/13/21 09:53 Phosphorus 3.1 mg/dL (2.5-4.6) 07/26/21 12:43 Magnesium 2.3 mg/dL (1.7-2.8) 07/26/21 12:43 Total Bilirubin 0.6 mg/dL (0.2-1.0) 08/07/21 05:23 AST 21 IU/L (10-42) 08/07/21 05:23 ALT 32 IU/L (10-60) 08/07/21 05:23 Alkaline Phosphatase 58 IU/L (42-121) 08/07/21 05:23 C-Reactive Protein 13.3 mg/dL (0-1.0) H 08/01/21 04:15 B-Natriuretic Peptide 379 pg/mL (5-100) H 08/13/21 09:53 Total Protein 6.1 g/dL (6.7-8.2) L 08/07/21 05:23 Albumin 2.4 g/dL (3.2-5.5) L 08/07/21 05:23 Globulin 3.7 g/dL (2.1-4.2) 08/07/21 05:23 Albumin/Globulin Ratio 0.6 (1.0-2.2) L 08/07/21 05:23 Nasal Adenovirus (PCR) NOT DETECTED 07/26/21 12:26 Nasal B. parapertussis DNA (PCR) NOT DETECTED 07/26/21 12:26 Nasal Coronavir 229E PCR NOT DETECTED 07/26/21 12:26 Nasal Coronavir HKU1 PCR NOT DETECTED 07/26/21 12:26 Nasal Coronavir NL63 PCR NOT DETECTED 07/26/21 12:26 Nasal Coronavir OC43 PCR NOT DETECTED 07/26/21 12:26 Nasal Enterovir/Rhinovir PCR NOT DETECTED 07/26/21 12:26 Nasal Influenza B PCR NOT DETECTED 07/26/21 12:26 Nasal Influenza A PCR NOT DETECTED 07/26/21 12:26 Nasal Parainfluen 1 PCR NOT DETECTED 07/26/21 12:26 Nasal Parainfluen 2 PCR NOT DETECTED 07/26/21 12:26 Nasal Parainfluen 3 PCR NOT DETECTED 07/26/21 12:26 Nasal Parainfluen 4 PCR NOT DETECTED 07/26/21 12:26 Nasal RSV (PCR) NOT DETECTED 07/26/21 12:26 Nasal Screen MRSA (PCR) NEGATIVE (NEGATIVE) 07/28/21 21:39 Nasal B.pertussis DNA PCR NOT DETECTED 07/26/21 12:26 Nasal C.pneumoniae (PCR) NOT DETECTED 07/26/21 12:26 Trevor Human Metapneumo PCR NOT DETECTED 07/26/21 12:26 Nasal M.pneumoniae (PCR) NOT DETECTED 07/26/21 12:26 Nasal SARS-CoV-2 (PCR) DETECTED A 07/26/21 12:26
[2021-08-13] MEDS: oxyCODONE 5 MG TABLET PO PRN (17:54)
[2021-08-13] MEDS: ACETAMINOPHEN 325 MG TABLET PO PRN (17:55)
[2021-08-13] MEDS: QUEtiapine 25 MG TABLET PO SCH (20:46)
[2021-08-14] MEDS: polyethylene glycoL 3350 17 GM PACKET PO SCH (07:31)
--- NOTE | 2021-08-14 08:48 | PROVIDER PROGRESS NOTE ---
Assessment/Plan - Problem List (1) Acute respiratory failure with hypoxia Assessment/Plan: Patient was admitted to hospital with COVID-19 pnuemnia. He was transferred out of the ICU to the Med/Surg unit on 08/05 due to improved respiratory status and no longer requiring BiPap during sleep. He finished day 5/5 of remdesivir on 07/31 and 07/20 Decadron on 08/05. On 08/06 his WBCs increased to 15 from 11. C hest x-ray showed increased bilateral pulmonary opacities and most likely due to hospital acquired pneumonia. He was started on IV Azithromyacin x 3 doses and Cefepime daily then converted to oral Vantin which was completed yesterday. Several days ago he was on 1L O2 at rest and 3L with walking (3 steps), but since then he has become weaker, can only stand, and is needing higher amounts of supplemental oxygen. Today he is needing 1- 4 L of oxygen at rest, and up to 6-9L with standing to pivot. A CXR was obtained today and showed persistent infiltrates. He got 1 dose of iv Lasix empirically in the past and will continue this daily. Will follow BNP. We ordered OOB to chair for meals to help diaphragmatic movement and lung expansion. He may not understand IS (due to dementia), but will order IS as well. Pt not ready for DCh today. He will need a (new) oximetry walk test on the day of DCh and a (new) Home O2 order. (2) Pneumonia due to COVID-19 virus Assessment/Plan: Patient was vaccinated for COVID and unfortunately became ill with COVID pneumo carlos. He has completed 5 days of Remdesivir on 07/31 and 10 days of Decadron on 08/05. According to Dr. Hogan's note from 07/27 patient is a DNR for cardiac resuscitation but said he would do Intubation if needed. Per Irvin Vazquez (Magazine Publisher), patient was removed from COVID isolation according to hospital protocol on 08/06/21 when he transferred to the Med/Surg unit, due to 10 days since initial symptoms and improving status. He continues to need supplemental O2 to maintain sats > 90% at rest and desaturates w/ activity. He will need a (new) oximetry walk test on the day of DCh and a (new) Home O2 order. He continues to need PT, is very deconditioned after COVID and hospitalization. (3) HCAP (healthcare-associated pneumonia) Assessment/Plan: Chest x-ray from 08/06 showed "Increased bilateral pulmonary opacities. Most consistent with pneumonia". He got Azithromyacin IVPB daily x 3 doses and Cefepime IVPB then was transitioned to oral Vantin (in anticipation of DCH). He has completed all these. A CXR was obtained yesterday and showed persistent infiltrates. He does not cough, but desaturates. Will try OOB orders and IS. (4) Urinary retention Assessment/Plan: Blevins catheter was removed twice and both times he developed urinary retention. Flomax was started. A Blevins was placed again and he will now keep it chronically, go home with this, and needs Urology management. We were also concerned that his constipation was adding to urinary retention, but he has now restarted having BMs since the enema. Home Health has been ordered for helping the daughter Milagros with the new Blevins. (5) Physical deconditioning Physical therapy started working with him about a week ago. He is extremely deconditioned, has only been able to stand with moderate assist including using a gait belt, he was able to take several steps to transition to a chair but cannot walk in his room yet without being extremely fatigued and also desaturates. Continue to work with physical therapy. SNF was recommended, the patient initially said he was interested in this. His daughter Milagros later told social work that both he and she wanted him to have home PT. Home health (for PT, OT, RN and bath aide) has been ordered. The daughter visited several days ago and said she was overwhelmed with how deconditioned he was, she could not manage a Blevins catheter and new O2 for him, on her own. The granddaughter who lives with him really does no caregiving. The daughter Milagros lives next door, not with him, and therefore she was not able to take him home that day of attempted discharge. Since that day, he has declined, with worse oxygenation and more overall weakness. Will stop Seroquel, as it may be adding to his worsening weakness. Pt not ready for DCh today, trying to get him OOB more and IS He will need a (new) oximetry walk test on the day of DCh and a (new) Home O2 order. (6) Type 2 diabetes mellitus without complication, without long-term current use of insulin Assessment/Plan: Patient has history of type II DM and uses metformin 500mg PO with meals and Glimepiride 1mg po daily for control at home. Here he is on sliding scale for meal coverage and Lantus 8 units for long acting coverage. Continue to monitor bedside fingerstick glucose levels. Hope to transition back to just oral diabetic medications upon discharge, if possible without Insulin, because Insulin injections would be also be a new procedure, on the daughter to administer. We did resume the Glimiperide several days ago. (7) Dementia Qualifiers: Alzheimer's disease onset: unspecified onset Dementia behavioral disturbance: with behavioral disturbance Assessment/Plan: According to admission note by Dr. Hogan on 07/26/2021, patient has a history of Dementia. He lives with his granddaughter and is able to do basic self care tasks. His daughter also lives next door. During his hospital stay on the evening of 07/28 patient began with agitation and delirium. Seroquel was started. Will stop seroquel, as it may be adding to his worsening weakness. The daughter visited and had said she was overwhelmed with how deconditioned he was, could not manage a Blevins catheter and O2 tubing on her own, and corrected the history, that the granddaughter who lives with him, really does no caregiving, just lives there. (8) CKD Assessment/Plan: Stable. Patient presented to hospital with elevated creat 1.4 and low GFR 48. Patient improved steadily until 08/01 when creat increased to 1.8 and GFR decreased to 36. IV fluids were discontinued on 08/08 for increased rales. Las ix being given intermittently. Edema of bilateral lower extremities has resolved Creat has increased to 2.0 Monitor BMP daily (9) Hypertension Qualifiers: Hypertension type: primary hypertension Qualified Code(s): I10 - Essential (primary) hypertension Assessment/Plan: Stable. Patient takes Lisinopril 10mg daily, Metoprolol 25mg po daily, and Nifedipine 90mg PO daily for management. We started Flomax here. Current SBPs are controlled on meds. Continue these meds (10) Chronic atrial fibrillation Assessment/Plan: He has a history of a-fib and is on Pradaxa 75mg PO daily. Admission EKG on 07/26/2021 showed v-paced rhythm with underlying A-fib/ flutter. He was on Metoprolol 25mg PO daily at home. Continuing Pradaxa and Metoprolol - Current Meds Current Meds: Current Medications Generic Name Dose Route Start Last Admin Trade Name Freq PRN Reason Stop Dose Admin Acetaminophen 650 mg 07/26/21 13:34 08/13/21 17:55 Acetaminophen 325 Mg Tablet PO 650 mg Q4HR PRN Administration Pain 1 to 4 Cholecalciferol 50 mcg 07/31/21 12:00 08/13/21 09:36 Cholecalciferol 25 Mcg Tablet PO 50 mcg DAILY MARYLOU Administration Dabigatran 75 mg 07/26/21 21:00 08/13/21 20:46 Dabigatran 75 Mg Capsule PO 75 mg BID MARYLOU Administration Docusate Sodium 250 - 500 mg 08/02/21 09:00 08/13/21 09:37 Docusate Sodium 250 Mg Capsule PO 250 mg DAILY MARYLOU Administration Hydralazine HCl 10 mg 07/26/21 13:40 07/27/21 08:32 Hydralazine Inj 20 Mg/Ml Vial IVP 10 mg TID PRN Administration Hypertensive Emergency Insulin Aspart 3 - 11 unit 08/01/21 21:00 08/13/21 20:46 Insulin Aspart 300 Unit/3 Ml Pen SUBQ 5 unit 0800,1200,1700,2100 MARYLOU Administration Protocol Insulin Glargine 8 unit 08/06/21 09:00 08/13/21 09:39 Insulin Glargine 300 Unit/3 Ml Pen SUBQ 8 unit DAILY MARYLOU Administration Lisinopril 10 mg 07/27/21 09:00 08/13/21 09:36 Lisinopril 5 Mg Tablet PO 10 mg DAILY MARYLOU Administration Metoprolol Succinate 25 mg 07/27/21 09:00 08/13/21 09:36 Metoprolol Succinate 25 Mg Tablet PO 25 mg DAILY MARYLOU Administration Multi-Ingredient Ointment 1 applic 08/05/21 19:26 08/13/21 23:41 Zinc Oxide 20% Oint 30 Gm Tube TOP 1 applic PRN PRN Administration Skin Care Multivitamins/Minerals 1 tab 07/31/21 12:00 08/13/21 09:37 Multivitamin W/Minerals Tablet PO 1 tab DAILYWM MARYLOU Administration Nifedipine 90 mg 08/13/21 09:30 08/13/21 09:38 Nifedipine Er 30 Mg Tablet PO 90 mg DAILY MARYLOU Administration Oxycodone HCl 5 mg 07/26/21 13:34 08/13/21 17:54 Oxycodone 5 Mg Tablet PO 5 mg Q4HR PRN Administration Pain 5 to 7 Polyethylene Glycol 17 gm 08/02/21 09:00 08/14/21 07:31 Polyethylene Glycol 3350 17 Gm Packet PO Not Given DAILY MARYLOU Potassium Chloride 40 meq 08/11/21 20:56 08/13/21 09:39 Potassium Chloride 20 Meq/15 Ml Udc PO 40 meq DAILYWM MARYLOU Administration Quetiapine Fumarate 25 mg 07/27/21 21:00 08/13/21 20:46 Quetiapine 25 Mg Tablet PO 25 mg QPM MARYLOU Administration Senna 8.6 - 17.2 mg 08/02/21 09:00 08/13/21 09:37 Senna 8.6 Mg Tablet PO 8.6 mg DAILY MARYLOU Administration Sodium Chloride 10 ml 07/26/21 13:34 08/04/21 05:32 Sodium Chloride Flush 0.9% 10 Ml Syringe IVP 10 ml PRN PRN Administration NEEDED PER PROVIDER ORDERS Sodium Chloride 10 ml 07/26/21 17:00 08/13/21 23:22 Sodium Chloride Flush 0.9% 10 Ml Syringe IVP 10 ml 0100,0900,1700 MARYLOU Administration Tamsulosin HCl 0.4 mg 07/27/21 09:00 08/13/21 09:37 Tamsulosin 0.4 Mg Capsule PO 0.4 mg DAILY MARYLOU Administration - Lab Result Fish Bone Diagrams: 08/13/21 09:53 08/13/21 09:53 - Additional Planning My Orders: My Active Orders 08/13/21 09:30 NIFEdipine [Procardia Xl] 90 mg PO DAILY 08/13/21 Dinner Dysphagia Puree Diet [DIET] 08/13/21 18:38 Miscellaenous Nursing Order [RC] QSHIFT Subjective - Subjective Patient Reports: No Complaints Nursing Reports: Other (More sleepy and more weak, needs a Alonzo lift to be put in chair, needs to be reminded to eat, is able to feed himself however) Objective Vital Signs: Vital Signs - 24 hr 08/13/21 08/14/21 23:22 08:06 Temperature 37.3 C 36.4 C L Heart Rate [ 60 61 Brachial] Respiratory 18 20 Rate Blood Pressure 104/46 L 109/48 L [Right Brachial artery] O2 Saturation 95 95 Oxygen O2 Source Oxymizer Oxygen Flow Rate 15 I&O (Last 24 Hrs): Intake and Output Totals x24h 08/12/21 08/13/21 08/14/21 23:59 23:59 23:59 Intake Total 870 1190 100 Output Total 1075 1200 300 Balance -205 -10 -200 General: Other (Lethargic, sitting in chair) HEENT: Mucous membr. moist/pink, Other (Has on oximizer via n.c.) Neck: Supple Neuro: Disoriented, Non Focal, Other (Weak, lethargic) Cardiovascular: Regular rate Respiratory: No respiratory distress (on O2 per oximizer) Abdomen: Soft, Other (Obese) Extremities: No edema - Results Results: Laboratory Results WBC 11.6 x10^3/uL (4.8-10.8) H 08/13/21 09:53 RBC 3.13 10^6/uL (4.70-6.10) L 08/13/21 09:53 Hgb 9.5 g/dL (14.0-18.0) L 08/13/21 09:53 Hct 30.7 % (42.0-52.0) L 08/13/21 09:53 MCV 98.1 fL (80.0-94.0) H 08/13/21 09:53 MCH 30.4 pg (27.0-31.0) 08/13/21 09:53 MCHC 30.9 g/dL (32.0-36.0) L 08/13/21 09:53 RDW 15.3 % (12.0-15.0) H 08/13/21 09:53 Plt Count 279 10^3/uL (130-450) 08/13/21 09:53 MPV 10.7 fL (7.4-11.4) 08/13/21 09:53 Neut # (Auto) 9.5 10^3/uL (1.5-6.6) H 08/13/21 09:53 Lymph # (Auto) 0.8 10^3/uL (1.5-3.5) L 08/13/21 09:53 [place] # (Auto) 0.9 10^3/uL (0.0-1.0) 08/13/21 09:53 Eos # (Auto) 0.3 10^3/uL (0.0-0.7) 08/13/21 09:53 Baso # (Auto) 0.0 10^3/uL (0.0-0.1) 08/13/21 09:53 Absolute Nucleated RBC 0.00 x10^3/uL 08/13/21 09:53 Total Counted 100 07/28/21 05:11 Band Neuts % (Manual) Not Reportable 08/05/21 05:00 Abnorm Lymph % (Manual) Not Reportable 08/05/21 05:00 Myelocytes % 1 % (-0) H 07/28/21 05:11 Nucleated RBC % 0.0 /100WBC 08/13/21 09:53 Neutrophils # (Manual) Not Reportable 08/05/21 05:00 Lymphocytes # (Manual) Not Reportable 08/05/21 05:00 Monocytes # (Manual) Not Reportable 08/05/21 05:00 Eosinophils # (Manual) Not Reportable 08/05/21 05:00 Basophils # (Manual) Not Reportable 08/05/21 05:00 Differential Comment MANUAL=AUTO DIFF 08/05/21 05:00 Manual Slide Review Indicated 07/26/21 12:43 WBC Morphology NORMAL APPEARANCE (NORMAL) 07/28/21 05:11 Platelet Estimate NORMAL (130-450,000) (NORMAL) 07/28/21 05:11 Platelet Morphology NORMAL APPEARANCE (NORMAL) 07/28/21 05:11 RBC Morph Micro Appear NORMAL APPEARANCE (NORMAL) 07/28/21 05:11 D-Dimer > 1050.0 ng/mL (200.0-255.0) H 08/01/21 04:15 Bld Gas Analysis Time 0730 07/28/21 07:27 Sample Site RIGHT RADIAL 07/28/21 07:27 ABG pH 7.44 (7.35-7.45) 07/28/21 07:27 ABG pCO2 31 mmHg (34-45) L 07/28/21 07:27 ABG pO2 83 mmHg (80-100) 07/28/21 07:27 ABG HCO3 20.5 mmol/L (22.0-26.0) L 07/28/21 07:27 ABG Total CO2 21.5 MMOL/L (21.0-29.0) 07/28/21 07:27 ABG O2 Saturation 96 % (94-98) 07/28/21 07:27 ABG Base Excess -2.6 mmol/L (-2.0-3.0) L 07/28/21 07:27 Salvador Test POSITIVE 07/28/21 07:27 VBG pH 7.380 (7.31-7.41) 07/26/21 12:43 VBG pCO2 38.8 mmHg (41-51) L 07/26/21 12:43 VBG pO2 25.0 mmHg (25-47) 07/26/21 12:43 VBG HCO3 22.4 mmol/L (23-28) L 07/26/21 12:43 VBG Total CO2 23.6 mmol/L (24-29) L 07/26/21 12:43 VBG O2 Saturation 43.6 % (60-80) L 07/26/21 12:43 VBG Base Excess -2.4 mmol/L (-2 - +2) L 07/26/21 12:43 Respiration Rate 18 b/min 07/28/21 07:27 O2 Delivery Device BiPAP 07/28/21 07:27 Vent Mode SYNCHRONOUS/TIMES 07/28/21 07:27 FiO2 60.00 07/28/21 07:27 EPAP 6 cmH2O 07/28/21 07:27 IPAP 12 cmH2O 07/28/21 07:27 Sodium 135 mmol/L (135-145) 08/13/21 09:53 Potassium 5.2 mmol/L (3.5-5.0) H 08/13/21 09:53 Chloride 104 mmol/L (101-111) 08/13/21 09:53 Carbon Dioxide 22 mmol/L (21-32) 08/13/21 09:53 Anion Gap 9.0 (6-13) 08/13/21 09:53 BUN 45 mg/dL (6-20) H 08/13/21 09:53 Creatinine 2.0 mg/dL (0.6-1.2) H 08/13/21 09:53 Estimated GFR (MDRD) 32 (>89) L 08/13/21 09:53 Glucose 212 mg/dL (70-100) H 08/13/21 09:53 POC Whole Bld Glucose 134 mg/dL (70 - 100) H 08/14/21 08:00 Estimat Average Glucose 166 mg/dL (70-100) H 08/10/21 05:46 Hemoglobin A1c % 7.4 % (4.27-6.07) H 08/10/21 05:46 Lactic Acid 2.0 mmol/L (0.5-2.2) 07/26/21 12:43 Calcium 9.0 mg/dL (8.5-10.3) 08/13/21 09:53 Phosphorus 3.1 mg/dL (2.5-4.6) 07/26/21 12:43 Magnesium 2.3 mg/dL (1.7-2.8) 07/26/21 12:43 Total Bilirubin 0.6 mg/dL (0.2-1.0) 08/07/21 05:23 AST 21 IU/L (10-42) 08/07/21 05:23 ALT 32 IU/L (10-60) 08/07/21 05:23 Alkaline Phosphatase 58 IU/L (42-121) 08/07/21 05:23 C-Reactive Protein 13.3 mg/dL (0-1.0) H 08/01/21 04:15 B-Natriuretic Peptide 379 pg/mL (5-100) H 08/13/21 09:53 Total Protein 6.1 g/dL (6.7-8.2) L 08/07/21 05:23 Albumin 2.4 g/dL (3.2-5.5) L 08/07/21 05:23 Globulin 3.7 g/dL (2.1-4.2) 08/07/21 05:23 Albumin/Globulin Ratio 0.6 (1.0-2.2) L 08/07/21 05:23 Nasal Adenovirus (PCR) NOT DETECTED 07/26/21 12:26 Nasal B. parapertussis DNA (PCR) NOT DETECTED 07/26/21 12:26 Nasal Coronavir 229E PCR NOT DETECTED 07/26/21 12:26 Nasal Coronavir HKU1 PCR NOT DETECTED 07/26/21 12:26 Nasal Coronavir NL63 PCR NOT DETECTED 07/26/21 12:26 Nasal Coronavir OC43 PCR NOT DETECTED 07/26/21 12:26 Nasal Enterovir/Rhinovir PCR NOT DETECTED 07/26/21 12:26 Nasal Influenza B PCR NOT DETECTED 07/26/21 12:26 Nasal Influenza A PCR NOT DETECTED 07/26/21 12:26 Nasal Parainfluen 1 PCR NOT DETECTED 07/26/21 12:26 Nasal Parainfluen 2 PCR NOT DETECTED 07/26/21 12:26 Nasal Parainfluen 3 PCR NOT DETECTED 07/26/21 12:26 Nasal Parainfluen 4 PCR NOT DETECTED 07/26/21 12:26 Nasal RSV (PCR) NOT DETECTED 07/26/21 12:26 Nasal Screen MRSA (PCR) NEGATIVE (NEGATIVE) 07/28/21 21:39 Nasal B.pertussis DNA PCR NOT DETECTED 07/26/21 12:26 Nasal C.pneumoniae (PCR) NOT DETECTED 07/26/21 12:26 Trevor Human Metapneumo PCR NOT DETECTED 07/26/21 12:26 Nasal M.pneumoniae (PCR) NOT DETECTED 07/26/21 12:26 Nasal SARS-CoV-2 (PCR) DETECTED A 07/26/21 12:26
[2021-08-14] MEDS: INSULIN ASPART 300 UNIT/3 ML PEN SUBQ SCH ×4 (08:59→21:25)
[2021-08-14] MEDS: POTASSIUM CHLORIDE 20 MEQ/15 ML UDC PO SCH (09:00)
[2021-08-14] MEDS: DABIGATRAN 75 MG CAPSULE PO SCH ×2 (09:00→21:24)
[2021-08-14] MEDS: METOPROLOL SUCCINATE 25 MG TABLET PO SCH (09:00)
[2021-08-14] MEDS: SENNA 8.6 MG TABLET PO SCH (09:00)
[2021-08-14] MEDS: CHOLECALCIFEROL 25 MCG TABLET PO SCH (09:00)
[2021-08-14] MEDS: MULTIVITAMIN W/MINERALS TABLET PO SCH (09:01)
[2021-08-14] MEDS: DOCUSATE SODIUM 250 MG CAPSULE PO SCH (09:01)
[2021-08-14] MEDS: lisinopriL 5 MG TABLET PO SCH (09:01)
[2021-08-14] MEDS: TAMSULOSIN 0.4 MG CAPSULE PO SCH (09:01)
[2021-08-14] MEDS: INSULIN GLARGINE 300 UNIT/3 ML PEN SUBQ SCH (09:03)
[2021-08-14] MEDS: SODIUM CHLORIDE FLUSH 0.9% 10 ML SYRINGE IVP SCH ×3 (09:04→21:26)
[2021-08-14] MEDS: NIFEdipine ER 30 MG TABLET PO SCH (09:12)
[2021-08-14] MEDS: ACETAMINOPHEN 325 MG TABLET PO PRN (12:26)
[2021-08-14] MEDS: oxyCODONE 5 MG TABLET PO PRN (21:25)
[2021-08-15] MEDS: oxyCODONE 5 MG TABLET PO PRN (02:07)
[2021-08-15 07:42] LABS: BASOPHILS % (AUTO) 0.3 %; EOSINOPHILS # (AUTO) 0.5 10^3/uL (0.0-0.7); EOSINOPHILS % (AUTO) 5.1 %; HCT - HEMATOCRIT 29.2 % (42.0-52.0); LYMPHOCYTES # (AUTO) 0.9 10^3/uL (1.5-3.5); LYMPHOCYTES % (AUTO) 8.6 %; MEAN CORPUSCULAR HEMOGLOBIN 29.9 pg (27.0-31.0); MEAN CORPUSCULAR HGB CONC 30.8 g/dL (32.0-36.0); MEAN PLATELET VOLUME 10.3 fL (7.4-11.4); MONOCYTES # (AUTO) 0.8 10^3/uL (0.0-1.0); MONOCYTES % (AUTO) 7.6 %; NEUTROPHILS # (AUTO) 8.2 10^3/uL (1.5-6.6); NEUTROPHILS % (AUTO) 77.6 %; PLT - PLATELET COUNT 329 10^3/uL (130-450); RED BLOOD COUNT 3.01 10^6/uL (4.70-6.10); RED CELL DISTRIBUTION WIDTH 14.9 % (12.0-15.0); WHITE BLOOD COUNT 10.5 x10^3/uL (4.8-10.8)
[2021-08-15 07:55] LABS: CALCIUM 9.4 mg/dL (8.5-10.3); CREATININE 1.8 mg/dL (0.6-1.2); MAGNESIUM 2.4 mg/dL (1.7-2.8); PHOSPHORUS 3.5 mg/dL (2.5-4.6); POTASSIUM 5.8 mmol/L (3.5-5.0)
[2021-08-15] MEDS: polyethylene glycoL 3350 17 GM PACKET PO SCH (07:58)
[2021-08-15] MEDS ORDERED: INSULIN REGULAR HUMAN 300 UNIT/3 ML VIAL IVP ONE (08:00)
[2021-08-15] MEDS ORDERED: DEXTROSE 50% ABBOJECT 25 GM/50 ML SYRINGE IVP ONE (08:00)
--- NOTE | 2021-08-15 08:00 | PROVIDER PROGRESS NOTE ---
Subjective - Prog Note Date Prog Note Date: 08/15/21 - Subjective Subjective: He feels pretty good today. Feels less short of breath. Still has an occasional cough. He looking forward to going home as soon as he can. Current Medications - Current Medications Current Medications: Active Medications Acetaminophen (Acetaminophen 325 Mg Tablet) 650 mg PO Q4HR PRN PRN Reason: Pain 1 to 4 Last Admin: 08/15/21 08:42 Dose: 650 mg Documented by: Cholecalciferol (Cholecalciferol 25 Mcg Tablet) 50 mcg PO DAILY [facility] Last Admin: 08/15/21 08:29 Dose: 50 mcg Documented by: Dabigatran (Dabigatran 75 Mg Capsule) 75 mg PO BID [facility] Last Admin: 08/15/21 08:30 Dose: 75 mg Documented by: Docusate Sodium (Docusate Sodium 250 Mg Capsule) 250 - 500 mg PO DAILY [facility] Last Admin: 08/15/21 08:27 Dose: 250 mg Documented by: Hydralazine HCl (Hydralazine Inj 20 Mg/Ml Vial) 10 mg IVP TID PRN PRN Reason: Hypertensive Emergency Last Admin: 07/27/21 08:32 Dose: 10 mg Documented by: Insulin Aspart (Insulin Aspart 300 Unit/3 Ml Pen) 3 - 11 unit SUBQ 0800,1200,1700,2100 [facility]; Protocol Last Admin: 08/15/21 17:43 Dose: Not Given Documented by: Insulin Glargine (Insulin Glargine 300 Unit/3 Ml Pen) 8 unit SUBQ DAILY [facility] Last Admin: 08/15/21 08:32 Dose: 8 unit Documented by: Lisinopril (Lisinopril 5 Mg Tablet) 10 mg PO DAILY [facility] Last Admin: 08/15/21 08:27 Dose: 10 mg Documented by: Metoprolol Succinate (Metoprolol Succinate 25 Mg Tablet) 25 mg PO DAILY [facility] Last Admin: 08/15/21 08:28 Dose: 25 mg Documented by: Multi-Ingredient Ointment (Zinc Oxide 20% Oint 30 Gm Tube) 1 applic TOP PRN PRN PRN Reason: Skin Care Last Admin: 08/13/21 23:41 Dose: 1 applic Documented by: Multivitamins/Minerals (Multivitamin W/Minerals Tablet) 1 tab PO DAILYWM [facility] Last Admin: 08/15/21 08:27 Dose: 1 tab Documented by: Nifedipine (Nifedipine Er 30 Mg Tablet) 90 mg PO DAILY [facility] Last Admin: 08/15/21 08:42 Dose: 90 mg Documented by: Ondansetron HCl (Ondansetron Odt 4 Mg Tablet) 4 mg TL Q6HR PRN PRN Reason: Nausea / Vomiting Ondansetron HCl (Ondansetron 4 Mg/2 Ml Vial) 4 mg IVP Q6HR PRN PRN Reason: Nausea / Vomiting Oxycodone HCl (Oxycodone 5 Mg Tablet) 5 mg PO Q4HR PRN PRN Reason: Pain 5 to 7 Last Admin: 08/15/21 02:07 Dose: 5 mg Documented by: Polyethylene Glycol (Polyethylene Glycol 3350 17 Gm Packet) 17 gm PO DAILY [facility] Last Admin: 08/15/21 07:58 Dose: Not Given Documented by: Senna (Senna 8.6 Mg Tablet) 8.6 - 17.2 mg PO DAILY [facility] Last Admin: 08/15/21 08:28 Dose: 8.6 mg Documented by: Sodium Chloride (Sodium Chloride Flush 0.9% 10 Ml Syringe) 10 ml IVP PRN PRN PRN Reason: NEEDED PER PROVIDER ORDERS Last Admin: 08/04/21 05:32 Dose: 10 ml Documented by: Sodium Chloride (Sodium Chloride Flush 0.9% 10 Ml Syringe) 10 ml IVP 0100,0900,1700 [facility] Last Admin: 08/15/21 17:49 Dose: 10 ml Documented by: Tamsulosin HCl (Tamsulosin 0.4 Mg Capsule) 0.4 mg PO DAILY [facility] Last Admin: 08/15/21 08:31 Dose: 0.4 mg Documented by: Dabigatran [Pradaxa] 75 mg PO BID 07/06/13 Atorvastatin Calcium 40 mg PO QPM 07/26/21 Glimepiride 1 mg PO DAILY 07/26/21 Lisinopril [Zestril] 20 mg PO BID 07/26/21 Metoprolol Succinate [Toprol Xl] 25 mg PO DAILY 07/26/21 NIFEdipine [Procardia Xl] 90 mg PO DAILY 07/26/21 metFORMIN [Glucophage] 500 mg PO BIDWM 07/26/21 sulfaSALAzine [Azulfidine] 500 mg PO TID 07/27/21 Objective - Vital Signs/Intake & Output Reviewed Vital Signs: Yes Vital Signs: Vital Signs x48h Temp Pulse Resp BP Pulse Ox 08/15/21 00:57 36.7 C 60 20 123/56 L 94 Intake & Output: Intake & Output 08/12/21 08/13/21 08/14/21 08/15/21 23:59 23:59 23:59 23:59 Intake Total 870 1190 2120 200 Output Total 1075 1200 1050 425 Balance -205 10 1070 -225 - Objective General Appearance: positive: No acute distress, Alert Eyes Bilateral: positive: Normal inspection, Conjunctivae nml ENT: positive: ENT inspection nml, Other (Oxymizer in place.) Neck: positive: Nml inspection Respiratory: positive: No respiratory distress, Rhonchi. negative: Wheezes, Rales Cardiovascular: positive: Regular rate & rhythm. negative: Tachycardia Abdomen: positive: Non-tender, No distention. negative: Tenderness Skin: positive: Warm, Dry Extremities: positive: No pedal edema Neurologic/Psychiatric: negative: Disoriented to person, Disoriented to place - Lab Results Fish Bones: 08/15/21 07:37 08/15/21 12:54 Other Labs: Lab Results x24hrs 08/15/21 08/15/21 08/15/21 Range/Units 07:37 07:37 07:37 WBC 10.5 (4.8-10.8) x10^3/uL RBC 3.01 L (4.70-6.10) 10^6/uL Hgb 9.0 L (14.0-18.0) g/dL Hct 29.2 L (42.0-52.0) % MCV 97.0 H (80.0-94.0) fL MCH 29.9 (27.0-31.0) pg MCHC 30.8 L (32.0-36.0) g/dL RDW 14.9 (12.0-15.0) % Plt Count 329 (130-450) 10^3/uL MPV 10.3 (7.4-11.4) fL Neut # (Auto) 8.2 H (1.5-6.6) 10^3/uL Lymph # (Auto) 0.9 L (1.5-3.5) 10^3/uL [place] # (Auto) 0.8 (0.0-1.0) 10^3/uL Eos # (Auto) 0.5 (0.0-0.7) 10^3/uL Baso # (Auto) 0.0 (0.0-0.1) 10^3/uL Absolute Nucleated RBC 0.00 x10^3/uL Nucleated RBC % 0.0 /100WBC Sodium 138 (135-145) mmol/L Potassium 5.8 H (3.5-5.0) mmol/L Chloride 105 (101-111) mmol/L Carbon Dioxide 25 (21-32) mmol/L Anion Gap 8.0 (6-13) BUN 52 H (6-20) mg/dL Creatinine 1.8 H (0.6-1.2) mg/dL Estimated GFR (MDRD) 36 L (>89) Glucose 139 H (70-100) mg/dL POC Whole Bld Glucose 134 H (70 - 100) mg/dL Calcium 9.4 (8.5-10.3) mg/dL Phosphorus 3.5 (2.5-4.6) mg/dL Magnesium 2.4 (1.7-2.8) mg/dL 08/14/21 08/14/21 08/14/21 Range/Units 21:22 16:47 11:24 WBC (4.8-10.8) x10^3/uL RBC (4.70-6.10) 10^6/uL Hgb (14.0-18.0) g/dL Hct (42.0-52.0) % MCV (80.0-94.0) fL MCH (27.0-31.0) pg MCHC (32.0-36.0) g/dL RDW (12.0-15.0) % Plt Count (130-450) 10^3/uL MPV (7.4-11.4) fL Neut # (Auto) (1.5-6.6) 10^3/uL Lymph # (Auto) (1.5-3.5) 10^3/uL [place] # (Auto) (0.0-1.0) 10^3/uL Eos # (Auto) (0.0-0.7) 10^3/uL Baso # (Auto) (0.0-0.1) 10^3/uL Absolute Nucleated RBC x10^3/uL Nucleated RBC % /100WBC Sodium (135-145) mmol/L Potassium (3.5-5.0) mmol/L Chloride (101-111) mmol/L Carbon Dioxide (21-32) mmol/L Anion Gap (6-13) BUN (6-20) mg/dL Creatinine (0.6-1.2) mg/dL Estimated GFR (MDRD) (>89) Glucose (70-100) mg/dL POC Whole Bld Glucose 190 H 161 H 208 H (70 - 100) mg/dL Calcium (8.5-10.3) mg/dL Phosphorus (2.5-4.6) mg/dL Magnesium (1.7-2.8) mg/dL 08/14/21 Range/Units 08:00 WBC (4.8-10.8) x10^3/uL RBC (4.70-6.10) 10^6/uL Hgb (14.0-18.0) g/dL Hct (42.0-52.0) % MCV (80.0-94.0) fL MCH (27.0-31.0) pg MCHC (32.0-36.0) g/dL RDW (12.0-15.0) % Plt Count (130-450) 10^3/uL MPV (7.4-11.4) fL Neut # (Auto) (1.5-6.6) 10^3/uL Lymph # (Auto) (1.5-3.5) 10^3/uL [place] # (Auto) (0.0-1.0) 10^3/uL Eos # (Auto) (0.0-0.7) 10^3/uL Baso # (Auto) (0.0-0.1) 10^3/uL Absolute Nucleated RBC x10^3/uL Nucleated RBC % /100WBC Sodium (135-145) mmol/L Potassium (3.5-5.0) mmol/L Chloride (101-111) mmol/L Carbon Dioxide (21-32) mmol/L Anion Gap (6-13) BUN (6-20) mg/dL Creatinine (0.6-1.2) mg/dL Estimated GFR (MDRD) (>89) Glucose (70-100) mg/dL POC Whole Bld Glucose 134 H (70 - 100) mg/dL Calcium (8.5-10.3) mg/dL Phosphorus (2.5-4.6) mg/dL Magnesium (1.7-2.8) mg/dL Assessment/Plan - Problem List (1) Acute respiratory failure with hypoxia Impression: He remains hypoxic but this is improving. He is down to 4 L of oxygen via nasal cannula now. Chest x-ray from 2 days ago showed persistent bilateral infiltrates. It is not clear if this is from Covid pneumonia or potentially HCAP. His white count has normalized and he is afebrile. Imaging can be abnormal for quite a few weeks after pneumonia. Given he does show improvement, we will continue to monitor for the time being. We will check a CRP and BNP. If his white count increases or becomes more hypoxic then we will treat him for suspected HCAP and will add vancomycin and cefepime. We will also consider adding Decadron if his CRP is significantly elevated. (2) HCAP (healthcare-associated pneumonia) Impression: He was previously treated with HCAP with cefepime and azithromycin. Antibiotics have since been discontinued. Given he is improving, we will hold off on antibiotics as mentioned above. We will restart vancomycin and cefepime if he were to become febrile or have an increase in white count or worsening hypoxia. (3) Pneumonia due to COVID-19 virus Impression: He completed 5 days remdesivir and 10 days of Decadron. X-ray still shows persistent infiltrates and he remains hypoxic although this is improving today. We will check a CRP and if he does not improve over next 5 hours we will consider restarting Decadron if CRP is elevated. (4) Chronic atrial fibrillation Impression: He remains rate controled. Continue Toprol and Pradaxa. (5) CKD (chronic kidney disease) stage 3, GFR 30-59 ml/min Impression: He has CKD stage III and his renal function is at baseline. We are continuing lisinopril. (6) Controlled type 2 diabetes mellitus without complication, without long-term current use of insulin Impression: His blood glucose is well controlled on the current insulin regimen. (7) Dementia Impression: He has a history of dementia per the admission note. He currently appears at his baseline cardiac status. He did have delirium and agitation during his hospitalization but this has since resolved and Seroquel was discontinued. Qualifiers: Alzheimer's disease onset: unspecified onset Dementia behavioral dis turbance: with behavioral disturbance
[2021-08-15] MEDS: INSULIN ASPART 300 UNIT/3 ML PEN SUBQ SCH ×4 (08:23→21:11)
[2021-08-15] MEDS: DOCUSATE SODIUM 250 MG CAPSULE PO SCH (08:27)
[2021-08-15] MEDS: POTASSIUM CHLORIDE 20 MEQ/15 ML UDC PO SCH (08:27)
[2021-08-15] MEDS: lisinopriL 5 MG TABLET PO SCH (08:27)
[2021-08-15] MEDS: MULTIVITAMIN W/MINERALS TABLET PO SCH (08:27)
[2021-08-15] MEDS: SENNA 8.6 MG TABLET PO SCH (08:28)
[2021-08-15] MEDS: METOPROLOL SUCCINATE 25 MG TABLET PO SCH (08:28)
[2021-08-15] MEDS: CHOLECALCIFEROL 25 MCG TABLET PO SCH (08:29)
[2021-08-15] MEDS: DABIGATRAN 75 MG CAPSULE PO SCH ×2 (08:30→21:10)
[2021-08-15] MEDS: TAMSULOSIN 0.4 MG CAPSULE PO SCH (08:31)
[2021-08-15] MEDS: SODIUM CHLORIDE FLUSH 0.9% 10 ML SYRINGE IVP SCH ×2 (08:31→17:49)
[2021-08-15] MEDS: INSULIN GLARGINE 300 UNIT/3 ML PEN SUBQ SCH (08:32)
[2021-08-15] MEDS: ACETAMINOPHEN 325 MG TABLET PO PRN (08:42)
[2021-08-15] MEDS: NIFEdipine ER 30 MG TABLET PO SCH (08:42)
[2021-08-15 13:11] LABS: CALCIUM 9.5 mg/dL (8.5-10.3); CREATININE 1.7 mg/dL (0.6-1.2); POTASSIUM 5.4 mmol/L (3.5-5.0)
[2021-08-16] MEDS: SODIUM CHLORIDE FLUSH 0.9% 10 ML SYRINGE IVP SCH ×3 (04:18→16:44)
[2021-08-16 06:29] LABS: BASOPHILS # (AUTO) 0.1 10^3/uL (0.0-0.1); BASOPHILS % (AUTO) 0.5 %; EOSINOPHILS # (AUTO) 0.7 10^3/uL (0.0-0.7); EOSINOPHILS % (AUTO) 7.6 %; HGB - HEMOGLOBIN 8.9 g/dL (14.0-18.0); LYMPHOCYTES % (AUTO) 10.3 %; MEAN CORPUSCULAR HEMOGLOBIN 29.5 pg (27.0-31.0); MEAN CORPUSCULAR HGB CONC 29.7 g/dL (32.0-36.0); MEAN CORPUSCULAR VOLUME 99.3 fL (80.0-94.0); MONOCYTES # (AUTO) 0.7 10^3/uL (0.0-1.0); MONOCYTES % (AUTO) 7.6 %; NEUTROPHILS % (AUTO) 73.1 %; PLT - PLATELET COUNT 326 10^3/uL (130-450); RED BLOOD COUNT 3.02 10^6/uL (4.70-6.10); RED CELL DISTRIBUTION WIDTH 14.8 % (12.0-15.0); WHITE BLOOD COUNT 9.6 x10^3/uL (4.8-10.8)
[2021-08-16 06:38] LABS: CALCIUM 9.4 mg/dL (8.5-10.3); CREATININE 1.5 mg/dL (0.6-1.2); MAGNESIUM 2.3 mg/dL (1.7-2.8); POTASSIUM 5.3 mmol/L (3.5-5.0)
[2021-08-16] MEDS ORDERED: INSULIN REGULAR HUMAN 300 UNIT/3 ML VIAL IVP ONE (06:52)
[2021-08-16] MEDS ORDERED: DEXTROSE 50% ABBOJECT 25 GM/50 ML SYRINGE IVP ONE (06:53)
--- NOTE | 2021-08-16 07:41 | PROVIDER PROGRESS NOTE ---
Subjective - Prog Note Date Prog Note Date: 08/16/21 - Subjective Subjective: He continues to feel less short of breath. Feels his energy is improved. Current Medications - Current Medications Current Medications: Active Medications Acetaminophen (Acetaminophen 325 Mg Tablet) 650 mg PO Q4HR PRN PRN Reason: Pain 1 to 4 Last Admin: 08/16/21 16:46 Dose: 650 mg Documented by: Cholecalciferol (Cholecalciferol 25 Mcg Tablet) 50 mcg PO DAILY [facility] Last Admin: 08/16/21 09:04 Dose: 50 mcg Documented by: Dabigatran (Dabigatran 75 Mg Capsule) 75 mg PO BID [facility] Last Admin: 08/16/21 09:07 Dose: 75 mg Documented by: Docusate Sodium (Docusate Sodium 250 Mg Capsule) 250 - 500 mg PO DAILY [facility] Last Admin: 08/16/21 09:06 Dose: 250 mg Documented by: Hydralazine HCl (Hydralazine Inj 20 Mg/Ml Vial) 10 mg IVP TID PRN PRN Reason: Hypertensive Emergency Last Admin: 07/27/21 08:32 Dose: 10 mg Documented by: Insulin Aspart (Insulin Aspart 300 Unit/3 Ml Pen) 3 - 11 unit SUBQ 0800,1200,1700,2100 [facility]; Protocol Last Admin: 08/16/21 16:43 Dose: 3 unit Documented by: Insulin Glargine (Insulin Glargine 300 Unit/3 Ml Pen) 8 unit SUBQ DAILY [facility] Last Admin: 08/16/21 09:07 Dose: 8 unit Documented by: Lisinopril (Lisinopril 5 Mg Tablet) 10 mg PO DAILY [facility] Last Admin: 08/16/21 09:06 Dose: 10 mg Documented by: Metoprolol Succinate (Metoprolol Succinate 25 Mg Tablet) 25 mg PO DAILY [facility] Last Admin: 08/16/21 09:06 Dose: 25 mg Documented by: Multi-Ingredient Ointment (Zinc Oxide 20% Oint 30 Gm Tube) 1 applic TOP PRN PRN PRN Reason: Skin Care Last Admin: 08/13/21 23:41 Dose: 1 applic Documented by: Multivitamins/Minerals (Multivitamin W/Minerals Tablet) 1 tab PO DAILYWM [facility] Last Admin: 08/16/21 09:07 Dose: 1 tab Documented by: Nifedipine (Nifedipine Er 30 Mg Tablet) 90 mg PO DAILY [facility] Last Admin: 08/16/21 09:17 Dose: 90 mg Documented by: Ondansetron HCl (Ondansetron Odt 4 Mg Tablet) 4 mg TL Q6HR PRN PRN Reason: Nausea / Vomiting Ondansetron HCl (Ondansetron 4 Mg/2 Ml Vial) 4 mg IVP Q6HR PRN PRN Reason: Nausea / Vomiting Oxycodone HCl (Oxycodone 5 Mg Tablet) 5 mg PO Q4HR PRN PRN Reason: Pain 5 to 7 Last Admin: 08/15/21 02:07 Dose: 5 mg Documented by: Polyethylene Glycol (Polyethylene Glycol 3350 17 Gm Packet) 17 gm PO DAILY [facility] Last Admin: 08/16/21 07:45 Dose: Not Given Documented by: Senna (Senna 8.6 Mg Tablet) 8.6 - 17.2 mg PO DAILY [facility] Last Admin: 08/16/21 09:04 Dose: 8.6 mg Documented by: Sodium Chloride (Sodium Chloride Flush 0.9% 10 Ml Syringe) 10 ml IVP PRN PRN PRN Reason: NEEDED PER PROVIDER ORDERS Last Admin: 08/04/21 05:32 Dose: 10 ml Documented by: Sodium Chloride (Sodium Chloride Flush 0.9% 10 Ml Syringe) 10 ml IVP 0100,0900,1700 [facility] Last Admin: 08/16/21 16:44 Dose: 10 ml Documented by: Tamsulosin HCl (Tamsulosin 0.4 Mg Capsule) 0.4 mg PO DAILY [facility] Last Admin: 08/16/21 09:06 Dose: 0.4 mg Documented by: Dabigatran [Pradaxa] 75 mg PO BID 07/06/13 Atorvastatin Calcium 40 mg PO QPM 07/26/21 Glimepiride 1 mg PO DAILY 07/26/21 Lisinopril [Zestril] 20 mg PO BID 07/26/21 Metoprolol Succinate [Toprol Xl] 25 mg PO DAILY 07/26/21 NIFEdipine [Procardia Xl] 90 mg PO DAILY 07/26/21 metFORMIN [Glucophage] 500 mg PO BIDWM 07/26/21 sulfaSALAzine [Azulfidine] 500 mg PO TID 07/27/21 Objective - Vital Signs/Intake & Output Reviewed Vital Signs: Yes Vital Signs: Vital Signs x48h Temp Pulse Resp BP Pulse Ox 08/16/21 07:25 36.8 C 60 16 124/55 L 92 08/16/21 04:14 36.9 C 59 L 21 126/57 L 90 L Intake & Output: Intake & Output 08/13/21 08/14/21 08/15/21 08/16/21 23:59 23:59 23:59 23:59 Intake Total 1190 2120 1250 250 Output Total 1200 1050 1700 250 Balance -10 1070 -450 0 - Objective General Appearance: positive: No acute distress, Alert Eyes Bilateral: positive: Normal inspection ENT: positive: ENT inspection nml, Other (Nasal cannula in place.) Respiratory: positive: No respiratory distress. negative: Wheezes, Rales, Rhonchi Cardiovascular: positive: Regular rate & rhythm. negative: Tachycardia Abdomen: positive: Non-tender, No distention. negative: Tenderness Skin: positive: Warm, Dry Extremities: positive: No pedal edema Neurologic/Psychiatric: negative: Disoriented to person, Disoriented to place - Lab Results Fish Bones: 08/16/21 06:20 08/16/21 06:20 Other Labs: Lab Results x24hrs 08/16/21 08/16/21 08/16/21 Range/Units 07:19 06:20 06:20 WBC 9.6 (4.8-10.8) x10^3/uL RBC 3.02 L (4.70-6.10) 10^6/uL Hgb 8.9 L (14.0-18.0) g/dL Hct 30.0 L (42.0-52.0) % MCV 99.3 H (80.0-94.0) fL MCH 29.5 (27.0-31.0) pg MCHC 29.7 L (32.0-36.0) g/dL RDW 14.8 (12.0-15.0) % Plt Count 326 (130-450) 10^3/uL MPV 11.0 (7.4-11.4) fL Neut # (Auto) 7.0 H (1.5-6.6) 10^3/uL Lymph # (Auto) 1.0 L (1.5-3.5) 10^3/uL [place] # (Auto) 0.7 (0.0-1.0) 10^3/uL Eos # (Auto) 0.7 (0.0-0.7) 10^3/uL Baso # (Auto) 0.1 (0.0-0.1) 10^3/uL Absolute Nucleated RBC 0.00 x10^3/uL Nucleated RBC % 0.0 /100WBC Sodium 137 (135-145) mmol/L Potassium 5.3 H (3.5-5.0) mmol/L Chloride 104 (101-111) mmol/L Carbon Dioxide 23 (21-32) mmol/L Anion Gap 10.0 (6-13) BUN 47 H (6-20) mg/dL Creatinine 1.5 H (0.6-1.2) mg/dL Estimated GFR (MDRD) 44 L (>89) Glucose 138 H (70-100) mg/dL POC Whole Bld Glucose 124 H (70 - 100) mg/dL Calcium 9.4 (8.5-10.3) mg/dL Phosphorus (2.5-4.6) mg/dL Magnesium 2.3 (1.7-2.8) mg/dL C-Reactive Protein (0-1.0) mg/dL B-Natriuretic Peptide (5-100) pg/mL 08/15/21 08/15/21 08/15/21 Range/Units 20:26 16:17 12:54 WBC (4.8-10.8) x10^3/uL RBC (4.70-6.10) 10^6/uL Hgb (14.0-18.0) g/dL Hct (42.0-52.0) % MCV (80.0-94.0) fL MCH (27.0-31.0) pg MCHC (32.0-36.0) g/dL RDW (12.0-15.0) % Plt Count (130-450) 10^3/uL MPV (7.4-11.4) fL Neut # (Auto) (1.5-6.6) 10^3/uL Lymph # (Auto) (1.5-3.5) 10^3/uL [place] # (Auto) (0.0-1.0) 10^3/uL Eos # (Auto) (0.0-0.7) 10^3/uL Baso # (Auto) (0.0-0.1) 10^3/uL Absolute Nucleated RBC x10^3/uL Nucleated RBC % /100WBC Sodium 142 (135-145) mmol/L Potassium 5.4 H (3.5-5.0) mmol/L Chloride 104 (101-111) mmol/L Carbon Dioxide 27 (21-32) mmol/L Anion Gap 11.0 (6-13) BUN 51 H (6-20) mg/dL Creatinine 1.7 H (0.6-1.2) mg/dL Estimated GFR (MDRD) 38 L (>89) Glucose 130 H (70-100) mg/dL POC Whole Bld Glucose 218 H 126 H (70 - 100) mg/dL Calcium 9.5 (8.5-10.3) mg/dL Phosphorus (2.5-4.6) mg/dL Magnesium (1.7-2.8) mg/dL C-Reactive Protein (0-1.0) mg/dL B-Natriuretic Peptide (5-100) pg/mL 08/15/21 08/15/21 08/15/21 Range/Units 11:05 07:37 07:37 WBC (4.8-10.8) x10^3/uL RBC (4.70-6.10) 10^6/uL Hgb (14.0-18.0) g/dL Hct (42.0-52.0) % MCV (80.0-94.0) fL MCH (27.0-31.0) pg MCHC (32.0-36.0) g/dL RDW (12.0-15.0) % Plt Count (130-450) 10^3/uL MPV (7.4-11.4) fL Neut # (Auto) (1.5-6.6) 10^3/uL Lymph # (Auto) (1.5-3.5) 10^3/uL [place] # (Auto) (0.0-1.0) 10^3/uL Eos # (Auto) (0.0-0.7) 10^3/uL Baso # (Auto) (0.0-0.1) 10^3/uL Absolute Nucleated RBC x10^3/uL Nucleated RBC % /100WBC Sodium (135-145) mmol/L Potassium (3.5-5.0) mmol/L Chloride (101-111) mmol/L Carbon Dioxide (21-32) mmol/L Anion Gap (6-13) BUN (6-20) mg/dL Creatinine (0.6-1.2) mg/dL Estimated GFR (MDRD) (>89) Glucose (70-100) mg/dL POC Whole Bld Glucose 161 H (70 - 100) mg/dL Calcium (8.5-10.3) mg/dL Phosphorus (2.5-4.6) mg/dL Magnesium (1.7-2.8) mg/dL C-Reactive Protein 16.7 H (0-1.0) mg/dL B-Natriuretic Peptide 320 H (5-100) pg/mL 08/15/21 08/15/21 Range/Units 07:37 07:37 WBC 10.5 (4.8-10.8) x10^3/uL RBC 3.01 L (4.70-6.10) 10^6/uL Hgb 9.0 L (14.0-18.0) g/dL Hct 29.2 L (42.0-52.0) % MCV 97.0 H (80.0-94.0) fL MCH 29.9 (27.0-31.0) pg MCHC 30.8 L (32.0-36.0) g/dL RDW 14.9 (12.0-15.0) % Plt Count 329 (130-450) 10^3/uL MPV 10.3 (7.4-11.4) fL Neut # (Auto) 8.2 H (1.5-6.6) 10^3/uL Lymph # (Auto) 0.9 L (1.5-3.5) 10^3/uL [place] # (Auto) 0.8 (0.0-1.0) 10^3/uL Eos # (Auto) 0.5 (0.0-0.7) 10^3/uL Baso # (Auto) 0.0 (0.0-0.1) 10^3/uL Absolute Nucleated RBC 0.00 x10^3/uL Nucleated RBC % 0.0 /100WBC Sodium 138 (135-145) mmol/L Potassium 5.8 H (3.5-5.0) mmol/L Chloride 105 (101-111) mmol/L Carbon Dioxide 25 (21-32) mmol/L Anion Gap 8.0 (6-13) BUN 52 H (6-20) mg/dL Creatinine 1.8 H (0.6-1.2) mg/dL Estimated GFR (MDRD) 36 L (>89) Glucose 139 H (70-100) mg/dL POC Whole Bld Glucose (70 - 100) mg/dL Calcium 9.4 (8.5-10.3) mg/dL Phosphorus 3.5 (2.5-4.6) mg/dL Magnesium 2.4 (1.7-2.8) mg/dL C-Reactive Protein (0-1.0) mg/dL B-Natriuretic Peptide (5-100) pg/mL Assessment/Plan - Problem List (1) Acute respiratory failure with hypoxia Impression: He remains hypoxic but this continues to improve. He is now down to 2 L of oxygen via nasal cannula. Most recent x-ray showed persistent bilateral infiltrates. Suspect this is likely related to the Covid pneumonia. His white count remains normal and he is afebrile. We'll continue supportive measures as he is ready completed 5 days remdesivir and 10 days of Decadron. We'll hold off antibiotics and further steroids given his improvement. I am hopeful we can wean him off of oxygen over the next 1 to 2 days or at least get him on a low enough oxygen requirement where he may be discharged on home O2. (2) HCAP (healthcare-associated pneumonia) Impression: He was previously treated with HCAP with cefepime and azithromycin. Antibiotics have since been discontinued. Given he is improving, we will hold off on antibiotics as mentioned above. (3) Pneumonia due to COVID-19 virus Impression: He completed 5 days remdesivir and 10 days of Decadron. X-ray still shows persistent infiltrates and he remains hypoxic although this is improving. We will continue supportive measures. (4) Chronic atrial fibrillation Impression: He remains rate controled. Continue Toprol and Pradaxa. (5) CKD (chronic kidney disease) stage 3, GFR 30-59 ml/min Impression: He has CKD stage III and his renal function is at baseline. We are continuing lisinopril. (6) Controlled type 2 diabetes mellitus without complication, without long-term current use of insulin Impression: His blood glucose is well controlled on the current insulin regimen. (7) Dementia Impression: He has a history of dementia per the admission note. He currently appears at his baseline cardiac status. He did have delirium and agitation during his hospitalization but this has since resolved and Seroquel was discontinued. Qualifiers: Alzheimer's disease onset: unspecified onset Dementia behavioral disturbance: with behavioral disturbance
[2021-08-16] MEDS: INSULIN ASPART 300 UNIT/3 ML PEN SUBQ SCH ×4 (07:43→21:04)
[2021-08-16] MEDS: polyethylene glycoL 3350 17 GM PACKET PO SCH (07:45)
[2021-08-16] MEDS: SENNA 8.6 MG TABLET PO SCH (09:04)
[2021-08-16] MEDS: CHOLECALCIFEROL 25 MCG TABLET PO SCH (09:04)
[2021-08-16] MEDS: DOCUSATE SODIUM 250 MG CAPSULE PO SCH (09:06)
[2021-08-16] MEDS: METOPROLOL SUCCINATE 25 MG TABLET PO SCH (09:06)
[2021-08-16] MEDS: TAMSULOSIN 0.4 MG CAPSULE PO SCH (09:06)
[2021-08-16] MEDS: lisinopriL 5 MG TABLET PO SCH (09:06)
[2021-08-16] MEDS: INSULIN GLARGINE 300 UNIT/3 ML PEN SUBQ SCH (09:07)
[2021-08-16] MEDS: DABIGATRAN 75 MG CAPSULE PO SCH ×2 (09:07→21:03)
[2021-08-16] MEDS: MULTIVITAMIN W/MINERALS TABLET PO SCH (09:07)
[2021-08-16] MEDS: NIFEdipine ER 30 MG TABLET PO SCH (09:17)
[2021-08-16] MEDS: ACETAMINOPHEN 325 MG TABLET PO PRN (16:46)
[2021-08-17] MEDS: SODIUM CHLORIDE FLUSH 0.9% 10 ML SYRINGE IVP SCH ×4 (05:12→22:15)
[2021-08-17 06:09] LABS: BASOPHILS # (AUTO) 0.1 10^3/uL (0.0-0.1); BASOPHILS % (AUTO) 0.5 %; EOSINOPHILS # (AUTO) 0.9 10^3/uL (0.0-0.7); EOSINOPHILS % (AUTO) 8.3 %; HCT - HEMATOCRIT 33.1 % (42.0-52.0); HGB - HEMOGLOBIN 10.3 g/dL (14.0-18.0); LYMPHOCYTES # (AUTO) 1.2 10^3/uL (1.5-3.5); MEAN CORPUSCULAR HGB CONC 31.1 g/dL (32.0-36.0); MEAN CORPUSCULAR VOLUME 96.5 fL (80.0-94.0); MEAN PLATELET VOLUME 12.5 fL (7.4-11.4); MONOCYTES # (AUTO) 0.7 10^3/uL (0.0-1.0); MONOCYTES % (AUTO) 6.8 %; NEUTROPHILS # (AUTO) 7.7 10^3/uL (1.5-6.6); NEUTROPHILS % (AUTO) 72.5 %; PLT - PLATELET COUNT 386 10^3/uL (130-450); RED BLOOD COUNT 3.43 10^6/uL (4.70-6.10); RED CELL DISTRIBUTION WIDTH 15.5 % (12.0-15.0); WHITE BLOOD COUNT 10.6 x10^3/uL (4.8-10.8)
[2021-08-17 06:21] LABS: CALCIUM 9.7 mg/dL (8.5-10.3); CREATININE 1.3 mg/dL (0.6-1.2); MAGNESIUM 2.5 mg/dL (1.7-2.8); POTASSIUM 4.7 mmol/L (3.5-5.0)
[2021-08-17] MEDS: INSULIN ASPART 300 UNIT/3 ML PEN SUBQ SCH ×4 (07:38→22:12)
[2021-08-17] MEDS: polyethylene glycoL 3350 17 GM PACKET PO SCH (07:40)
[2021-08-17] MEDS: DOCUSATE SODIUM 250 MG CAPSULE PO SCH (08:16)
[2021-08-17] MEDS: SENNA 8.6 MG TABLET PO SCH (08:16)
[2021-08-17] MEDS: TAMSULOSIN 0.4 MG CAPSULE PO SCH (08:16)
[2021-08-17] MEDS: lisinopriL 5 MG TABLET PO SCH (08:16)
[2021-08-17] MEDS: DABIGATRAN 75 MG CAPSULE PO SCH ×2 (08:16→22:15)
[2021-08-17] MEDS: MULTIVITAMIN W/MINERALS TABLET PO SCH (08:16)
[2021-08-17] MEDS: CHOLECALCIFEROL 25 MCG TABLET PO SCH (08:16)
[2021-08-17] MEDS: METOPROLOL SUCCINATE 25 MG TABLET PO SCH (08:17)
[2021-08-17] MEDS: INSULIN GLARGINE 300 UNIT/3 ML PEN SUBQ SCH (08:23)
[2021-08-17] MEDS: NIFEdipine ER 30 MG TABLET PO SCH (08:24)
--- NOTE | 2021-08-17 12:05 | PROVIDER PROGRESS NOTE ---
Subjective - Prog Note Date Prog Note Date: 08/17/21 - Subjective Subjective: Continues to report feeling well. He denies feeling short of breath. Still has an occasional cough but feels improved each day. Current Medications - Current Medications Current Medications: Active Medications Acetaminophen (Acetaminophen 325 Mg Tablet) 650 mg PO Q4HR PRN PRN Reason: Pain 1 to 4 Last Admin: 08/16/21 16:46 Dose: 650 mg Documented by: Cholecalciferol (Cholecalciferol 25 Mcg Tablet) 50 mcg PO DAILY [facility] Last Admin: 08/17/21 08:16 Dose: 50 mcg Documented by: Dabigatran (Dabigatran 75 Mg Capsule) 75 mg PO BID [facility] Last Admin: 08/17/21 08:16 Dose: 75 mg Documented by: Docusate Sodium (Docusate Sodium 250 Mg Capsule) 250 - 500 mg PO DAILY [facility] Last Admin: 08/17/21 08:16 Dose: 250 mg Documented by: Hydralazine HCl (Hydralazine Inj 20 Mg/Ml Vial) 10 mg IVP TID PRN PRN Reason: Hypertensive Emergency Last Admin: 07/27/21 08:32 Dose: 10 mg Documented by: Insulin Aspart (Insulin Aspart 300 Unit/3 Ml Pen) 3 - 11 unit SUBQ 0800,1200,1700,2100 [facility]; Protocol Last Admin: 08/17/21 11:30 Dose: 5 unit Documented by: Insulin Glargine (Insulin Glargine 300 Unit/3 Ml Pen) 10 unit SUBQ DAILY [facility] Lisinopril (Lisinopril 5 Mg Tablet) 10 mg PO DAILY [facility] Last Admin: 08/17/21 08:16 Dose: 10 mg Documented by: Metoprolol Succinate (Metoprolol Succinate 25 Mg Tablet) 25 mg PO DAILY [facility] Last Admin: 08/17/21 08:17 Dose: 25 mg Documented by: Multi-Ingredient Ointment (Zinc Oxide 20% Oint 30 Gm Tube) 1 applic TOP PRN PRN PRN Reason: Skin Care Last Admin: 08/13/21 23:41 Dose: 1 applic Documented by: Multivitamins/Minerals (Multivitamin W/Minerals Tablet) 1 tab PO DAILYWM [facility] Last Admin: 08/17/21 08:16 Dose: 1 tab Documented by: Nifedipine (Nifedipine Er 30 Mg Tablet) 90 mg PO DAILY [facility] Last Admin: 08/17/21 08:24 Dose: 90 mg Documented by: Ondansetron HCl (Ondansetron Odt 4 Mg Tablet) 4 mg TL Q6HR PRN PRN Reason: Nausea / Vomiting Ondansetron HCl (Ondansetron 4 Mg/2 Ml Vial) 4 mg IVP Q6HR PRN PRN Reason: Nausea / Vomiting Oxycodone HCl (Oxycodone 5 Mg Tablet) 5 mg PO Q4HR PRN PRN Reason: Pain 5 to 7 Last Admin: 08/15/21 02:07 Dose: 5 mg Documented by: Polyethylene Glycol (Polyethylene Glycol 3350 17 Gm Packet) 17 gm PO DAILY [facility] Last Admin: 08/17/21 07:40 Dose: Not Given Documented by: Senna (Senna 8.6 Mg Tablet) 8.6 - 17.2 mg PO DAILY [facility] Last Admin: 08/17/21 08:16 Dose: 8.6 mg Documented by: Sodium Chloride (Sodium Chloride Flush 0.9% 10 Ml Syringe) 10 ml IVP PRN PRN PRN Reason: NEEDED PER PROVIDER ORDERS Last Admin: 08/04/21 05:32 Dose: 10 ml Documented by: Sodium Chloride (Sodium Chloride Flush 0.9% 10 Ml Syringe) 10 ml IVP 0100,0900,1700 [facility] Last Admin: 08/17/21 08:17 Dose: 10 ml Documented by: Tamsulosin HCl (Tamsulosin 0.4 Mg Capsule) 0.4 mg PO DAILY [facility] Last Admin: 08/17/21 08:16 Dose: 0.4 mg Documented by: Dabigatran [Pradaxa] 75 mg PO BID 07/06/13 Atorvastatin Calcium 40 mg PO QPM 07/26/21 Glimepiride 1 mg PO DAILY 07/26/21 Lisinopril [Zestril] 20 mg PO BID 07/26/21 Metoprolol Succinate [Toprol Xl] 25 mg PO DAILY 07/26/21 NIFEdipine [Procardia Xl] 90 mg PO DAILY 07/26/21 metFORMIN [Glucophage] 500 mg PO BIDWM 07/26/21 sulfaSALAzine [Azulfidine] 500 mg PO TID 07/27/21 Objective - Vital Signs/Intake & Output Reviewed Vital Signs: Yes Vital Signs: Vital Signs x48h Temp Pulse Resp BP Pulse Ox 08/17/21 07:23 36.5 C 68 20 131/60 H 94 Intake & Output: Intake & Output 08/14/21 08/15/21 08/16/21 08/17/21 23:59 23:59 23:59 22:59 Intake Total 2120 1250 1280 630 Output Total 1050 1700 1800 1025 Balance 1070 -450 -520 -395 - Objective General Appearance: positive: No acute distress, Alert Eyes Bilateral: positive: Normal inspection ENT: positive: ENT inspection nml, Other (Nasal cannula in place.) Neck: positive: Nml inspection Respiratory: positive: No respiratory distress. negative: Wheezes, Rales Cardiovascular: positive: Regular rate & rhythm. negative: Tachycardia, Systolic murmur Skin: positive: Warm, Dry Extremities: positive: No pedal edema Neurologic/Psychiatric: negative: Disoriented to person, Disoriented to place - Lab Results Fish Bones: 08/17/21 05:44 08/17/21 05:44 Other Labs: Lab Results x24hrs 08/17/21 08/17/21 08/17/21 Range/Units 11:11 07:19 05:44 WBC (4.8-10.8) x10^3/uL RBC (4.70-6.10) 10^6/uL Hgb (14.0-18.0) g/dL Hct (42.0-52.0) % MCV (80.0-94.0) fL MCH (27.0-31.0) pg MCHC (32.0-36.0) g/dL RDW (12.0-15.0) % Plt Count (130-450) 10^3/uL MPV (7.4-11.4) fL Neut # (Auto) (1.5-6.6) 10^3/uL Lymph # (Auto) (1.5-3.5) 10^3/uL Turner # (Auto) (0.0-1.0) 10^3/uL Eos # (Auto) (0.0-0.7) 10^3/uL Baso # (Auto) (0.0-0.1) 10^3/uL Absolute Nucleated RBC x10^3/uL Nucleated RBC % /100WBC Sodium 137 (135-145) mmol/L Potassium 4.7 (3.5-5.0) mmol/L Chloride 104 (101-111) mmol/L Carbon Dioxide 22 (21-32) mmol/L Anion Gap 11.0 (6-13) BUN 42 H (6-20) mg/dL Creatinine 1.3 H (0.6-1.2) mg/dL Estimated GFR (MDRD) 52 L (>89) Glucose 123 H (70-100) mg/dL POC Whole Bld Glucose 197 H 130 H (70 - 100) mg/dL Calcium 9.7 (8.5-10.3) mg/dL Magnesium 2.5 (1.7-2.8) mg/dL 08/17/21 08/16/21 08/16/21 Range/Units 05:44 21:03 16:09 WBC 10.6 (4.8-10.8) x10^3/uL RBC 3.43 L (4.70-6.10) 10^6/uL Hgb 10.3 L (14.0-18.0) g/dL Hct 33.1 L (42.0-52.0) % MCV 96.5 H (80.0-94.0) fL MCH 30.0 (27.0-31.0) pg MCHC 31.1 L (32.0-36.0) g/dL RDW 15.5 H (12.0-15.0) % Plt Count 386 (130-450) 10^3/uL MPV 12.5 H (7.4-11.4) fL Neut # (Auto) 7.7 H (1.5-6.6) 10^3/uL Lymph # (Auto) 1.2 L (1.5-3.5) 10^3/uL Turner # (Auto) 0.7 (0.0-1.0) 10^3/uL Eos # (Auto) 0.9 H (0.0-0.7) 10^3/uL Baso # (Auto) 0.1 (0.0-0.1) 10^3/uL Absolute Nucleated RBC 0.00 x10^3/uL Nucleated RBC % 0.0 /100WBC Sodium (135-145) mmol/L Potassium (3.5-5.0) mmol/L Chloride (101-111) mmol/L Carbon Dioxide (21-32) mmol/L Anion Gap (6-13) BUN (6-20) mg/dL Creatinine (0.6-1.2) mg/dL Estimated GFR (MDRD) (>89) Glucose (70-100) mg/dL POC Whole Bld Glucose 191 H 165 H (70 - 100) mg/dL Calcium (8.5-10.3) mg/dL Magnesium (1.7-2.8) mg/dL ABX Reporting Has patient been on IV antibiotics over the past 48 hours?: No Assessment/Plan - Problem List (1) Acute respiratory failure with hypoxia Impression: He continues to improve on a daily basis. He is now down to 1 L of oxygen via nasal cannula. Most recent imaging showed persistent bilateral infiltrates but clinically he is improving given his decreasing oxygen requirements. Suspect this is related to his previous Covid pneumonia. We will continue supplemental oxygen for goal saturation greater than 88%. I am hopeful he can be weaned off of oxygen by tomorrow and potentially discharged home or the following day. If he continues to require 1 to 2 L of oxygen then he can be discharged home on oxygen. (2) HCAP (healthcare-associated pneumonia) Impression: He was previously treated with HCAP with cefepime and azithromycin. Antibiotics have since been discontinued. Given he is improving, we will hold off on antibiotics as there is no evidence of current infection given lack of leukocytosis or fever. (3) Pneumonia due to COVID-19 virus Impression: He completed 5 days remdesivir and 10 days of Decadron. X-ray still shows persistent infiltrates and he remains hypoxic although this is improving. We will continue supportive measures. (4) Chronic atrial fibrillation Impression: He remains rate controled. Continue Toprol and Pradaxa. (5) CKD (chronic kidney disease) stage 3, GFR 30-59 ml/min Impression: He has CKD stage III and his renal function is at baseline. We are continuing lisinopril. (6) Controlled type 2 diabetes mellitus without complication, without long-term current use of insulin Impression: His blood glucose is slightly increased today so we will increase his Lantus to 10 units from 8. Continue sliding scale. (7) Dementia Impression: He has a history of dementia per the admission note. He currently appears at his baseline neurologic status. He did have delirium and agitation during his hospitalization but this has since resolved and Seroquel was discontinued. Qualifiers: Alzheimer's disease onset: unspecified onset Dementia behavioral disturbance: with behavioral disturbance
[2021-08-18 06:02] LABS: BASOPHILS % (AUTO) 0.3 %; EOSINOPHILS # (AUTO) 0.8 10^3/uL (0.0-0.7); EOSINOPHILS % (AUTO) 8.2 %; HCT - HEMATOCRIT 30.2 % (42.0-52.0); HGB - HEMOGLOBIN 9.6 g/dL (14.0-18.0); MEAN CORPUSCULAR HEMOGLOBIN 29.8 pg (27.0-31.0); MEAN CORPUSCULAR HGB CONC 31.8 g/dL (32.0-36.0); MEAN CORPUSCULAR VOLUME 93.8 fL (80.0-94.0); MEAN PLATELET VOLUME 9.9 fL (7.4-11.4); MONOCYTES # (AUTO) 0.8 10^3/uL (0.0-1.0); MONOCYTES % (AUTO) 7.6 %; NEUTROPHILS # (AUTO) 7.3 10^3/uL (1.5-6.6); NEUTROPHILS % (AUTO) 72.7 %; PLT - PLATELET COUNT 445 10^3/uL (130-450); RED BLOOD COUNT 3.22 10^6/uL (4.70-6.10); RED CELL DISTRIBUTION WIDTH 14.6 % (12.0-15.0)
[2021-08-18 06:13] LABS: CALCIUM 9.5 mg/dL (8.5-10.3); CREATININE 1.2 mg/dL (0.6-1.2); MAGNESIUM 2.3 mg/dL (1.7-2.8); POTASSIUM 4.4 mmol/L (3.5-5.0)
[2021-08-18] MEDS: INSULIN ASPART 300 UNIT/3 ML PEN SUBQ SCH ×4 (07:57→21:18)
[2021-08-18] MEDS: TAMSULOSIN 0.4 MG CAPSULE PO SCH (08:32)
[2021-08-18] MEDS: lisinopriL 5 MG TABLET PO SCH (08:32)
[2021-08-18] MEDS: ACETAMINOPHEN 325 MG TABLET PO PRN (08:33)
[2021-08-18] MEDS: SENNA 8.6 MG TABLET PO SCH (08:33)
[2021-08-18] MEDS: DABIGATRAN 75 MG CAPSULE PO SCH ×2 (08:33→21:12)
[2021-08-18] MEDS: CHOLECALCIFEROL 25 MCG TABLET PO SCH (08:33)
[2021-08-18] MEDS: DOCUSATE SODIUM 250 MG CAPSULE PO SCH (08:33)
[2021-08-18] MEDS: SODIUM CHLORIDE FLUSH 0.9% 10 ML SYRINGE IVP SCH ×2 (08:34→16:40)
[2021-08-18] MEDS: MULTIVITAMIN W/MINERALS TABLET PO SCH (08:34)
[2021-08-18] MEDS: METOPROLOL SUCCINATE 25 MG TABLET PO SCH (08:34)
[2021-08-18] MEDS: polyethylene glycoL 3350 17 GM PACKET PO SCH (08:34)
[2021-08-18] MEDS: INSULIN GLARGINE 300 UNIT/3 ML PEN SUBQ SCH (08:35)
[2021-08-18] MEDS: NIFEdipine ER 30 MG TABLET PO SCH (08:44)
--- NOTE | 2021-08-18 16:53 | PROVIDER PROGRESS NOTE ---
Subjective - Prog Note Date Prog Note Date: 08/18/21 - Subjective Subjective: He continues to report feeling well. Has a cough. Feels less short of breath. Current Medications - Current Medications Current Medications: Active Medications Acetaminophen (Acetaminophen 325 Mg Tablet) 650 mg PO Q4HR PRN PRN Reason: Pain 1 to 4 Last Admin: 08/18/21 08:33 Dose: 650 mg Documented by: Cholecalciferol (Cholecalciferol 25 Mcg Tablet) 50 mcg PO DAILY [facility] Last Admin: 08/18/21 08:33 Dose: 50 mcg Documented by: Dabigatran (Dabigatran 75 Mg Capsule) 75 mg PO BID [facility] Last Admin: 08/18/21 08:33 Dose: 75 mg Documented by: Docusate Sodium (Docusate Sodium 250 Mg Capsule) 250 - 500 mg PO DAILY [facility] Last Admin: 08/18/21 08:33 Dose: 250 mg Documented by: Hydralazine HCl (Hydralazine Inj 20 Mg/Ml Vial) 10 mg IVP TID PRN PRN Reason: Hypertensive Emergency Last Admin: 07/27/21 08:32 Dose: 10 mg Documented by: Insulin Aspart (Insulin Aspart 300 Unit/3 Ml Pen) 3 - 11 unit SUBQ 0800,1200,1700,2100 [facility]; Protocol Last Admin: 08/18/21 16:40 Dose: Not Given Documented by: Insulin Glargine (Insulin Glargine 300 Unit/3 Ml Pen) 10 unit SUBQ DAILY [facility] Last Admin: 08/18/21 08:35 Dose: 10 unit Documented by: Lisinopril (Lisinopril 5 Mg Tablet) 10 mg PO DAILY [facility] Last Admin: 08/18/21 08:32 Dose: 10 mg Documented by: Metoprolol Succinate (Metoprolol Succinate 25 Mg Tablet) 25 mg PO DAILY [facility] Last Admin: 08/18/21 08:34 Dose: 25 mg Documented by: Multi-Ingredient Ointment (Zinc Oxide 20% Oint 30 Gm Tube) 1 applic TOP PRN PRN PRN Reason: Skin Care Last Admin: 08/13/21 23:41 Dose: 1 applic Documented by: Multivitamins/Minerals ([facility]ivitamin W/[facility]inerals [facility]) [facility] Last Admin: 08/18/21 08:34 Dose: 1 tab Documented by: Nifedipine (Nifedipine Er 30 Mg Tablet) 90 mg PO DAILY [facility] Last Admin: 08/18/21 08:44 Dose: 90 mg Documented by: Ondansetron HCl (Ondansetron Odt 4 Mg Tablet) 4 mg TL Q6HR PRN PRN Reason: Nausea / Vomiting Ondansetron HCl (Ondansetron 4 Mg/2 Ml Vial) 4 mg IVP Q6HR PRN PRN Reason: Nausea / Vomiting Oxycodone HCl (Oxycodone 5 Mg Tablet) 5 mg PO Q4HR PRN PRN Reason: Pain 5 to 7 Last Admin: 08/15/21 02:07 Dose: 5 mg Documented by: Polyethylene Glycol (Polyethylene Glycol 3350 17 Gm Packet) 17 gm PO DAILY [facility] Last Admin: 08/18/21 08:34 Dose: 17 gm Documented by: Senna (Senna 8.6 Mg Tablet) 8.6 - 17.2 mg PO DAILY [facility] Last Admin: 08/18/21 08:33 Dose: 8.6 mg Documented by: Sodium Chloride (Sodium Chloride Flush 0.9% 10 Ml Syringe) 10 ml IVP PRN PRN PRN Reason: NEEDED PER PROVIDER ORDERS Last Admin: 08/04/21 05:32 Dose: 10 ml Documented by: Sodium Chloride (Sodium Chloride Flush 0.9% 10 Ml Syringe) 10 ml IVP 0100,0900,1700 [facility] Last Admin: 08/18/21 16:40 Dose: 10 ml Documented by: Tamsulosin HCl (Tamsulosin 0.4 Mg Capsule) 0.4 mg PO DAILY [facility] Last Admin: 08/18/21 08:32 Dose: 0.4 mg Documented by: Dabigatran [Pradaxa] 75 mg PO BID 07/06/13 Atorvastatin Calcium 40 mg PO QPM 07/26/21 Glimepiride 1 mg PO DAILY 07/26/21 Lisinopril [Zestril] 20 mg PO BID 07/26/21 Metoprolol Succinate [Toprol Xl] 25 mg PO DAILY 07/26/21 NIFEdipine [Procardia Xl] 90 mg PO DAILY 07/26/21 metFORMIN [Glucophage] 500 mg PO BIDWM 07/26/21 sulfaSALAzine [Azulfidine] 500 mg PO TID 07/27/21 Objective - Vital Signs/Intake & Output Reviewed Vital Signs: Yes Vital Signs: Vital Signs x48h Temp Pulse Resp BP Pulse Ox 08/18/21 16:28 36.6 C 60 18 136/58 H 93 08/18/21 10:44 20 92 Intake & Output: Intake & Output 08/16/21 08/17/21 08/17/21 08/18/21 00:59 00:59 23:59 23:59 Intake Total 690 Output Total 950 Balance -260 - Objective General Appearance: positive: No acute distress, Alert Eyes Bilateral: positive: Normal inspection, Conjunctivae nml ENT: positive: ENT inspection nml, Other (Nasal cannula in place.) Neck: positive: Nml inspection Respiratory: positive: No respiratory distress. negative: Wheezes, Rales Cardiovascular: positive: Regular rate & rhythm. negative: Tachycardia Skin: positive: Warm, Dry Extremities: positive: No pedal edema Neurologic/Psychiatric: negative: Disoriented to person, Disoriented to place - Lab Results Fish Bones: 08/18/21 05:45 08/18/21 05:45 Other Labs: Lab Results x24hrs 08/18/21 08/18/21 08/18/21 Range/Units 16:34 11:27 07:45 WBC (4.8-10.8) x10^3/uL RBC (4.70-6.10) 10^6/uL Hgb (14.0-18.0) g/dL Hct (42.0-52.0) % MCV (80.0-94.0) fL MCH (27.0-31.0) pg MCHC (32.0-36.0) g/dL RDW (12.0-15.0) % Plt Count (130-450) 10^3/uL MPV (7.4-11.4) fL Neut # (Auto) (1.5-6.6) 10^3/uL Lymph # (Auto) (1.5-3.5) 10^3/uL Clark # (Auto) (0.0-1.0) 10^3/uL Eos # (Auto) (0.0-0.7) 10^3/uL Baso # (Auto) (0.0-0.1) 10^3/uL Absolute Nucleated RBC x10^3/uL Nucleated RBC % /100WBC Sodium (135-145) mmol/L Potassium (3.5-5.0) mmol/L Chloride (101-111) mmol/L Carbon Dioxide (21-32) mmol/L Anion Gap (6-13) BUN (6-20) mg/dL Creatinine (0.6-1.2) mg/dL Estimated GFR (MDRD) (>89) Glucose (70-100) mg/dL POC Whole Bld Glucose 125 H 192 H 118 H (70 - 100) mg/dL Calcium (8.5-10.3) mg/dL Magnesium (1.7-2.8) mg/dL 08/18/21 08/18/21 08/17/21 Range/Units 05:45 05:45 21:18 WBC 10.0 (4.8-10.8) x10^3/uL RBC 3.22 L (4.70-6.10) 10^6/uL Hgb 9.6 L (14.0-18.0) g/dL Hct 30.2 L (42.0-52.0) % MCV 93.8 (80.0-94.0) fL MCH 29.8 (27.0-31.0) pg MCHC 31.8 L (32.0-36.0) g/dL RDW 14.6 (12.0-15.0) % Plt Count 445 (130-450) 10^3/uL MPV 9.9 (7.4-11.4) fL Neut # (Auto) 7.3 H (1.5-6.6) 10^3/uL Lymph # (Auto) 1.0 L (1.5-3.5) 10^3/uL Clark # (Auto) 0.8 (0.0-1.0) 10^3/uL Eos # (Auto) 0.8 H (0.0-0.7) 10^3/uL Baso # (Auto) 0.0 (0.0-0.1) 10^3/uL Absolute Nucleated RBC 0.00 x10^3/uL Nucleated RBC % 0.0 /100WBC Sodium 137 (135-145) mmol/L Potassium 4.4 (3.5-5.0) mmol/L Chloride 104 (101-111) mmol/L Carbon Dioxide 25 (21-32) mmol/L Anion Gap 8.0 (6-13) BUN 40 H (6-20) mg/dL Creatinine 1.2 (0.6-1.2) mg/dL Estimated GFR (MDRD) 57 L (>89) Glucose 120 H (70-100) mg/dL POC Whole Bld Glucose 164 H (70 - 100) mg/dL Calcium 9.5 (8.5-10.3) mg/dL Magnesium 2.3 (1.7-2.8) mg/dL Assessment/Plan - Problem List (1) Acute respiratory failure with hypoxia Impression: He is significantly improved but remains on 1 L of oxygen via nasal cannula. He is overall quite stable and doing well. He has been working with physical therapy and has been more ambulatory. If we are unable to wean him off this la st liter today we will perform an exercise desaturation test and discharge him home with oxygen as long as he only requires anywhere from 1 to 3 L of oxygen. (2) HCAP (healthcare-associated pneumonia) Impression: He was previously treated with HCAP with cefepime and azithromycin. Antibiotics have since been discontinued. Given he is improving, we will hold off on antibiotics as there is no evidence of current infection given lack of leukocytosis or fever. (3) Pneumonia due to COVID-19 virus Impression: He completed 5 days remdesivir and 10 days of Decadron. X-ray still shows persistent infiltrates and he remains hypoxic although this is improving. We will likely need to discharge him with oxygen and he can follow-up on an outpatient basis with his primary care physician. (4) Chronic atrial fibrillation Impression: He remains rate controled. Continue Toprol and Pradaxa. (5) CKD (chronic kidney disease) stage 3, GFR 30-59 ml/min Impression: He has CKD stage III and his renal function is at baseline. We are continuing l isinopril. (6) Controlled type 2 diabetes mellitus without complication, without long-term current use of insulin Impression: His blood glucose is improved on the increased dose of Lantus. Continue 10 units daily with sliding scale. He can be discharged on his home regimen. (7) Dementia Impression: He has a history of dementia per the admission note. He currently appears at his baseline neurologic status. He did have delirium and agitation during his hospitalization but this has since resolved and Seroquel was discontinued. Qualifiers: Alzheimer's disease onset: unspecified onset Dementia behavioral disturbance: with behavioral disturbance
[2021-08-19] MEDS: SODIUM CHLORIDE FLUSH 0.9% 10 ML SYRINGE IVP SCH ×2 (00:30→08:57)
[2021-08-19 05:43] LABS: BASOPHILS # (AUTO) 0.1 10^3/uL (0.0-0.1); BASOPHILS % (AUTO) 0.5 %; EOSINOPHILS # (AUTO) 0.8 10^3/uL (0.0-0.7); EOSINOPHILS % (AUTO) 7.5 %; HGB - HEMOGLOBIN 10.5 g/dL (14.0-18.0); LYMPHOCYTES # (AUTO) 1.1 10^3/uL (1.5-3.5); LYMPHOCYTES % (AUTO) 10.4 %; MEAN CORPUSCULAR HEMOGLOBIN 29.7 pg (27.0-31.0); MEAN CORPUSCULAR HGB CONC 31.8 g/dL (32.0-36.0); MEAN CORPUSCULAR VOLUME 93.2 fL (80.0-94.0); MONOCYTES # (AUTO) 0.8 10^3/uL (0.0-1.0); MONOCYTES % (AUTO) 7.6 %; NEUTROPHILS # (AUTO) 7.8 10^3/uL (1.5-6.6); NEUTROPHILS % (AUTO) 72.4 %; PLT - PLATELET COUNT 513 10^3/uL (130-450); RED BLOOD COUNT 3.54 10^6/uL (4.70-6.10); RED CELL DISTRIBUTION WIDTH 14.7 % (12.0-15.0); WHITE BLOOD COUNT 10.7 x10^3/uL (4.8-10.8)
[2021-08-19 05:54] LABS: CALCIUM 9.6 mg/dL (8.5-10.3); CREATININE 1.3 mg/dL (0.6-1.2); MAGNESIUM 2.2 mg/dL (1.7-2.8); POTASSIUM 4.7 mmol/L (3.5-5.0)
[2021-08-19] MEDS: INSULIN ASPART 300 UNIT/3 ML PEN SUBQ SCH ×2 (07:45→12:22)
[2021-08-19] MEDS: polyethylene glycoL 3350 17 GM PACKET PO SCH (08:40)
[2021-08-19] MEDS: MULTIVITAMIN W/MINERALS TABLET PO SCH (08:41)
[2021-08-19] MEDS: CHOLECALCIFEROL 25 MCG TABLET PO SCH (08:41)
[2021-08-19] MEDS: DABIGATRAN 75 MG CAPSULE PO SCH (08:42)
[2021-08-19] MEDS: NIFEdipine ER 30 MG TABLET PO SCH (08:42)
[2021-08-19] MEDS: lisinopriL 5 MG TABLET PO SCH (08:42)
[2021-08-19] MEDS: DOCUSATE SODIUM 250 MG CAPSULE PO SCH (08:42)
[2021-08-19] MEDS: METOPROLOL SUCCINATE 25 MG TABLET PO SCH (08:42)
[2021-08-19] MEDS: SENNA 8.6 MG TABLET PO SCH (08:43)
[2021-08-19] MEDS: TAMSULOSIN 0.4 MG CAPSULE PO SCH (08:43)
[2021-08-19] MEDS: INSULIN GLARGINE 300 UNIT/3 ML PEN SUBQ SCH (08:58)
--- NOTE | 2021-08-19 11:27 | Discharge Plan ---
Discharge Plan Problem Reviewed?: Yes Disposition: Home Health Service Condition: Stable Prescriptions: Tamsulosin [Flomax] 0.4 mg PO DAILY #30 cap Diet: Regular (dysphagia puree) Activity Restrictions: Activity as Tolerated Shower Restrictions: No Driving Restrictions: Yes Weight Bearing: Full Weight Instruction Topics: Oxygen Home Use, Catheter Bag Urinary Empty Clean Health Concerns: Admitted with COVID pneumonia, received standard treatment of remdesivir and decadron and now needs new oxygen going home. Complication of stay included urinary retention and is dependant on draining urine thru a Blevins catheter. Home Health nursing and support in the house has been ordered for the patient. He did develop a secondary pneumonia due to the covid and finished antibiotics for that while here. Due to an irregularly irregular heart beat rhythm, he is on pradaxa to prevent clots from developing in his heart cavity. Plan of Treatment: As above. Care Goals: To return to baseline activity and independence that he had before admission For his lungs to return to his baseline oxygen need. Assessment: These instructions are provided to the family as a reminder. Additional Instructions or Follow Up instructions: The Home Health agency will also provide an in-home physical therapist for Ahmet to do home exercises to regain his strength, after getting deconditioned from being bedridden while hospitalized. New oxygen is being ordered to be delivered to the house. Please have it set at 2 L when he is resting and sleeping and 4 L with activity, even arm activity. If you have new or urgent questions, please call his primary care provider (Denis Mir). An appointment with the PCP is also advised in 1 to 2 weeks, as a hospital follow-up visit. Follow-Up Care: Home Health - RN, Home Health - PT, Home Health - OT, Home Health - ST No Smoking: If you smoke, Please STOP! Call for help.
[2021-08-19 14:47] VITALS: BP 152/66
--- NOTE | 2021-08-19 19:07 | DISCHARGE SUMMARY ---
"Discharge Summary Admit Date: 07/26/21 Discharge Date: 08/19/21 Discharging Provider: Jaylin Hogan MD Primary Care Provider: Denis Mir MD [phone] Code Status: Do Not Attempt Resuscitation Condition at Discharge: Stable Discharge Disposition: 06 Home Health Service - DIAGNOSES Discharge Diagnoses with Status of Each Condition: 1. Pneumonia due to Covid 19 2. Acute respiratory failure with hypoxia, resolved 3. Healthcare associated pneumonia, resolved 4. Chronic atrial fibrillation 5. Acute on chronic chronic kidney disease with acute phase resolved 6. Type 2 diabetes mellitus without complication, without long-term use of insulin 7. Dementia without behavioral disorder 8. Acute urinary retention, resolved 9. Hypertension 10. Physical deconditioning 11. Constipation - HPI History of Present Illness: This is a shi 86-year-old man who lives in his own home. 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 Rapid dementia and decline. His granddaughter lives with him, and his daughter lives next door. He and his family all state that he is an independent person. Takes care of himself just fine. He just does not drive anymore. 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 He is followed by the [facility], [place]. He has a new primary care provider that he has not seen yet. Dr. Denis Mir at [phone]. His previous primary care provider recently retired. He also has a russet repairer, Dr. Geneva Cristina for Rheumatology. He became ill a few weeks ago, close to 3 weeks ago. Cough, fever, chest congestion. A lot of that resolved and he was maintaining a good appetite eating meals twice a day. But in the last week he has had progressive dyspnea, fatigue. He did test himself for Covid and it was positive. He is vaccinated. He has been eating a lot of chicken soup. Trying to maintain his health. He really stopped eating about 2 days ago because nothing tasted good. He has been having good fluid intake just not food. His shortness of breath was severe enough that the family was alarmed to get a pulse oximeter. Once they saw how low his oxygen was they felt he really needed to come to the emergency room. He denies diarrhea, chest pain, hemoptysis. No abdominal pain. No urgency, frequency, dysuria. In the emergency room temperature was 36.6. Heart rate 89. Blood pressure 223/98. Respirations 30 and he 67% on room air. He needs a 15 L nonrebreather to maintain his O2 sats between 92 and 97%. Throughout his visit in the emergency room his blood pressure was high. He gets easily tachypneic. He had crackles at both lung bases. A paced rhythm on the cardiac quality assurance monitor body. He was alert, oriented. White cell count was 9.9. Hemoglobin 13.6. Sodium 146. BUN 40, creatinine 1.4, random glucose 186. Venous blood gas and a pH of 7.38. PCO2 38. PO2 25. D-dimer was 1050. Lactic acid 2.0. BNP 569. Chest x-ray confirms diffuse interstitial and alveolar opacities seen in the setting of Covid pneumonia given the history. Fluid overload could also be seen this way. The patient does not have a history of congestive heart failure. He did have problems with fatigue and shortness of breath and near syncope when he had his pacemaker placed in 2001. Currently he denies orthopnea, pedal edema. - CONSULTS | PROCEDURES Procedures: Multiple chest x-rays performed over the course of his admission. He had extensive bilateral pulmonary infiltrates, cardiomegaly. The infiltrates had still not cleared as of August 13. Echocardiogram with mild to moderate concentric left ventricular hypertrophy. Ejection fraction 65 to 70%. Right ventricle normal in size and function. Pacemaker leads. No hemodynamically significant cardiac valve disease. Blood culture from July 26 was positive on August 01 with coag negative Staphylococcus. It was felt to be contamination. - HOSPITAL COURSE Hospital Course: He was admitted to the hospital with acute respiratory failure and hypoxia due to Covid pneumonia. After several days the patient was actually looking his if he was going to improve. Hypoxia was stable and oxygen requirement was stable. He then decompensated and had to be transferred to the ICU because of severe hypoxemia was felt to have a healthcare associated pneumonia as a complication of his Covid pneumonia while he was in the hospital. He was treated with antibiotic therapy for that. While in the hospital his chronic atrial fibrillation was rate controlled. He had acute on chronic kidney disease on presentation that resolved with IV hydration. On admission his creatinine was 1 .4. He peaked at 2.0. By the time of discharge she was 1.3. Glucose was elevated due to Decadron 4 his Covid positive status. He did receive NovoLog insulin as well as Lantus during his stay. When he was discharged he was resumed on his preadmission glimepiride and Metformin. A1c on admission was 7.4%. His stay was complicated by acute urinary retention requiring a temporary Blevins. He was severely deconditioned due to his bedbound status and gradually improved with physical therapy. Intermittent constipation was treated while he was here. He was maintained on his medications for hypertension. After working with physical therapy, the patient was independent enough to satisfy his daughter who wished to take him home. At discharge, his O2 sat was 86% on room air at rest and required 2 L to saturate at 94%. With activity 2 L nasal cannula was not enough to oxygenate him and he dropped to 84%. He required 4 L nasal cannula with activity to maintain 92%.He is also being sent home with physical therapy through home health services. I am ordering an bath aide, occupational therapy as well. Exam at discharge showed a 5 foot 8 inch elderly male who weight 86.5 kg. Mildly deaf, mildly confused. He will forget where he is or the date but is easily prompted. But able to follow commands without any behavioral disorder. Temperature is 36.6. Heart rate 60. Blood pressure 152/66. Respirations 20. He has fine crackles at the right lung base. But no tachypnea, increased respiratory effort.He can sit up, scoot to the edge of a chair, but needs repeated cues to push up with his hands on the arms of his chair. Then needs repeated cues to make sure he puts his hand on his walker and uses it. He is minimally short of breath with activity. No use of accessory muscles. PMI is normally placed and he has an irregular rate and rhythm that is rate controlled. The abdomen is soft, nontender, nondistended. Normal bowel sounds. Because of urinary retention he is being sent home with a Blevins catheter and Flomax. We are asking him to follow-up with his primary care provider in the next few weeks to have Blevins removed. Ankles are thick but no pitting edema. Greater than 30 minutes was spent coordinating discharge. - ALLERGIES Allergies/Adverse Reactions: Allergies Allergy/AdvReac Type Severity Reaction Status Date / Time bee venom protein (honey bee) Allergy Intermediate Edema Verified 07/28/21 12:50 - MEDICATIONS Home Medications: Ambulatory Orders Medication Instructions Recorded Confirmed Dabigatran [Pradaxa] 75 mg PO BID 07/06/13 07/26/21 Atorvastatin Calcium 40 mg PO QPM 07/26/21 07/26/21 Glimepiride 1 mg PO DAILY 07/26/21 07/26/21 Lisinopril [Zestril] 20 mg PO BID 07/26/21 07/26/21 Metoprolol Succinate [Toprol Xl] 25 mg PO DAILY 07/26/21 07/26/21 NIFEdipine [Procardia Xl] 90 mg PO DAILY 07/26/21 07/26/21 metFORMIN [Glucophage] 500 mg PO BIDWM 07/26/21 07/26/21 sulfaSALAzine [Azulfidine] 500 mg PO TID 07/27/21 07/27/21 Tamsulosin [Flomax] 0.4 mg PO DAILY #30 cap 08/10/21 Zinc Oxide 20% Oint [Zinc Oxide] 1 applic TOP PRN PRN 08/10/21 - LABS Result Diagrams: 08/19/21 05:24 08/19/21 05:24"
== END 2021-08-19 14:49 | disposition home health service (06) | DRG 177 ==
LOC: ED 12:04 → MS2 13:34 → ICU 14:27 → MS2 08-05 19:09
PROVIDERS: ADMIT Specialist; ATTEND Specialist
PROC: XW033E5 Introduction of Remdesivir Anti-infective into Peripheral Vein, Percutaneous Approach, New Technology Group 5 (ICD-10-PCS; principal; 2021-07-26)
PROC: 3E0333Z Introduction of Anti-inflammatory into Peripheral Vein, Percutaneous Approach (ICD-10-PCS; 2021-07-26)
DX: U07.1 COVID-19 (principal); J12.82 Pneumonia due to coronavirus disease 2019; R09.02 Hypoxemia; I48.91 Unspecified atrial fibrillation; I10 Essential (primary) hypertension; J96.01 Acute respiratory failure with hypoxia; I48.92 Unspecified atrial flutter; Z79.01 Long term (current) use of anticoagulants; J18.9 Pneumonia, unspecified organism; I48.20 Chronic atrial fibrillation, unspecified; F05 Delirium due to known physiological condition; N17.9 Acute kidney failure, unspecified; F02.81 Dementia in other diseases classified elsewhere, unspecified severity, with behavioral disturbance; Z87.891 Personal history of nicotine dependence; E11.9 Type 2 diabetes mellitus without complications; Z79.84 Long term (current) use of oral hypoglycemic drugs; R33.9 Retention of urine, unspecified; K59.00 Constipation, unspecified; Z95.0 Presence of cardiac pacemaker; R60.0 Localized edema; Z66 Do not resuscitate; I12.9 Hypertensive chronic kidney disease with stage 1 through stage 4 chronic kidney disease, or unspecified chronic kidney disease; E11.22 Type 2 diabetes mellitus with diabetic chronic kidney disease; R53.1 Weakness; G30.9 Alzheimer's disease, unspecified; N18.30 Chronic kidney disease, stage 3 unspecified; E78.00 Pure hypercholesterolemia, unspecified
CPT/HCPCS: 36415; 36600; 71045; 80048; 80053; 82803; 83036; 83605; 83735; 83880; 84100; 85025; 85379; 86140; 87040; 87077; 87150; 87181; 87631; 93005; 93306; 94660; 94761; 96374; 97110; 97116; 97161; 97166; 97530; 99284; 99285; A9270; J1815; J2020; J3370; J7120; J8540; 0202U

== ENCOUNTER 2022-02-01 13:01 | Emergency (ER) | payer MEDICARE ==
--- NOTE | 2022-02-01 13:26 | ED Physician Documentation ---
PD HPI DYSPNEA - Stated complaint Stated Complaint: SOA - Chief complaint Chief Complaint: Resp - History obtained from History obtained from: Patient, Family (daughter) - Additional information Additional information: 86-year-old gentleman with history of A. fib, pacemaker in place and therapeutically anticoagulated, type 2 diabetes, dementia, history of urinary retention and hypertension had a prolonged stay in the hospital in July for COVID-19 and was on supplemental oxygen until sometime in October. He lives at home with caregivers 03/05 and his daughter lives next door who is at the bedside with him today. She describes a decline with worsening memory over the last 10 days and decreased energy. He stopped being able to ambulate independently with a walker. He requires more assistance than usual. He vacillates as to whether or not he has been short of breath but they noticed pulse oximetry is at home around 82 today. He denies chest pain or pedal edema. He does have nocturia, 7 times a night but that is not acute. Review of Systems Ten Systems: 10 systems reviewed and negative Constitutional: reports: Fatigue. denies: Fever, Chills Cardiac: denies: Chest pain / pressure, Palpitations, Pedal edema, Calf pain Respiratory: reports: Dyspnea. denies: Cough GI: denies: Abdominal Pain, Nausea, Vomiting, Diarrhea PD PAST MEDICAL HISTORY - Past Medical History Cardiovascular: Hypertension, High cholesterol, Atrial fibrillation Respiratory: None Neuro: None Endocrine/Autoimmune: Type 2 diabetes GI: None : None HEENT: Chronic vision loss Psych: None Musculoskeletal: Osteoarthritis, Rheumatoid arthritis - Past Surgical History General: Colonoscopy Cardiovascular: Pacemaker - Present Medications Home Medications: Ambulatory Orders Medication Instructions Recorded Confirmed Dabigatran [Pradaxa] 150 mg PO BID 07/06/13 02/01/22 Atorvastatin Calcium 40 mg PO QPM 07/26/21 02/01/22 Lisinopril [Zestril] 20 mg PO BID 07/26/21 02/01/22 Metoprolol Succinate [Toprol Xl] 25 mg PO DAILY 07/26/21 02/01/22 NIFEdipine [Procardia Xl] 90 mg PO DAILY 07/26/21 02/01/22 metFORMIN [Glucophage] 500 mg PO BIDWM 07/26/21 02/01/22 sulfaSALAzine [Azulfidine] 500 mg PO BID 07/27/21 02/01/22 Zinc Oxide 20% Oint [Zinc Oxide] 1 applic TOP PRN PRN 08/10/21 02/01/22 - Allergies Allergies/Adverse Reactions: Allergies Allergy/AdvReac Type Severity Reaction Status Date / Time bee venom protein (honey bee) Allergy Intermediate Edema Verified 02/01/22 13:08 - Social History Does the pt smoke?: No Smoking Status: Former smoker PD ED PE NORMAL - Vitals Vital signs reviewed: Yes - General General: Alert and oriented X 3, No acute distress - HEENT HEENT: PERRL, EOMI - Neck Neck: Supple, no meningeal sign, No bony TTP - Cardiac Cardiac: RRR, Other (Loud decrescendo systolic murmur, 4 out of 6 heard best at the upper sternal borders, regular rate and rhythm, paced on the monitor) - Respiratory Respiratory: No respiratory distress, Clear bilaterally - Abdomen Abdomen: Normal bowel sounds, Soft, Non tender - Male Male : Other (Grade 2 sacral pressure ulcer with barrier cream on it) - Back Back: No CVA TTP, No spinal TTP - Derm Derm: Normal color, Warm and dry - Extremities Extremities: No edema, No calf tenderness / cord - Neuro Neuro: Alert and oriented X 3, Normal speech Results - Vitals Vitals: Vital Signs - 24 hr 02/01/22 02/01/22 02/01/22 13:04 13:21 16:04 Temperature 36 C L Heart Rate 58 L 60 60 Respiratory 16 21 16 Rate Blood Pressure 134/47 H 136/62 H 137/69 H O2 Saturation 92 94 93 02/01/22 18:01 Temperature Heart Rate 60 Respiratory 18 Rate Blood Pressure 132/58 H O2 Saturation 92 Oxygen O2 Source Room air - EKG (time done) 1401 Rate: Rate (enter#) (60) Rhythm: Paced (ventricular) - Labs Labs: Laboratory Tests 02/01/22 02/01/22 02/01/22 13:35 13:35 13:35 WBC 10.2 RBC 3.50 L Hgb 10.2 L Hct 32.3 L MCV 92.3 MCH 29.1 MCHC 31.6 L RDW 15.2 H Plt Count 532 H MPV 9.3 Neut # (Auto) 7.9 H Lymph # (Auto) 1.1 L Clarke # (Auto) 0.5 Eos # (Auto) 0.6 Baso # (Auto) 0.1 Absolute Nucleated RBC 0.00 Nucleated RBC % 0.0 ESR Sodium 140 Potassium 4.5 Chloride 106 Carbon Dioxide 22 Anion Gap 12.0 BUN 22 H Creatinine 1.0 Estimated GFR (MDRD) 71 L Glucose 131 H Calcium 10.8 H Total Bilirubin 0.7 AST 14 ALT 10 Alkaline Phosphatase 63 Troponin I High Sens 20.7 H* C-Reactive Protein B-Natriuretic Peptide Total Protein 7.7 Albumin 3.2 Globulin 4.5 H Albumin/Globulin Ratio 0.7 L Lipase 26 SARS-CoV-2 (PCR) 02/01/22 02/01/22 02/01/22 13:35 14:28 15:45 WBC RBC Hgb Hct MCV MCH MCHC RDW Plt Count MPV Neut # (Auto) Lymph # (Auto) Clarke # (Auto) Eos # (Auto) Baso # (Auto) Absolute Nucleated RBC Nucleated RBC % ESR 81 H Sodium Potassium Chloride Carbon Dioxide Anion Gap BUN Creatinine Estimated GFR (MDRD) Glucose Calcium Total Bilirubin AST ALT Alkaline Phosphatase Troponin I High Sens C-Reactive Protein B-Natriuretic Peptide 620 H Total Protein Albumin Globulin Albumin/Globulin Ratio Lipase SARS-CoV-2 (PCR) NOT DETECTED 02/01/22 15:45 WBC RBC Hgb Hct MCV MCH MCHC RDW Plt Count MPV Neut # (Auto) Lymph # (Auto) Clarke # (Auto) Eos # (Auto) Baso # (Auto) Absolute Nucleated RBC Nucleated RBC % ESR Sodium Potassium Chloride Carbon Dioxide Anion Gap BUN Creatinine Estimated GFR (MDRD) Glucose Calcium Total Bilirubin AST ALT Alkaline Phosphatase Troponin I High Sens C-Reactive Protein 5.7 H B-Natriuretic Peptide Total Protein Albumin Globulin Albumin/Globulin Ratio Lipase SARS-CoV-2 (PCR) PD MEDICAL DECISION MAKING - ED course ED course: 86-year-old gentleman presents with weakness, shortness of breath and hypoxemia at home with borderline pulse oximetry here. He has fatigue and decreased appetite and activity and a loud murmur which I do not see documented in prior records. He had a echo done during his admission for COVID with mild to moderate LVH, hyperdynamic EF at 65 to 70% and no valvular disease or vegetations. Now showing evidence of congestive heart failure. Given the acute murmur and previously normal echo differential would include endocarditis although he has not had fevers or an acute valvulopathy such as mitral regurgitation. Case discussed with Dr Sewell who will do a limited bedside echo. Per verbal report from Dr. Mack after limited bedside echo. He has acute aortic regurgitation, mitral regurgitation and tricuspid regurgitation, possibly all with vegetations. His wall motion is without regional wall motion abnormality and as such she does not think it was from a silent NE and the presumption is that he may have endocarditis. She recommended 3 blood cultures but no antibiotic treatment at this juncture and transfer to a facility capable of cardiac and cardiothoracic surgery evaluation. She also noted significant right ventricular enlargement and recommended CTA. Note made that he did have coagulase-negative staph bacteremia on his prior admission back in July. 1 has to wonder if this could be the cause now. Of note it was thought to be a contaminant then which is reasonable but given the current findings wonder if he has vegetations. Case discussed by phone with Dr. Mitchell Maher, cardiology at [facility]. He defers to the hospitalist service for admission but agrees that transfer is appropriate and he will consult. Graciously excepted by Dr. Patrick Bowden to [facility] at 5:42 PM. After discussion and review of the results he would like us to go ahead and start treatment for community-acquired pneumonia based on the CT findings prior to transfer. Departure - Departure Disposition: 02 Transfer Acute Care Hosp Clinical Impression: Aortic regurgitation, Mitral regurgitation, Tricuspid regurgitation Condition: Stable
[2022-02-01 13:41] LABS: BASOPHILS # (AUTO) 0.1 10^3/uL (0.0-0.1); BASOPHILS % (AUTO) 0.6 %; EOSINOPHILS # (AUTO) 0.6 10^3/uL (0.0-0.7); EOSINOPHILS % (AUTO) 5.6 %; HCT - HEMATOCRIT 32.3 % (42.0-52.0); HGB - HEMOGLOBIN 10.2 g/dL (14.0-18.0); LYMPHOCYTES # (AUTO) 1.1 10^3/uL (1.5-3.5); LYMPHOCYTES % (AUTO) 10.4 %; MEAN CORPUSCULAR HEMOGLOBIN 29.1 pg (27.0-31.0); MEAN CORPUSCULAR HGB CONC 31.6 g/dL (32.0-36.0); MEAN CORPUSCULAR VOLUME 92.3 fL (80.0-94.0); MEAN PLATELET VOLUME 9.3 fL (7.4-11.4); MONOCYTES # (AUTO) 0.5 10^3/uL (0.0-1.0); NEUTROPHILS # (AUTO) 7.9 10^3/uL (1.5-6.6); NEUTROPHILS % (AUTO) 77.8 %; PLT - PLATELET COUNT 532 10^3/uL (130-450); RED CELL DISTRIBUTION WIDTH 15.2 % (12.0-15.0); WHITE BLOOD COUNT 10.2 x10^3/uL (4.8-10.8)
[2022-02-01 13:58] LABS: ALBUMIN 3.2 g/dL (3.2-5.5); ALBUMIN/GLOBULIN RATIO 0.7 (1.0-2.2); BILIRUBIN,TOTAL 0.7 mg/dL (0.2-1.0); CALCIUM 10.8 mg/dL (8.5-10.3); POTASSIUM 4.5 mmol/L (3.5-5.0); TOTAL PROTEIN 7.7 g/dL (6.7-8.2)
--- NOTE | 2022-02-01 14:33 | XRAY Report ---
PROCEDURE: Chest 1 View X-Ray INDICATIONS: dyspnea TECHNIQUE: One view of the chest was acquired. COMPARISON: 08/13/2021 FINDINGS: Surgical changes and devices: Left-sided dual-chamber pacemaker present. Heart size is enlarged. There is moderate vascular congestion present. Minimal blunting the right cos tophrenic angle. Left total space clear. No pneumothorax. Atherosclerotic calcification noted in the aortic arch IMPRESSION: Hepatomegaly and moderate vascular congestion Pacemaker Reviewed by: Maciej Rojas MD on 02/01/2022 1:32 PM AKDT Approved by: Maciej Rojas MD on 02/01/2022 1:32 PM AKDT Station ID: [id number]
[2022-02-01] MEDS ORDERED: IOVERSOL 320 50 ML VIAL ONE (15:45)
--- NOTE | 2022-02-01 16:03 | CONSULTATION NOTE ---
Referring Provider Name of Referring Provider:: Dr Mcintosh Consult Date: 02/01/22 Chief Complaint - Chief Complaint Chief Complaint: Dyspnea, new loud murmur History of Present Illness - History Obtained From History obtained from: ED provider, chart review and the patient's daughter who is at bedside - History of Present Illness HPI Comment/Other: This is a 86-year-old white male with a history of DM, mild dementia, pacemaker for history of complete heart block, chronic atrial fib on Pradaxa, BPH who needed a chronic Blevins for several months after he was hospitalized here in July 2021 for COVID-pneumonia. He also went home with oxygen after that admission, used O2 for several months then it was stopped. The patient has 24/7 caregivers and his daughter lives next-door. When the patient was here in July 2021, exam showed no murmur however he did have Staph aureus bacteremia that was partly treated, since at discharge it was felt to be a contaminant. The patient has been compliant with all his medications, they are supervised and administered to him by the caregivers. He had his pacemaker checked 3 months ago with his new associate field service engineer, Dr. Gaston Tejada at [facility], with [place]. Her notes from that visit state that he has mild aortic stenosis. Ten days ago, he became noticeably weak, when he nearly fell 2 nights in a row, when ambulating to the bathroom. After that he was mostly in bed or in his wheelchair, not using his walker to ambulate. The daughter also noticed that he was short of breath. Today he was severely short of breath and a home oximeter showed his saturation was 82% on room air. He was brought to the emergency room. Significant findings in the ED include BNP of 620, a 4/6 systolic murmur is heard and his chest x-ray shows CHF. He and the daughter deny that he has had any fever in the last several weeks, no dental work was done, no signs of infection except an on and off sacral decubitus ulcer. There are no symptoms of COVID like he had 6 months ago. 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 The Echo showed: Severe left atrial and right atrial enlargement. Severely dilated right ventricle with RVH and mildly reduced RV function. A pacemaker is seen in the right heart. Normal LV size with LVH and preserved LV function, EF 55-60%. Probable mild diastolic dysfunction by Doppler. His tricuspid valve, mitral valve and aortic valve all have thickening and calcification, and cannot rule out endocarditis. The pulmonic valve is poorly seen. There is mitral regurgitation, tricuspid regurgitation, aortic stenosis and aortic regurgitation, their severity could not be graded. He has a small, loculated apical pericardial effusion. History - Past Medical History Cardiovascular: reports: Hypertension, High cholesterol, Atrial fibrillation Respiratory: reports: None Neuro: reports: None Endocrine/Autoimmune: reports: Type 2 diabetes GI: reports: None : reports: None HEENT: reports: Chronic vision loss Psych: reports: None Musculoskeletal: reports: Osteoarthritis, Rheumatoid arthritis Derm: reports: None MRSA Hx?: No - Past Surgical History General: reports: Colonoscopy Cardiovascular: reports: Pacemaker - Family & Social History Family History Comment/Other: He was estranged from his mother and father and as such, his siblings. He does not know enough about the family history to comment on it. He did have 5 children with his . All of his children are healthy. Daughter concured. 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 He is a . He did have a history of alcohol abuse decades ago and went through alcohol abuse counseling, alcoholics anonymous and has not drank in decades. He has no history of smoking. No history of recreational substance abuse. Meds/Allgy - Home Medications Home Medications: Ambulatory Orders Medication Instructions Recorded Confirmed Dabigatran [Pradaxa] 150 mg PO BID 07/06/13 02/01/22 Atorvastatin Calcium 40 mg PO QPM 07/26/21 02/01/22 Lisinopril [Zestril] 20 mg PO BID 07/26/21 02/01/22 Metoprolol Succinate [Toprol Xl] 25 mg PO DAILY 07/26/21 02/01/22 NIFEdipine [Procardia Xl] 90 mg PO DAILY 07/26/21 02/01/22 metFORMIN [Glucophage] 500 mg PO BIDWM 07/26/21 02/01/22 sulfaSALAzine [Azulfidine] 500 mg PO BID 07/27/21 02/01/22 Zinc Oxide 20% Oint [Zinc Oxide] 1 applic TOP PRN PRN 08/10/21 02/01/22 - Allergies Allergies/Adverse Reactions: Allergies Allergy/AdvReac Type Severity Reaction Status Date / Time bee venom protein (honey bee) Allergy Intermediate Edema Verified 02/01/22 13:08 Review of Systems - Constitutional Constitutional: reports: Weakness - Respiratory Respiratory: reports: Orthopnea, SOB at rest, SOB with exertion - Integumentary Integumentary: reports: Other (sacral decubitus ulcer that is occaisionally painful, not painful today) - All Other Systems All Other Systems: reports: Reviewed and negative Exam - Vital Signs Vital Signs: Vital Signs x48h Temp Pulse Resp BP Pulse Ox 02/01/22 13:21 60 21 136/62 H 94 02/01/22 13:04 36 C L 58 L 16 134/47 H 92 - Physical Exam General Appearance: positive: No acute distress, Alert Eyes Bilateral: positive: Normal inspection, EOMI ENT: positive: ENT inspection nml, No signs of dehydration Neck: positive: Nml inspection Respiratory: positive: Other (Tachypnea, diminished breath sounds antweriorly) Cardiovascular: positive: Regular rate & rhythm, Systolic murmur (loudest parasternally) Abdomen: positive: Non-tender, No distention Skin: positive: Warm, Dry Extremities: positive: Non-tender, Other (1+ ankle edema) Neurologic/Psychiatric: positive: Oriented x3 Conclusion/Plan - Problem List (1) Acute diastolic heart failure Conclusion/Plan: He has pulmonary edema on exam, chest x-ray and by BNP testing. His LVEF is preserved therefore this is from diastolic heart failure. IV diuresis should be started. We do not currently have Echo service available at this hospital, for another Echo to be even done by a laboratory mechanical technician. In order to provide complete medical management, he needs further evaluation as to its cause, therefore I recommend that he be transferred to a hospital with higher level of care. This was all communicated to Dr Mcintosh. (2) Heart murmur Conclusion/Plan: Clinically, on exam, the murmur sounds like tricuspid regurgitation however cannot rule out significant regurg from his mitral, aortic or tricuspid valves. The tricuspid regurgitation jet was not adequately seen to grade its severity. He also has 3 valves that may have endocarditis. He did have positive staph aureus bacteremia 6 months ago and these abnormally thickened valves could have endocarditis. I recommend that he be transferred to a center with higher level of care that has [facility] and Cardiology and Cardiothoracic surgery on staff. I agree with doing blood cx (at least 2), but not starting antibiotics. (3) Cor pulmonale Conclusion/Plan: This is a new finding since the Echo from July 2021 done here. His PA pressure could not be estimated from this limited bedside Echo. I suspect he has pulm hypertension, given the enlarged RV. A CTA chest is advised, even though he takes Pradaxa, to rule out a PE or pulm pathology (4) Chronic atrial fibrillation Conclusion/Plan: Heart rate is currently under control. The pacemaker was recently checked and is functioning well. He is on an anticoagulant. - Lab Results Fish Bones: 02/01/22 13:35 02/01/22 13:35 - Diagnostic Imaging Results Diagnostic Imaging Results: positive: Final report reviewed
[2022-02-01] MEDS ORDERED: IOVERSOL 320 50 ML VIAL IVP ONE (16:04)
--- NOTE | 2022-02-01 16:38 | CT Report ---
PROCEDURE: CT chest angiogram with contrast INDICATIONS: dyspnea CONTRAST: IV CONTRAST: Optiray 320 ml: 80 PO CONTRAST: *NO PO CONTRAST TECHNIQUE: After the administration of intravenous contrast, 2 mm axial images were acquired from the pulmonary apices to the posterior costophrenic angles during the arterial phase. In addition, 1 mm lung kernel and 5 mm soft tissue kernel reconstructions were performed. For radiation dose reduction, the followi ng was used: automated exposure control, adjustment of mA and/or kV according to patient size. COMPARISON: None FINDINGS: Image quality: Excellent. Pulmonary arteries: Pulmonary arteries are normal in size, and demonstrate no intraluminal filling d efects to suggest central pulmonary embolism. Lungs and pleura: Advanced and bilateral bullous pulmonary emphysema noted particularly apices. Patch y bilateral pulmonary infiltrates noted consistent with pneumonia. No pneumothorax pleural effusion. Mediastinum: Heart size is enlarged. Cardiac pacer wires present. Coronary artery vascular calcifica tion associated with mitral annular valvular calcification as well. No mediastinal or hilar adenopat hy. Thoracic aorta is normal in caliber and enhancement. Diffuse atherosclerotic vascular calcifica tion noted. Esophagus is normal in caliber, without hiatal hernia. Bones and chest wall: No suspicious bony lesions. Ribs and thoracic spine appear intact throughout. No axillary or supraclavicular adenopathy. The thyroid is normal in size and there are no incident al findings. Abdomen: Visualized upper abdominal solid organs appear normal in the early arterial phase of enhanc ement. Small amount of perihepatic free fluid IMPRESSION: 1. No evidence of pulmonary embolism or aortic aneurysm. 2. Multifocal pulmonary infiltrates consistent with pneumonia 3. Advanced bullous pulmonary emphysema 4. Cardiomegaly and pacemaker Reviewed by: Maciej Rojas MD on 02/01/2022 3:37 PM [facility]DT Approved by: Maciej Rojas MD on 02/01/2022 3:37 PM AKDT Station ID: [id number]
[2022-02-01] MEDS ORDERED: cefTRIAXone 2 GM in SODIUM CHLORIDE 0.9% MINIBAG 100 ML IV STA (17:42)
[2022-02-01] MEDS ORDERED: AZITHROMYCIN INJ 500 MG in SODIUM CHLORIDE 0.9% 250 ML IV STA (17:42)
[2022-02-01] MEDS ORDERED: cefTRIAXone 2 GM VIAL ONE (18:06)
[2022-02-01 20:02] VITALS: BP 147/61
== END 2022-02-01 20:40 | disposition short-term general hospital (02) ==
LOC: ED 13:01
DX: I11.0 Hypertensive heart disease with heart failure (principal); I50.31 Acute diastolic (congestive) heart failure; I08.3 Combined rheumatic disorders of mitral, aortic and tricuspid valves; I48.20 Chronic atrial fibrillation, unspecified; E11.9 Type 2 diabetes mellitus without complications; Z79.84 Long term (current) use of oral hypoglycemic drugs; Z95.0 Presence of cardiac pacemaker; Z79.01 Long term (current) use of anticoagulants; Z87.891 Personal history of nicotine dependence; Z20.822 Contact with and (suspected) exposure to COVID-19; R01.1 Cardiac murmur, unspecified
CPT/HCPCS: 36415; 80053; 83690; 83880; 84484; 85025; 85651; 86140; 87040; 93005; 96365; 96367; 99283

== ENCOUNTER 2022-04-02 11:34 | Outpatient (CLI) | payer MEDICARE ==
[2022-04-02 14:53] LABS: ALBUMIN 3.4 g/dL (3.2-5.5); ALBUMIN/GLOBULIN RATIO 0.9 (1.0-2.2); BILIRUBIN,TOTAL 0.4 mg/dL (0.2-1.0); CALCIUM 10.4 mg/dL (8.5-10.3); CREATININE 1.2 mg/dL (0.6-1.2); POTASSIUM 4.4 mmol/L (3.5-5.0); TOTAL PROTEIN 7.1 g/dL (6.7-8.2)
[2022-04-02 15:04] LABS: BASOPHILS # (AUTO) 0.1 10^3/uL (0.0-0.1); BASOPHILS % (AUTO) 0.6 %; EOSINOPHILS % (AUTO) 11.8 %; HCT - HEMATOCRIT 34.5 % (42.0-52.0); HGB - HEMOGLOBIN 10.6 g/dL (14.0-18.0); LYMPHOCYTES # (AUTO) 1.5 10^3/uL (1.5-3.5); MEAN CORPUSCULAR HEMOGLOBIN 29.5 pg (27.0-31.0); MEAN CORPUSCULAR HGB CONC 30.7 g/dL (32.0-36.0); MEAN CORPUSCULAR VOLUME 96.1 fL (80.0-94.0); MEAN PLATELET VOLUME 10.2 fL (7.4-11.4); MONOCYTES # (AUTO) 0.8 10^3/uL (0.0-1.0); MONOCYTES % (AUTO) 8.5 %; NEUTROPHILS # (AUTO) 5.5 10^3/uL (1.5-6.6); NEUTROPHILS % (AUTO) 61.6 %; PLT - PLATELET COUNT 346 10^3/uL (130-450); RED BLOOD COUNT 3.59 10^6/uL (4.70-6.10); RED CELL DISTRIBUTION WIDTH 15.8 % (12.0-15.0); WHITE BLOOD COUNT 8.8 x10^3/uL (4.8-10.8)
[2022-04-02 15:15] LABS: SLIDE REVIEW? Indicated
[2022-04-02 16:53] LABS: PLATELET MORPHOLOGY NORMAL APPEARANCE (NORMAL)
[2022-04-02 16:54] LABS: DIFFERENTIAL COMMENT MANUAL=AUTO DIFF; PLATELET ESTIMATE, MANUAL NORMAL (130-450,000) (NORMAL)
[2022-04-02 20:45] LABS: ESTIMATED AVERAGE GLUCOSE 137 mg/dL (70-100); HEMOGLOBIN A1c% 6.4 % (4.27-6.07)
== END 2022-04-02 11:35 | disposition home or self-care (01) ==
LOC: LAB.S 11:34
PROVIDERS: ATTEND Internal Medicine
DX: I10 Essential (primary) hypertension (principal); E11.29 Type 2 diabetes mellitus with other diabetic kidney complication
CPT/HCPCS: 36415; 80053; 83036; 85025

== ENCOUNTER 2022-07-20 08:00 | Outpatient (CLI) | payer MEDICARE | END 2022-07-20 23:59 | disposition home or self-care (01) | LOC: LAB.S 08:00 | PROVIDERS: ATTEND Physician Assistant | DX: R30.0 Dysuria (principal) | CPT/HCPCS: 87086 ==